=== PATIENT | female | born 1935 | race Caucasian/White ===

== ENCOUNTER 2017-07-01 21:40 | Inpatient (IN) | payer MEDICARE, MEDICAID ==
[~2017-07-01] VITALS: Ht 149.9 cm; Wt 71.2 kg
[2017-07-01 21:40] VITALS: BP 110/58
[2017-07-01] MEDS ORDERED: Albuterol ud Inhalation ONE (21:44)
[2017-07-01] MEDS ORDERED: Ipratropium 0.02% Inh Soln 2.5ml UD ONE (21:44)
[2017-07-01] MEDS ORDERED: Ipratropium 0.02% Inh Soln 2.5ml UD HHN ONE (21:45)
[2017-07-01] MEDS ORDERED: Solu-MEDROL 125mg Inj IVP ONE (21:45)
[2017-07-01] MEDS ORDERED: Albuterol ud Inhalation HHN ONE (21:45)
[2017-07-01 22:05] LABS: MEAN CORPUSCULAR HEMOGLOBIN 27.3 PG (27.0-31.0); MEAN CORPUSCULAR HGB CONC 28.8 G/DL (32.0-36.0); MEAN CORPUSCULAR VOLUME 95 FL (80-99); MEAN PLATELET VOLUME 13.4 FL (6.5-10.1); PLATELET COUNT 160 K/UL (150-450); RED BLOOD COUNT 5.43 M/UL (4.20-5.40); RED CELL DISTRIBUTION WIDTH 17.1 % (11.6-14.8); WHITE BLOOD COUNT 9.6 K/UL (4.8-10.8)
[2017-07-01 22:15] LABS: PROTHROMBIN TIME 10.5 SEC (9.30-11.50)
[2017-07-01 22:24] LABS: REFLEX LACTIC ACID YES OR NO YES
[2017-07-01] MEDS ORDERED: Cefepime HCl 1 GM in D5W 55 ML IVPB ONE (22:30)
[2017-07-01 22:31] LABS: ALANINE AMINOTRANSFERASE 46 U/L (12-78); ALBUMIN/GLOBULIN RATIO 0.6 (1.0-2.7); ANION GAP 17 (5-15); ASPARTATE AMINO TRANSFERASE 27 U/L (15-37); CALCIUM 10.5 MG/DL (8.5-10.1); CARBON DIOXIDE 25 MMOL/L (21-32); CHLORIDE 104 MMOL/L (98-107); CKMB 0.6 NG/ML (0.0-3.6); CREATININE 2.6 MG/DL (0.55-1.30); POTASSIUM 4.3 MMOL/L (3.5-5.1); SODIUM 146 MMOL/L (136-145); TOTAL PROTEIN 8.7 G/DL (6.4-8.2)
[2017-07-01] MEDS ORDERED: Cefepime 1gm vial ONE (22:33)
[2017-07-01 23:08] LABS: KETONES,URINE NEGATIVE (NEGATIVE); LEUKOCYTE ESTERASE ,URINE 2+ (NEGATIVE); NITRITE,URINE NEGATIVE (NEGATIVE); PH,URINE 6 (4.5-8.0); PROTEIN,URINE 2+ (NEGATIVE); UROBILINOGEN,URINE NORMAL MG/DL (0.0-1.0)
[2017-07-01 23:12] LABS: TOTAL CELLS COUNTED 100
[2017-07-01 23:13] LABS: BAND NEUTROPHILS % (MANUAL) 5 % (0-8); BASOPHILS % (MANUAL) 0 % (0-2); EOSINOPHILS % (MANUAL) 0 % (0-3); LYMPHOCYTES % (MANUAL) 12 % (20-45); NEUTROPHILS % (MANUAL) 80 % (45-75); PLATELET ESTIMATE ADEQUATE; PLATELET MORPHOLOGY NORMAL
[2017-07-01 23:14] LABS: ANISOCYTOSIS 1+
[2017-07-01 23:18] LABS: APPEARANCE,URINE CLOUDY
[2017-07-01 23:20] LABS: BACTERIA,URINE MANY /HPF; SQUAMOUS EPITHELIAL CELL,UR FEW /LPF (NONE/OCC); WBC,URINE 40-60 /HPF (0 - 2)
[2017-07-01 23:40] VITALS: BP 129/47
[2017-07-02] VITALS (7 sets, daily range): BP systolic 107–162; BP diastolic 43–89
[2017-07-02] MEDS ORDERED: MULTI-DELYN237 ML GT (00:12)
[2017-07-02] MEDS ORDERED: ALBUTEROL2.5 MG/3 M INH (00:12)
[2017-07-02] MEDS ORDERED: GERI-TUSSI100 MG/5 M GT (00:12)
[2017-07-02] MEDS ORDERED: ASPIRIN81 MG GT (00:12)
[2017-07-02] MEDS ORDERED: ATORVASTATIN CA20 MG GT (00:12)
[2017-07-02] MEDS ORDERED: PRO-STAT LIQUID30 ML GT (00:12)
[2017-07-02] MEDS ORDERED: GLUCERNA1500 ML GT (00:12)
[2017-07-02] MEDS ORDERED: LEVAQUIN250 M1 GT (00:12)
[2017-07-02] MEDS ORDERED: LEVOTHYROXINE75 MCG GT (00:12)
[2017-07-02] MEDS ORDERED: COLACE100 MG GT (00:12)
[2017-07-02] MEDS ORDERED: FLORANEX TABLE1 EAC1 GT (00:12)
[2017-07-02] MEDS ORDERED: MOM30 ML GT (00:12)
[2017-07-02] MEDS ORDERED: TYLENOL325 MG GT (00:12)
[2017-07-02] MEDS ORDERED: CRANBERRY450 M4 GT (00:12)
--- NOTE | 2017-07-02 00:14 | Emergency Room Report ---
History of Present Illness General Chief Complaint: Dyspnea/Respdistress Source: Family Member, Medical Record, EMS Present Illness HPI Is an 81-year-old female with multiple medical problem. She is in a intermediate and is a DO NOT RESUSCITATE. Patient presents with altered mental status and respiratory distress. She was recently treated with antibiotics for pneumonia the chest x-ray. Symptom progressing it worse today. EMS was called. Per EMS he was hypoxic and wheezing. They gave her a breathing treatment and brought her here. History is limited in this patient because of her condition. Allergies: Coded Allergies: IODINE (Verified Allergy, Unknown, 07/01/17) PENICILLINS (Verified Allergy, Unknown, 07/01/17) Patient History Past Medical History: see triage record, old chart reviewed Past Surgical History: other Pertinent Family History: none Social History: Denies: smoking Now: No Immunizations: other Reviewed Nursing Documentation: PMH: Agreed, PSxH: Agreed Nursing Documentation-PMH Past Medical History: No History, Except For Hx COPD: Yes History Of Psychiatric Problem: Yes Hx Cerebrovascular Accident: Yes - Hemiplagia Review of Systems Constitutional: Reports: weakness Eye: Denies: eye pain, blurred vision ENT: Denies: ear pain, nose congestion, throat swelling Respiratory: Reports: shortness of breath, Denies: cough Cardiovascular: Denies: chest pain, palpitations Gastrointestinal: Denies: abdominal pain, diarrhea, nausea, vomiting Musculoskeletal: Denies: back pain, joint pain Skin: Denies: rash Neurological: Denies: headache, numbness Endocrine: Denies: increased thirst, increased urine Hematologic/Lymphatic: Denies: easy bruising All Other Systems: negative except mentioned in HPI Physical Exam Vital Signs Date Time Temp Pulse Resp B/P (MAP) Pulse Ox O2 Delivery O2 Flow Rate FiO2 07/01/17 21:34 103.3 153 34 110/58 99 Simple Mask 8.0 07/01/17 21:47 28 vitals with fever and tachycardia Sp02 EP Interpretation: reviewed, normal General Appearance: moderate distress, lethargic, obese, Chronically Ill Head: normocephalic, atraumatic Eyes: bilateral eye PERRL, bilateral eye EOMI ENT: hearing grossly normal, normal pharynx Neck: full range of motion, supple, no meningismus Respiratory: chest non-tender, respiratory distress, decreased breath sounds, rhonchi, wheezing Cardiovascular #1: regular rate, rhythm, no murmur, tachycardia Gastrointestinal: normal bowel sounds, non tender, no mass, no organomegaly, no bruit, non-distended Musculoskeletal: back normal, normal range of motion Neurologic: grossly normal Skin: warm/dry Procedures Critical Care Time Critical Care Time Critical care is mandated in this patient who presented with severe sepsis from pneumonia and UTI. Patient require my urgent intervention to attenuate the risks of metabolic collapse which may lead to cardiovascular collapse and . Critical care time is 35 minutes excluding any reportable procedure. Critical care time included evaluation, multiple reevaluation, looking at old charts, interpreting laboratory and diagnostic data, discussing case with patient and family and consultants, and charting. Medical Decision Making Diagnostic Impression: Primary Impression: Sepsis Qualified Codes: A41.9 - Sepsis, unspecified organism Additional Impressions: Pneumonia Qualified Codes: J18.9 - Pneumonia, unspecified organism UTI (urinary tract infection) Qualified Codes: N30.00 - Acute cystitis without hematuria Respiratory distress ARF (acute renal failure) Qualified Codes: N17.9 - Acute kidney failure, unspecified Proteinuria Qualified Codes: R80.9 - Proteinuria, unspecified ER Course Presents with rest or distress and has severe sepsis with pneumonia and UTI. Wide spectrum antibiotics initiated. Patient received fluid. Lactic acid improved. I discussed case with Dr. Roberts who will admit. Also discussed case with her daughter Lalitha at [phone]. She is POA. Laboratory Tests Test 07/01/17 21:40 07/01/17 22:05 07/01/17 23:25 White Blood Count 9.6 K/UL (4.8-10.8) Red Blood Count 5.43 M/UL (4.20-5.40) H Hemoglobin 14.9 G/DL (12.0-16.0) Hematocrit 16.0 % (37.0-47.0) L Mean Corpuscular Volume 95 FL (80-99) Mean Corpuscular Hemoglobin 27.3 PG (27.0-31.0) Mean Corpuscular Hemoglobin Concent 28.8 G/DL (32.0-36.0) L Red Cell Distribution Width 17.1 % (11.6-14.8) H Platelet Count 160 K/UL (150-450) Mean Platelet Volume 13.4 FL (6.5-10.1) H Neutrophils (%) (Auto) % (45.0-75.0) Lymphocytes (%) (Auto) % (20.0-45.0) Monocytes (%) (Auto) % (1.0-10.0) Eosinophils (%) (Auto) % (0.0-3.0) Basophils (%) (Auto) % (0.0-2.0) Differential Total Cells Counted 100 Neutrophils % (Manual) 80 % (45-75) H Lymphocytes % (Manual) 12 % (20-45) L Monocytes % (Manual) 3 % (1-10) Eosinophils % (Manual) 0 % (0-3) Basophils % (Manual) 0 % (0-2) Band Neutrophils 5 % (0-8) Platelet Estimate Adequate Platelet Morphology Normal Anisocytosis 1+ Prothrombin Time 10.5 SEC (9.30-11.50) Prothromb Time International Ratio 1.0 (0.9-1.1) Activated Partial Thromboplast Time 26 SEC (23-33) Sodium Level 146 MMOL/L (136-145) H Potassium Level 4.3 MMOL/L (3.5-5.1) Chloride Level 104 MMOL/L (98-107) Carbon Dioxide Level 25 MMOL/L (21-32) Anion Gap 17 (5-15) H Blood Urea Nitrogen 64 mg/dL (7-18) H Creatinine 2.6 MG/DL (0.55-1.30) H Estimat Glomerular Filtration Rate mL/min (>60) Glucose Level 163 MG/DL (74-106) H Lactic Acid Level 7.00 mmol/L (0.66-2.22) H Pending Calcium Level 10.5 MG/DL (8.5-10.1) H Total Bilirubin 0.7 MG/DL (0.2-1.0) Aspartate Amino Transf (AST/SGOT) 27 U/L (15-37) Alanine Aminotransferase (ALT/SGPT) 46 U/L (12-78) Alkaline Phosphatase 102 U/L (46-116) Total Creatine Kinase 47 U/L (26-308) Creatine Kinase MB 0.6 NG/ML (0.0-3.6) Creatine Kinase MB Relative Index 1.2 Troponin I 0.021 ng/mL (0.000-0.056) Pro-B-Type Natriuretic Peptide 2418 (0-125) H Total Protein 8.7 G/DL (6.4-8.2) H Albumin 3.3 G/DL (3.4-5.0) L Globulin 5.4 g/dL Albumin/Globulin Ratio 0.6 (1.0-2.7) L Urine Color Pale yellow Urine Appearance Cloudy Urine pH 6 (4.5-8.0) Urine Specific [place] 1.020 (1.005-1.035) Urine Protein 2+ (NEGATIVE) H Urine Glucose (UA) Negative (NEGATIVE) Urine Ketones Negative (NEGATIVE) Urine Occult Blood 4+ (NEGATIVE) H Urine Nitrite Negative (NEGATIVE) Urine Bilirubin Negative (NEGATIVE) Urine Urobilinogen Normal MG/DL (0.0-1.0) Urine Leukocyte Esterase 2+ (NEGATIVE) H Urine RBC 5-10 /HPF (0 - 2) H Urine WBC 40-60 /HPF (0 - 2) H Urine Squamous Epithelial Cells Few /LPF (NONE/OCC) Urine Bacteria Many /HPF (NONE) H Lab Results Impression labs with elevated lactic acid EKG Diagnostic Results Rate: tachycardiac Rhythm: NSR ST Segments: other - Nonspecific ST changes Rhythm Strip Diag. Results Rhythm Strip Time: 00:12 EP Interpretation: yes Rate: 110 Rhythm: NSR, no PVC's, no ectopy Chest X-Ray Diagnostic Results Chest X-Ray Diagnostic Results : Chest X-Ray Ordered: Yes # of Views/Limited/Complete: 1 View Indication: Shortness of Breath EP Interpretation: Yes Interpretation: no effusion, no pneumothorax, other - Diffuse interstitial markings Impression: Other - b/l interstitial infiltrates. Electronically Signed by: Electronically signed by Arnoldo Fernando MD Last Vital Signs Date Time Temp Pulse Resp B/P (MAP) Pulse Ox O2 Delivery O2 Flow Rate FiO2 07/01/17 23:40 101.1 87 28 129/47 94 Nasal Cannula 3.0 07/01/17 21:48 28 Status: improved Disposition: ADMITTED INPATIENT Condition: Serious Referrals: JANELLE ROBERTS (PCP) ARNOLDO FERNANDO M.D. Jul 02, 2017 00:14
[2017-07-02] MEDS ORDERED: Acetaminophen 650mg/20.3ml GT PRN (03:30)
[2017-07-02] MEDS ORDERED: Milk of Magnesia 30ml Ud GT PRN (03:30)
[2017-07-02] MEDS ORDERED: guaiFENesin 100mg/5ml Liq ud GT PRN (03:30)
[2017-07-02] MEDS ORDERED: Vancomycin 1gm/D5W 275ml IVPB ONE ×2 (04:00)
[2017-07-02] MEDS ORDERED: Vancomycin 1gm inj IVPB ONE (04:14)
[2017-07-02] MEDS ORDERED: Albuterol/Ipratropium 3ml neb HHN SCH (07:00)
[2017-07-02] MEDS ORDERED: Levalbuterol Inh UD 1.25mg/0.5ml HHN ONE (08:30)
[2017-07-02] MEDS ORDERED: Cefepime HCl 1 GM in D5W 55 ML IVPB SCH (09:00)
[2017-07-02] MEDS: Econazole 1% Cream 15gm TOPIC SCH ×2 (09:00→17:44)
[2017-07-02] MEDS ORDERED: Multivitamins W/Minerals 15 ML UDC GT SCH ×2 (09:00)
[2017-07-02] MEDS: Aspirin Baby 81mg GT SCH (10:00)
[2017-07-02] MEDS: Docusate 100mg/10ml Liq GT SCH ×2 (10:00→17:44)
[2017-07-02] MEDS: Solu-MEDROL 40mg Inj IVP SCH ×2 (10:00→17:44)
[2017-07-02] MEDS: Multivitamin w/Minerals tab ORAL SCH (10:01)
[2017-07-02] MEDS: Heparin 5000 units/ml inj SUBQ SCH ×2 (10:02→20:00)
--- NOTE | 2017-07-02 10:21 | Diagnostic Imaging Report ---
Indication: SOB Technique: One view of the chest Comparison: none Findings: Lungs and pleural spaces are clear. The heart size is upper limits normal. Aorta is tortuous and calcified.. Impression: No acute process
[2017-07-02 11:04] LABS: ALANINE AMINOTRANSFERASE 31 U/L (12-78); ALBUMIN/GLOBULIN RATIO 0.5 (1.0-2.7); ANION GAP 11 (5-15); ASPARTATE AMINO TRANSFERASE 18 U/L (15-37); CALCIUM 8.9 MG/DL (8.5-10.1); CARBON DIOXIDE 24 MMOL/L (21-32); CHLORIDE 111 MMOL/L (98-107); CREATININE 2.3 MG/DL (0.55-1.30); POTASSIUM 4.1 MMOL/L (3.5-5.1); SODIUM 146 MMOL/L (136-145); TOTAL PROTEIN 6.6 G/DL (6.4-8.2)
[2017-07-02 12:06] LABS: MEAN CORPUSCULAR HGB CONC 31.9 G/DL (32.0-36.0); MEAN CORPUSCULAR VOLUME 91 FL (80-99); MEAN PLATELET VOLUME 14.9 FL (6.5-10.1); PLATELET COUNT 123 K/UL (150-450); RED BLOOD COUNT 4.06 M/UL (4.20-5.40); RED CELL DISTRIBUTION WIDTH 16.6 % (11.6-14.8)
[2017-07-02 12:11] LABS: WHITE BLOOD COUNT 22.3 K/UL (4.8-10.8)
[2017-07-02 12:15] LABS: REFLEX LACTIC ACID YES OR NO YES
[2017-07-02] MEDS: Levalbuterol Inh UD 1.25mg/0.5ml HHN SCH ×2 (12:43→19:00)
--- NOTE | 2017-07-02 13:48 | Wound Care Consultation ---
Wound Assessment Wound Assessment #1: Wound Number: 1 Wound Present on Admission: Yes New Wound: No Status Change of Wound: No Wound Location Body Site Modif: left, right Wound Location Body Site: breast fold Wound Type: rash - intertrigo Chucky Test: Does not Chucky Percent of Wound Kohler/Red: 100 Wound Drainage Amount: None Wound Drainage Odor: None/Absent Tissue Surrounding Wound: Erythemic Wound General Appearance: Reddened, Open to air Wound Assessment #2: Wound Number: 2 Wound Present on Admission: Yes New Wound: No Status Change of Wound: No Wound Location Body Site Modif: left Wound Location Body Site: axilla Wound Type: rash - intertrigo rash Chucky Test: Does not Chucky Percent of Wound Kohler/Red: 100 Wound Drainage Amount: None Wound Drainage Odor: None/Absent Tissue Surrounding Wound: Erythemic Wound General Appearance: Reddened Wound Assessment #3: Wound Number: 3 Wound Present on Admission: Yes New Wound: No Status Change of Wound: No Wound Location Body Site: perineal area - extending to inguinal area Wound Type: chemical burn - with erosion Chucky Test: Does not Chucky Wound Thickness: Partial Thickness Percent of Wound Kohler/Red: 100 Wound Drainage Amount: None Wound Drainage Odor: None/Absent Tissue Surrounding Wound: Erythemic Wound General Appearance: Reddened Wound Comment #1 Left and right Breast fold intertrigo rash. #2 Left axilla intertrigo rash. #3 perineal extending to inguinal area chemical burn with erosion. Recommendation. -Local wound care as ordered. -Keep clean and dry. -Provide gentle perineal care. -Turn and reposition. -Optimize nutrition. -Avoid shear and friction. -Apply low air loss SPR mattress for skin management and prevention. -Assess and notify MD for any changes of condition to skin noted. KAVITHA PALOMO Jul 02, 2017 13:48
[2017-07-02 13:57] LABS: BAND NEUTROPHILS % (MANUAL) 0 % (0-8); BASOPHILS % (MANUAL) 0 % (0-2); EOSINOPHILS % (MANUAL) 0 % (0-3); LYMPHOCYTES % (MANUAL) 4 % (20-45); NEUTROPHILS % (MANUAL) 93 % (45-75); PLATELET ESTIMATE DECREASED; PLATELET MORPHOLOGY NORMAL; TOTAL CELLS COUNTED 100
[2017-07-02] MEDS ORDERED: Tubing IV Secondary IV ONE (16:46)
[2017-07-02] MEDS ORDERED: D5W 275ml ONE (16:46)
--- NOTE | 2017-07-02 17:45 | History and Physical Report ---
DATE OF ADMISSION: 07/01/2017 CHIEF COMPLAINT: Sepsis, pneumonia, and shock. HISTORY OF PRESENT ILLNESS: The patient is an 81-year-old female, who was transferred from a [place] [facility] facility with complaints of shortness of breath. She was previously diagnosed with pneumonia several weeks ago. She responded to antibiotic therapy. On the day of transfer here, she was hypoxic and short of breath. She was transferred by paramedics. On evaluation in the emergency room, she was noted to be congested with wheezing. She had x-ray evidence of pneumonia. She also had evidence of urinary tract infection. She had elevated lactic acid level. The patient has been pancultured, has been started on broad-spectrum IV antibiotic therapy. She is now admitted for further evaluation and care. PAST MEDICAL HISTORY: Significant for history of stroke, bilateral [id number] amputations, history of hypertension, history of dysphagia, status post G-tube, and history of recurrent urinary tract infections. PAST SURGICAL HISTORY: As above. CURRENT MEDICATIONS: Reconciled and reviewed. ALLERGIES: Include penicillin, iodine, and chocolate. FAMILY HISTORY: Noncontributory. SOCIAL HISTORY: There is no known history of tobacco, ethanol, or drugs. REVIEW OF SYSTEMS: Unobtainable as the patient is confused. PHYSICAL EXAMINATION: VITAL SIGNS: Temperature 100.4, blood pressure 130/58, pulse of 116, and respirations 20. GENERAL: The patient is a well-developed female, in no apparent distress. She is awake and does follow simple commands. HEENT: Her pupils are equal, round, and reactive to light. Oropharynx clear. NECK: Supple. HEART: Regular rate and rhythm. LUNGS: Significant for bilateral rhonchi. ABDOMEN: Soft, nontender, nondistended. EXTREMITIES: Without clubbing, cyanosis, or edema. LABORATORY DATA: Sodium 146, potassium 4.3, BUN 64, and creatinine 2.6. Lactic acid level was 7. Natriuretic peptide level was 2400. Urine showed 40 to 60 WBCs. ASSESSMENT: This is a pleasant female, admitted with complaints of sepsis, pneumonia, lactic acidosis, urinary tract infection, acute renal failure, hypernatremic, dehydration, history of stroke, dysphagia, history of G-tube, history of bilateral [id number] amputations. PLAN: Aggressive fluid resuscitation, broad-spectrum IV antibiotic therapy, respiratory treatments. Continue G-tube feeds. ID, Pulmonary, and Cardiology consultations. Raimundo Clark M.D. DR: KINJAL JOB#: [id number] CC:
--- NOTE | 2017-07-02 18:00 | Consultation ---
DATE OF CONSULTATION: PULMONARY CONSULTATION CONSULTING PHYSICIAN: Clinton Combs M.D. REFERRING PHYSICIAN: Raimundo Clark M.D. REASON FOR CONSULTATION: Pneumonia. HISTORY: This is an 81-year-old female with multiple medical problems. The patient is a [place] [facility] patient. The patient with bilateral above-knee amputation. The patient presents with altered mental status, in respiratory distress. The patient with recent history of pneumonia, seen and evaluated in the emergency room, and was again noted to have pneumonia. The patient admitted. She has been confirmed as a Do Not Resuscitate. The patient is started on IV antibiotics and respiratory therapy, and I was asked to evaluate and recommend further. The patient is a fairly poor historian. Symptoms apparently have been progressive and worsening. The patient has been noted to be increasingly hypoxic and worsening bronchospasms. The patient was given breathing treatments and admitted to the [facility]. PAST MEDICAL HISTORY: Notable for the above. The patient with history of CVA with hemiplegia, bilateral above-knee amputation, COPD, history of psychiatric disorder, history of dementia, history of proteinuria, history of prior sepsis, history of prior respiratory failure, history of prior acute renal failure, and hypothyroidism. MEDICATIONS: Reviewed. ALLERGIES: Reviewed. SOCIAL HISTORY: The patient is a [place] [facility] patient. Apparently fairly bed-bound and debilitated. REVIEW OF SYSTEMS: Difficult to obtain. The patient is unable at this time. PHYSICAL EXAMINATION: GENERAL: A well-developed female, chronically ill. VITAL SIGNS: Blood pressure 125/43, respiratory rate 22, saturations 96% on 3 liters, heart rate 115, and T-max 100.4. HEENT: Negative. Extraocular movements are grossly intact. Pupils are sluggish, but reactive. Oropharynx with noted gag, moist mucous membranes. NECK: Supple and short. LUNGS: With scattered rhonchi and expiratory wheezes. CARDIAC: Normal S1, S2. Tachycardic without murmurs. Somewhat distant. ABDOMEN: Soft, obese, and nontender. EXTREMITIES: Bilateral above-knee amputations. NEUROLOGIC: Difficult to fully assess and nonverbal. At this time, the patient does have some focality. No clear facial droop. LABORATORY DATA: Reviewed. White count 9.6, hemoglobin is 14.9, and platelets are 160,000. Chemistries - sodium 146, BUN 64, creatinine 2.6, blood sugar is 163, calcium 10.5, albumin is 3.3, and INR is 1.0. Chest x-ray with noted infiltrates. IMPRESSION: 1. Pneumonia. 2. Respiratory insufficiency. 3. Shortness of breath. 4. Chronic obstructive pulmonary disease. 5. Sinus tachycardia. 6. Fever. 7. Possible sepsis. 8. Possible acute cystitis. 9. Acute on chronic renal failure likely. 10. Hyperglycemia, possible diabetes. 11. Hypothyroidism. RECOMMENDATION: Respiratory care. Monitor for change. IV Solu-Medrol for noted bronchospasm, respiratory therapy, and IV hydration with caution. Followup x-ray with imaging. Obtain swallow evaluation. DVT prophylaxis and stabilize. Discharge back to the senior care facility once improved. Clinton Combs M.D. DR: LINDA JOB#: [id number] CC:
[2017-07-02] MEDS: Lactobacillus-GG tablet GT SCH (21:05)
[2017-07-03] VITALS: BP 146/65
[2017-07-03] MEDS: Solu-MEDROL 40mg Inj IVP SCH ×3 (00:28→18:32)
[2017-07-03 04:00] VITALS: BP 139/77
[2017-07-03] MEDS: Levalbuterol Inh UD 1.25mg/0.5ml HHN SCH ×3 (07:25→19:20)
--- NOTE | 2017-07-03 07:49 | Pulmonology Progress Note ---
Assessment/Plan Assessment/Plan IMPRESSION: 1. Pneumonia. 2. Respiratory insufficiency. 3. Shortness of breath. 4. Chronic obstructive pulmonary disease. 5. Sinus tachycardia. 6. Fever. 7. Possible sepsis. 8. Possible acute cystitis. 9. Acute on chronic renal failure likely. 10. Hyperglycemia, possible diabetes. 11. Hypothyroidism. PLAN care noted duplex negative monitor labs monitor imaging antibiotics IV follow up cultures impression, plan, and exam edited and reviewed in detail care discussed with RN Subjective ROS Limited/Unobtainable: Yes Allergies: Coded Allergies: CHOCOLATE FLAVOR (Verified Allergy, Mild, 07/02/17) IODINE (Verified Allergy, Unknown, 07/01/17) PENICILLINS (Verified Allergy, Unknown, 07/01/17) Subjective some confusion on oxygen no distress Objective Last 24 Hour Vital Signs Date Time Temp Pulse Resp B/P (MAP) Pulse Ox O2 Delivery O2 Flow Rate FiO2 07/03/17 07:34 Nasal Cannula 2.0 28 07/03/17 07:31 123 22 99 Nasal Cannula 2.0 28 07/03/17 07:20 118 23 92 Room Air 21 07/03/17 07:18 92 Room Air 21 07/03/17 04:00 107 07/03/17 04:00 99.9 114 20 139/77 100 Nasal Cannula 3.0 32 07/03/17 01:30 Nasal Cannula 3.0 32 07/03/17 01:30 Nasal Cannula 3.0 32 07/03/17 00:00 108 07/03/17 00:00 99.1 116 20 146/65 100 Nasal Cannula 3.0 32 07/02/17 23:30 99.1 07/02/17 20:00 114 07/02/17 20:00 Nasal Cannula 3.0 32 07/02/17 20:00 Nasal Cannula 3.0 32 07/02/17 20:00 97.4 112 18 146/65 100 Nasal Cannula 3.0 28 07/02/17 19:30 92 Nasal Cannula 3.0 32 07/02/17 19:30 Nasal Cannula 3.0 32 07/02/17 16:00 97.4 125 17 118/89 100 Nasal Cannula 3.0 28 07/02/17 16:00 111 07/02/17 12:53 113 20 96 Nasal Cannula 3.0 32 07/02/17 12:43 110 22 95 Nasal Cannula 3.0 32 07/02/17 12:00 98.4 109 20 162/88 100 Nasal Cannula 3.0 28 07/02/17 12:00 110 07/02/17 08:00 120 07/02/17 08:00 97.7 119 20 107/63 93 Nasal Cannula 3.0 28 Objective GENERAL: A well-developed female, chronically ill. HEENT: Negative. Extraocular movements are grossly intact. Pupils are sluggish, but reactive. Oropharynx with noted gag, moist mucous membranes. NECK: Supple and short. LUNGS: With some rhonchi and expiratory wheezes. CARDIAC: Normal S1, S2. Tachycardic without murmurs. Somewhat distant. ABDOMEN: Soft, obese, and nontender. no HSM EXTREMITIES: Bilateral above-knee amputations. NEUROLOGIC: nonverbal. At this time, the patient does have some focality. No clear facial droop. Microbiology Date/Time Source Procedure Growth Status 07/01/17 21:40 Blood Blood Culture - Preliminary NO GROWTH AFTER 24 HOURS Resulted 07/01/17 21:25 Blood Blood Culture - Preliminary NO GROWTH AFTER 24 HOURS Resulted Laboratory Tests 07/02/17 10:15: Sodium Level 146H, Potassium Level 4.1, Chloride Level 111H, Carbon Dioxide Level 24, Anion Gap 11, Blood Urea Nitrogen 60H, Creatinine 2.3H, Estimat Glomerular Filtration Rate , Glucose Level 240H, Lactic Acid Level 3.30H, Calcium Level 8.9, Total Bilirubin 0.3, Aspartate Amino Transf (AST/SGOT) 18, Alanine Aminotransferase (ALT/SGPT) 31, Alkaline Phosphatase 70, Pro-B-Type Natriuretic Peptide 73925O, Total Protein 6.6, Albumin 2.3L, Globulin 4.3, Albumin/Globulin Ratio 0.5L 07/02/17 11:45: White Blood Count 22.3#*H, Red Blood Count 4.06L, Hemoglobin 11.7L, Hematocrit 36.8#L, Mean Corpuscular Volume 91, Mean Corpuscular Hemoglobin 29.0, Mean Corpuscular Hemoglobin Concent 31.9L, Red Cell Distribution Width 16.6H, Platelet Count 123L, Mean Platelet Volume 14.9H, Neutrophils (%) (Auto) , Lymphocytes (%) (Auto) , Monocytes (%) (Auto) , Eosinophils (%) (Auto) , Basophils (%) (Auto) , Differential Total Cells Counted 100, Neutrophils % ( Manual) 93H, Lymphocytes % (Manual) 4L, Monocytes % (Manual) 3, Eosinophils % ( Manual) 0, Basophils % (Manual) 0, Band Neutrophils 0, Platelet Estimate DecreasedL, Platelet Morphology Normal 07/03/17 01:00: Stool Occult Blood [Pending] 07/03/17 04:25: Random Vancomycin Level 10.7 Current Medications Medications (Trade) Dose Ordered Sig/Rick Route PRN Reason Start Time Stop Time Status Last Admin Dose Admin Acetaminophen (Tylenol) 650 mg EVERY 6 HOURS PRN GT Mild Pain/Temp > 100.5 07/02/17 03:30 08/01/17 03:29 07/02/17 23:00 Aspirin (ASA) 81 mg DAILY GT 07/02/17 09:00 08/01/17 08:59 07/02/17 10:00 Atorvastatin Calcium (Lipitor) 10 mg BEDTIME GT 07/02/17 21:00 08/01/17 20:59 07/02/17 20:00 Cefepime HCl 1 gm/ Dextrose 55 ml @ 110 mls/hr Q24H IVPB 07/03/17 09:00 07/09/17 08:59 Docusate Sodium (Colace) 100 mg TWICE A DAY GT 07/02/17 09:00 08/01/17 08:59 07/02/17 17:44 Econazole Nitrate (Spectazole) 1 applic BID TOPIC 07/02/17 09:00 08/01/17 08:59 07/02/17 17:44 Guaifenesin (Robitussin) 200 mg Q4H PRN GT For Cough 07/02/17 03:30 08/01/17 03:29 Heparin Sodium (Porcine) (Heparin 5000 units/ml) 5,000 units EVERY 12 HOURS SUBQ 07/02/17 09:00 08/01/17 08:59 07/02/17 10:02 Lactobacillus Acidophilus (Culturelle) 1 tab TWICE A DAY GT 07/02/17 21:00 08/01/17 20:59 07/02/17 21:05 Levalbuterol HCl (Xopenex) 1.25 mg TIDRT HHN 07/02/17 08:30 07/07/17 08:29 07/03/17 07:25 Levothyroxine Sodium (Synthroid) 75 mcg DAILY@0630 GT 07/02/17 06:30 08/01/17 06:29 07/03/17 06:06 Magnesium Hydroxide (Mom) 30 ml DAILYPRN PRN GT Constipation 07/02/17 03:30 08/01/17 03:29 Methylprednisolone Sodium Succinate (Solu-MEDROL) 40 mg Q8H IVP 07/02/17 09:00 08/01/17 08:59 07/03/17 00:28 Multivitamins Therapeutic (Therapeutic Multivitamin) 1 ea DAILY ORAL 07/02/17 10:00 08/01/17 09:59 07/02/17 10:01 Ondansetron HCl (Zofran) 4 mg Q4H PRN IVP Nausea & Vomiting 07/02/17 20:30 08/01/17 20:29 Sodium Chloride 1,000 ml @ 100 mls/hr Q10H IV 07/02/17 09:00 08/01/17 08:59 07/03/17 04:19 Vancomycin HCl (Vanco rx to dose) 1 ea DAILY PRN MISC Per rx protocol 07/02/17 03:45 08/01/17 03:44 Vancomycin/Sodium Chloride 250 ml @ 166.667 mls/hr ONCE ONCE IVPB 07/03/17 08:30 07/03/17 09:59 SELVIN SORIANO Jul 03, 2017 07:49
[2017-07-03 08:29] VITALS: BP 174/96
[2017-07-03] MEDS ORDERED: Vancomycin 750mg/NS 250ml IVPB ONE (08:30)
--- NOTE | 2017-07-03 08:46 | Consultation ---
DATE OF CONSULTATION: 07/01/2017 CARDIOLOGY CONSULTATION REQUESTING PHYSICIAN: Raimundo Clark M.D. REASON FOR CONSULTATION: Severe sepsis, lactic acidosis, and dehydration. HISTORY OF PRESENT ILLNESS: This is a debilitated 81-year-old female. She resides in a sn[facility] facility. She has been on antibiotics at the facility for healthcare-acquired pneumonia. She developed worsening lethargy, altered mentation, and respiratory distress prompting transfer to the hospital this evening. She was notably hypoxic and wheezing and febrile to 103.3. PAST MEDICAL HISTORY: Includes hypertension, bilateral AKA, cerebrovascular disease with cerebrovascular accident, COPD, hypertension, and arteriosclerotic cardiovascular disease. ALLERGIES: Include penicillin and iodine. MEDICATIONS: Prior to admission, reviewed and reconciled. FAMILY HISTORY: Noncontributory. REVIEW OF SYSTEMS: Cannot be reliably obtained from the patient. Pertinent data from prior records reviewed and outlined above. PHYSICAL EXAMINATION: GENERAL: Withdrawn and lethargic. VITAL SIGNS: Blood pressure 110/58, heart rate 153, respiratory rate 34, and temperature 103.3. HEENT: Dry mucous membranes. LUNGS: Coarse breath sounds with rhonchi. HEART: Regular rhythm. Rapid rate. Normal S1 and S2 with a fourth heart sound. ABDOMEN: Soft. No guarding or rebound. EXTREMITIES: With bilateral AKA stump. SKIN: Intact. LABORATORY AND DIAGNOSTIC DATA: White count 9.6 and hemoglobin 14.9. Lactic acid is 7. Sodium 146, potassium 4.3, bicarbonate 25, BUN 64, and creatinine 2.6. Troponin 0.021. Pro-natriuretic peptide 2400. Albumin 3.3. Chest x-ray with bilateral infiltrates. IMPRESSION: 1. Severe sepsis. 2. Acute myocardial ischemia. 3. Urinary tract infection. 4. Healthcare-acquired pneumonia. 5. Sinus tachycardia. 6. Hypernatremia. 7. Dehydration. 8. Hypovolemia. 9. Acute on chronic renal failure. 10. Acute on chronic diastolic congestive heart failure. 11. Mild protein-calorie malnutrition. 12. Lactic acidosis. PLAN: 1. [facility] level of care. 2. Broad-spectrum antibiotics following panculture. 3. Hypotonic IV fluid resuscitation. 4. Serial lactic acid levels. 5. DVT prophylaxis. 6. Antipyretics. 7. Nutritional support. 8. Conservative management with regard to cardiovascular parameters in this age group and clinical setting with poor performance status. Jl Szymanski M.D. DR: KRISHNA JOB#: [id number] CC: MALICK
[2017-07-03] MEDS: Heparin 5000 units/ml inj SUBQ SCH ×2 (09:00→21:43)
[2017-07-03] MEDS: Cefepime HCl 1 GM in D5W 55 ML IVPB SCH (09:00)
[2017-07-03] MEDS: Multivitamin w/Minerals tab ORAL SCH (09:28)
[2017-07-03] MEDS: Docusate 100mg/10ml Liq GT SCH ×2 (09:28→18:31)
[2017-07-03] MEDS: Aspirin Baby 81mg GT SCH (09:29)
[2017-07-03] MEDS: Lactobacillus-GG tablet GT SCH ×2 (09:29→18:32)
[2017-07-03] MEDS: Econazole 1% Cream 15gm TOPIC SCH ×2 (09:34→18:32)
--- NOTE | 2017-07-03 09:56 | General Progress Note ---
Assessment/Plan Status: stable Assessment/Plan wean steroids iv abx id eval pending follow up cultures gt feeds resp rx- on xopenex hydration d/w dtr x 5 mins Subjective ROS Limited/Unobtainable: No Constitutional: Reports: malaise, weakness HEENT: Reports: no symptoms Cardiovascular: Reports: no symptoms Respiratory: Reports: cough, shortness of breath Gastrointestinal/Abdominal: Reports: difficulty swallowing Genitourinary: Reports: no symptoms Neurologic/Psychiatric: Reports: pre-existing deficit Endocrine: Reports: no symptoms Hematologic/Lymphatic: Reports: anemia Allergies: Coded Allergies: CHOCOLATE FLAVOR (Verified Allergy, Mild, 07/02/17) IODINE (Verified Allergy, Unknown, 07/01/17) PENICILLINS (Verified Allergy, Unknown, 07/01/17) All Systems: reviewed and negative except above Objective Last 24 Hour Vital Signs Date Time Temp Pulse Resp B/P (MAP) Pulse Ox O2 Delivery O2 Flow Rate FiO2 07/03/17 08:29 98.1 122 20 174/96 96 Nasal Cannula 2.0 07/03/17 07:34 Nasal Cannula 2.0 28 07/03/17 07:31 123 22 99 Nasal Cannula 2.0 28 07/03/17 07:20 118 23 92 Room Air 21 07/03/17 07:18 92 Room Air 21 07/03/17 04:00 107 07/03/17 04:00 99.9 114 20 139/77 100 Nasal Cannula 3.0 32 07/03/17 01:30 Nasal Cannula 3.0 32 07/03/17 01:30 Nasal Cannula 3.0 32 07/03/17 00:00 108 07/03/17 00:00 99.1 116 20 146/65 100 Nasal Cannula 3.0 32 07/02/17 23:30 99.1 07/02/17 20:00 114 07/02/17 20:00 Nasal Cannula 3.0 32 07/02/17 20:00 Nasal Cannula 3.0 32 07/02/17 20:00 97.4 112 18 146/65 100 Nasal Cannula 3.0 28 07/02/17 19:30 92 Nasal Cannula 3.0 32 07/02/17 19:30 Nasal Cannula 3.0 32 07/02/17 16:00 97.4 125 17 118/89 100 Nasal Cannula 3.0 28 07/02/17 16:00 111 10/16/17 12:53 113 20 96 Nasal Cannula 3.0 32 07/02/17 12:43 110 22 95 Nasal Cannula 3.0 32 07/02/17 12:00 98.4 109 20 162/88 100 Nasal Cannula 3.0 28 07/02/17 12:00 110 Laboratory Tests 07/02/17 10:15: Sodium Level 146H, Potassium Level 4.1, Chloride Level 111H, Carbon Dioxide Level 24, Anion Gap 11, Blood Urea Nitrogen 60H, Creatinine 2.3H, Estimat Glomerular Filtration Rate , Glucose Level 240H, Lactic Acid Level 3.30H, Calcium Level 8.9, Total Bilirubin 0.3, Aspartate Amino Transf (AST/SGOT) 18, Alanine Aminotransferase (ALT/SGPT) 31, Alkaline Phosphatase 70, Pro-B-Type Natriuretic Peptide 83459L, Total Protein 6.6, Albumin 2.3L, Globulin 4.3, Albumin/Globulin Ratio 0.5L 07/02/17 11:45: White Blood Count 22.3#*H, Red Blood Count 4.06L, Hemoglobin 11.7L, Hematocrit 36.8#L, Mean Corpuscular Volume 91, Mean Corpuscular Hemoglobin 29.0, Mean Corpuscular Hemoglobin Concent 31.9L, Red Cell Distribution Width 16.6H, Platelet Count 123L, Mean Platelet Volume 14.9H, Neutrophils (%) (Auto) , Lymphocytes (%) (Auto) , Monocytes (%) (Auto) , Eosinophils (%) (Auto) , Basophils (%) (Auto) , Differential Total Cells Counted 100, Neutrophils % ( Manual) 93H, Lymphocytes % (Manual) 4L, Monocytes % (Manual) 3, Eosinophils % ( Manual) 0, Basophils % (Manual) 0, Band Neutrophils 0, Platelet Estimate DecreasedL, Platelet Morphology Normal 07/03/17 01:00: Stool Occult Blood [Pending] 07/03/17 04:25: Random Vancomycin Level 10.7 Height (Feet): 4 Height (Inches): 11.00 Weight (Pounds): 157 General Appearance: WD/WN, alert Neck: supple Cardiovascular: normal rate Respiratory/Chest: lungs clear, normal breath sounds, no respiratory distress Abdomen: normal bowel sounds, non tender, soft, no organomegaly Edema: no edema noted Arm (L), no edema noted Arm (R), no edema noted Leg (L), no edema noted Leg (R), no edema noted Pedal (L), no edema noted Pedal (R), no edema noted Generalized JANELLE ROBERTS Jul 03, 2017 09:56
[2017-07-03 10:00] LABS: MEAN CORPUSCULAR HGB CONC 31.9 G/DL (32.0-36.0); MEAN CORPUSCULAR VOLUME 91 FL (80-99); MEAN PLATELET VOLUME 12.9 FL (6.5-10.1); PLATELET COUNT 130 K/UL (150-450); RED BLOOD COUNT 3.94 M/UL (4.20-5.40); RED CELL DISTRIBUTION WIDTH 16.5 % (11.6-14.8)
[2017-07-03 10:03] LABS: WHITE BLOOD COUNT 22.3 K/UL (4.8-10.8)
[2017-07-03 10:25] LABS: ALANINE AMINOTRANSFERASE 33 U/L (12-78); ALBUMIN/GLOBULIN RATIO 0.6 (1.0-2.7); ANION GAP 13 mmol/L (5-15); ASPARTATE AMINO TRANSFERASE 28 U/L (15-37); CALCIUM 8.7 MG/DL (8.5-10.1); CARBON DIOXIDE 22 MMOL/L (21-32); CHLORIDE 109 MMOL/L (98-107); CREATININE 1.9 MG/DL (0.55-1.30); POTASSIUM 3.9 MMOL/L (3.5-5.1); SODIUM 143 MMOL/L (136-145); TOTAL PROTEIN 5.9 G/DL (6.4-8.2)
[2017-07-03 11:25] LABS: BAND NEUTROPHILS % (MANUAL) 5 % (0-8); BASOPHILS % (MANUAL) 0 % (0-2); EOSINOPHILS % (MANUAL) 0 % (0-3); LYMPHOCYTES % (MANUAL) 6 % (20-45); NEUTROPHILS % (MANUAL) 86 % (45-75); PLATELET ESTIMATE DECREASED; PLATELET MORPHOLOGY NORMAL; TOTAL CELLS COUNTED 100
[2017-07-03 11:26] LABS: ANISOCYTOSIS 1+
[2017-07-03 11:44] VITALS: BP 141/70
--- NOTE | 2017-07-03 13:13 | Diagnostic Imaging Report ---
Indication: Dyspnea Comparison: 1517 A single view chest radiograph was obtained. Findings: No definite infiltrate or pulmonary vascular congestion identified. Mild right basal atelectasis demonstrated. The heart is enlarged. The aorta is mildly enlarged consistent with atherosclerotic vascular disease. The bones are osteopenic. Impression: No acute disease
[2017-07-03] MEDS ORDERED: 1/2 NS 1000ml IV ONE (14:26)
[2017-07-03] MEDS ORDERED: Tubing IV Secondary IV ONE (14:26)
[2017-07-03 15:30] VITALS: BP 126/67
--- NOTE | 2017-07-03 16:45 | Progress Note ---
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 Sinus rhythm with arrhythmia noted. The patient remains congested. Hypoxia has improved. She is less short of breath. She remains on broad-spectrum antibiotics and hypotonic IV fluids. OBJECTIVE: VITAL SIGNS: Blood pressure 118/89, pulse 125, respiratory rate 17, afebrile, and T-max is 100.4. HEENT: Temporal wasting. Dry mucous membranes. LUNGS: With coarse rhonchi. HEART: Regular rhythm. Rapid rate. Normal S1 and S2 with a 4th heart sound. ABDOMEN: Soft and nontender. EXTREMITIES: With bilateral AKA stump. LABORATORY DATA: White count 22 and hemoglobin 11. BUN 60, creatinine 2.3, sodium 146, potassium 4.1, and chloride 111. Lactic acid now down to 3.3 from a peak of 7. Pro-natriuretic peptide is over 10,000. Albumin 2.3. IMPRESSION: 1. Critical condition, guarded prognosis. 2. Severe sepsis. 3. Lactic acidosis. 4. Acute on chronic diastolic congestive heart failure. 5. Acute on chronic renal failure. 6. Hyperchloremia. 7. Hypernatremia. 8. Hypovolemia. 9. Dehydration. 10. Healthcare-acquired pneumonia. 11. Urinary tract infection. 12. Severe leukocytosis. 13. History of bilateral amputations of the lower extremities. 14. Arteriosclerotic cardiovascular disease. PLAN: 1. Respiratory hygiene. 2. Broad-spectrum antibiotics. 3. Hypotonic IV fluids. 4. Cardiac monitoring. 5. DVT prophylaxis. 6. Stress ulcer prophylaxis. 7. Repeat lactic acid levels. 8. We will follow. Jl Szymanski M.D. DR: KRISHNA JOB#: [id number] CC:
--- NOTE | 2017-07-03 17:00 | Consultation ---
DATE OF CONSULTATION: 07/03/2017 INFECTIOUS DISEASES CONSULTATION REFERRING PHYSICIAN: Raimundo Clark M.D. REASON FOR CONSULTATION: Urinary tract infection. HISTORY OF PRESENTING ILLNESS: This is an 81-year-old lady with history of hypertension, CVA, bilateral [id number] amputation, who came in from a [place] [facility] facility with worsening of altered mental status, lethargicness and respiratory distress as well as fevers. She was being treated for pneumonia and an Infectious Diseases consultation has been obtained for urinary tract infection and pneumonia. PAST MEDICAL HISTORY: 1. History of hypertension. 2. CVA. 3. COPD. 4. Hypertension. 5. Atherosclerotic cardiovascular disease. 6. Status post bilateral AKA. 7. Status post G-tube placement. MEDICATIONS: As an inpatient, she is on cefepime, Lipitor, Lactobacillus, Zofran, multivitamin, aspirin, docusate, subcutaneous heparin, fluconazole, Solu-Medrol, Xopenex, Synthroid, IV vancomycin, Tylenol, guaifenesin, and milk of magnesia. ALLERGIES: 1. Penicillin. 2. Iodine. 3. Chocolate flavor. SOCIAL HISTORY: Unknown. FAMILY HISTORY: Unknown. REVIEW OF SYSTEMS: Unable to obtain currently. PHYSICAL EXAMINATION: VITAL SIGNS: Temperature of 98.1 degrees, T-max of 99.9 degrees, pulse of 122, respiratory rate of 20, blood pressure 174/96, and O2 saturation of 96%. HEENT: Pupils equally reactive to light and accommodation. Mouth appears clean without thrush. NECK: Supple. No adenopathy. No JVD. CARDIOVASCULAR: Regular rate and rhythm. No murmurs. LUNGS: Clear to auscultation bilaterally. No crackles. No wheezes. ABDOMEN: Soft and nontender. No organomegaly. G-tube site appears clean. EXTREMITIES: No cyanosis, no clubbing, and no edema. Bilateral stumps are clean. LABORATORY AND DIAGNOSTIC DATA: White count of 22.3, hemoglobin 11.4, hematocrit 35.9, MCV 91, and platelet count of 130. Sodium 143, potassium 3.9, chloride 109, bicarbonate 22, BUN 57, creatinine 1.9 and glucose 164. Calcium 8.7. Total bilirubin 0.4. AST 28, ALT 33, and alkaline phosphatase 71. Total protein 5.9. Albumin 2.3. UA is showing 40 to 60 white cells, leukocyte esterase 2+, and nitrite negative. Urine culture is growing gram-negative rods. On 07/01/2017, blood cultures are negative. Chest x-ray is showing no acute process. ASSESSMENT: 1. This is an 81-year-old lady with history of cerebrovascular accident, hypertension, and bilateral above-knee amputation who comes in and is found to have a gram-negative urinary tract infection. 2. Renal failure is improving. 3. Hypertension. PLAN: 1. Continue cefepime. 2. Discontinue vancomycin. 3. We will follow up cultures and adjust antibiotics accordingly. I would like to thank, Dr. Clark, for this consultation. Laurent Hunt M.D. DR: RUFINO JOB#: [id number] CC: Raimundo Clark M.D.
[2017-07-03 20:29] VITALS: BP 143/72
[2017-07-04 00:23] VITALS: BP 148/78
--- NOTE | 2017-07-04 01:00 | Progress Note ---
DATE: 07/03/2017 CARDIOLOGY PROGRESS NOTE SUBJECTIVE: The patient is tolerating feedings by G-tube. She is less congested. She continues to have IV fluids. Monitor continues to renal sinus tachycardia. OBJECTIVE: VITAL SIGNS: Blood pressure is labile with ranging from 118/89 to 174/96, heart rate 107 to 123, respiratory 20 to 23 and the patient's temperature max is 99.1 degrees. LUNGS: Coarse breath sounds. Scattered rhonchi. HEART: Regular rhythm. Rapid rate. Normal S1 and S2. ABDOMEN: Soft. No guarding or rebound. EXTREMITIES: With bilateral AKA stumps. LABORATORY AND DIAGNOSTIC DATA: White count 22.3 and hemoglobin 11.4. Potassium 3.9, BUN 57, and creatinine 1.9. Albumin 2.3. Hemoccult blood is negative. Urine culture is positive for gram-negative bacillus. Nasal swab was positive for methicillin resistant Staphylococcus aureus. Chest x-ray today revealed no acute process. IMPRESSION: 1. Sepsis due to gram-negative urinary tract infection. 2. Hypovolemia and dehydration. 3. Acute renal failure secondary to above. 4. Labile hypertension. 5. Bilateral above-knee amputations. 6. Cerebrovascular disease with dementia. 7. Dysphagia with gastrostomy tube. 8. Sinus tachycardia secondary to acute infection and hypovolemia. 9. 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 10. Acute respiratory insufficiency. 11. Severe protein-calorie malnutrition. PLAN: 1. Antibiotics per Infectious Diseases showroom sales consultant. Hydration with IV fluids. 2. Nutritional support by feeding tube. 3. Respiratory hygiene. 4. DVT prophylaxis. 5. Skin care. Jl Szymanski M.D. DR: HAYDEN JOB#: [id number] CC:
[2017-07-04] MEDS: Solu-MEDROL 40mg Inj IVP SCH ×3 (01:21→20:48)
[2017-07-04 04:00] VITALS: BP 150/82
[2017-07-04] MEDS: Levalbuterol Inh UD 1.25mg/0.5ml HHN SCH ×3 (07:30→20:19)
--- NOTE | 2017-07-04 08:00 | General Progress Note ---
Assessment/Plan Problem List: (1) Respiratory distress ICD Codes: R06.00 - Dyspnea, unspecified SNOMED: 101196877 (2) Proteinuria ICD Codes: R80.9 - Proteinuria, unspecified SNOMED: 78185613 Qualifiers: Qualified Codes: R80.9 - Proteinuria, unspecified (3) Sepsis ICD Codes: A41.9 - Sepsis, unspecified organism SNOMED: 75087782 Qualifiers: Qualified Codes: A41.9 - Sepsis, unspecified organism (4) UTI (urinary tract infection) ICD Codes: N39.0 - Urinary tract infection, site not specified SNOMED: 83635143 Qualifiers: Qualified Codes: N30.00 - Acute cystitis without hematuria (5) ARF (acute renal failure) ICD Codes: N17.9 - Acute kidney failure, unspecified SNOMED: 06659483 Qualifiers: Qualified Codes: N17.9 - Acute kidney failure, unspecified (6) Pneumonia ICD Codes: J18.9 - Pneumonia, unspecified organism SNOMED: 331602601 Qualifiers: Qualified Codes: J18.9 - Pneumonia, unspecified organism Status: stable, progressing Assessment/Plan wean steroids iv abx per id id eval appreciated follow up cultures gt feeds resp rx- on xopenex hydration- consider dc ivf if renal fxn better- labs still pending d/w dtr x 5 mins Subjective ROS Limited/Unobtainable: No Constitutional: Reports: malaise, weakness HEENT: Reports: no symptoms Cardiovascular: Reports: chest pain Respiratory: Reports: cough, shortness of breath, wheezing Gastrointestinal/Abdominal: Reports: difficulty swallowing Genitourinary: Reports: no symptoms Neurologic/Psychiatric: Reports: pre-existing deficit Endocrine: Reports: no symptoms Hematologic/Lymphatic: Reports: no symptoms Allergies: Coded Allergies: CHOCOLATE FLAVOR (Verified Allergy, Mild, 07/02/17) IODINE (Verified Allergy, Unknown, 07/01/17) PENICILLINS (Verified Allergy, Unknown, 07/01/17) All Systems: reviewed and negative except above Subjective no events. better. less congested. no fever or chills. tolerating feeds. Objective Last 24 Hour Vital Signs Date Time Temp Pulse Resp B/P (MAP) Pulse Ox O2 Delivery O2 Flow Rate FiO2 07/04/17 04:00 97.8 101 21 150/82 94 Nasal Cannula 2.0 07/04/17 04:00 82 07/04/17 00:23 97.9 105 18 148/78 95 Nasal Cannula 2.0 07/04/17 00:00 89 07/03/17 20:29 97.9 100 19 143/72 95 Nasal Cannula 2.0 07/03/17 20:00 106 07/03/17 19:30 107 20 98 Nasal Cannula 2.0 28 07/03/17 19:21 95 Nasal Cannula 2.0 28 07/03/17 19:21 105 18 95 Nasal Cannula 2.0 28 07/03/17 19:21 Nasal Cannula 2.0 28 07/03/17 16:00 88 07/03/17 15:30 97.9 96 20 126/67 99 Nasal Cannula 2.0 07/03/17 13:38 101 20 99 Nasal Cannula 2.0 28 07/03/17 13:29 95 20 98 Nasal Cannula 2.0 28 07/03/17 12:00 101 07/03/17 11:44 98.1 99 20 141/70 95 Nasal Cannula 2.0 07/03/17 08:29 98.1 122 20 174/96 96 Nasal Cannula 2.0 07/03/17 08:00 124 Height (Feet): 4 Height (Inches): 11.00 Weight (Pounds): 157 Objective General Appearance: WD/WN, alert Neck: supple Cardiovascular: normal rate Respiratory/Chest: lungs clear, normal breath sounds, no respiratory distress Abdomen: normal bowel sounds, non tender, soft, no organomegaly Edema: no edema noted Arm (L), no edema noted Arm (R), no edema noted Leg (L), no edema noted Leg (R), no edema noted Pedal (L), no edema noted Pedal (R), no edema noted Generalized JANELLE ORBERTS Jul 04, 2017 08:00
[2017-07-04 08:13] VITALS: BP 146/78
[2017-07-04] MEDS: Multivitamin w/Minerals tab ORAL SCH (08:54)
[2017-07-04] MEDS: Lactobacillus-GG tablet GT SCH ×2 (08:55→18:15)
[2017-07-04] MEDS: Cefepime HCl 1 GM in D5W 55 ML IVPB SCH (08:55)
[2017-07-04] MEDS: Aspirin Baby 81mg GT SCH (08:55)
[2017-07-04] MEDS: Docusate 100mg/10ml Liq GT SCH ×2 (08:55→18:15)
[2017-07-04] MEDS: Heparin 5000 units/ml inj SUBQ SCH ×2 (08:58→20:50)
[2017-07-04] MEDS: Econazole 1% Cream 15gm TOPIC SCH ×2 (08:59→18:16)
--- NOTE | 2017-07-04 11:41 | Infectious Diseases Prog Note ---
Assessment/Plan Assessment/Plan antibiotics : vancomycin iv, cefepime A 1. e.coli UTI 2. gram negative sepsis 3. leucocytosis 4. renal failure improving 5. HTN 6. 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 d/c vancomycin iv, cefepime 2. start meropenem 3. will follow up cultures Subjective ROS Limited/Unobtainable: Yes Allergies: Coded Allergies: CHOCOLATE FLAVOR (Verified Allergy, Mild, 07/02/17) IODINE (Verified Allergy, Unknown, 07/01/17) PENICILLINS (Verified Allergy, Unknown, 07/01/17) Objective Vital Signs Last 24 Hour Vital Signs Date Time Temp Pulse Resp B/P (MAP) Pulse Ox O2 Delivery O2 Flow Rate FiO2 07/04/17 08:13 97.7 97 20 146/78 96 Nasal Cannula 2.0 07/04/17 04:00 97.8 101 21 150/82 94 Nasal Cannula 2.0 07/04/17 04:00 82 07/04/17 00:23 97.9 105 18 148/78 95 Nasal Cannula 2.0 07/04/17 00:00 89 07/03/17 20:29 97.9 100 19 143/72 95 Nasal Cannula 2.0 07/03/17 20:00 106 07/03/17 19:30 107 20 98 Nasal Cannula 2.0 28 07/03/17 19:21 95 Nasal Cannula 2.0 28 07/03/17 19:21 105 18 95 Nasal Cannula 2.0 28 07/03/17 19:21 Nasal Cannula 2.0 28 07/03/17 16:00 88 07/03/17 15:30 97.9 96 20 126/67 99 Nasal Cannula 2.0 07/03/17 13:38 101 20 99 Nasal Cannula 2.0 28 07/03/17 13:29 95 20 98 Nasal Cannula 2.0 28 07/03/17 12:00 101 07/03/17 11:44 98.1 99 20 141/70 95 Nasal Cannula 2.0 Height (Feet): 4 Height (Inches): 11.00 Weight (Pounds): 157 Respiratory/Chest: lungs clear Cardiovascular: normal rate, regular rhythm, no gallop/murmur Abdomen: soft, non tender, other - GT Extremities: other - stumps clean Microbiology Date/Time Source Procedure Growth Status 07/01/17 21:40 Blood Blood Culture - Preliminary Gram Negative Bacillus 1 Resulted 07/01/17 21:25 Blood Blood Culture - Preliminary Gram Negative Bacillus 1 Resulted 07/03/17 01:00 Nasal Nares Left MRSA Culture - Final Staphylococcus Aureus - Mrsa Complete 07/01/17 22:05 Nasal Nares MRSA Culture - Final Staphylococcus Aureus - Mrsa Complete 07/01/17 22:05 Urine,Clean Catch Urine Culture - Final Escherichia Coli - Esbl Complete 07/01/17 22:05 Rectum VRE Culture - Final Enterococcus Faecalis - Vre Complete Current Medications Medications (Trade) Dose Ordered Sig/Rick Route PRN Reason Start Time Stop Time Status Last Admin Dose Admin Acetaminophen (Tylenol) 650 mg EVERY 6 HOURS PRN GT Mild Pain/Temp > 100.5 07/02/17 03:30 08/01/17 03:29 07/02/17 23:00 Aspirin (ASA) 81 mg DAILY GT 07/02/17 09:00 08/01/17 08:59 07/04/17 08:55 Atorvastatin Calcium (Lipitor) 10 mg BEDTIME GT 07/02/17 21:00 08/01/17 20:59 07/03/17 21:36 Cefepime HCl 1 gm/ Dextrose 55 ml @ 110 mls/hr Q24H IVPB 07/03/17 09:00 07/09/17 08:59 07/04/17 08:55 Docusate Sodium (Colace) 100 mg TWICE A DAY GT 07/02/17 09:00 08/01/17 08:59 07/04/17 08:55 Econazole Nitrate (Spectazole) 1 applic BID TOPIC 07/02/17 09:00 08/01/17 08:59 07/04/17 08:59 Guaifenesin (Robitussin) 200 mg Q4H PRN GT For Cough 07/02/17 03:30 08/01/17 03:29 Heparin Sodium (Porcine) (Heparin 5000 units/ml) 5,000 units EVERY 12 HOURS SUBQ 07/02/17 09:00 08/01/17 08:59 07/04/17 08:58 Lactobacillus Acidophilus (Culturelle) 1 tab TWICE A DAY GT 07/02/17 21:00 08/01/17 20:59 07/04/17 08:55 Levalbuterol HCl (Xopenex) 1.25 mg TIDRT HHN 07/02/17 08:30 07/07/17 08:29 07/04/17 07:30 Levothyroxine Sodium (Synthroid) 75 mcg DAILY@0630 GT 07/02/17 06:30 08/01/17 06:29 07/04/17 06:08 Magnesium Hydroxide (Mom) 30 ml DAILYPRN PRN GT Constipation 07/02/17 03:30 08/01/17 03:29 Methylprednisolone Sodium Succinate (Solu-MEDROL) 40 mg Q12HR IVP 07/04/17 09:00 08/01/17 08:59 07/04/17 08:57 Multivitamins Therapeutic (Therapeutic Multivitamin) 1 ea DAILY ORAL 07/02/17 10:00 08/01/17 09:59 07/04/17 08:54 Ondansetron HCl (Zofran) 4 mg Q4H PRN IVP Nausea & Vomiting 07/02/17 20:30 08/01/17 20:29 07/03/17 21:46 Sodium Chloride 1,000 ml @ 75 mls/hr [id number] IV 07/03/17 10:01 08/02/17 10:00 07/04/17 06:08 Vancomycin HCl (Vanco rx to dose) 1 ea DAILY PRN MISC Per rx protocol 07/02/17 03:45 08/01/17 03:44 TIP JENSEN Jul 04, 2017 11:41
[2017-07-04 12:01] VITALS: BP 144/68
--- NOTE | 2017-07-04 13:54 | Pulmonology Progress Note ---
Assessment/Plan Assessment/Plan IMPRESSION: 1. Pneumonia. 2. Respiratory insufficiency. 3. Shortness of breath. 4. Chronic obstructive pulmonary disease. 5. Sinus tachycardia. 6. Fever. 7. Possible sepsis. 8. Possible acute cystitis. 9. Acute on chronic renal failure likely. 10. Hyperglycemia, possible diabetes. 11. Hypothyroidism. PLAN care noted duplex negative monitor labs monitor imaging antibiotics IV per ID chest Xray negative; reviewed follow up cultures impression, plan, and exam edited and reviewed in detail care discussed with RN Subjective Allergies: Coded Allergies: CHOCOLATE FLAVOR (Verified Allergy, Mild, 07/02/17) IODINE (Verified Allergy, Unknown, 07/01/17) PENICILLINS (Verified Allergy, Unknown, 07/01/17) Subjective some confusion on oxygen no distress no congestion Objective Last 24 Hour Vital Signs Date Time Temp Pulse Resp B/P (MAP) Pulse Ox O2 Delivery O2 Flow Rate FiO2 07/04/17 12:01 97.7 84 20 144/68 96 Nasal Cannula 2.0 07/04/17 08:13 97.7 97 20 146/78 96 Nasal Cannula 2.0 07/04/17 04:00 97.8 101 21 150/82 94 Nasal Cannula 2.0 07/04/17 04:00 82 07/04/17 00:23 97.9 105 18 148/78 95 Nasal Cannula 2.0 07/04/17 00:00 89 07/03/17 20:29 97.9 100 19 143/72 95 Nasal Cannula 2.0 07/03/17 20:00 106 07/03/17 19:30 107 20 98 Nasal Cannula 2.0 28 07/03/17 19:21 95 Nasal Cannula 2.0 28 07/03/17 19:21 105 18 95 Nasal Cannula 2.0 28 07/03/17 19:21 Nasal Cannula 2.0 28 07/03/17 16:00 88 07/03/17 15:30 97.9 96 20 126/67 99 Nasal Cannula 2.0 Objective GENERAL: A well-developed female, chronically ill. HEENT: Negative. Extraocular movements are grossly intact. Pupils are sluggish, but reactive. Oropharynx with noted gag, moist mucous membranes. NECK: Supple and short. LUNGS: no rhonchi or expiratory wheezes. CARDIAC: Normal S1, S2. RRR without murmurs. Somewhat distant. ABDOMEN: Soft, obese, and nontender. no HSM EXTREMITIES: Bilateral above-knee amputations. NEUROLOGIC: nonverbal. At this time, the patient does have some focality. No clear facial droop. Microbiology Date/Time Source Procedure Growth Status 07/01/17 21:40 Blood Blood Culture - Preliminary Gram Negative Bacillus 1 Resulted 07/01/17 21:25 Blood Blood Culture - Preliminary Gram Negative Bacillus 1 Resulted 07/03/17 01:00 Nasal Nares Left MRSA Culture - Final Staphylococcus Aureus - Mrsa Complete 07/01/17 22:05 Nasal Nares MRSA Culture - Final Staphylococcus Aureus - Mrsa Complete 07/01/17 22:05 Urine,Clean Catch Urine Culture - Final Escherichia Coli - Esbl Complete 07/01/17 22:05 Rectum VRE Culture - Final Enterococcus Faecalis - Vre Complete Current Medications Medications (Trade) Dose Ordered Sig/Rick Route PRN Reason Start Time Stop Time Status Last Admin Dose Admin Acetaminophen (Tylenol) 650 mg EVERY 6 HOURS PRN GT Mild Pain/Temp > 100.5 07/02/17 03:30 08/01/17 03:29 07/02/17 23:00 Aspirin (ASA) 81 mg DAILY GT 07/02/17 09:00 08/01/17 08:59 07/04/17 08:55 Atorvastatin Calcium (Lipitor) 10 mg BEDTIME GT 07/02/17 21:00 08/01/17 20:59 07/03/17 21:36 Docusate Sodium (Colace) 100 mg TWICE A DAY GT 07/02/17 09:00 08/01/17 08:59 07/04/17 08:55 Econazole Nitrate (Spectazole) 1 applic BID TOPIC 07/02/17 09:00 08/01/17 08:59 07/04/17 08:59 Guaifenesin (Robitussin) 200 mg Q4H PRN GT For Cough 07/02/17 03:30 08/01/17 03:29 Heparin Sodium (Porcine) (Heparin 5000 units/ml) 5,000 units EVERY 12 HOURS SUBQ 07/02/17 09:00 08/01/17 08:59 07/04/17 08:58 Lactobacillus Acidophilus (Culturelle) 1 tab TWICE A DAY GT 07/02/17 21:00 08/01/17 20:59 07/04/17 08:55 Levalbuterol HCl (Xopenex) 1.25 mg TIDRT HHN 07/02/17 08:30 07/07/17 08:29 07/04/17 07:30 Levothyroxine Sodium (Synthroid) 75 mcg DAILY@0630 GT 07/02/17 06:30 08/01/17 06:29 07/04/17 06:08 Magnesium Hydroxide (Mom) 30 ml DAILYPRN PRN GT Constipation 07/02/17 03:30 08/01/17 03:29 Meropenem 500 mg/ Sodium Chloride 55 ml @ 110 mls/hr EVERY 12 HOURS IVPB 07/04/17 13:00 07/09/17 12:59 Methylprednisolone Sodium Succinate (Solu-MEDROL) 40 mg Q12HR IVP 07/04/17 09:00 08/01/17 08:59 07/04/17 08:57 Multivitamins Therapeutic (Therapeutic Multivitamin) 1 ea DAILY ORAL 07/02/17 10:00 08/01/17 09:59 07/04/17 08:54 Ondansetron HCl (Zofran) 4 mg Q4H PRN IVP Nausea & Vomiting 07/02/17 20:30 08/01/17 20:29 07/03/17 21:46 Sodium Chloride 1,000 ml @ 75 mls/hr [id number] IV 07/03/17 10:01 08/02/17 10:00 07/04/17 06:08 SELVIN SORIANO Jul 04, 2017 13:54
[2017-07-04] MEDS: Meropenem 500 MG in NS 55 ML IVPB SCH ×2 (14:38→20:48)
[2017-07-04 16:01] VITALS: BP 148/78
[2017-07-04 20:00] VITALS: BP 160/70
--- NOTE | 2017-07-04 23:33 | Diagnostic Imaging Report ---
APPROVED REPORT CPT Code: 34888 Present Symptoms Comments: R/O DVT BILATERAL: Imaging reveals a patent deep venous system bilaterally. There is no evidence of thrombus within the common femoral, and mid superficial femoral segments. The greater saphenous veins are also within normal limits. Doppler indicates normal spontaneous flow within these segments. Note: Amputation: immediately below mid thigh, bilaterally.
[2017-07-05] VITALS (7 sets, daily range): BP systolic 147–168; BP diastolic 68–99
[2017-07-05] MEDS: Levalbuterol Inh UD 1.25mg/0.5ml HHN SCH ×3 (07:02→19:33)
[2017-07-05 08:12] LABS: MEAN CORPUSCULAR HEMOGLOBIN 29.2 PG (27.0-31.0); MEAN CORPUSCULAR HGB CONC 32.5 G/DL (32.0-36.0); MEAN CORPUSCULAR VOLUME 90 FL (80-99); MEAN PLATELET VOLUME 12.1 FL (6.5-10.1); PLATELET COUNT 119 K/UL (150-450); RED BLOOD COUNT 4.25 M/UL (4.20-5.40); RED CELL DISTRIBUTION WIDTH 16.1 % (11.6-14.8); WHITE BLOOD COUNT 11.3 K/UL (4.8-10.8)
--- NOTE | 2017-07-05 08:58 | Pulmonology Progress Note ---
Assessment/Plan Assessment/Plan IMPRESSION: 1. Pneumonia. 2. Respiratory insufficiency. 3. Shortness of breath. 4. Chronic obstructive pulmonary disease. 5. Sinus tachycardia. 6. Fever. 7. Possible sepsis. 8. Possible acute cystitis. 9. Acute on chronic renal failure likely. 10. Hyperglycemia, possible diabetes. 11. Hypothyroidism. PLAN care noted duplex negative monitor labs monitor imaging antibiotics IV per ID chest Xray negative; reviewed follow up cultures aspiration precautions impression, plan, and exam edited and reviewed in detail care discussed with RN Subjective Allergies: Coded Allergies: CHOCOLATE FLAVOR (Verified Allergy, Mild, 07/02/17) IODINE (Verified Allergy, Unknown, 07/01/17) PENICILLINS (Verified Allergy, Unknown, 07/01/17) Subjective some confusion on oxygen no distress no congestion Objective Last 24 Hour Vital Signs Date Time Temp Pulse Resp B/P (MAP) Pulse Ox O2 Delivery O2 Flow Rate FiO2 07/05/17 08:17 97.8 88 20 160/96 94 Nasal Cannula 2.0 07/05/17 07:09 88 20 96 Nasal Cannula 2.0 28 07/05/17 07:05 94 Nasal Cannula 2.0 28 07/05/17 07:05 Nasal Cannula 2.0 28 07/05/17 07:02 86 20 94 Nasal Cannula 2.0 07/05/17 04:14 97.2 97 20 163/68 95 Nasal Cannula 2.0 07/05/17 04:00 87 07/05/17 00:35 97.5 103 20 155/81 94 Nasal Cannula 2.0 07/04/17 20:28 92 20 98 Nasal Cannula 2.0 28 07/04/17 20:19 93 Nasal Cannula 2.0 28 07/04/17 20:19 Nasal Cannula 2.0 28 07/04/17 20:19 94 20 93 Nasal Cannula 2.0 07/04/17 20:00 97.9 90 20 160/70 95 Room Air 07/04/17 20:00 90 07/04/17 16:01 97.7 93 20 148/78 96 Nasal Cannula 2.0 07/04/17 16:00 93 07/04/17 13:09 Nasal Cannula 2.0 07/04/17 13:09 Nasal Cannula 2.0 07/04/17 12:01 97.7 84 20 144/68 96 Nasal Cannula 2.0 07/04/17 12:00 91 Objective GENERAL: A well-developed female, chronically ill. HEENT: Negative. Extraocular movements are grossly intact. Pupils are sluggish, but reactive. Oropharynx with noted gag, moist mucous membranes. NECK: Supple and short. LUNGS: no rhonchi or expiratory wheezes. CARDIAC: Normal S1, S2. RRR without murmurs. Somewhat distant. ABDOMEN: Soft, obese, and nontender. no HSM EXTREMITIES: Bilateral above-knee amputations. NEUROLOGIC: nonverbal. At this time, the patient does have some focality. No clear facial droop. Microbiology Date/Time Source Procedure Growth Status 07/03/17 01:00 Nasal Nares Left MRSA Culture - Final Staphylococcus Aureus - Mrsa Complete Laboratory Tests 07/05/17 06:45: White Blood Count 11.3H, Red Blood Count 4.25, Hemoglobin 12.4, Hematocrit 38.2 , Mean Corpuscular Volume 90, Mean Corpuscular Hemoglobin 29.2, Mean Corpuscular Hemoglobin Concent 32.5, Red Cell Distribution Width 16.1H, Platelet Count 119L, Mean Platelet Volume 12.1H, Neutrophils (%) (Auto) , Lymphocytes (%) (Auto) , Monocytes (%) (Auto) , Eosinophils (%) (Auto) , Basophils (%) (Auto) , Neutrophils % (Manual) [Pending], Lymphocytes % (Manual) [Pending], Platelet Estimate [Pending], Platelet Morphology [Pending], Sodium Level [Pending], Potassium Level [Pending], Chloride Level [Pending], Carbon Dioxide Level [Pending], Blood Urea Nitrogen [Pending], Creatinine [Pending], Estimat Glomerular Filtration Rate [Pending], Glucose Level [Pending], Calcium Level [Pending], Total Bilirubin [Pending], Aspartate Amino Transf (AST/SGOT) [ Pending], Alanine Aminotransferase (ALT/SGPT) [Pending], Alkaline Phosphatase [ Pending], Total Protein [Pending], Albumin [Pending], Globulin [Pending] Current Medications Medications (Trade) Dose Ordered Sig/Rick Route PRN Reason Start Time Stop Time Status Last Admin Dose Admin Acetaminophen (Tylenol) 650 mg EVERY 6 HOURS PRN GT Mild Pain/Temp > 100.5 07/02/17 03:30 08/01/17 03:29 07/02/17 23:00 Aspirin (ASA) 81 mg DAILY GT 07/02/17 09:00 08/01/17 08:59 07/04/17 08:55 Atorvastatin Calcium (Lipitor) 10 mg BEDTIME GT 07/02/17 21:00 08/01/17 20:59 07/04/17 20:48 Docusate Sodium (Colace) 100 mg TWICE A DAY GT 07/02/17 09:00 08/01/17 08:59 07/04/17 18:15 Econazole Nitrate (Spectazole) 1 applic BID TOPIC 07/02/17 09:00 08/01/17 08:59 07/04/17 18:16 Guaifenesin (Robitussin) 200 mg Q4H PRN GT For Cough 07/02/17 03:30 08/01/17 03:29 Heparin Sodium (Porcine) (Heparin 5000 units/ml) 5,000 units EVERY 12 HOURS SUBQ 07/02/17 09:00 08/01/17 08:59 07/04/17 20:50 Lactobacillus Acidophilus (Culturelle) 1 tab TWICE A DAY GT 07/02/17 21:00 08/01/17 20:59 07/04/17 18:15 Levalbuterol HCl (Xopenex) 1.25 mg TIDRT HHN 07/02/17 08:30 07/07/17 08:29 07/05/17 07:02 Levothyroxine Sodium (Synthroid) 75 mcg DAILY@0630 GT 07/02/17 06:30 08/01/17 06:29 07/05/17 06:03 Magnesium Hydroxide (Mom) 30 ml DAILYPRN PRN GT Constipation 07/02/17 03:30 08/01/17 03:29 Meropenem 500 mg/ Sodium Chloride 55 ml @ 110 mls/hr EVERY 12 HOURS IVPB 07/04/17 13:00 07/09/17 12:59 07/04/17 20:48 Methylprednisolone Sodium Succinate (Solu-MEDROL) 40 mg Q12HR IVP 07/04/17 09:00 08/01/17 08:59 07/04/17 20:48 Multivitamins Therapeutic (Therapeutic Multivitamin) 1 ea DAILY ORAL 07/02/17 10:00 08/01/17 09:59 07/04/17 08:54 Ondansetron HCl (Zofran) 4 mg Q4H PRN IVP Nausea & Vomiting 07/02/17 20:30 08/01/17 20:29 07/03/17 21:46 Sodium Chloride 1,000 ml @ 75 mls/hr [id number] IV 07/03/17 10:01 08/02/17 10:00 07/04/17 20:51 SELVIN SORIANO Jul 05, 2017 08:58
[2017-07-05 09:20] LABS: ALANINE AMINOTRANSFERASE 49 U/L (12-78); ALBUMIN/GLOBULIN RATIO 0.6 (1.0-2.7); ANION GAP 12 mmol/L (5-15); ASPARTATE AMINO TRANSFERASE 24 U/L (15-37); CALCIUM 8.9 MG/DL (8.5-10.1); CARBON DIOXIDE 23 MMOL/L (21-32); CHLORIDE 107 MMOL/L (98-107); CREATININE 1.5 MG/DL (0.55-1.30); POTASSIUM 4.3 MMOL/L (3.5-5.1); SODIUM 142 MMOL/L (136-145); TOTAL PROTEIN 6.5 G/DL (6.4-8.2)
--- NOTE | 2017-07-05 09:34 | Infectious Diseases Prog Note ---
Assessment/Plan Assessment/Plan A; 1. E.coli UTI 2. E. coli sepsis 3. leucocytosis 4. Acute renal failure improving 5. 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 renal ultrasound 2. Continue meropenem Subjective ROS Limited/Unobtainable: No Respiratory: Reports: no symptoms Cardiovascular: Reports: no symptoms Gastrointestinal/Abdominal: Reports: no symptoms Genitourinary: Reports: no symptoms Allergies: Coded Allergies: CHOCOLATE FLAVOR (Verified Allergy, Mild, 07/02/17) IODINE (Verified Allergy, Unknown, 07/01/17) PENICILLINS (Verified Allergy, Unknown, 07/01/17) Objective Vital Signs Last 24 Hour Vital Signs Date Time Temp Pulse Resp B/P (MAP) Pulse Ox O2 Delivery O2 Flow Rate FiO2 07/05/17 08:17 97.8 88 20 160/96 94 Nasal Cannula 2.0 07/05/17 07:09 88 20 96 Nasal Cannula 2.0 28 07/05/17 07:05 94 Nasal Cannula 2.0 28 07/05/17 07:05 Nasal Cannula 2.0 28 07/05/17 07:02 86 20 94 Nasal Cannula 2.0 07/05/17 04:14 97.2 97 20 163/68 95 Nasal Cannula 2.0 07/05/17 04:00 87 07/05/17 00:35 97.5 103 20 155/81 94 Nasal Cannula 2.0 07/04/17 20:28 92 20 98 Nasal Cannula 2.0 28 07/04/17 20:19 93 Nasal Cannula 2.0 28 07/04/17 20:19 Nasal Cannula 2.0 28 07/04/17 20:19 94 20 93 Nasal Cannula 2.0 07/04/17 20:00 97.9 90 20 160/70 95 Room Air 07/04/17 20:00 90 07/04/17 16:01 97.7 93 20 148/78 96 Nasal Cannula 2.0 07/04/17 16:00 93 07/04/17 13:09 Nasal Cannula 2.0 07/04/17 13:09 Nasal Cannula 2.0 07/04/17 12:01 97.7 84 20 144/68 96 Nasal Cannula 2.0 07/04/17 12:00 91 Height (Feet): 4 Height (Inches): 11.00 Weight (Pounds): 157 General Appearance: no acute distress HEENT: mucous membranes moist Respiratory/Chest: lungs clear, other - O2 by cannula Cardiovascular: normal rate Abdomen: soft, non tender, other - GT feeding Extremities: other - bilateral AKA Microbiology Date/Time Source Procedure Growth Status 07/03/17 01:00 Nasal Nares Left MRSA Culture - Final Staphylococcus Aureus - Mrsa Complete Laboratory Tests Test 07/05/17 06:45 White Blood Count 11.3 K/UL (4.8-10.8) H Red Blood Count 4.25 M/UL (4.20-5.40) Hemoglobin 12.4 G/DL (12.0-16.0) Hematocrit 38.2 % (37.0-47.0) Mean Corpuscular Volume 90 FL (80-99) Mean Corpuscular Hemoglobin 29.2 PG (27.0-31.0) Mean Corpuscular Hemoglobin Concent 32.5 G/DL (32.0-36.0) Red Cell Distribution Width 16.1 % (11.6-14.8) H Platelet Count 119 K/UL (150-450) L Mean Platelet Volume 12.1 FL (6.5-10.1) H Neutrophils (%) (Auto) % (45.0-75.0) Lymphocytes (%) (Auto) % (20.0-45.0) Monocytes (%) (Auto) % (1.0-10.0) Eosinophils (%) (Auto) % (0.0-3.0) Basophils (%) (Auto) % (0.0-2.0) Neutrophils % (Manual) Pending Lymphocytes % (Manual) Pending Platelet Estimate Pending Platelet Morphology Pending Sodium Level 142 MMOL/L (136-145) Potassium Level 4.3 MMOL/L (3.5-5.1) Chloride Level 107 MMOL/L (98-107) Carbon Dioxide Level 23 MMOL/L (21-32) Anion Gap 12 mmol/L (5-15) Blood Urea Nitrogen 54 mg/dL (7-18) H Creatinine 1.5 MG/DL (0.55-1.30) H Estimat Glomerular Filtration Rate mL/min (>60) Glucose Level 158 MG/DL (74-106) H Calcium Level 8.9 MG/DL (8.5-10.1) Total Bilirubin 0.5 MG/DL (0.2-1.0) Aspartate Amino Transf (AST/SGOT) 24 U/L (15-37) Alanine Aminotransferase (ALT/SGPT) 49 U/L (12-78) Alkaline Phosphatase 67 U/L (46-116) Total Protein 6.5 G/DL (6.4-8.2) Albumin 2.4 G/DL (3.4-5.0) L Globulin 4.1 g/dL Albumin/Globulin Ratio 0.6 (1.0-2.7) L Current Medications Medications (Trade) Dose Ordered Sig/Rick Route PRN Reason Start Time Stop Time Status Last Admin Dose Admin Acetaminophen (Tylenol) 650 mg EVERY 6 HOURS PRN GT Mild Pain/Temp > 100.5 07/02/17 03:30 08/01/17 03:29 07/02/17 23:00 Aspirin (ASA) 81 mg DAILY GT 07/02/17 09:00 08/01/17 08:59 07/04/17 08:55 Atorvastatin Calcium (Lipitor) 10 mg BEDTIME GT 07/02/17 21:00 08/01/17 20:59 07/04/17 20:48 Docusate Sodium (Colace) 100 mg TWICE A DAY GT 07/02/17 09:00 08/01/17 08:59 07/04/17 18:15 Econazole Nitrate (Spectazole) 1 applic BID TOPIC 07/02/17 09:00 08/01/17 08:59 07/04/17 18:16 Guaifenesin (Robitussin) 200 mg Q4H PRN GT For Cough 07/02/17 03:30 08/01/17 03:29 Heparin Sodium (Porcine) (Heparin 5000 units/ml) 5,000 units EVERY 12 HOURS SUBQ 07/02/17 09:00 08/01/17 08:59 07/04/17 20:50 Lactobacillus Acidophilus (Culturelle) 1 tab TWICE A DAY GT 07/02/17 21:00 08/01/17 20:59 07/04/17 18:15 Levalbuterol HCl (Xopenex) 1.25 mg TIDRT HHN 07/02/17 08:30 07/07/17 08:29 07/05/17 07:02 Levothyroxine Sodium (Synthroid) 75 mcg DAILY@0630 GT 07/02/17 06:30 08/01/17 06:29 07/05/17 06:03 Magnesium Hydroxide (Mom) 30 ml DAILYPRN PRN GT Constipation 07/02/17 03:30 08/01/17 03:29 Meropenem 500 mg/ Sodium Chloride 55 ml @ 110 mls/hr EVERY 12 HOURS IVPB 07/04/17 13:00 07/09/17 12:59 07/04/17 20:48 Methylprednisolone Sodium Succinate (Solu-MEDROL) 40 mg Q12HR IVP 07/04/17 09:00 08/01/17 08:59 07/04/17 20:48 Multivitamins Therapeutic (Therapeutic Multivitamin) 1 ea DAILY ORAL 07/02/17 10:00 08/01/17 09:59 07/04/17 08:54 Ondansetron HCl (Zofran) 4 mg Q4H PRN IVP Nausea & Vomiting 07/02/17 20:30 08/01/17 20:29 07/03/17 21:46 Sodium Chloride 1,000 ml @ 75 mls/hr [id number] IV 07/03/17 10:01 08/02/17 10:00 07/04/17 20:51 JUN MICHELE Jul 05, 2017 09:34
[2017-07-05 10:06] LABS: ANISOCYTOSIS 1+; BAND NEUTROPHILS % (MANUAL) 0 % (0-8); BASOPHILS % (MANUAL) 0 % (0-2); EOSINOPHILS % (MANUAL) 0 % (0-3); LYMPHOCYTES % (MANUAL) 12 % (20-45); NEUTROPHILS % (MANUAL) 83 % (45-75); PLATELET ESTIMATE DECREASED; PLATELET MORPHOLOGY NORMAL; TOTAL CELLS COUNTED 100
[2017-07-05] MEDS: Aspirin Baby 81mg GT SCH (10:10)
[2017-07-05] MEDS: Lactobacillus-GG tablet GT SCH ×2 (10:10→17:20)
[2017-07-05] MEDS: Solu-MEDROL 40mg Inj IVP SCH ×2 (10:10→20:49)
[2017-07-05] MEDS: Docusate 100mg/10ml Liq GT SCH ×2 (10:10→17:19)
[2017-07-05] MEDS: Multivitamin w/Minerals tab ORAL SCH (10:10)
[2017-07-05] MEDS: Meropenem 500 MG in NS 55 ML IVPB SCH ×2 (10:11→20:50)
[2017-07-05] MEDS: Heparin 5000 units/ml inj SUBQ SCH ×2 (10:11→20:51)
[2017-07-05] MEDS: Econazole 1% Cream 15gm TOPIC SCH ×2 (10:12→17:20)
--- NOTE | 2017-07-05 13:16 | Progress Note ---
DATE: 07/04/2017 CARDIOLOGY PROGRESS NOTE SUBJECTIVE: The patient remains on respiratory treatments, IV fluids, and steroids, which are being weaned. Her congestion has decreased. OBJECTIVE: VITAL SIGNS: Afebrile, blood pressure 150/82, pulse 82 to 101, and respiratory rate 21. Monitor sinus and sinus tachycardia. LUNGS: Coarse breath sounds. Few rhonchi. No wheezing. HEART: Regular rhythm and rate. Normal S1 and S2 with a fourth heart sound. ABDOMEN: Soft. EXTREMITIES: With bilateral AKA stumps. LABORATORY AND DIAGNOSTIC DATA: Chest x-ray yesterday revealed no acute process. Cultures are noted. IMPRESSION: 1. Extended-spectrum beta-lactamases urinary tract infection with sepsis. 2. Methicillin resistant Staphylococcus aureus. 3. Sputum colonization vancomycin resistant enterococcus. 4. Gastrointestinal colonization. 5. Bilateral above knee amputation. 6. Hypertensive heart disease. 7. Severe sepsis. 8. Hypovolemia and dehydration, improved. 9. Acute renal failure, resolving. 10. Labile blood pressure, stabilizing. PLAN: 1. Adjust IV fluids. 2. Continue antibiotics. 3. DVT prophylaxis. 4. Respiratory hygiene. 5. Taper off steroids. 6. Discharge planning to follow. Jl Szymanski M.D. DR: KRISHNA JOB#: [id number] CC:
--- NOTE | 2017-07-05 14:17 | Diagnostic Imaging Report ---
Indication:Elevated Bun and Creatinine. Technique: Grayscale and duplex Doppler imaging of the kidneys performed. Comparison: None Findings: The kidneys are atrophic with loss of cortex and cortical detail. The cortex may be echogenic but is difficult to tell. There is no obvious hydronephrosis. The urinary bladder is somewhat of a distended. IVC is unremarkable in appearance. Suggestion of small right renal cysts. The right kidney is between 9 and 10 CM. Left kidney between 8 and 9 CM in length. There is a Calcification present within the left kidney possibly nonobstructive stone. Impression: Medical renal disease with moderate cortical atrophy. Possible nonobstructive stone in the left kidney. Distended urinary bladder. Suggest Moser catheter placement.
[2017-07-05] MEDS ORDERED: 1/2 NS 1000ml IV ONE (16:29)
[2017-07-05] MEDS ORDERED: Tubing IV Secondary IV ONE (16:29)
[2017-07-05] MEDS ORDERED: Pneumococcal Vaccine 25mcg/0.5ml IM ONE (21:00)
[2017-07-05] MEDS ORDERED: Flu Vaccine Quadrivalent 0.5ml IM ONE (21:00)
--- NOTE | 2017-07-05 21:49 | General Progress Note ---
Assessment/Plan Problem List: (1) Respiratory distress ICD Codes: R06.00 - Dyspnea, unspecified SNOMED: 007737297 (2) Proteinuria ICD Codes: R80.9 - Proteinuria, unspecified SNOMED: 50556413 Qualifiers: Qualified Codes: R80.9 - Proteinuria, unspecified (3) Sepsis ICD Codes: A41.9 - Sepsis, unspecified organism SNOMED: 90227936 Qualifiers: Qualified Codes: A41.9 - Sepsis, unspecified organism (4) UTI (urinary tract infection) ICD Codes: N39.0 - Urinary tract infection, site not specified SNOMED: 98132453 Qualifiers: Qualified Codes: N30.00 - Acute cystitis without hematuria (5) ARF (acute renal failure) ICD Codes: N17.9 - Acute kidney failure, unspecified SNOMED: 74256388 Qualifiers: Qualified Codes: N17.9 - Acute kidney failure, unspecified (6) Pneumonia ICD Codes: J18.9 - Pneumonia, unspecified organism SNOMED: 626529022 Qualifiers: Qualified Codes: J18.9 - Pneumonia, unspecified organism Status: stable Assessment/Plan wean steroids iv abx per id follow up cultures gt feeds resp rx- on xopenex cont ivf probably dc tomorrow if labs ok Subjective ROS Limited/Unobtainable: No Constitutional: Reports: malaise, weakness HEENT: Reports: no symptoms Cardiovascular: Reports: no symptoms Respiratory: Reports: cough Gastrointestinal/Abdominal: Reports: difficulty swallowing Genitourinary: Reports: no symptoms Neurologic/Psychiatric: Reports: pre-existing deficit Endocrine: Reports: no symptoms Hematologic/Lymphatic: Reports: anemia Allergies: Coded Allergies: CHOCOLATE FLAVOR (Verified Allergy, Mild, 07/02/17) IODINE (Verified Allergy, Unknown, 07/01/17) PENICILLINS (Verified Allergy, Unknown, 07/01/17) All Systems: reviewed and negative except above Subjective no events. better. less congested. no fever or chills. tolerating feeds. labs improving. Objective Last 24 Hour Vital Signs Date Time Temp Pulse Resp B/P (MAP) Pulse Ox O2 Delivery O2 Flow Rate FiO2 07/05/17 19:45 75 18 97 Nasal Cannula 2.0 28 07/05/17 19:38 Nasal Cannula 3.0 32 07/05/17 19:38 74 20 96 Nasal Cannula 3.0 32 07/05/17 19:37 96 Nasal Cannula 3.0 32 07/05/17 17:20 165/97 07/05/17 16:30 165/97 07/05/17 16:02 99.9 96 20 168/99 92 Nasal Cannula 3.0 07/05/17 15:28 91 07/05/17 13:02 Nasal Cannula 2.0 07/05/17 13:02 Nasal Cannula 2.0 07/05/17 11:46 88 07/05/17 11:24 97.9 89 20 164/90 94 Nasal Cannula 2.0 07/05/17 08:22 91 07/05/17 08:17 97.8 88 20 160/96 94 Nasal Cannula 2.0 07/05/17 07:09 88 20 96 Nasal Cannula 2.0 28 07/05/17 07:05 94 Nasal Cannula 2.0 28 07/05/17 07:05 Nasal Cannula 2.0 28 07/05/17 07:02 86 20 94 Nasal Cannula 2.0 07/05/17 04:14 97.2 97 20 163/68 95 Nasal Cannula 2.0 07/05/17 04:00 87 07/05/17 00:35 97.5 103 20 155/81 94 Nasal Cannula 2.0 Intake and Output 07/05/17 07/06/17 19:00 07:00 Intake Total 955 ml Output Total 1200 ml Balance 955 ml -1200 ml IV Total 955 ml Output Urine Total 1200 ml # Voids 4 1 # Bowel Movements 1 Laboratory Tests 07/05/17 06:45: White Blood Count 11.3H, Red Blood Count 4.25, Hemoglobin 12.4, Hematocrit 38.2 , Mean Corpuscular Volume 90, Mean Corpuscular Hemoglobin 29.2, Mean Corpuscular Hemoglobin Concent 32.5, Red Cell Distribution Width 16.1H, Platelet Count 119L, Mean Platelet Volume 12.1H, Neutrophils (%) (Auto) , Lymphocytes (%) (Auto) , Monocytes (%) (Auto) , Eosinophils (%) (Auto) , Basophils (%) (Auto) , Differential Total Cells Counted 100, Neutrophils % ( Manual) 83H, Lymphocytes % (Manual) 12L, Monocytes % (Manual) 5, Eosinophils % ( Manual) 0, Basophils % (Manual) 0, Band Neutrophils 0, Platelet Estimate DecreasedL, Platelet Morphology Normal, Anisocytosis 1+, Sodium Level 142, Potassium Level 4.3, Chloride Level 107, Carbon Dioxide Level 23, Anion Gap 12, Blood Urea Nitrogen 54H, Creatinine 1.5H, Estimat Glomerular Filtration Rate , Glucose Level 158H, Calcium Level 8.9, Total Bilirubin 0.5, Aspartate Amino Transf (AST/SGOT) 24, Alanine Aminotransferase (ALT/SGPT) 49, Alkaline Phosphatase 67, Total Protein 6.5, Albumin 2.4L, Globulin 4.1, Albumin/Globulin Ratio 0.6L Height (Feet): 4 Height (Inches): 11.00 Weight (Pounds): 157 Objective General Appearance: WD/WN, alert Neck: supple Cardiovascular: normal rate Respiratory/Chest: lungs clear, normal breath sounds, no respiratory distress Abdomen: normal bowel sounds, non tender, soft, no organomegaly Edema: no edema noted Arm (L), no edema noted Arm (R), no edema noted Leg (L), no edema noted Leg (R), no edema noted Pedal (L), no edema noted Pedal (R), no edema noted Generalized JANELLE ROBERTS Jul 05, 2017 21:49
[2017-07-06] VITALS (7 sets, daily range): BP systolic 138–165; BP diastolic 68–92
--- NOTE | 2017-07-06 01:02 | Progress Note ---
DATE: 07/05/2017 CARDIOLOGY PROGRESS NOTE SUBJECTIVE: The patient is less congested and has less shortness of breath. Monitor reveals sinus rhythm. OBJECTIVE: VITAL SIGNS: Blood pressure 164/90 to 165/97, heart rate 74 to 96, respiratory rate 20, and temperature max 99.9. LUNGS: Coarse breath sounds. Few rhonchi. HEART: Regular rhythm and rate. Normal S1, S2 with a fourth heart sound. ABDOMEN: Soft and nontender. EXTREMITIES: Bilateral AKA stumps. LABORATORY AND DIAGNOSTIC DATA: White count down to 11.3, hemoglobin 12.4. Sodium 142, potassium 4.3, BUN 54, creatinine 1.5. Albumin 2.4. IMPRESSION: 1. Urinary tract infection. 2. Recovered lactic acidosis. 3. Resolving sepsis with shock. 4. Severe protein-calorie malnutrition. 5. Acute on chronic diastolic congestive heart failure. 6. Hypertensive heart disease with increasing blood pressure trend. PLAN: 1. Decrease steroids. 2. Advance antihypertensives. 3. Discontinue IV fluids. 4. Discharge planning. Jl Szymanski M.D. DR: Carlos JOB#: [id number] CC:
[2017-07-06] MEDS: Levalbuterol Inh UD 1.25mg/0.5ml HHN SCH ×3 (07:24→19:00)
--- NOTE | 2017-07-06 08:08 | Pulmonology Progress Note ---
Assessment/Plan Assessment/Plan IMPRESSION: 1. Pneumonia. 2. Respiratory insufficiency. 3. Shortness of breath. 4. Chronic obstructive pulmonary disease. 5. Sinus tachycardia. 6. Fever. 7. Possible sepsis. 8. Possible acute cystitis. 9. Acute on chronic renal failure likely. 10. Hyperglycemia, possible diabetes. 11. Hypothyroidism. PLAN care noted duplex negative monitor labs for change monitor imaging antibiotics IV per ID chest Xray negative; reviewed follow up cultures for change aspiration precautions dc planning impression, plan, and exam edited and reviewed in detail care discussed with RN Subjective Allergies: Coded Allergies: CHOCOLATE FLAVOR (Verified Allergy, Mild, 07/02/17) IODINE (Verified Allergy, Unknown, 07/01/17) PENICILLINS (Verified Allergy, Unknown, 07/01/17) Subjective some confusion on oxygen no distress no congestion Objective Last 24 Hour Vital Signs Date Time Temp Pulse Resp B/P (MAP) Pulse Ox O2 Delivery O2 Flow Rate FiO2 07/06/17 07:41 80 20 97 Nasal Cannula 3.0 32 07/06/17 07:27 Nasal Cannula 3.0 32 07/06/17 07:26 98 Nasal Cannula 3.0 32 07/06/17 07:24 79 18 98 Nasal Cannula 3.0 32 07/06/17 04:26 97.0 73 20 160/90 96 Nasal Cannula 2.0 07/06/17 04:00 72 07/06/17 00:30 97.0 76 20 165/91 94 Nasal Cannula 2.0 07/06/17 00:00 61 07/05/17 20:00 77 07/05/17 20:00 98.0 77 20 147/71 94 Nasal Cannula 2.0 07/05/17 19:45 75 18 97 Nasal Cannula 2.0 28 07/05/17 19:38 Nasal Cannula 3.0 32 07/05/17 19:38 74 20 96 Nasal Cannula 3.0 32 07/05/17 19:37 96 Nasal Cannula 3.0 32 07/05/17 17:20 165/97 07/05/17 16:30 165/97 07/05/17 16:02 99.9 96 20 168/99 92 Nasal Cannula 3.0 07/05/17 15:28 91 07/05/17 13:02 Nasal Cannula 2.0 07/05/17 13:02 Nasal Cannula 2.0 07/05/17 11:46 88 10/19/17 11:24 97.9 89 20 164/90 94 Nasal Cannula 2.0 07/05/17 08:22 91 07/05/17 08:17 97.8 88 20 160/96 94 Nasal Cannula 2.0 Objective GENERAL: A well-developed female, chronically ill. HEENT: Negative. Extraocular movements are grossly intact. Pupils are sluggish, but reactive. Oropharynx with noted gag, moist mucous membranes. NECK: Supple and short. LUNGS: no rhonchi or expiratory wheezes. CARDIAC: Normal S1, S2. RRR without murmurs. Somewhat distant. ABDOMEN: Soft, obese, and nontender. no HSM EXTREMITIES: Bilateral above-knee amputations. NEUROLOGIC: nonverbal. At this time, the patient does have some focality. No clear facial droop. Laboratory Tests 07/06/17 06:14: Sodium Level [Pending], Potassium Level [Pending], Chloride Level [Pending], Carbon Dioxide Level [Pending], Blood Urea Nitrogen [Pending], Creatinine [ Pending], Estimat Glomerular Filtration Rate [Pending], Glucose Level [Pending] , Calcium Level [Pending], Total Bilirubin [Pending], Aspartate Amino Transf ( AST/SGOT) [Pending], Alanine Aminotransferase (ALT/SGPT) [Pending], Alkaline Phosphatase [Pending], Total Protein [Pending], Albumin [Pending], Globulin [ Pending] Current Medications Medications (Trade) Dose Ordered Sig/Rick Route PRN Reason Start Time Stop Time Status Last Admin Dose Admin Acetaminophen (Tylenol) 650 mg EVERY 6 HOURS PRN GT Mild Pain/Temp > 100.5 07/02/17 03:30 08/01/17 03:29 07/02/17 23:00 Amlodipine Besylate (Norvasc) 5 mg DAILY GT 07/06/17 09:00 08/05/17 08:59 Aspirin (ASA) 81 mg DAILY GT 07/02/17 09:00 08/01/17 08:59 07/05/17 10:10 Atorvastatin Calcium (Lipitor) 10 mg BEDTIME GT 07/02/17 21:00 08/01/17 20:59 07/05/17 20:37 Clonidine HCl (Catapres) 0.1 mg Q4H PRN ORAL For High Blood Pressure 07/05/17 16:45 08/04/17 16:44 07/05/17 17:20 Docusate Sodium (Colace) 100 mg TWICE A DAY GT 07/02/17 09:00 08/01/17 08:59 07/05/17 17:19 Econazole Nitrate (Spectazole) 1 applic BID TOPIC 07/02/17 09:00 08/01/17 08:59 07/05/17 17:20 Guaifenesin (Robitussin) 200 mg Q4H PRN GT For Cough 07/02/17 03:30 08/01/17 03:29 Heparin Sodium (Porcine) (Heparin 5000 units/ml) 5,000 units EVERY 12 HOURS SUBQ 07/02/17 09:00 08/01/17 08:59 07/04/17 20:50 Lactobacillus Acidophilus (Culturelle) 1 tab TWICE A DAY GT 07/02/17 21:00 08/01/17 20:59 07/05/17 17:20 Levalbuterol HCl (Xopenex) 1.25 mg TIDRT HHN 07/02/17 08:30 07/07/17 08:29 07/06/17 07:24 Levothyroxine Sodium (Synthroid) 75 mcg DAILY@0630 GT 07/02/17 06:30 08/01/17 06:29 07/06/17 05:12 Magnesium Hydroxide (Mom) 30 ml DAILYPRN PRN GT Constipation 07/02/17 03:30 08/01/17 03:29 Meropenem 500 mg/ Sodium Chloride 55 ml @ 110 mls/hr EVERY 12 HOURS IVPB 07/04/17 13:00 07/09/17 12:59 07/05/17 20:50 Methylprednisolone Sodium Succinate (Solu-MEDROL) 40 mg DAILY IVP 07/06/17 09:00 08/01/17 08:59 Multivitamins Therapeutic (Therapeutic Multivitamin) 1 ea DAILY ORAL 07/02/17 10:00 08/01/17 09:59 07/05/17 10:10 Ondansetron HCl (Zofran) 4 mg Q4H PRN IVP Nausea & Vomiting 07/02/17 20:30 08/01/17 20:29 07/03/17 21:46 SELVIN SORIANO Jul 06, 2017 08:08
[2017-07-06 08:19] LABS: ALANINE AMINOTRANSFERASE 42 U/L (12-78); ALBUMIN/GLOBULIN RATIO 0.6 (1.0-2.7); ANION GAP 9 mmol/L (5-15); ASPARTATE AMINO TRANSFERASE 20 U/L (15-37); CALCIUM 8.7 MG/DL (8.5-10.1); CARBON DIOXIDE 26 MMOL/L (21-32); CHLORIDE 105 MMOL/L (98-107); CREATININE 1.3 MG/DL (0.55-1.30); POTASSIUM 4.2 MMOL/L (3.5-5.1); SODIUM 140 MMOL/L (136-145); TOTAL PROTEIN 5.9 G/DL (6.4-8.2)
[2017-07-06] MEDS: Heparin 5000 units/ml inj SUBQ SCH ×2 (09:00→19:56)
[2017-07-06] MEDS: Meropenem 500 MG in NS 55 ML IVPB SCH ×2 (09:00→19:54)
[2017-07-06] MEDS ORDERED: NORVASC5 MG GT (09:45)
[2017-07-06] MEDS ORDERED: MEROPENEM500 MG IVPB (09:45)
[2017-07-06] MEDS ORDERED: XOPENEX0.5 MG HHN (09:45)
[2017-07-06] MEDS: Aspirin Baby 81mg GT SCH (10:13)
[2017-07-06] MEDS: Docusate 100mg/10ml Liq GT SCH ×2 (10:13→18:41)
[2017-07-06] MEDS: Lactobacillus-GG tablet GT SCH ×2 (10:13→18:41)
[2017-07-06] MEDS: Multivitamin w/Minerals tab ORAL SCH (10:13)
[2017-07-06] MEDS: Solu-MEDROL 40mg Inj IVP SCH (10:14)
[2017-07-06] MEDS: Econazole 1% Cream 15gm TOPIC SCH ×2 (10:28→18:43)
--- NOTE | 2017-07-06 11:37 | Infectious Diseases Prog Note ---
Assessment/Plan Assessment/Plan antibiotics : meropenem A 1. e.coli UTI 2. e.coli sepsis secondary to UTI 3. leucocytosis resolved 4. renal failure improving 5. HTN 6. 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 continue meropenem 7 more days 2. will follow up cultures Subjective ROS Limited/Unobtainable: Yes Allergies: Coded Allergies: CHOCOLATE FLAVOR (Verified Allergy, Mild, 07/02/17) IODINE (Verified Allergy, Unknown, 07/01/17) PENICILLINS (Verified Allergy, Unknown, 07/01/17) Objective Vital Signs Last 24 Hour Vital Signs Date Time Temp Pulse Resp B/P (MAP) Pulse Ox O2 Delivery O2 Flow Rate FiO2 07/06/17 10:13 90 164/92 07/06/17 08:45 97.5 90 20 164/92 98 Nasal Cannula 2.0 07/06/17 08:00 97.5 90 20 164/92 98 Nasal Cannula 2.0 07/06/17 07:41 80 20 97 Nasal Cannula 3.0 32 07/06/17 07:27 Nasal Cannula 3.0 32 07/06/17 07:26 98 Nasal Cannula 3.0 32 07/06/17 07:24 79 18 98 Nasal Cannula 3.0 32 07/06/17 04:26 97.0 73 20 160/90 96 Nasal Cannula 2.0 07/06/17 04:00 72 07/06/17 00:30 97.0 76 20 165/91 94 Nasal Cannula 2.0 07/06/17 00:00 61 07/05/17 20:00 77 07/05/17 20:00 98.0 77 20 147/71 94 Nasal Cannula 2.0 07/05/17 19:45 75 18 97 Nasal Cannula 2.0 28 07/05/17 19:38 Nasal Cannula 3.0 32 07/05/17 19:38 74 20 96 Nasal Cannula 3.0 32 07/05/17 19:37 96 Nasal Cannula 3.0 32 07/05/17 17:20 165/97 07/05/17 16:30 165/97 07/05/17 16:02 99.9 96 20 168/99 92 Nasal Cannula 3.0 07/05/17 15:28 91 07/05/17 13:02 Nasal Cannula 2.0 07/05/17 13:02 Nasal Cannula 2.0 07/05/17 11:46 88 Height (Feet): 4 Height (Inches): 11.00 Weight (Pounds): 157 Respiratory/Chest: lungs clear Cardiovascular: normal rate, regular rhythm, no gallop/murmur Abdomen: soft, non tender, other - GT Extremities: no edema, other - stumps clean Laboratory Tests Test 07/06/17 06:14 Sodium Level 140 MMOL/L (136-145) Potassium Level 4.2 MMOL/L (3.5-5.1) Chloride Level 105 MMOL/L (98-107) Carbon Dioxide Level 26 MMOL/L (21-32) Anion Gap 9 mmol/L (5-15) Blood Urea Nitrogen 46 mg/dL (7-18) H Creatinine 1.3 MG/DL (0.55-1.30) Estimat Glomerular Filtration Rate mL/min (>60) Glucose Level 165 MG/DL (74-106) H Calcium Level 8.7 MG/DL (8.5-10.1) Total Bilirubin 0.6 MG/DL (0.2-1.0) Aspartate Amino Transf (AST/SGOT) 20 U/L (15-37) Alanine Aminotransferase (ALT/SGPT) 42 U/L (12-78) Alkaline Phosphatase 59 U/L (46-116) Total Protein 5.9 G/DL (6.4-8.2) L Albumin 2.2 G/DL (3.4-5.0) L Globulin 3.7 g/dL Albumin/Globulin Ratio 0.6 (1.0-2.7) TIP NGUYỄN Jul 06, 2017 11:37
--- NOTE | 2017-07-06 19:55 | General Progress Note ---
Assessment/Plan Problem List: (1) Respiratory distress ICD Codes: R06.00 - Dyspnea, unspecified SNOMED: 951148686 (2) Proteinuria ICD Codes: R80.9 - Proteinuria, unspecified SNOMED: 02014616 Qualifiers: Qualified Codes: R80.9 - Proteinuria, unspecified (3) Sepsis ICD Codes: A41.9 - Sepsis, unspecified organism SNOMED: 52587160 Qualifiers: Qualified Codes: A41.9 - Sepsis, unspecified organism (4) UTI (urinary tract infection) ICD Codes: N39.0 - Urinary tract infection, site not specified SNOMED: 51254688 Qualifiers: Qualified Codes: N30.00 - Acute cystitis without hematuria (5) ARF (acute renal failure) ICD Codes: N17.9 - Acute kidney failure, unspecified SNOMED: 09915632 Qualifiers: Qualified Codes: N17.9 - Acute kidney failure, unspecified (6) Pneumonia ICD Codes: J18.9 - Pneumonia, unspecified organism SNOMED: 885492939 Qualifiers: Qualified Codes: J18.9 - Pneumonia, unspecified organism Assessment/Plan wean steroids iv abx per id- 7 mroe days follow up cultures gt feeds resp rx- on xopenex cont ivf probably dc tomorrow if labs ok Subjective ROS Limited/Unobtainable: Yes Constitutional: Reports: malaise, weakness HEENT: Reports: no symptoms Cardiovascular: Reports: no symptoms Respiratory: Reports: cough Gastrointestinal/Abdominal: Reports: difficulty swallowing Genitourinary: Reports: no symptoms Neurologic/Psychiatric: Reports: pre-existing deficit Endocrine: Reports: no symptoms Hematologic/Lymphatic: Reports: anemia Allergies: Coded Allergies: CHOCOLATE FLAVOR (Verified Allergy, Mild, 07/02/17) IODINE (Verified Allergy, Unknown, 07/01/17) PENICILLINS (Verified Allergy, Unknown, 07/01/17) All Systems: reviewed and negative except above Subjective no events. better. less congested. no fever or chills. tolerating feeds. labs improving. ID noted. 7 more days iv abx. Objective Last 24 Hour Vital Signs Date Time Temp Pulse Resp B/P (MAP) Pulse Ox O2 Delivery O2 Flow Rate FiO2 07/06/17 16:00 91 07/06/17 15:56 97.7 95 20 138/68 96 Nasal Cannula 3.0 07/06/17 13:44 87 20 98 Nasal Cannula 3.0 32 07/06/17 13:35 84 18 94 Nasal Cannula 3.0 07/06/17 12:07 97.7 88 20 145/69 97 Nasal Cannula 3.0 07/06/17 12:00 85 07/06/17 10:13 90 164/92 07/06/17 08:45 97.5 90 20 164/92 98 Nasal Cannula 2.0 07/06/17 08:00 87 07/06/17 08:00 97.5 90 20 164/92 98 Nasal Cannula 2.0 07/06/17 07:41 80 20 97 Nasal Cannula 3.0 32 07/06/17 07:27 Nasal Cannula 3.0 32 07/06/17 07:26 98 Nasal Cannula 3.0 32 07/06/17 07:24 79 18 98 Nasal Cannula 3.0 32 07/06/17 04:26 97.0 73 20 160/90 96 Nasal Cannula 2.0 07/06/17 04:00 72 07/06/17 00:30 97.0 76 20 165/91 94 Nasal Cannula 2.0 07/06/17 00:00 61 07/05/17 20:00 77 07/05/17 20:00 98.0 77 20 147/71 94 Nasal Cannula 2.0 Intake and Output 07/06/17 07/07/17 19:00 07:00 Intake Total 660 ml Output Total 450 ml 210 ml Balance -450 ml 450 ml Tube Feeding 660 ml Output Urine Total 450 ml 210 ml Laboratory Tests 07/06/17 06:14: Sodium Level 140, Potassium Level 4.2, Chloride Level 105, Carbon Dioxide Level 26, Anion Gap 9, Blood Urea Nitrogen 46H, Creatinine 1.3, Estimat Glomerular Filtration Rate , Glucose Level 165H, Calcium Level 8.7, Total Bilirubin 0.6, Aspartate Amino Transf (AST/SGOT) 20, Alanine Aminotransferase (ALT/SGPT) 42, Alkaline Phosphatase 59, Total Protein 5.9L, Albumin 2.2L, Globulin 3.7, Albumin /Globulin Ratio 0.6L Height (Feet): 4 Height (Inches): 11.00 Weight (Pounds): 157 Objective General Appearance: WD/WN, alert Neck: supple Cardiovascular: normal rate Respiratory/Chest: lungs clear, normal breath sounds, no respiratory distress Abdomen: normal bowel sounds, non tender, soft, no organomegaly Edema: no edema noted Arm (L), no edema noted Arm (R), no edema noted Leg (L), no edema noted Leg (R), no edema noted Pedal (L), no edema noted Pedal (R), no edema noted Generalized JANELLE ROBERTS Jul 06, 2017 19:55
[2017-07-06] MEDS ORDERED: NS Irrig 1000ml ONE (21:37)
[2017-07-07] VITALS: BP 132/74
--- NOTE | 2017-07-07 03:30 | Progress Note ---
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 She is on weaning doses of steroids. She is tolerating G-tube feedings. She requires respiratory hygiene. OBJECTIVE: VITAL SIGNS: Blood pressure 146/91, pulse 86, respirations 20, and afebrile. NECK: Supple. LUNGS: With few rhonchi. CARDIAC: Regular rhythm and rate. Normal S1 and S2 with a fourth heart sound. ABDOMEN: Soft with G-tube. EXTREMITIES: With bilateral AKAs. LABORATORY DATA: Labs notable for potassium 4.2, BUN 46, and creatinine 1.3. Albumin 2.2. IMPRESSION: 1. Escherichia coli urinary tract infection. 2. Severe sepsis, recovered. 3. Acute on chronic renal failure, resolving. 4. Severe protein-calorie malnutrition. 5. Hypertensive heart disease with improving blood pressure control. 6. Bilateral below knee amputation. 7. Type 2 diabetes mellitus. PLAN: 1. Antimicrobials. 2. Steroid taper and bronchodilators. 3. Respiratory hygiene. 4. DVT prophylaxis. 5. Up titration of antihypertensives. 6. Repeat chest radiograph. 7. Trend natriuretic peptide assay. Jl Szymanski M.D. DR: KRISHNA JOB#: [id number] CC:
[2017-07-07 04:00] VITALS: BP 149/77
[2017-07-07] MEDS: Levalbuterol Inh UD 1.25mg/0.5ml HHN SCH (07:27)
[2017-07-07 08:00] VITALS: BP 155/67
[2017-07-07 08:20] VITALS: BP 149/77
[2017-07-07] MEDS: Docusate 100mg/10ml Liq GT SCH (08:20)
[2017-07-07] MEDS: Solu-MEDROL 40mg Inj IVP SCH (08:20)
[2017-07-07] MEDS: Aspirin Baby 81mg GT SCH (08:20)
[2017-07-07] MEDS: Multivitamin w/Minerals tab ORAL SCH (08:20)
[2017-07-07] MEDS: Meropenem 500 MG in NS 55 ML IVPB SCH (08:24)
[2017-07-07] MEDS: Econazole 1% Cream 15gm TOPIC SCH (08:32)
[2017-07-07] MEDS: Lactobacillus-GG tablet GT SCH (08:32)
--- NOTE | 2017-07-07 08:43 | Pulmonology Progress Note ---
Assessment/Plan Assessment/Plan IMPRESSION: 1. Pneumonia. 2. Respiratory insufficiency. 3. Shortness of breath. 4. Chronic obstructive pulmonary disease. 5. Sinus tachycardia. 6. Fever. 7. Possible sepsis. 8. Possible acute cystitis. 9. Acute on chronic renal failure likely. 10. Hyperglycemia, possible diabetes. 11. Hypothyroidism. PLAN care noted monitor labs for change monitor imaging chest Xray negative; reviewed follow up cultures for change aspiration precautions dc planning per primary care team impression, plan, and exam edited and reviewed in detail care discussed with RN Subjective Allergies: Coded Allergies: CHOCOLATE FLAVOR (Verified Allergy, Mild, 07/02/17) IODINE (Verified Allergy, Unknown, 07/01/17) PENICILLINS (Verified Allergy, Unknown, 07/01/17) Subjective weak on oxygen no distress no congestion Objective Last 24 Hour Vital Signs Date Time Temp Pulse Resp B/P (MAP) Pulse Ox O2 Delivery O2 Flow Rate FiO2 07/07/17 08:20 69 149/77 07/07/17 07:36 69 18 98 Nasal Cannula 3.0 32 07/07/17 07:27 32 07/07/17 07:27 72 16 96 Nasal Cannula 3.0 32 07/07/17 07:27 96 Nasal Cannula 3.0 32 07/07/17 07:27 72 16 Nasal Cannula 3.0 32 07/07/17 07:27 Nasal Cannula 3.0 32 07/07/17 04:00 97.2 72 20 149/77 97 Nasal Cannula 3.0 32 07/07/17 04:00 78 07/07/17 00:06 80 07/07/17 00:00 97.2 91 20 132/74 97 Nasal Cannula 3.0 32 07/06/17 20:00 97.3 86 20 146/91 96 Nasal Cannula 3.0 32 07/06/17 20:00 84 07/06/17 19:35 65 18 98 Nasal Cannula 3.0 32 07/06/17 19:35 Nasal Cannula 3.0 32 07/06/17 19:35 97 Nasal Cannula 3.0 32 07/06/17 19:25 67 18 96 Nasal Cannula 3.0 07/06/17 16:00 91 07/06/17 15:56 97.7 95 20 138/68 96 Nasal Cannula 3.0 07/06/17 13:44 87 20 98 Nasal Cannula 3.0 32 07/06/17 13:35 84 18 94 Nasal Cannula 3.0 07/06/17 12:07 97.7 88 20 145/69 97 Nasal Cannula 3.0 07/06/17 12:00 85 07/06/17 10:13 90 164/92 07/06/17 08:45 97.5 90 20 164/92 98 Nasal Cannula 2.0 Objective GENERAL: A well-developed female, chronically ill. HEENT: Negative. Extraocular movements are grossly intact. Pupils are sluggish, but reactive. Oropharynx with noted gag, moist mucous membranes. NECK: Supple and short. LUNGS: no rhonchi or expiratory wheezes. CARDIAC: Normal S1, S2. RRR without murmurs. Somewhat distant. ABDOMEN: Soft, obese, and nontender. no HSM EXTREMITIES: Bilateral above-knee amputations. NEUROLOGIC: nonverbal. At this time, the patient does have some focality. No clear facial droop. Current Medications Medications (Trade) Dose Ordered Sig/Rick Route PRN Reason Start Time Stop Time Status Last Admin Dose Admin Acetaminophen (Tylenol) 650 mg EVERY 6 HOURS PRN GT Mild Pain/Temp > 100.5 07/02/17 03:30 08/01/17 03:29 07/02/17 23:00 Amlodipine Besylate (Norvasc) 5 mg DAILY GT 07/06/17 09:00 08/05/17 08:59 07/07/17 08:20 Aspirin (ASA) 81 mg DAILY GT 07/02/17 09:00 08/01/17 08:59 07/07/17 08:20 Atorvastatin Calcium (Lipitor) 10 mg BEDTIME GT 07/02/17 21:00 08/01/17 20:59 07/06/17 19:55 Clonidine HCl (Catapres) 0.1 mg Q4H PRN ORAL For High Blood Pressure 07/05/17 16:45 08/04/17 16:44 07/05/17 17:20 Docusate Sodium (Colace) 100 mg TWICE A DAY GT 07/02/17 09:00 08/01/17 08:59 07/07/17 08:20 Econazole Nitrate (Spectazole) 1 applic BID TOPIC 07/02/17 09:00 08/01/17 08:59 07/07/17 08:32 Guaifenesin (Robitussin) 200 mg Q4H PRN GT For Cough 07/02/17 03:30 08/01/17 03:29 Heparin Sodium (Porcine) (Heparin 5000 units/ml) 5,000 units EVERY 12 HOURS SUBQ 07/02/17 09:00 08/01/17 08:59 07/04/17 20:50 Lactobacillus Acidophilus (Culturelle) 1 tab TWICE A DAY GT 07/02/17 21:00 08/01/17 20:59 07/07/17 08:32 Levothyroxine Sodium (Synthroid) 75 mcg DAILY@0630 GT 07/02/17 06:30 08/01/17 06:29 07/07/17 05:51 Magnesium Hydroxide (Mom) 30 ml DAILYPRN PRN GT Constipation 07/02/17 03:30 08/01/17 03:29 Meropenem 500 mg/ Sodium Chloride 55 ml @ 110 mls/hr EVERY 12 HOURS IVPB 07/04/17 13:00 07/09/17 12:59 07/07/17 08:24 Methylprednisolone Sodium Succinate (Solu-MEDROL) 40 mg DAILY IVP 07/06/17 09:00 08/01/17 08:59 07/07/17 08:20 Multivitamins Therapeutic (Therapeutic Multivitamin) 1 ea DAILY ORAL 07/02/17 10:00 08/01/17 09:59 07/07/17 08:20 Ondansetron HCl (Zofran) 4 mg Q4H PRN IVP Nausea & Vomiting 07/02/17 20:30 08/01/17 20:29 07/03/17 21:46 SELVIN SORIANO Jul 07, 2017 08:43
[2017-07-07] MEDS: Heparin 5000 units/ml inj SUBQ SCH (09:00)
[2017-07-07 09:45] LABS: BASOPHILS % (AUTO) 0.9 % (0.0-2.0); LYMPHOCYTES % (AUTO) 13.9 % (20.0-45.0); MEAN CORPUSCULAR HEMOGLOBIN 27.9 PG (27.0-31.0); MEAN CORPUSCULAR HGB CONC 31.3 G/DL (32.0-36.0); MEAN CORPUSCULAR VOLUME 89 FL (80-99); MEAN PLATELET VOLUME 11.2 FL (6.5-10.1); MONOCYTES % (AUTO) 3.9 % (1.0-10.0); NEUTROPHILS % (AUTO) 79.2 % (45.0-75.0); PLATELET COUNT 104 K/UL (150-450); RED BLOOD COUNT 4.54 M/UL (4.20-5.40); RED CELL DISTRIBUTION WIDTH 15.9 % (11.6-14.8); WHITE BLOOD COUNT 12.1 K/UL (4.8-10.8)
[2017-07-07 10:45] LABS: ALANINE AMINOTRANSFERASE 58 U/L (12-78); ALBUMIN/GLOBULIN RATIO 0.6 (1.0-2.7); ANION GAP 11 mmol/L (5-15); ASPARTATE AMINO TRANSFERASE 48 U/L (15-37); CALCIUM 8.7 MG/DL (8.5-10.1); CARBON DIOXIDE 24 MMOL/L (21-32); CHLORIDE 106 MMOL/L (98-107); CREATININE 1.3 MG/DL (0.55-1.30); POTASSIUM 4.4 MMOL/L (3.5-5.1); SODIUM 141 MMOL/L (136-145); TOTAL PROTEIN 5.6 G/DL (6.4-8.2)
--- NOTE | 2017-07-07 11:24 | Infectious Diseases Prog Note ---
Assessment/Plan Assessment/Plan antibiotics : meropenem A 1. e.coli UTI 2. e.coli sepsis secondary to UTI 3. leucocytosis resolved 4. renal failure improving 5. HTN 6. 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 continue meropenem 6 more days 2. will follow up cultures Subjective ROS Limited/Unobtainable: Yes Allergies: Coded Allergies: CHOCOLATE FLAVOR (Verified Allergy, Mild, 07/02/17) IODINE (Verified Allergy, Unknown, 07/01/17) PENICILLINS (Verified Allergy, Unknown, 07/01/17) Objective Vital Signs Last 24 Hour Vital Signs Date Time Temp Pulse Resp B/P (MAP) Pulse Ox O2 Delivery O2 Flow Rate FiO2 07/07/17 08:20 69 149/77 07/07/17 08:00 97.1 76 18 155/67 99 Nasal Cannula 2.0 07/07/17 07:36 69 18 98 Nasal Cannula 3.0 32 07/07/17 07:27 32 07/07/17 07:27 72 16 96 Nasal Cannula 3.0 32 07/07/17 07:27 96 Nasal Cannula 3.0 32 07/07/17 07:27 72 16 Nasal Cannula 3.0 32 07/07/17 07:27 Nasal Cannula 3.0 32 07/07/17 04:00 97.2 72 20 149/77 97 Nasal Cannula 3.0 32 07/07/17 04:00 78 07/07/17 00:06 80 07/07/17 00:00 97.2 91 20 132/74 97 Nasal Cannula 3.0 32 07/06/17 20:00 97.3 86 20 146/91 96 Nasal Cannula 3.0 32 07/06/17 20:00 84 07/06/17 19:35 65 18 98 Nasal Cannula 3.0 32 07/06/17 19:35 Nasal Cannula 3.0 32 07/06/17 19:35 97 Nasal Cannula 3.0 32 07/06/17 19:25 67 18 96 Nasal Cannula 3.0 07/06/17 16:00 91 07/06/17 15:56 97.7 95 20 138/68 96 Nasal Cannula 3.0 07/06/17 13:44 87 20 98 Nasal Cannula 3.0 32 07/06/17 13:35 84 18 94 Nasal Cannula 3.0 07/06/17 12:07 97.7 88 20 145/69 97 Nasal Cannula 3.0 07/06/17 12:00 85 Height (Feet): 4 Height (Inches): 11.00 Weight (Pounds): 157 Respiratory/Chest: lungs clear Cardiovascular: normal rate, regular rhythm, no gallop/murmur Abdomen: soft, non tender, other - GT Extremities: no edema, other - stumps clean Laboratory Tests Test 07/07/17 08:30 White Blood Count 12.1 K/UL (4.8-10.8) H Red Blood Count 4.54 M/UL (4.20-5.40) Hemoglobin 12.6 G/DL (12.0-16.0) Hematocrit 40.4 % (37.0-47.0) Mean Corpuscular Volume 89 FL (80-99) Mean Corpuscular Hemoglobin 27.9 PG (27.0-31.0) Mean Corpuscular Hemoglobin Concent 31.3 G/DL (32.0-36.0) L Red Cell Distribution Width 15.9 % (11.6-14.8) H Platelet Count 104 K/UL (150-450) L Mean Platelet Volume 11.2 FL (6.5-10.1) H Neutrophils (%) (Auto) 79.2 % (45.0-75.0) H Lymphocytes (%) (Auto) 13.9 % (20.0-45.0) L Monocytes (%) (Auto) 3.9 % (1.0-10.0) Eosinophils (%) (Auto) 2.0 % (0.0-3.0) Basophils (%) (Auto) 0.9 % (0.0-2.0) Sodium Level 141 MMOL/L (136-145) Potassium Level 4.4 MMOL/L (3.5-5.1) Chloride Level 106 MMOL/L (98-107) Carbon Dioxide Level 24 MMOL/L (21-32) Anion Gap 11 mmol/L (5-15) Blood Urea Nitrogen 44 mg/dL (7-18) H Creatinine 1.3 MG/DL (0.55-1.30) Estimat Glomerular Filtration Rate mL/min (>60) Glucose Level 99 MG/DL (74-106) Calcium Level 8.7 MG/DL (8.5-10.1) Magnesium Level 2.0 MG/DL (1.8-2.4) Total Bilirubin 0.3 MG/DL (0.2-1.0) Aspartate Amino Transf (AST/SGOT) 48 U/L (15-37) H Alanine Aminotransferase (ALT/SGPT) 58 U/L (12-78) Alkaline Phosphatase 62 U/L (46-116) Pro-B-Type Natriuretic Peptide 2958 pg/mL (0-125) H Total Protein 5.6 G/DL (6.4-8.2) L Albumin 2.0 G/DL (3.4-5.0) L Globulin 3.6 g/dL Albumin/Globulin Ratio 0.6 (1.0-2.7) L TIP JENSEN Jul 07, 2017 11:24
[2017-07-07] MEDS ORDERED: NS Irrig 1000ml ONE (11:59)
[2017-07-07] MEDS ORDERED: NS 275ml ONE (11:59)
--- NOTE | 2017-07-07 20:00 | Discharge Summary ---
DATE OF ADMISSION: 07/01/2017 DATE OF DISCHARGE: 07/07/2017 ADMISSION DIAGNOSES: 1. Sepsis. 2. Acute renal failure. 3. Toxic metabolic encephalopathy. 4. Respiratory failure. 5. Chronic obstructive pulmonary disease exacerbation. 6. History of stroke. 7. History of paraplegia. 8. History of bilateral below-knee amputation. DISCHARGE DIAGNOSES: 1. Sepsis. 2. Acute renal failure. 3. Toxic metabolic encephalopathy. 4. Respiratory failure. 5. Chronic obstructive pulmonary disease exacerbation. 6. History of stroke. 7. History of paraplegia. 8. History of bilateral below-knee amputation. HOSPITAL COURSE: The patient is a pleasant female, who was transferred with complaints of tachycardia, shortness of breath, and altered mentation. She was diagnosed with COPD exacerbation, sepsis, urinary tract infection, acute renal failure, and toxic metabolic encephalopathy. She was hydrated aggressively. She received intravenous steroids and broad-spectrum antibiotics. She received respiratory treatments. She was hydrated. Her acute renal failure improved. Her encephalopathy also improved with treatment of her infection. On discharge, she was doing well. The patient was discharged on a steroid taper as well as additional IV antibiotics for six more days. DISCHARGE MEDICATIONS: Please see discharge medication list for discharge medications. DIET: Received tube feedings. ACTIVITY: Ad-raji. Raimundo Clark M.D. DR: DASH JOB#: [id number] CC:
--- NOTE | 2017-07-09 05:00 | Progress Note ---
DATE: 07/07/2017 CARDIOLOGY PROGRESS NOTE SUBJECTIVE: The patient has no congestion. No shortness of breath. Vitals are stable. She is afebrile. Diet is tolerated. OBJECTIVE: VITAL SIGNS: Blood pressure 149/77, pulse 72, respirations 20, and afebrile. Oxygen saturation on 3 liters 96%. NECK: Supple. LUNGS: With few rhonchi. CARDIAC: Regular rhythm and rate. Normal S1 and S2. ABDOMEN: Soft. EXTREMITIES: Bilateral AKAs. IMPRESSION: 1. Severe sepsis, resolved. 2. Escherichia coli urinary tract infection, improved. 3. Acute on chronic renal failure, resolved. 4. Severe protein-calorie malnutrition. 5. Hypertensive heart disease with controlled blood pressure. 6. Bilateral below knee amputations. 7. Natriuretic peptide assay has improved. PLAN: 1. Plan of care in place. 2. [facility]. 3. Cardiovascular regimen reviewed. Jl Szymanski M.D. DR: KRISHNA JOB#: [id number] CC:
--- NOTE | 2017-07-10 08:22 | Cardiology Report ---
APPROVED REPORT EKG Measurement Heart [id number] Sinus tachycardia Nonspecific ST and T wave abnormality Abnormal ECG
== END 2017-07-07 12:00 | DRG 871 ==
LOC: EDBD 21:40 → EMR 23:29 → 2W 23:34 → EDBEDREQ 07-02 00:35 → 2E 07-03 05:29
DX: A41.51 Sepsis due to Escherichia coli [E. coli] (principal); J18.9 Pneumonia, unspecified organism; E43 Unspecified severe protein-calorie malnutrition; N17.9 Acute kidney failure, unspecified; I50.33 Acute on chronic diastolic (congestive) heart failure; G92 Toxic encephalopathy; E87.0 Hyperosmolality and hypernatremia; R13.10 Dysphagia, unspecified; E87.8 Other disorders of electrolyte and fluid balance, not elsewhere classified; I11.0 Hypertensive heart disease with heart failure; G82.20 Paraplegia, unspecified; J44.1 Chronic obstructive pulmonary disease with (acute) exacerbation; N39.0 Urinary tract infection, site not specified; I69.359 Hemiplegia and hemiparesis following cerebral infarction affecting unspecified side; Z43.1 Encounter for attention to gastrostomy; R65.20 Severe sepsis without septic shock; Z66 Do not resuscitate; Z88.0 Allergy status to penicillin; Z88.8 Allergy status to other drugs, medicaments and biological substances; I12.9 Hypertensive chronic kidney disease with stage 1 through stage 4 chronic kidney disease, or unspecified chronic kidney disease; N18.9 Chronic kidney disease, unspecified; R73.9 Hyperglycemia, unspecified; E03.9 Hypothyroidism, unspecified; E86.1 Hypovolemia; E86.0 Dehydration; I25.10 Atherosclerotic heart disease of native coronary artery without angina pectoris; B96.89 Other specified bacterial agents as the cause of diseases classified elsewhere; Z22.322 Carrier or suspected carrier of Methicillin resistant Staphylococcus aureus; B96.20 Unspecified Escherichia coli [E. coli] as the cause of diseases classified elsewhere; Z16.12 Extended spectrum beta lactamase (ESBL) resistance; Z22.1 Carrier of other intestinal infectious diseases; Z16.22 Resistance to vancomycin related antibiotics; Z89.512 Acquired absence of left leg below knee; Z89.511 Acquired absence of right leg below knee; Z23 Encounter for immunization
CPT/HCPCS: 36415; 71010; 76775; 80053; 80202; 81003; 82270; 82550; 82553; 83605; 83735; 83880; 84484; 85007; 85025; 85610; 85730; 87040; 87081; 87086; 87181; 90630; 90732; 93005; 93970; 94640; 94664; 94760; J2405; J7620

== ENCOUNTER 2018-11-27 13:22 | Inpatient (IN) | payer MEDICARE, MEDICAID ==
[~2018-11-27] VITALS: Ht 83.8 cm; Wt 76.7 kg
[~2018-11-27 13:22] MED LIST: ALBUTEROL2.5 MG/3 M INH; ASPIRIN81 MG GT; ATORVASTATIN CA20 MG GT; COLACE100 MG GT; CRANBERRY450 M4 GT; FLORANEX TABLE1 EAC1 GT; GERI-TUSSI100 MG/5 M GT; GLUCERNA1500 ML GT; LEVAQUIN250 M1 GT; LEVOTHYROXINE75 MCG GT; MEROPENEM500 MG IVPB; MOM30 ML GT; MULTI-DELYN237 ML GT; NORVASC5 MG GT; PRO-STAT LIQUID30 ML GT; TYLENOL325 MG GT; XOPENEX0.5 MG HHN
[2018-11-27 13:30] VITALS: BP 108/37
[2018-11-27] MEDS ORDERED: FISH OIL CAP1000 MG GT (13:33)
[2018-11-27] MEDS ORDERED: ACIDOPHILUS-PE1 EAC3 GT (13:33)
[2018-11-27] MEDS ORDERED: ALLOPURINOL100 M1 GT (13:33)
[2018-11-27] MEDS ORDERED: CEFEPIME-D1 GM/50 ML IVP (13:33)
[2018-11-27] MEDS ORDERED: COLACE100 MG GT (13:33)
[2018-11-27] MEDS ORDERED: CRANBERRY450 M4 GT (13:33)
[2018-11-27] MEDS ORDERED: ATORVASTATIN CA10 MG GT (13:33)
[2018-11-27] MEDS ORDERED: NEPHROVITE1 TAB GT (13:33)
--- NOTE | 2018-11-27 13:52 | Emergency Room Report ---
History of Present Illness General Chief Complaint: Dyspnea/Respdistress Source: Medical Record, EMS, PMD Present Illness HPI Patient presents from nursing facility with respiratory distress Low oxygenation Patient herself is nonverbal The patient's primary physician is also present in the ER reports that she is usually more interactive And does appear altered from her usual Patient herself is nonverbal and this does limit the history of present illness There was no reports of vomiting or diarrhea unknown regarding fever Allergies: Coded Allergies: SHELLFISH DERIVED (Unverified Allergy, Severe, ANAPHYLAXIS, 11/27/18) CHOCOLATE FLAVOR (Verified Allergy, Mild, 07/02/17) IODINE (Verified Allergy, Unknown, 07/01/17) PENICILLINS (Verified Allergy, Unknown, 07/01/17) Uncoded Allergies: CHOCOLATE (Allergy, Unknown, 11/27/18) Patient History Limited by: medical condition Past Medical History: see triage record Pertinent Family History: unable to obtain Reviewed Nursing Documentation: PMH: Agreed; PSxH: Agreed Nursing Documentation-PMH Past Medical History: No History, Except For Hx Cardiac Problems: No - ENCEPHALOPAHTY, SEPSIS Hx Asthma: No - PNA, ASPIRATION; Hx COPD: Yes Hx Cancer: No Hx Gastrointestinal Problems: Yes - G-TUBE SITE CELLULITIS, Hx Dialysis: No - UTI Hx Cerebrovascular Accident: Yes - Hemiplagia Review of Systems All Other Systems: limited - Other than the ones mentioned in the history of present illness all others are reviewed however they do stay limited due to the patient's mental status Physical Exam Vital Signs Date Time Temp Pulse Resp B/P (MAP) Pulse Ox O2 Delivery O2 Flow Rate FiO2 11/27/18 13:14 98.2 118 16 116/69 95 Non-Rebreather Sp02 EP Interpretation: reviewed, normal General Appearance: moderate distress - Tachypneic, short of breath Head: normocephalic, atraumatic Eyes: bilateral eye PERRL ENT: no angioedema, dry mucus membranes Neck: supple Respiratory: crackles - Bilaterally, appears somewhat tachypneic, no obvious retractions Cardiovascular #1: regular rate, rhythm Gastrointestinal: non tender, soft Musculoskeletal: other - Bilateral below-knee amputations, patient feel somewhat edematous throughout Neurologic: responsive - to some physical stimuli otherwise nonverbal Skin: no rash Lymphatic: no adenopathy Medical Decision Making Diagnostic Impression: Primary Impression: Dyspnea Additional Impressions: UTI (urinary tract infection) Sepsis ER Course Patient is a fairly complex patient with multiple differential to consideration including but not limited to cardiac cardiopulmonary and vascular emergencies Other pathology such as infectious intracranial neurological differentials are entertained Patient's white blood cell count is elevated urine sample shows positive nitrites and leukocytes Patient shows allergy to penicillin therefore clindamycin is initiated with further IV hydration Patient is a DO NOT INTUBATE, DO NOT RESUSCITATE and falls outside of the sepsis protocol A follow-up increased fluids would be detrimental, nevertheless appropriate hydration is made Patient admitted for further inpatient care , Labs Test 11/27/18 13:45 11/27/18 14:25 White Blood Count 18.6 K/UL (4.8-10.8) Red Blood Count 4.81 M/UL (4.20-5.40) Hemoglobin 13.5 G/DL (12.0-16.0) Hematocrit 45.4 % (37.0-47.0) Mean Corpuscular Volume 94 FL (80-99) Mean Corpuscular Hemoglobin 28.0 PG (27.0-31.0) Mean Corpuscular Hemoglobin Concent 29.7 G/DL (32.0-36.0) Red Cell Distribution Width 18.3 % (11.6-14.8) Platelet Count 135 K/UL (150-450) Mean Platelet Volume 14.2 FL (6.5-10.1) Neutrophils (%) (Auto) % (45.0-75.0) Lymphocytes (%) (Auto) % (20.0-45.0) Monocytes (%) (Auto) % (1.0-10.0) Eosinophils (%) (Auto) % (0.0-3.0) Basophils (%) (Auto) % (0.0-2.0) Differential Total Cells Counted 100 Neutrophils % (Manual) 80 % (45-75) Lymphocytes % (Manual) 6 % (20-45) Monocytes % (Manual) 4 % (1-10) Eosinophils % (Manual) 1 % (0-3) Basophils % (Manual) 0 % (0-2) Band Neutrophils 9 % (0-8) Platelet Estimate Decreased Platelet Morphology Giant Platelets Occasional Anisocytosis 1+ Urine Color Pale yellow Urine Appearance Clear Urine pH 5 (4.5-8.0) Urine Specific [place] 1.010 (1.005-1.035) Urine Protein 3+ (NEGATIVE) Urine Glucose (UA) Negative (NEGATIVE) Urine Ketones Negative (NEGATIVE) Urine Blood 2+ (NEGATIVE) Urine Nitrite Positive (NEGATIVE) Urine Bilirubin Negative (NEGATIVE) Urine Urobilinogen Normal MG/DL (0.0-1.0) Urine Leukocyte Esterase 3+ (NEGATIVE) Urine RBC 2-4 /HPF (0 - 2) Urine WBC 20-30 /HPF (0 - 2) Urine Squamous Epithelial Cells Few /LPF (NONE/OCC) Urine Bacteria Moderate /HPF (NONE) Sodium Level 159 MMOL/L (136-145) Potassium Level 4.8 MMOL/L (3.5-5.1) Chloride Level 119 MMOL/L (98-107) Carbon Dioxide Level 30 MMOL/L (21-32) Anion Gap 10 mmol/L (5-15) Blood Urea Nitrogen 108 mg/dL (7-18) Creatinine 2.9 MG/DL (0.55-1.30) Estimat Glomerular Filtration Rate mL/min (>60) Glucose Level 212 MG/DL (74-106) Calcium Level 9.2 MG/DL (8.5-10.1) Troponin I 0.068 ng/mL (0.000-0.056) Arterial Blood pH 7.389 (7.350-7.450) Arterial Blood Partial Pressure CO2 49.5 mmHg (35.0-45.0) Arterial Blood Partial Pressure O2 78.4 mmHg (75.0-100.0) Arterial Blood HCO3 29.2 mmol/L (22.0-26.0) Arterial Blood Oxygen Saturation 94.9 % (95-100) Arterial Blood Base Excess 3.4 (-2-2) Lakhwinder Test Positive EKG Diagnostic Results Rate: tachycardiac Rhythm: other ST Segments: no acute changes Rhythm Strip Diag. Results EP Interpretation: yes Rate: 90 Rhythm: NSR, no PVC's, no ectopy Chest X-Ray Diagnostic Results Chest X-Ray Diagnostic Results : Chest X-Ray Ordered: Yes # of Views/Limited/Complete: 1 View Indication: Chest Pain EP Interpretation: Yes Interpretation: no consolidation, no pneumothorax, other - Bilateral atelectasis Impression: Other - Bilateral atelectasis Electronically Signed by: Terrell Bear, CT/MRI/US Diagnostic Results CT/MRI/US Diagnostic Results : Impression CT head: refer to report for full specifics no obvious acute disease Last Vital Signs Date Time Temp Pulse Resp B/P (MAP) Pulse Ox O2 Delivery O2 Flow Rate FiO2 11/27/18 13:14 98.2 118 16 116/69 95 Non-Rebreather Status: improved Disposition: ADMITTED INPATIENT Condition: Serious Terrell Bear DO Nov 27, 2018 13:52
[2018-11-27 14:18] LABS: APPEARANCE,URINE CLEAR; BILIRUBIN, URINE NEGATIVE (NEGATIVE); COLOR,URINE PALE YELLOW; GLUCOSE, URINE (UA) NEGATIVE (NEGATIVE); KETONES,URINE NEGATIVE (NEGATIVE); LEUKOCYTE ESTERASE ,URINE 3+ (NEGATIVE); NITRITE,URINE POSITIVE (NEGATIVE); PH,URINE 5 (4.5-8.0); PROTEIN,URINE 3+ (NEGATIVE); UROBILINOGEN,URINE NORMAL MG/DL (0.0-1.0)
[2018-11-27 14:19] LABS: HEMATOCRIT 45.4 % (37.0-47.0); HEMOGLOBIN 13.5 G/DL (12.0-16.0); MEAN CORPUSCULAR VOLUME 94 FL (80-99); PLATELET COUNT 135 K/UL (150-450); RED BLOOD COUNT 4.81 M/UL (4.20-5.40); RED CELL DISTRIBUTION WIDTH 18.3 % (11.6-14.8); WHITE BLOOD COUNT 18.6 K/UL (4.8-10.8)
[2018-11-27 14:34] LABS: ANION GAP 10 mmol/L (5-15); BLOOD UREA NITROGEN 108 mg/dL (7-18); CALCIUM 9.2 MG/DL (8.5-10.1); CARBON DIOXIDE 30 MMOL/L (21-32); CHLORIDE 119 MMOL/L (98-107); CREATININE 2.9 MG/DL (0.55-1.30); POTASSIUM 4.8 MMOL/L (3.5-5.1); SODIUM 159 MMOL/L (136-145)
[2018-11-27] MEDS ORDERED: Clindamycin 600mg 50 ML IVPB ONE (14:45)
[2018-11-27 14:49] LABS: ALANINE AMINOTRANSFERASE 30 U/L (12-78); ALBUMIN 2.7 G/DL (3.4-5.0); ALBUMIN/GLOBULIN RATIO 0.6 (1.0-2.7); ALKALINE PHOSPHATASE 77 U/L (46-116); ASPARTATE AMINO TRANSFERASE 21 U/L (15-37); BILIRUBIN,TOTAL 0.5 MG/DL (0.2-1.0); CKMB 0.6 NG/ML (0.0-3.6); CREATINE KINASE 198 U/L (26-308)
[2018-11-27 16:18] VITALS: BP 109/44
[2018-11-27 16:45] VITALS: BP 102/51
[2018-11-27] MEDS ORDERED: guaiFENesin 100mg/5ml Liq ud GT PRN (18:15)
[2018-11-27 20:00] VITALS: BP 116/50
[2018-11-27] MEDS ORDERED: Vancomycin 1gm/D5W 275ml IVPB ONE ×2 (20:00)
[2018-11-27] MEDS: Albuterol/Ipratropium 3ml neb HHN SCH ×2 (20:13→23:00)
[2018-11-27] MEDS ORDERED: Cefepime HCl 1 GM in D5W 55 ML IVPB SCH (21:00)
[2018-11-27] MEDS ORDERED: Cefepime 1gm/D5W 55ml IVPB ONE ×2 (21:00)
[2018-11-28] VITALS: BP 135/77
[2018-11-28] MEDS: Acetaminophen 650mg/20.3ml GT PRN (00:16)
[2018-11-28] MEDS: Albuterol/Ipratropium 3ml neb HHN SCH ×6 (03:26→23:12)
[2018-11-28 04:00] VITALS: BP 114/50
[2018-11-28 06:38] LABS: HEMATOCRIT 39.7 % (37.0-47.0); HEMOGLOBIN 11.9 G/DL (12.0-16.0); MEAN CORPUSCULAR VOLUME 95 FL (80-99); PLATELET COUNT 98 K/UL (150-450); RED CELL DISTRIBUTION WIDTH 18.7 % (11.6-14.8); WHITE BLOOD COUNT 11.5 K/UL (4.8-10.8)
[2018-11-28 07:12] LABS: ALANINE AMINOTRANSFERASE 25 U/L (12-78); ALBUMIN 2.3 G/DL (3.4-5.0); ALBUMIN/GLOBULIN RATIO 0.5 (1.0-2.7); ALKALINE PHOSPHATASE 69 U/L (46-116); ANION GAP 10 mmol/L (5-15); ASPARTATE AMINO TRANSFERASE 22 U/L (15-37); BILIRUBIN,TOTAL 0.5 MG/DL (0.2-1.0); BLOOD UREA NITROGEN 99 mg/dL (7-18); CALCIUM 8.5 MG/DL (8.5-10.1); CARBON DIOXIDE 28 MMOL/L (21-32); CHLORIDE 119 MMOL/L (98-107); CREATININE 2.7 MG/DL (0.55-1.30); POTASSIUM 4.5 MMOL/L (3.5-5.1); SODIUM 157 MMOL/L (136-145)
[2018-11-28 08:00] VITALS: BP 116/47
--- NOTE | 2018-11-28 08:11 | General Progress Note ---
Assessment/Plan Problem List: (1) Dyspnea ICD Codes: R06.00 - Dyspnea, unspecified SNOMED: 496403828 (2) Respiratory distress ICD Codes: R06.03 - Acute respiratory distress SNOMED: 399205634 (3) Dyspnea ICD Codes: R06.00 - Dyspnea, unspecified SNOMED: 205550034 (4) Sepsis ICD Codes: A41.9 - Sepsis, unspecified organism SNOMED: 14955776 (5) UTI (urinary tract infection) ICD Codes: N39.0 - Urinary tract infection, site not specified SNOMED: 65350771 Status: stable, not improved Assessment/Plan resp rx o2 iv abx check abg hypotonic fluids guarded dnr reaffirmed with family Subjective ROS Limited/Unobtainable: Yes Constitutional: Reports: malaise, weakness HEENT: Reports: no symptoms Cardiovascular: Reports: no symptoms Respiratory: Reports: cough, shortness of breath Gastrointestinal/Abdominal: Reports: difficulty swallowing Genitourinary: Reports: no symptoms Neurologic/Psychiatric: Reports: pre-existing deficit Endocrine: Reports: no symptoms Hematologic/Lymphatic: Reports: no symptoms Allergies: Coded Allergies: SHELLFISH DERIVED (Unverified Allergy, Severe, ANAPHYLAXIS, 11/27/18) CHOCOLATE FLAVOR (Verified Allergy, Mild, 07/02/17) IODINE (Verified Allergy, Unknown, 07/01/17) PENICILLINS (Verified Allergy, Unknown, 07/01/17) Uncoded Allergies: CHOCOLATE (Allergy, Unknown, 11/27/18) All Systems: reviewed and negative except above Subjective remains sob on high flow o2 via venti mask. lethargic Objective Last 24 Hour Vital Signs Date Time Temp Pulse Resp B/P (MAP) Pulse Ox O2 Delivery O2 Flow Rate FiO2 11/28/18 08:00 98.6 107 26 116/47 (70) 97 11/28/18 07:55 106 20 99 Venturi Mask 10.0 45 11/28/18 07:45 90 18 97 Venturi Mask 10.0 45 11/28/18 07:44 Venturi Mask 10.0 45 11/28/18 07:44 98 Venturi Mask 10.0 45 11/28/18 04:00 98.8 112 20 114/50 (71) 95 11/28/18 04:00 109 11/28/18 03:24 112 20 95 Venturi Mask 10.0 45 11/28/18 03:21 107 18 92 Venturi Mask 8.0 40 11/28/18 00:46 101.4 11/28/18 00:00 102.5 124 24 135/77 (96) 97 11/28/18 00:00 122 11/27/18 23:49 130 Nasal Cannula 3.0 32 11/27/18 23:48 126 Nasal Cannula 3.0 32 11/27/18 21:00 Nasal Cannula 2.0 11/27/18 20:21 Nasal Cannula 2.0 28 11/27/18 20:20 96 Nasal Cannula 2.0 28 11/27/18 20:19 112 18 Nasal Cannula 2.0 28 11/27/18 20:00 109 11/27/18 20:00 101.5 112 24 116/50 (72) 97 11/27/18 20:00 116 18 98 Nasal Cannula 2.0 28 11/27/18 19:50 112 18 96 Nasal Cannula 2.0 28 11/27/18 17:29 Non-Rebreather 10.0 11/27/18 16:45 101.2 105 20 102/51 (68) 100 11/27/18 16:38 98.6 101 24 109/44 100 Non-Rebreather 15.0 93 11/27/18 16:18 98.9 102 25 109/44 100 Non-Rebreather 15.0 11/27/18 13:30 100.7 112 20 108/37 93 Non-Rebreather 15.0 11/27/18 13:30 112 19 Non-Rebreather 15.0 93 11/27/18 13:14 98.2 118 16 116/69 95 Non-Rebreather Intake and Output 11/27/18 11/28/18 19:00 07:00 Output Total 200 ml Balance -200 ml Output Urine Total 200 ml Laboratory Tests 11/27/18 13:45: White Blood Count 18.6H, Red Blood Count 4.81, Hemoglobin 13.5, Hematocrit 45.4 , Mean Corpuscular Volume 94, Mean Corpuscular Hemoglobin 28.0, Mean Corpuscular Hemoglobin Concent 29.7L, Red Cell Distribution Width 18.3H, Platelet Count 135L, Mean Platelet Volume 14.2H, Neutrophils (%) (Auto) , Lymphocytes (%) (Auto) , Monocytes (%) (Auto) , Eosinophils (%) (Auto) , Basophils (%) (Auto) , Differential Total Cells Counted 100, Neutrophils % ( Manual) 80H, Lymphocytes % (Manual) 6L, Monocytes % (Manual) 4, Eosinophils % ( Manual) 1, Basophils % (Manual) 0, Band Neutrophils 9H, Platelet Estimate DecreasedL, Platelet Morphology , Giant Platelets Occasional, Anisocytosis 1+, Urine Color Pale yellow, Urine Appearance Clear, Urine pH 5, Urine Specific [place] 1.010, Urine Protein 3+H, Urine Glucose (UA) Negative, Urine Ketones Negative, Urine Blood 2+H, Urine Nitrite PositiveH, Urine Bilirubin Negative, Urine Urobilinogen Normal, Urine Leukocyte Esterase 3+H, Urine RBC 2-4H, Urine WBC 20-30H, Urine Squamous Epithelial Cells Few, Urine Bacteria ModerateH, Sodium Level 159H, Potassium Level 4.8, Chloride Level 119H, Carbon Dioxide Level 30, Anion Gap 10, Blood Urea Nitrogen 108H, Creatinine 2.9H, Estimat Glomerular Filtration Rate , Glucose Level 212H, Lactic Acid Level 2.50H, Calcium Level 9.2, Total Bilirubin 0.5, Aspartate Amino Transf (AST/SGOT) 21, Alanine Aminotransferase (ALT/SGPT) 30, Alkaline Phosphatase 77, Total Creatine Kinase 198, Creatine Kinase MB 0.6, Creatine Kinase MB Relative Index 0.3, Troponin I 0.068H, Pro-B-Type Natriuretic Peptide 1834H, Total Protein 7.6, Albumin 2.7L, Globulin 4.9, Albumin/Globulin Ratio 0.6L, Lipase 596H 11/27/18 14:25: Arterial Blood pH 7.389, Arterial Blood Partial Pressure CO2 49.5H, Arterial Blood Partial Pressure O2 78.4, Arterial Blood HCO3 29.2H, Arterial Blood Oxygen Saturation 94.9L, Arterial Blood Base Excess 3.4H, Lakhwinder Test Positive 11/27/18 15:05: Lactic Acid Level 2.20 11/28/18 05:35: White Blood Count 11.5H, Red Blood Count 4.20, Hemoglobin 11.9L, Hematocrit 39.7 , Mean Corpuscular Volume 95, Mean Corpuscular Hemoglobin 28.4, Mean Corpuscular Hemoglobin Concent 30.1L, Red Cell Distribution Width 18.7H, Platelet Count 98L, Mean Platelet Volume 13.4H, Neutrophils (%) (Auto) , Lymphocytes (%) (Auto) , Monocytes (%) (Auto) , Eosinophils (%) (Auto) , Basophils (%) (Auto) , Neutrophils % (Manual) [Pending], Lymphocytes % (Manual) [Pending], Platelet Estimate [Pending], Platelet Morphology [Pending], Sodium Level 157H, Potassium Level 4.5, Chloride Level 119H, Carbon Dioxide Level 28, Anion Gap 10, Blood Urea Nitrogen 99H, Creatinine 2.7H, Estimat Glomerular Filtration Rate , Glucose Level 164H, Calcium Level 8.5, Total Bilirubin 0.5, Aspartate Amino Transf (AST/SGOT) 22, Alanine Aminotransferase (ALT/SGPT) 25, Alkaline Phosphatase 69, Total Protein 6.8, Albumin 2.3L, Globulin 4.5, Albumin/ Globulin Ratio 0.5L Height (Feet): 2 Height (Inches): 9.00 Weight (Pounds): 152 General Appearance: WD/WN, lethargic, confused Neck: supple Cardiovascular: normal rate Respiratory/Chest: crackles/rales, rhonchi - bilaterally Abdomen: normal bowel sounds, non tender, soft, no organomegaly Neurologic: disoriented, aphasia Raimundo Clark MD Nov 28, 2018 08:10
[2018-11-28] MEDS: Docusate 100mg/10ml Liq GT SCH ×2 (08:43→17:24)
[2018-11-28] MEDS: Aspirin Baby 81mg GT SCH (08:44)
[2018-11-28] MEDS: Allopurinol 100mg Tab GT SCH (08:44)
--- NOTE | 2018-11-28 09:32 | Diagnostic Imaging Report ---
Indications: Altered mental status Technique: Spiral acquisitions obtained through the brain. Angled axial and coronal 5 x 5 mm slices were reconstructed. Total dose length product 1467.25 mGycm. CTDI vol(s) 70.38 mGy. Dose reduction achieved using automated exposure control Comparison: None. Findings: Large area of encephalomalacia is seen involving the posterior right frontal lobe, anterior right parietal lobe, and to a slight extent the temporal operculum. There is resultant ex vacuo dilatation of the body and temporal horn of the right lateral ventricle. Old lacunar infarcts are seen in the left basal ganglia. There is generalized age-related enlargement of the ventricles and extra-axial CSF spaces. No acute intracranial hemorrhage nor edema, mass effect, nor midline shift. The calvarium is intact. There is left maxillary and bilateral sphenoid sinus mucosal disease. The mastoids are clear. 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
--- NOTE | 2018-11-28 09:32 | Diagnostic Imaging Report ---
Indication: Shortness of breath Technique: One view of the chest Comparison: none Findings: There are atelectatic changes at both lung bases, left greater than right. The lungs and pleural spaces are otherwise clear. The heart size is normal. There is tortuous calcified and ectatic Impression: Bilateral basilar atelectasis
--- NOTE | 2018-11-28 13:13 | History and Physical Report ---
DATE OF ADMISSION: 11/27/2018 CHIEF COMPLAINT: Sepsis, respiratory failure, pneumonia, UTI. HISTORY OF PRESENT ILLNESS: The patient is an unfortunate elderly female. She has history of stroke, bilateral qtgtg-zdz-lccy amputations, dysphagia, status post G-tube, hypertension. She has history of chronic kidney disease with recurrent urinary tract infections. [facility] with complaints of altered mental status. On evaluation in the emergency room, the patient was noted to be congested and short of breath. She had a CAT scan of the head that showed no acute stroke or bleed. Her x-ray performed was clear. She was hypernatremic with an elevated BUN and creatinine. The patient has been pancultured and then started on broad-spectrum IV antibiotics. She is now admitted for further evaluation and care. The patient is unable to provide any history as she is mostly aphasic on physical exam. PAST MEDICAL HISTORY: As above. PAST SURGICAL HISTORY: As above. CURRENT MEDICATIONS: Reconciled and reviewed. ALLERGIES: Include penicillin, iodine, shellfish, and chocolate. FAMILY HISTORY: Noncontributory. SOCIAL HISTORY: Negative for tobacco, ethanol, or drugs. REVIEW OF SYSTEMS: From the patient, unobtainable. PHYSICAL EXAMINATION: VITAL SIGNS: Temperature was 101.2, pulse 105, respirations 20, blood pressure 105/51. GENERAL: The patient is a well-developed female in no apparent distress. She is congested. HEART: Regular rate and rhythm. LUNGS: Significant for bilateral rhonchi. ABDOMEN: Soft, nontender, nondistended. G-tube site was clean. EXTREMITIES: Significant bilateral yedii-nnh-rdhr amputations. LABORATORY DATA: White count 19,000, hemoglobin 13, platelets 135,000. Sodium 159, potassium 4.8, chloride 119, bicarbonate 30, BUN 108, creatinine was 2.9. ASSESSMENT: This is an unfortunate elderly female with: 1. Sepsis. 2. Respiratory failure. 3. Possible pneumonia. 4. UTI. 5. Acute on chronic renal failure. 6. Azotemia. 7. History of stroke. 8. History of bilateral ietjh-zna-lmds amputations. PLAN: Supplemental oxygen, respiratory treatments, and suction as needed. Broad-spectrum IV antibiotic therapy. Follow up cultures. Monitor blood gases. Continue supplemental oxygen. The patient may require BiPAP. Hold feedings. IV hydration with hypotonic fluids. Monitor laboratories. The patient's status was discussed with her daughter. Her code status is Do Not Resuscitate. This was reaffirmed with family members. The patient's status is currently guarded. Raimundo Clark M.D. DR: Lauren JOB#: [id number] CC:
--- NOTE | 2018-11-28 13:14 | Consultation ---
DATE OF CONSULTATION: 11/27/2018 CARDIOLOGY CONSULTATION CONSULTING PHYSICIAN: Jl Szymanski M.D. REASON FOR CONSULTATION: Lactic acidosis, dehydration, and elevated troponin level. HISTORY OF PRESENT ILLNESS: This 83-year-old female residing at a [facility] facility was noted to have acute respiratory distress and hypoxia, prompting transfer to the emergency room for evaluation. She was noted to be altered in mentation by family members. She has not had any nausea, vomiting, diarrhea, or abdominal pain. Never has she been swollen or complaining of chest pain. She has had a slight cough. No obvious sputum production per records. PAST MEDICAL HISTORY: Includes cerebrovascular disease, dementia, dysphagia with history of aspiration, COPD, G-tube, and hemiplegia on the left. Peripheral artery disease with prior lower extremity amputation. ALLERGIES: Includes shellfish, iodine, penicillin, and chocolate. FAMILY HISTORY: Noncontributory. SOCIAL HISTORY: Not obtainable. REVIEW OF SYSTEMS: A 10-point review of systems performed with family members data and all pertinent positives as outlined above. PHYSICAL EXAMINATION: VITAL SIGNS: Blood pressure 116/69, pulse 118, respirations 16, afebrile on a non-rebreather mask. LUNGS: Positive accessory muscle use. Coarse rhonchi. Scattered wheezing. HEART: Regular rhythm. Rapid rate. Normal S1, S2 with a fourth heart sound. ABDOMEN: Soft and nontender. EXTREMITIES: Bilateral BKA stumps without edema. LABORATORY AND DIAGNOSTIC DATA: Troponin 0.068. Sodium 159, potassium 4.8, bicarb 30, chloride 119, BUN 108, creatinine 2.9. ABG 7.39, 49, and 78. Chest x-ray with atelectasis. EKG with sinus rhythm and no acute ST-T wave changes. CAT scan of the brain, no acute process. Urinalysis with 20 to 30 white cells. White count 18.6 and hemoglobin 13.5. IMPRESSION: 1. Toxic and metabolic encephalopathies. 2. Sepsis. 3. Lactic acidosis. 4. Acute myocardial ischemia and possible non-ST elevation infarction. 5. Acute on chronic diastolic congestive heart failure. 6. Bilateral amputee due to peripheral artery disease. 7. Acute respiratory insufficiency, probable aspiration and healthcare-acquired pneumonia. PLAN: 1. Panculture. 2. Respiratory hygiene. 3. Taper off BiPAP. 4. Bronchodilators. 5. Antimicrobials. 6. DVT and stress ulcer prophylaxis. 7. Serial lactic acid levels. 8. Cautious hydration. 9. Serial troponin levels. 10. Antiplatelet therapy. Jl Szymanski M.D. DR: JENI JOB#: [id number] CC:
--- NOTE | 2018-11-28 16:30 | Consultation ---
DATE OF CONSULTATION: 11/28/2018 INFECTIOUS DISEASES CONSULTATION CONSULTING PHYSICIAN: Laurent Hunt M.D. REFERRING PHYSICIAN: Raimundo Clark M.D. REASON FOR CONSULTATION: Pneumonia. HISTORY OF PRESENTING ILLNESS: This is an 83-year-old lady with history of COPD, pneumonia, encephalopathy, G-tube placement, hemiplegia who comes in because she had altered mental status. She also had respiratory distress with low oxygenation. She was found to have pneumonia and an Infectious Diseases consultation has been obtained for antibiotics. PAST MEDICAL HISTORY: 1. History of encephalopathy. 2. History of aspiration pneumonia. 3. COPD. 4. Status post G-tube placement. 5. History of hemiplegia. SOCIAL HISTORY: Unknown. FAMILY HISTORY: Unknown. REVIEW OF SYSTEMS: Unable to obtain currently. MEDICATIONS: As an inpatient, the patient is on cefepime, allopurinol, amlodipine, aspirin, docusate, levothyroxine, atorvastatin, albuterol ipratropium, Tylenol, guaifenesin, IV vancomycin. ALLERGIES: 1. Chocolate. 2. Penicillin. 3. Iodine. 4. Shellfish. PHYSICAL EXAMINATION: VITAL SIGNS: Temperature of 98.6, T-max of 102.5, pulse of 107, respiratory rate 26, blood pressure 116/47, O2 saturation of 97%. HEENT: Pupils equally reactive to light and accommodation. Mouth appears clean without thrush. NECK: Supple. No adenopathy. No JVD. CARDIOVASCULAR: Regular rate and rhythm. No murmurs. LUNGS: Wheezing noted bilaterally. ABDOMEN: Soft and nontender. No organomegaly. G-tube site appears clean. EXTREMITIES: Stumps are clean. LABORATORY AND DIAGNOSTIC DATA: White count of 18 yesterday and white count of 11.5 today, hemoglobin 11.9, hematocrit 39.7, MCV 95, platelet count of 98, neutrophils of 77%. Sodium 157, potassium 4.5, chloride 119, bicarb 28, BUN 99, creatinine 2.7, glucose 164, calcium 8.5. AST 22, ALT 25, alkaline phosphatase 69. Total protein 6.8 and albumin 2.3. UA showing 20 to 30 white cells. Urine culture showing gram-negative rods more than 100,000 colonies. Nasal swab was negative for influenza A and B. Chest x-ray is showing bibasilar atelectasis. CT head showing negative for bleed or mass effect, large old right middle cerebral artery infarct, chronic age-related changes noted, sinus disease noted. ASSESSMENT: This is an 83-year-old lady with history of COPD, hemiplegia, aspiration pneumonia, encephalopathy who comes in and is found to have. 1. Gram-negative urinary tract infection. 2. Renal failure is improving. 3. Leukocytosis is improving. PLAN: 1. Continue cefepime. 2. Discontinue IV vancomycin. 3. We will follow up cultures and adjust antibiotics accordingly. I would like to thank, Dr. Clark, for this consultation. Laurent Hunt M.D. DR: Minh JOB#: [id number] CC: Raimundo Clark M.D.
[2018-11-28 16:42] LABS: ANION GAP 9 mmol/L (5-15); BLOOD UREA NITROGEN 95 mg/dL (7-18); CALCIUM 8.8 MG/DL (8.5-10.1); CARBON DIOXIDE 27 MMOL/L (21-32); CHLORIDE 119 MMOL/L (98-107); CREATININE 2.6 MG/DL (0.55-1.30); POTASSIUM 4.5 MMOL/L (3.5-5.1); SODIUM 155 MMOL/L (136-145)
[2018-11-28 20:00] VITALS: BP 112/48
[2018-11-28] MEDS: Cefepime HCl 0.5 GM in D5W 55 ML IVPB SCH (20:42)
[2018-11-29] VITALS: BP 117/53
[2018-11-29] MEDS: Acetaminophen 650mg/20.3ml GT PRN (01:56)
[2018-11-29] MEDS: Albuterol/Ipratropium 3ml neb HHN SCH ×5 (03:00→23:57)
--- NOTE | 2018-11-29 03:00 | Progress Note ---
DATE: 11/28/2018 CARDIOLOGY PROGRESS NOTE SUBJECTIVE: The patient has congestion. She remains on antibiotics. She is on Venturi mask, alternating with cannula. OBJECTIVE: VITAL SIGNS: Blood pressure 112/48, pulse 104, respirations 21, temperature 100.3. LUNGS: Coarse breath sounds. Scattered rhonchi. HEART: Regular rhythm and rate. Normal S1, S2. ABDOMEN: Soft. NT/ND +Gtube. EXTR: Bilateral AKA's LABORATORY DATA: White count 11.5, hemoglobin 11.9. ABG, pH 7.43, pCO2 41, pO2 74. Sodium 155, potassium 4.5, bicarbonate 27, BUN 95, creatinine 2.6. IMPRESSION: 1. Pneumonia. 2. Sepsis. 3. Acute on chronic renal failure. 4. Severe dehydration. 5. Hyperchloremia, hypernatremia. 6. Severe protein-calorie malnutrition. 7. Bilateral amputee. 8. Toxic and metabolic encephalopathy. 9. Resolving lactic acidosis. 10. Acute myocardial ischemia and possible non-ST elevation infarction. PLAN: 1. Antimicrobials. 2. Respiratory hygiene. 3. Hypotonic IV fluid hydration. 4. Monitor chemistry panel. 5. Repeat troponin level. 6. Bronchodilators. 7. Respiratory hygiene. 8. Anti-platelet therapy. 9. Titrate antihypertensives. 10. Cautious addition of beta-stacey. Jl Szymanski M.D. DR: GABBY JOB#: [id number] CC: MALICK
[2018-11-29 04:00] VITALS: BP 112/54
[2018-11-29 07:32] VITALS: BP_SYST 125; BP_SYST 97; BP_DIAS 47; BP_DIAS 60
[2018-11-29 08:13] LABS: ALANINE AMINOTRANSFERASE 23 U/L (12-78); ALBUMIN/GLOBULIN RATIO 0.5 (1.0-2.7); ALKALINE PHOSPHATASE 79 U/L (46-116); ANION GAP 8 mmol/L (5-15); ASPARTATE AMINO TRANSFERASE 25 U/L (15-37); BILIRUBIN,TOTAL 0.5 MG/DL (0.2-1.0); BLOOD UREA NITROGEN 86 mg/dL (7-18); CALCIUM 8.3 MG/DL (8.5-10.1); CARBON DIOXIDE 28 MMOL/L (21-32); CHLORIDE 113 MMOL/L (98-107); CREATININE 2.6 MG/DL (0.55-1.30); POTASSIUM 3.7 MMOL/L (3.5-5.1); SODIUM 149 MMOL/L (136-145)
[2018-11-29] MEDS: Docusate 100mg/10ml Liq GT SCH ×2 (08:18→17:10)
[2018-11-29] MEDS: Allopurinol 100mg Tab GT SCH (08:18)
[2018-11-29] MEDS: Metoprolol 25mg tab ORAL SCH ×2 (08:19→22:02)
[2018-11-29] MEDS: Aspirin Baby 81mg GT SCH (08:19)
--- NOTE | 2018-11-29 09:03 | General Progress Note ---
Assessment/Plan Problem List: (1) Dyspnea ICD Codes: R06.00 - Dyspnea, unspecified SNOMED: 234603668 (2) Respiratory distress ICD Codes: R06.03 - Acute respiratory distress SNOMED: 569646815 (3) Dyspnea ICD Codes: R06.00 - Dyspnea, unspecified SNOMED: 075979570 (4) Sepsis ICD Codes: A41.9 - Sepsis, unspecified organism SNOMED: 61563538 (5) UTI (urinary tract infection) ICD Codes: N39.0 - Urinary tract infection, site not specified SNOMED: 76120261 Status: stable, not improved Assessment/Plan resp rx o2 iv abx check abg hypotonic fluids guarded family changed code status to intubation ok. no chest compressions or cardioversion Subjective ROS Limited/Unobtainable: Yes Constitutional: Reports: malaise, weakness HEENT: Reports: no symptoms Cardiovascular: Reports: no symptoms Respiratory: Reports: shortness of breath, sputum, wheezing Gastrointestinal/Abdominal: Reports: difficulty swallowing Genitourinary: Reports: no symptoms Neurologic/Psychiatric: Reports: pre-existing deficit Endocrine: Reports: no symptoms Hematologic/Lymphatic: Reports: anemia Allergies: Coded Allergies: SHELLFISH DERIVED (Unverified Allergy, Severe, ANAPHYLAXIS, 11/27/18) CHOCOLATE FLAVOR (Verified Allergy, Mild, 07/02/17) IODINE (Verified Allergy, Unknown, 07/01/17) PENICILLINS (Verified Allergy, Unknown, 07/01/17) Uncoded Allergies: CHOCOLATE (Allergy, Unknown, 11/27/18) All Systems: reviewed and negative except above Subjective remains sob on high flow o2 via venti mask. was previously on nasal cannula. Na trending down. lethargic Objective Last 24 Hour Vital Signs Date Time Temp Pulse Resp B/P (MAP) Pulse Ox O2 Delivery O2 Flow Rate FiO2 11/29/18 08:43 90 20 99 Venturi Mask 14.0 55 11/29/18 08:33 85 20 99 Venturi Mask 14.0 55 11/29/18 08:31 Venturi Mask 14.0 55 11/29/18 08:31 99 Venturi Mask 14.0 55 11/29/18 08:19 82 125/60 11/29/18 07:38 Nasal Cannula 2.0 11/29/18 07:32 97.9 82 24 125/60 (81) 97 3/15/19 04:00 88 11/29/18 04:00 97.9 88 24 112/54 (73) 97 11/29/18 04:00 Venturi Mask 14.0 55 11/29/18 04:00 Venturi Mask 14.0 55 11/29/18 02:26 100.5 11/29/18 00:00 108 11/29/18 00:00 101.2 105 24 117/53 (74) 95 11/28/18 23:13 107 20 99 Venturi Mask 14.0 55 11/28/18 23:00 102 20 95 Venturi Mask 14.0 55 11/28/18 21:00 Nasal Cannula 2.0 11/28/18 20:00 106 11/28/18 20:00 100.3 104 21 112/48 (69) 97 11/28/18 19:23 95 Venturi Mask 14.0 55 11/28/18 19:23 Venturi Mask 14.0 55 11/28/18 19:22 108 20 97 Venturi Mask 14.0 55 11/28/18 19:10 104 20 95 Venturi Mask 14.0 55 11/28/18 16:13 105 20 97 Venturi Mask 14.0 55 11/28/18 16:03 97 18 97 Venturi Mask 14.0 55 11/28/18 15:10 106 11/28/18 11:47 103 20 97 Venturi Mask 14.0 55 11/28/18 11:37 102 18 96 Venturi Mask 14.0 55 11/28/18 11:29 103 Intake and Output 11/28/18 11/29/18 19:00 07:00 Intake Total 875 ml 150 ml Output Total 600 ml Balance 875 ml -450 ml Intake Free Water 150 ml IV Total 875 ml Output Urine Total 600 ml Laboratory Tests 11/28/18 15:55: Sodium Level 155H, Potassium Level 4.5, Chloride Level 119H, Carbon Dioxide Level 27, Anion Gap 9, Blood Urea Nitrogen 95H, Creatinine 2.6H, Estimat Glomerular Filtration Rate , Glucose Level 115H, Calcium Level 8.8 11/29/18 07:02: Sodium Level 149H, Potassium Level 3.7, Chloride Level 113H, Carbon Dioxide Level 28, Anion Gap 8, Blood Urea Nitrogen 86H, Creatinine 2.6H, Estimat Glomerular Filtration Rate , Glucose Level 144H, Calcium Level 8.3L, Total Bilirubin 0.5, Aspartate Amino Transf (AST/SGOT) 25, Alanine Aminotransferase ( ALT/SGPT) 23, Alkaline Phosphatase 79, Troponin I 0.073H, Total Protein 6.3L, Albumin 2.0L, Globulin 4.3, Albumin/Globulin Ratio 0.5L Height (Feet): 2 Height (Inches): 9.00 Weight (Pounds): 152 General Appearance: WD/WN, alert Neck: supple Cardiovascular: normal rate, regular rhythm Respiratory/Chest: rhonchi - bilaterally Abdomen: normal bowel sounds, non tender, soft, no organomegaly Edema: no edema noted Arm (L), no edema noted Arm (R), no edema noted Leg (L), no edema noted Leg (R), no edema noted Pedal (L), no edema noted Pedal (R), no edema noted Generalized Neurologic: disoriented, unresponsive, aphasia Raimundo Clark MD Nov 29, 2018 09:03
--- NOTE | 2018-11-29 10:11 | Infectious Diseases Prog Note ---
Assessment/Plan Assessment/Plan antibiotics : cefepime A 1. providencia UTI 2. ? pneumonia 3. leucocytosis improving 4. COPD 5. renal failure improving P 1. continue cefepime 2. will follow up cultures Subjective ROS Limited/Unobtainable: Yes Allergies: Coded Allergies: SHELLFISH DERIVED (Unverified Allergy, Severe, ANAPHYLAXIS, 11/27/18) CHOCOLATE FLAVOR (Verified Allergy, Mild, 07/02/17) IODINE (Verified Allergy, Unknown, 07/01/17) PENICILLINS (Verified Allergy, Unknown, 07/01/17) Uncoded Allergies: CHOCOLATE (Allergy, Unknown, 11/27/18) Objective Vital Signs Last 24 Hour Vital Signs Date Time Temp Pulse Resp B/P (MAP) Pulse Ox O2 Delivery O2 Flow Rate FiO2 11/29/18 08:43 90 20 99 Venturi Mask 14.0 55 11/29/18 08:33 85 20 99 Venturi Mask 14.0 55 11/29/18 08:31 Venturi Mask 14.0 55 11/29/18 08:31 99 Venturi Mask 14.0 55 11/29/18 08:19 82 125/60 11/29/18 07:38 Nasal Cannula 2.0 11/29/18 07:37 80 11/29/18 07:32 97.9 82 24 125/60 (81) 97 11/29/18 04:00 88 11/29/18 04:00 97.9 88 24 112/54 (73) 97 11/29/18 04:00 Venturi Mask 14.0 55 11/29/18 04:00 Venturi Mask 14.0 55 11/29/18 02:26 100.5 11/29/18 00:00 108 11/29/18 00:00 101.2 105 24 117/53 (74) 95 11/28/18 23:13 107 20 99 Venturi Mask 14.0 55 11/28/18 23:00 102 20 95 Venturi Mask 14.0 55 11/28/18 21:00 Nasal Cannula 2.0 11/28/18 20:00 106 11/28/18 20:00 100.3 104 21 112/48 (69) 97 11/28/18 19:23 95 Venturi Mask 14.0 55 11/28/18 19:23 Venturi Mask 14.0 55 11/28/18 19:22 108 20 97 Venturi Mask 14.0 55 11/28/18 19:10 104 20 95 Venturi Mask 14.0 55 11/28/18 16:13 105 20 97 Venturi Mask 14.0 55 11/28/18 16:03 97 18 97 Venturi Mask 14.0 55 11/28/18 15:10 106 11/28/18 11:47 103 20 97 Venturi Mask 14.0 55 11/28/18 11:37 102 18 96 Venturi Mask 14.0 55 11/28/18 11:29 103 Height (Feet): 2 Height (Inches): 9.00 Weight (Pounds): 152 Respiratory/Chest: rhonchi - bilaterally Cardiovascular: normal rate, regular rhythm, no gallop/murmur Abdomen: soft, non tender, other - GT Extremities: other - stumps clean Microbiology Date/Time Source Procedure Growth Status 11/27/18 13:51 Blood Blood Culture - Preliminary NO GROWTH AFTER 24 HOURS Resulted 11/27/18 13:45 Blood Blood Culture - Preliminary NO GROWTH AFTER 24 HOURS Resulted 11/27/18 17:00 Nasal Nares MRSA Culture - Final Staphylococcus Aureus - Mrsa Complete 11/27/18 13:45 Nasal Nares Influenza Types A,B Antigen (ANI) - Final Complete 11/27/18 13:45 Urine,Clean Catch Urine Culture - Final Providencia Stuartii Complete 11/27/18 17:00 Rectum VRE Culture - Final Enterococcus Faecalis - Vre Resulted 11/27/18 17:00 Rectum Pending Resulted Laboratory Tests Test 11/28/18 15:55 11/29/18 07:02 Sodium Level 155 MMOL/L (136-145) H 149 MMOL/L (136-145) H Potassium Level 4.5 MMOL/L (3.5-5.1) 3.7 MMOL/L (3.5-5.1) Chloride Level 119 MMOL/L (98-107) H 113 MMOL/L (98-107) H Carbon Dioxide Level 27 MMOL/L (21-32) 28 MMOL/L (21-32) Anion Gap 9 mmol/L (5-15) 8 mmol/L (5-15) Blood Urea Nitrogen 95 mg/dL (7-18) H 86 mg/dL (7-18) H Creatinine 2.6 MG/DL (0.55-1.30) H 2.6 MG/DL (0.55-1.30) H Estimat Glomerular Filtration Rate mL/min (>60) mL/min (>60) Glucose Level 115 MG/DL (74-106) H 144 MG/DL (74-106) H Calcium Level 8.8 MG/DL (8.5-10.1) 8.3 MG/DL (8.5-10.1) L Total Bilirubin 0.5 MG/DL (0.2-1.0) Aspartate Amino Transf (AST/SGOT) 25 U/L (15-37) Alanine Aminotransferase (ALT/SGPT) 23 U/L (12-78) Alkaline Phosphatase 79 U/L (46-116) Troponin I 0.073 ng/mL (0.000-0.056) Total Protein 6.3 G/DL (6.4-8.2) L Albumin 2.0 G/DL (3.4-5.0) L Globulin 4.3 g/dL Albumin/Globulin Ratio 0.5 (1.0-2.7) L Current Medications Medications (Trade) Dose Ordered Sig/Rick Route PRN Reason Start Time Stop Time Status Last Admin Dose Admin Acetaminophen (Tylenol) 650 mg Q4H PRN GT For Pain 11/27/18 18:15 12/27/18 18:14 11/29/18 01:56 Albuterol/ Ipratropium (Albuterol/ Ipratropium) 3 ml Q4HRT HHN 11/27/18 19:00 12/02/18 18:59 11/28/18 23:12 Allopurinol (Zyloprim) 200 mg DAILY GT 11/28/18 09:00 12/28/18 08:59 11/29/18 08:18 Aspirin (ASA) 81 mg DAILY GT 11/28/18 09:00 12/28/18 08:59 11/29/18 08:19 Atorvastatin Calcium (Lipitor) 10 mg BEDTIME GT 11/27/18 21:00 12/27/18 20:59 11/28/18 20:42 Cefepime HCl 0.5 gm/Dextrose 55 ml @ 110 mls/hr Q24H IVPB 11/28/18 21:00 12/05/18 20:59 11/28/18 20:42 Dextrose 1,000 ml @ 125 mls/hr Q8H IV 11/28/18 08:30 12/28/18 08:29 11/29/18 02:03 Docusate Sodium (Colace) 100 mg TWICE A DAY GT 11/28/18 09:00 12/28/18 08:59 11/29/18 08:18 Guaifenesin (Robitussin) 200 mg Q6H PRN GT For Cough 11/27/18 18:15 12/27/18 18:14 Levothyroxine Sodium (Synthroid) 75 mcg DAILY GT 11/28/18 09:00 12/28/18 08:59 11/29/18 08:19 Metoprolol Tartrate (Lopressor) 25 mg Q12HR ORAL 11/29/18 09:00 12/29/18 08:59 11/29/18 08:19 Laurent Hunt MD Nov 29, 2018 10:11
--- NOTE | 2018-11-29 10:58 | Consultation ---
History of Present Illness General Date patient seen: Nov 29, 2018 Chief Complaint: Dyspnea/Respdistress Present Illness HPI This is a 83-year-old female with multiple medical comorbidities who has a history of stroke bilateral AKA that is a shelter resident who is care dependent presented to the [facility] for evaluation of dyspnea and respiratory distress. Upon admission patient was noted to have multiple wounds including dermatitis associated wounds and buttock and sacral wounds. Wounds fairly extensive and requiring care and management. Surgery called to evaluate and assist with care. Patient seen, patient examined, chart reviewed. Upon admission patient identified to be afebrile hemodynamically stable with leukocytosis. Allergies: Coded Allergies: SHELLFISH DERIVED (Unverified Allergy, Severe, ANAPHYLAXIS, 11/27/18) CHOCOLATE FLAVOR (Verified Allergy, Mild, 07/02/17) IODINE (Verified Allergy, Unknown, 07/01/17) PENICILLINS (Verified Allergy, Unknown, 07/01/17) Uncoded Allergies: CHOCOLATE (Allergy, Unknown, 11/27/18) Medication History Scheduled Acidophilus/Bulgaricus (Floranex Tablet), 1 EACH GT TWICE A DAY, (Reported) Allopurinol* (Allopurinol*), 200 MG GT DAILY, (Reported) Amino Acids/Protein Hydrolys (Pro-Stat Liquid), 30 ML GT DAILY, (Reported) Amlodipine Besylate (Norvasc), 5 MG GT DAILY Aspirin* (Aspirin*), 81 MG GT DAILY, (Reported) Atorvastatin Calcium* (Atorvastatin Calcium*), 10 MG GT BEDTIME, (Reported) Atorvastatin Calcium* (Lipitor*), 10 MG GT BEDTIME, (Reported) Cefepime Hcl/D5w (Cefepime-Dextrose 1 Gm/50 Ml), 1,000 MG IVP Q24H, (Reported) Cranberry Fruit Concentrate (Cranberry), 450 MG GT DAILY, (Reported) Cranberry Fruit Concentrate (Cranberry), 450 MG GT DAILY, (Reported) Docusate Sodium* (Colace*), 100 MG GT TWICE A DAY, (Reported) Docusate Sodium* (Colace*), 100 MG GT TWICE A DAY, (Reported) Fish Oil (Fish Oil 1,000 mg Capsule), 1,200 MG GT BID, (Reported) Lactobacillus Acidophilus/Pect (Acidophilus-Pectin Capsule), 1 EACH GT BID, ( Reported) Levalbuterol HCl (Xopenex Concentrate), 1.25 MG HHN TIDRT Levothyroxine Sodium* (Levothyroxine Sodium*), 75 MCG GT DAILY, (Reported) Meropenem (Meropenem), 500 MG IVPB Q12H Multivitamin Liquid* (Multi-Delyn*), 5 ML GT DAILY, (Reported) Vitamin B Cmplx/Vit C/Folic AC (Nephro-Radha Tablet), 1 TAB GT DAILY, (Reported) Scheduled PRN Acetaminophen (Tylenol), 650 MG GT Q4HR PRN for For Pain, (Reported) Albuterol Sulfate* (Albuterol Sulfate Hhn*), 3 ML INH Q6H PRN for Shortness of Breath, (Reported) Guaifenesin (Subha-Tussin), 200 MG GT EVERY 6 HOURS PRN for For Cough, (Reported) Magnesium Hydroxide (Milk of Magnesia), 30 ML GT DAILY PRN for Constipation, ( Reported) Miscellaneous Medications Nut.tx.gluc.intoler,Lac-Fr,Soy (Glucerna 1.2 Ean), 1,500 ML GT, (Reported) Patient History Limited by: medical condition History Provided By: Medical Record, PMD Healthcare decision maker Irma Acosta Resuscitation status Do Not Resuscitate Advanced Directive on File Past Medical/Surgical History Past Medical/Surgical History: (1) Dyspnea (2) Respiratory distress (3) Sepsis (4) UTI (urinary tract infection) (5) Dyspnea Review of Systems ROS Narrative Cannot obtain given medical condition Physical Exam General Appearance: no apparent distress Lines, tubes and drains: peripheral HEENT: mucous membranes moist Neck: normal inspection Respiratory/Chest: no accessory muscle use, decreased breath sounds Cardiovascular/Chest: normal rate Abdomen: soft, no organomegaly, no mass, feeding tube Extremities: other Skin Exam: rash Last 24 Hour Vital Signs Date Time Temp Pulse Resp B/P (MAP) Pulse Ox O2 Delivery O2 Flow Rate FiO2 11/29/18 08:43 90 20 99 Venturi Mask 14.0 55 11/29/18 08:33 85 20 99 Venturi Mask 14.0 55 11/29/18 08:31 Venturi Mask 14.0 55 11/29/18 08:31 99 Venturi Mask 14.0 55 11/29/18 08:19 82 125/60 11/29/18 07:38 Nasal Cannula 2.0 11/29/18 07:37 80 11/29/18 07:32 97.9 82 24 125/60 (81) 97 11/29/18 04:00 88 11/29/18 04:00 97.9 88 24 112/54 (73) 97 11/29/18 04:00 Venturi Mask 14.0 55 11/29/18 04:00 Venturi Mask 14.0 55 11/29/18 02:26 100.5 11/29/18 00:00 108 11/29/18 00:00 101.2 105 24 117/53 (74) 95 11/28/18 23:13 107 20 99 Venturi Mask 14.0 55 11/28/18 23:00 102 20 95 Venturi Mask 14.0 55 11/28/18 21:00 Nasal Cannula 2.0 11/28/18 20:00 106 11/28/18 20:00 100.3 104 21 112/48 (69) 97 11/28/18 19:23 95 Venturi Mask 14.0 55 11/28/18 19:23 Venturi Mask 14.0 55 11/28/18 19:22 108 20 97 Venturi Mask 14.0 55 11/28/18 19:10 104 20 95 Venturi Mask 14.0 55 11/28/18 16:13 105 20 97 Venturi Mask 14.0 55 11/28/18 16:03 97 18 97 Venturi Mask 14.0 55 11/28/18 15:10 106 11/28/18 11:47 103 20 97 Venturi Mask 14.0 55 11/28/18 11:37 102 18 96 Venturi Mask 14.0 55 11/28/18 11:29 103 Intake and Output 11/28/18 11/29/18 19:00 07:00 Intake Total 875 ml 150 ml Output Total 600 ml Balance 875 ml -450 ml Intake Free Water 150 ml IV Total 875 ml Output Urine Total 600 ml Laboratory Tests Test 11/28/18 15:55 11/29/18 07:02 11/29/18 08:59 Sodium Level 155 MMOL/L (136-145) H 149 MMOL/L (136-145) H Potassium Level 4.5 MMOL/L (3.5-5.1) 3.7 MMOL/L (3.5-5.1) Chloride Level 119 MMOL/L (98-107) H 113 MMOL/L (98-107) H Carbon Dioxide Level 27 MMOL/L (21-32) 28 MMOL/L (21-32) Anion Gap 9 mmol/L (5-15) 8 mmol/L (5-15) Blood Urea Nitrogen 95 mg/dL (7-18) H 86 mg/dL (7-18) H Creatinine 2.6 MG/DL (0.55-1.30) H 2.6 MG/DL (0.55-1.30) H Estimat Glomerular Filtration Rate mL/min (>60) mL/min (>60) Glucose Level 115 MG/DL (74-106) H 144 MG/DL (74-106) H Calcium Level 8.8 MG/DL (8.5-10.1) 8.3 MG/DL (8.5-10.1) L Total Bilirubin 0.5 MG/DL (0.2-1.0) Aspartate Amino Transf (AST/SGOT) 25 U/L (15-37) Alanine Aminotransferase (ALT/SGPT) 23 U/L (12-78) Alkaline Phosphatase 79 U/L (46-116) Troponin I 0.073 ng/mL (0.000-0.056) Total Protein 6.3 G/DL (6.4-8.2) L Albumin 2.0 G/DL (3.4-5.0) L Globulin 4.3 g/dL Albumin/Globulin Ratio 0.5 (1.0-2.7) L Arterial Blood pH 7.420 (7.350-7.450) Arterial Blood Partial Pressure CO2 35.8 mmHg (35.0-45.0) Arterial Blood Partial Pressure O2 77.9 mmHg (75.0-100.0) Arterial Blood HCO3 22.9 mmol/L (22.0-26.0) Arterial Blood Oxygen Saturation 95.5 % (95-100) Arterial Blood Base Excess -1.1 (-2-2) Lakhwinder Test Positive Height (Feet): 2 Height (Inches): 9.00 Weight (Pounds): 152 Medications Current Medications Medications (Trade) Dose Ordered Sig/Rick Route PRN Reason Start Time Stop Time Status Last Admin Dose Admin Acetaminophen (Tylenol) 650 mg Q4H PRN GT For Pain 11/27/18 18:15 12/27/18 18:14 11/29/18 01:56 Albuterol/ Ipratropium (Albuterol/ Ipratropium) 3 ml Q4HRT HHN 11/27/18 19:00 12/02/18 18:59 11/28/18 23:12 Allopurinol (Zyloprim) 200 mg DAILY GT 11/28/18 09:00 12/28/18 08:59 11/29/18 08:18 Aspirin (ASA) 81 mg DAILY GT 11/28/18 09:00 12/28/18 08:59 11/29/18 08:19 Atorvastatin Calcium (Lipitor) 10 mg BEDTIME GT 11/27/18 21:00 12/27/18 20:59 11/28/18 20:42 Cefepime HCl 0.5 gm/Dextrose 55 ml @ 110 mls/hr Q24H IVPB 11/28/18 21:00 12/05/18 20:59 11/28/18 20:42 Dextrose 1,000 ml @ 125 mls/hr Q8H IV 11/28/18 08:30 12/28/18 08:29 11/29/18 02:03 Docusate Sodium (Colace) 100 mg TWICE A DAY GT 11/28/18 09:00 12/28/18 08:59 11/29/18 08:18 Guaifenesin (Robitussin) 200 mg Q6H PRN GT For Cough 11/27/18 18:15 12/27/18 18:14 Levothyroxine Sodium (Synthroid) 75 mcg DAILY GT 11/28/18 09:00 12/28/18 08:59 11/29/18 08:19 Metoprolol Tartrate (Lopressor) 25 mg Q12HR ORAL 11/29/18 09:00 12/29/18 08:59 11/29/18 08:19 Assessment/Plan Problem List: (1) Incontinence associated dermatitis Assessment & Plan: Pt presented on admission with fungal Moisture associated skin dermatitis affecting bilateral breast folds, bilateral Axilla,abdominal folds, mons pubis ,bilateral groin lower back, buttocks and medial/posterior aspects of both upper thighs. Gross erythema with denuded skin and with Scattered satellite lesions noted to buttocks and both posterior thighs. Scattered partial thickness pressure injuries noted to R and L gluteal clefts and sacrum, Full thickness stage 3 pressure injury noted to L ischial region. Upon assessment base of wound is maroon, 20% Biofilm noted with purple borders that are indurated. Wound measures (L)8.9cm x (W)7.5cm. Recommendations: Cleanse L ischial wound with saline.Apply Therahoney. Cover with Optifoam drsg Daily and prn. Apply Antifungal cream to to both breasts,Axillae, Abdominal folds,bilat groin and suprapubis areas Twice Daily. Apply Triad Paste to buttocks and posterior thighs with each perineal care. Please place abd pads or Sanitary Pads between thigh to prevent pressure injury from F/C. Cleanse the skin of buttock, anus, back, perineum with soap and water to lift stool and urine from the skin. Clean the skin routinely and at the time of soiling. Use warm (not hot) water, and avoid excess force and friction to avoid further skin damage. APM/ARACELI Mattress. Reposition at least [id number] or as tolerated. ICD Codes: L30.8 - Other specified dermatitis; R32 - Unspecified urinary incontinence SNOMED: 338240154 (2) Fungal dermatitis ICD Codes: B36.9 - Superficial mycosis, unspecified SNOMED: 40131847 (3) Sepsis Assessment & Plan: Leukocytosis trending down on IV abx wounds without abscess no acute surgical intervention necessary at this time needs good wound care as above ICD Codes: A41.9 - Sepsis, unspecified organism SNOMED: 20345943 Isaiah Parisi Nov 29, 2018 10:58
[2018-11-29 12:00] VITALS: BP 106/53
--- NOTE | 2018-11-29 15:27 | Diagnostic Imaging Report ---
Indication: Cough, shortness of breath Technique: One view of the chest Comparison: 11/27/2018 Findings: Paranasal essentially exposed. Interim development of patchy infiltrate at the right lung base. There is equivocally increased interstitial prominence, although this is probably an artifact of under exposure. Atelectatic changes are seen at both lung bases. The heart size is normal Impression: Developing patchy infiltrate at the right lung base, possibly pneumonia Equivocal increased interstitial prominence, probably just an artifact of under exposure although mild interstitial edema also possible
[2018-11-29 16:00] VITALS: BP 116/53
[2018-11-29 20:00] VITALS: BP 120/51
[2018-11-29] MEDS: Cefepime HCl 0.5 GM in D5W 55 ML IVPB SCH (22:15)
[2018-11-30] VITALS: BP 111/52
--- NOTE | 2018-11-30 00:15 | Progress Note ---
DATE: 11/29/2018 CARDIOLOGY PROGRESS NOTE SUBJECTIVE: The patient is increasingly short of breath on high flow oxygen, Ventimask. She is withdrawn and lethargic. OBJECTIVE: VITAL SIGNS: Blood pressure 125/60, pulse 82, respirations 24, and T-max 101.2. LUNGS: Coarse breath sounds. Scattered rhonchi. HEART: Regular rhythm and rate. Normal S1, S2. ABDOMEN: Soft. EXTREMITIES: No edema. LABORATORY AND DIAGNOSTIC DATA: Troponin 0.073. BUN 86, creatinine 2.6. Sodium 149, potassium 3.7, chloride 113. ABG, 7.42, 36, and 78. Chest x-ray today was notable for increase in interstitial prominence, patchy infiltrate right base, and mild interstitial edema. IMPRESSIONS: 1. Aspiration pneumonia. 2. Acute on chronic diastolic congestive heart failure. 3. Dehydration. 4. Hypernatremia. 5. Cerebrovascular disease with dementia. 6. Metabolic and toxic encephalopathies. 7. Sepsis. 8. Acute on chronic renal failure. 9. Severe protein-calorie malnutrition. 10. Resolved lactic acidosis. 11. Acute myocardial ischemia, recovering. 12. Bilateral amputee. PLAN: 1. Hypotonic IV fluid. 2. Adjust rate. 3. Antimicrobials. 4. Respiratory hygiene. 5. Aspiration precautions. 6. Continue anti-platelet and anti-lipid drugs as well as beta-blockade. Jl Szymanski M.D. DR: LUAN JOB#: [id number] CC:
[2018-11-30] MEDS: Acetaminophen 650mg/20.3ml GT PRN ×2 (00:43→22:23)
[2018-11-30] MEDS: Albuterol/Ipratropium 3ml neb HHN SCH ×6 (03:31→23:34)
[2018-11-30 04:00] VITALS: BP 101/41
[2018-11-30 07:24] LABS: HEMATOCRIT 32.7 % (37.0-47.0); HEMOGLOBIN 10.1 G/DL (12.0-16.0); MEAN CORPUSCULAR VOLUME 91 FL (80-99); PLATELET COUNT 100 K/UL (150-450); RED BLOOD COUNT 3.61 M/UL (4.20-5.40); RED CELL DISTRIBUTION WIDTH 18.3 % (11.6-14.8); WHITE BLOOD COUNT 12.5 K/UL (4.8-10.8)
[2018-11-30 07:36] LABS: ALANINE AMINOTRANSFERASE 24 U/L (12-78); ALBUMIN/GLOBULIN RATIO 0.4 (1.0-2.7); ALKALINE PHOSPHATASE 102 U/L (46-116); ANION GAP 11 mmol/L (5-15); ASPARTATE AMINO TRANSFERASE 31 U/L (15-37); BILIRUBIN,TOTAL 0.6 MG/DL (0.2-1.0); BLOOD UREA NITROGEN 67 mg/dL (7-18); CALCIUM 8.4 MG/DL (8.5-10.1); CARBON DIOXIDE 23 MMOL/L (21-32); CHLORIDE 104 MMOL/L (98-107); CREATININE 2.3 MG/DL (0.55-1.30); POTASSIUM 3.5 MMOL/L (3.5-5.1); SODIUM 138 MMOL/L (136-145)
[2018-11-30 08:00] VITALS: BP 103/45
[2018-11-30] MEDS: Docusate 100mg/10ml Liq GT SCH ×2 (09:34→17:19)
[2018-11-30] MEDS: Allopurinol 100mg Tab GT SCH (09:34)
[2018-11-30] MEDS: Aspirin Baby 81mg GT SCH (09:34)
--- NOTE | 2018-11-30 10:20 | Infectious Diseases Prog Note ---
Assessment/Plan Assessment/Plan antibiotics : cefepime A 1. providencia UTI 2. ? pneumonia 3. leucocytosis 4. COPD 5. renal failure improving 6. fever P 1. d/c cefepime 2. start zosyn 3. sputum cultures 4. will follow up cultures Subjective ROS Limited/Unobtainable: Yes Allergies: Coded Allergies: SHELLFISH DERIVED (Unverified Allergy, Severe, ANAPHYLAXIS, 11/27/18) CHOCOLATE FLAVOR (Verified Allergy, Mild, 07/02/17) IODINE (Verified Allergy, Unknown, 07/01/17) PENICILLINS (Verified Allergy, Unknown, 07/01/17) Uncoded Allergies: CHOCOLATE (Allergy, Unknown, 11/27/18) Objective Vital Signs Last 24 Hour Vital Signs Date Time Temp Pulse Resp B/P (MAP) Pulse Ox O2 Delivery O2 Flow Rate FiO2 11/30/18 08:00 98.8 88 24 103/45 (64) 95 11/30/18 07:36 88 20 99 Venturi Mask 14.0 55 11/30/18 07:26 96 Venturi Mask 14.0 55 11/30/18 07:26 Venturi Mask 14.0 55 11/30/18 07:24 83 22 96 Venturi Mask 14.0 55 11/30/18 04:00 74 11/30/18 04:00 99.0 90 20 101/41 (61) 95 11/30/18 03:31 92 20 95 Venturi Mask 14.0 55 11/30/18 01:13 98.9 11/30/18 00:11 93 20 99 Venturi Mask 14.0 55 11/30/18 00:00 102.4 85 22 111/52 (71) 94 11/30/18 00:00 85 11/29/18 23:57 89 20 96 Venturi Mask 14.0 55 11/29/18 22:02 94 120/81 11/29/18 21:00 Nasal Cannula 2.0 11/29/18 20:58 96 20 98 Venturi Mask 14.0 55 11/29/18 20:45 95 Venturi Mask 14.0 55 11/29/18 20:45 87 20 95 Venturi Mask 14.0 55 11/29/18 20:45 Venturi Mask 14.0 55 11/29/18 20:00 100.9 85 21 120/51 (74) 98 3/15/19 20:00 85 11/29/18 16:15 84 11/29/18 16:00 99.0 88 24 116/53 (74) 97 11/29/18 15:10 Venturi Mask 55 11/29/18 15:10 Venturi Mask 55 11/29/18 12:00 99.0 82 24 106/53 (70) 97 11/29/18 11:44 82 11/29/18 11:36 95 20 99 Venturi Mask 14.0 55 11/29/18 11:26 90 20 99 Venturi Mask 14.0 55 Height (Feet): 2 Height (Inches): 9.00 Weight (Pounds): 152 Respiratory/Chest: rhonchi - bilaterally Cardiovascular: normal rate, regular rhythm, no gallop/murmur Abdomen: soft, non tender, other - GT Extremities: other - stumps clean Microbiology Date/Time Source Procedure Growth Status 11/27/18 13:51 Blood Blood Culture - Preliminary NO GROWTH AFTER 48 HOURS Resulted 11/27/18 13:45 Blood Blood Culture - Preliminary NO GROWTH AFTER 48 HOURS Resulted 11/27/18 17:00 Nasal Nares MRSA Culture - Final Staphylococcus Aureus - Mrsa Complete 11/27/18 13:45 Nasal Nares Influenza Types A,B Antigen (ANI) - Final Complete 11/27/18 13:45 Urine,Clean Catch Urine Culture - Final Providencia Stuartii Complete 11/27/18 17:00 Rectum VRE Culture - Final Enterococcus Faecalis - Vre Complete 11/27/18 17:00 Rectum - Final NO CARBAPENEM-RESISTANT ENTEROBACTERI... Complete Laboratory Tests Test 11/30/18 06:20 White Blood Count 12.5 K/UL (4.8-10.8) H Red Blood Count 3.61 M/UL (4.20-5.40) L Hemoglobin 10.1 G/DL (12.0-16.0) L Hematocrit 32.7 % (37.0-47.0) L Mean Corpuscular Volume 91 FL (80-99) Mean Corpuscular Hemoglobin 28.0 PG (27.0-31.0) Mean Corpuscular Hemoglobin Concent 30.9 G/DL (32.0-36.0) L Red Cell Distribution Width 18.3 % (11.6-14.8) H Platelet Count 100 K/UL (150-450) L Mean Platelet Volume 14.9 FL (6.5-10.1) H Neutrophils (%) (Auto) % (45.0-75.0) Lymphocytes (%) (Auto) % (20.0-45.0) Monocytes (%) (Auto) % (1.0-10.0) Eosinophils (%) (Auto) % (0.0-3.0) Basophils (%) (Auto) % (0.0-2.0) Differential Total Cells Counted 100 Neutrophils % (Manual) 85 % (45-75) H Lymphocytes % (Manual) 10 % (20-45) L Monocytes % (Manual) 4 % (1-10) Eosinophils % (Manual) 1 % (0-3) Basophils % (Manual) 0 % (0-2) Band Neutrophils 0 % (0-8) Platelet Estimate Decreased L Platelet Morphology Normal Hypochromasia 1+ Anisocytosis 2+ Sodium Level 138 MMOL/L (136-145) # Potassium Level 3.5 MMOL/L (3.5-5.1) Chloride Level 104 MMOL/L (98-107) Carbon Dioxide Level 23 MMOL/L (21-32) Anion Gap 11 mmol/L (5-15) Blood Urea Nitrogen 67 mg/dL (7-18) H Creatinine 2.3 MG/DL (0.55-1.30) H Estimat Glomerular Filtration Rate mL/min (>60) Glucose Level 138 MG/DL (74-106) H Calcium Level 8.4 MG/DL (8.5-10.1) L Total Bilirubin 0.6 MG/DL (0.2-1.0) Aspartate Amino Transf (AST/SGOT) 31 U/L (15-37) Alanine Aminotransferase (ALT/SGPT) 24 U/L (12-78) Alkaline Phosphatase 102 U/L (46-116) Total Protein 6.7 G/DL (6.4-8.2) Albumin 2.0 G/DL (3.4-5.0) L Globulin 4.7 g/dL Albumin/Globulin Ratio 0.4 (1.0-2.7) L Current Medications Medications (Trade) Dose Ordered Sig/Rick Route PRN Reason Start Time Stop Time Status Last Admin Dose Admin Acetaminophen (Tylenol) 650 mg Q4H PRN GT For Pain 11/27/18 18:15 12/27/18 18:14 11/30/18 00:43 Albuterol/ Ipratropium (Albuterol/ Ipratropium) 3 ml Q4HRT HHN 11/27/18 19:00 12/02/18 18:59 11/30/18 07:24 Allopurinol (Zyloprim) 200 mg DAILY GT 11/28/18 09:00 12/28/18 08:59 11/30/18 09:34 Aspirin (ASA) 81 mg DAILY GT 11/28/18 09:00 12/28/18 08:59 11/30/18 09:34 Atorvastatin Calcium (Lipitor) 10 mg BEDTIME GT 11/27/18 21:00 12/27/18 20:59 11/29/18 22:02 Cefepime HCl 0.5 gm/Dextrose 55 ml @ 110 mls/hr Q24H IVPB 11/28/18 21:00 12/05/18 20:59 11/29/18 22:15 Dextrose 1,000 ml @ 125 mls/hr Q8H IV 11/28/18 08:30 12/28/18 08:29 11/30/18 09:34 Docusate Sodium (Colace) 100 mg TWICE A DAY GT 11/28/18 09:00 12/28/18 08:59 11/30/18 09:34 Guaifenesin (Robitussin) 200 mg Q6H PRN GT For Cough 11/27/18 18:15 12/27/18 18:14 Levothyroxine Sodium (Synthroid) 75 mcg DAILY GT 11/28/18 09:00 12/28/18 08:59 11/30/18 09:34 Metoprolol Tartrate (Lopressor) 25 mg Q12HR GT 11/30/18 21:00 12/29/18 08:59 Laurent Hunt MD Nov 30, 2018 10:20
--- NOTE | 2018-11-30 11:11 | General Progress Note ---
Assessment/Plan Problem List: (1) Dyspnea ICD Codes: R06.00 - Dyspnea, unspecified SNOMED: 485764970 (2) Respiratory distress ICD Codes: R06.03 - Acute respiratory distress SNOMED: 367181635 (3) Dyspnea ICD Codes: R06.00 - Dyspnea, unspecified SNOMED: 031535378 (4) Sepsis ICD Codes: A41.9 - Sepsis, unspecified organism SNOMED: 80379001 (5) UTI (urinary tract infection) ICD Codes: N39.0 - Urinary tract infection, site not specified SNOMED: 94119139 Status: stable, progressing Assessment/Plan resp rx o2 iv abx check abg hypotonic fluids guarded family changed code status to intubation ok. no chest compressions or cardioversion Subjective ROS Limited/Unobtainable: No Constitutional: Reports: malaise, weakness HEENT: Reports: no symptoms Cardiovascular: Reports: no symptoms Respiratory: Reports: shortness of breath, sputum Gastrointestinal/Abdominal: Reports: no symptoms Genitourinary: Reports: no symptoms Neurologic/Psychiatric: Reports: pre-existing deficit Endocrine: Reports: no symptoms Hematologic/Lymphatic: Reports: anemia Allergies: Coded Allergies: SHELLFISH DERIVED (Unverified Allergy, Severe, ANAPHYLAXIS, 11/27/18) CHOCOLATE FLAVOR (Verified Allergy, Mild, 07/02/17) IODINE (Verified Allergy, Unknown, 07/01/17) PENICILLINS (Verified Allergy, Unknown, 07/01/17) Uncoded Allergies: CHOCOLATE (Allergy, Unknown, 11/27/18) All Systems: reviewed and negative except above Subjective remains sob on high flow o2 via venti mask. was previously on nasal cannula. Na trending down. lethargic still congested and sob Objective Last 24 Hour Vital Signs Date Time Temp Pulse Resp B/P (MAP) Pulse Ox O2 Delivery O2 Flow Rate FiO2 11/30/18 10:51 85 20 98 Venturi Mask 14.0 55 11/30/18 10:41 86 20 96 Venturi Mask 14.0 55 11/30/18 09:00 Nasal Cannula 2.0 11/30/18 08:00 98.8 88 24 103/45 (64) 95 11/30/18 08:00 86 11/30/18 07:36 88 20 99 Venturi Mask 14.0 55 11/30/18 07:26 96 Venturi Mask 14.0 55 11/30/18 07:26 Venturi Mask 14.0 55 11/30/18 07:24 83 22 96 Venturi Mask 14.0 55 11/30/18 04:00 74 11/30/18 04:00 99.0 90 20 101/41 (61) 95 11/30/18 03:31 92 20 95 Venturi Mask 14.0 55 11/30/18 01:13 98.9 11/30/18 00:11 93 20 99 Venturi Mask 14.0 55 11/30/18 00:00 102.4 85 22 111/52 (71) 94 11/30/18 00:00 85 11/29/18 23:57 89 20 96 Venturi Mask 14.0 55 11/29/18 22:02 94 120/81 11/29/18 21:00 Nasal Cannula 2.0 11/29/18 20:58 96 20 98 Venturi Mask 14.0 55 11/29/18 20:45 95 Venturi Mask 14.0 55 11/29/18 20:45 87 20 95 Venturi Mask 14.0 55 11/29/18 20:45 Venturi Mask 14.0 55 11/29/18 20:00 100.9 85 21 120/51 (74) 98 11/29/18 20:00 85 11/29/18 16:15 84 11/29/18 16:00 99.0 88 24 116/53 (74) 97 11/29/18 15:10 Venturi Mask 55 11/29/18 15:10 Venturi Mask 55 11/29/18 12:00 99.0 82 24 106/53 (70) 97 11/29/18 11:44 82 11/29/18 11:36 95 20 99 Venturi Mask 14.0 55 11/29/18 11:26 90 20 99 Venturi Mask 14.0 55 Intake and Output 11/29/18 11/30/18 19:00 07:00 Output Total 400 ml 1000 ml Balance -400 ml -1000 ml Output Urine Total 400 ml 1000 ml Laboratory Tests 11/30/18 06:20: White Blood Count 12.5H, Red Blood Count 3.61L, Hemoglobin 10.1L, Hematocrit 32.7L, Mean Corpuscular Volume 91, Mean Corpuscular Hemoglobin 28.0, Mean Corpuscular Hemoglobin Concent 30.9L, Red Cell Distribution Width 18.3H, Platelet Count 100L, Mean Platelet Volume 14.9H, Neutrophils (%) (Auto) , Lymphocytes (%) (Auto) , Monocytes (%) (Auto) , Eosinophils (%) (Auto) , Basophils (%) (Auto) , Differential Total Cells Counted 100, Neutrophils % ( Manual) 85H, Lymphocytes % (Manual) 10L, Monocytes % (Manual) 4, Eosinophils % ( Manual) 1, Basophils % (Manual) 0, Band Neutrophils 0, Platelet Estimate DecreasedL, Platelet Morphology Normal, Hypochromasia 1+, Anisocytosis 2+, Sodium Level 138#, Potassium Level 3.5, Chloride Level 104, Carbon Dioxide Level 23, Anion Gap 11, Blood Urea Nitrogen 67H, Creatinine 2.3H, Estimat Glomerular Filtration Rate , Glucose Level 138H, Calcium Level 8.4L, Total Bilirubin 0.6, Aspartate Amino Transf (AST/SGOT) 31, Alanine Aminotransferase ( ALT/SGPT) 24, Alkaline Phosphatase 102, Total Protein 6.7, Albumin 2.0L, Globulin 4.7, Albumin/Globulin Ratio 0.4L Height (Feet): 2 Height (Inches): 9.00 Weight (Pounds): 152 General Appearance: WD/WN, alert Neck: supple Respiratory/Chest: lungs clear, normal breath sounds, crackles/rales, rhonchi - bilaterally Abdomen: normal bowel sounds, non tender, soft, no organomegaly Edema: no edema noted Arm (L), no edema noted Arm (R), no edema noted Leg (L), no edema noted Leg (R), no edema noted Pedal (L), no edema noted Pedal (R), no edema noted Generalized Neurologic: machine setter II-XII grossly normal, alert, oriented x 3 Raimundo Clark MD Nov 30, 2018 11:11
--- NOTE | 2018-11-30 11:28 | Surgery Progress Note ---
Surgery Progress Note Subjective Additional Comments no acute events. stable. comfortable. no n/v/f/c. labs okay. wounds stable. Objective Last 24 Hour Vital Signs Date Time Temp Pulse Resp B/P (MAP) Pulse Ox O2 Delivery O2 Flow Rate FiO2 11/30/18 10:51 85 20 98 Venturi Mask 14.0 55 11/30/18 10:41 86 20 96 Venturi Mask 14.0 55 11/30/18 09:00 Nasal Cannula 2.0 11/30/18 08:00 98.8 88 24 103/45 (64) 95 11/30/18 08:00 86 11/30/18 07:36 88 20 99 Venturi Mask 14.0 55 11/30/18 07:26 96 Venturi Mask 14.0 55 11/30/18 07:26 Venturi Mask 14.0 55 11/30/18 07:24 83 22 96 Venturi Mask 14.0 55 11/30/18 04:00 74 11/30/18 04:00 99.0 90 20 101/41 (61) 95 11/30/18 03:31 92 20 95 Venturi Mask 14.0 55 11/30/18 01:13 98.9 11/30/18 00:11 93 20 99 Venturi Mask 14.0 55 11/30/18 00:00 102.4 85 22 111/52 (71) 94 11/30/18 00:00 85 11/29/18 23:57 89 20 96 Venturi Mask 14.0 55 11/29/18 22:02 94 120/81 11/29/18 21:00 Nasal Cannula 2.0 11/29/18 20:58 96 20 98 Venturi Mask 14.0 55 11/29/18 20:45 95 Venturi Mask 14.0 55 11/29/18 20:45 87 20 95 Venturi Mask 14.0 55 11/29/18 20:45 Venturi Mask 14.0 55 11/29/18 20:00 100.9 85 21 120/51 (74) 98 11/29/18 20:00 85 11/29/18 16:15 84 11/29/18 16:00 99.0 88 24 116/53 (74) 97 11/29/18 15:10 Venturi Mask 55 11/29/18 15:10 Venturi Mask 55 11/29/18 12:00 99.0 82 24 106/53 (70) 97 11/29/18 11:44 82 11/29/18 11:36 95 20 99 Venturi Mask 14.0 55 I&O Intake and Output 11/29/18 11/30/18 19:00 07:00 Output Total 400 ml 1000 ml Balance -400 ml -1000 ml Output Urine Total 400 ml 1000 ml Dressing: dry Wound: other Drains: other Cardiovascular: RSR Respiratory: clear Abdomen: soft, non-tender, present bowel sounds, non-distended Extremities: no cyanosis, other Laboratory Tests Test 11/30/18 06:20 White Blood Count 12.5 K/UL (4.8-10.8) H Red Blood Count 3.61 M/UL (4.20-5.40) L Hemoglobin 10.1 G/DL (12.0-16.0) L Hematocrit 32.7 % (37.0-47.0) L Mean Corpuscular Volume 91 FL (80-99) Mean Corpuscular Hemoglobin 28.0 PG (27.0-31.0) Mean Corpuscular Hemoglobin Concent 30.9 G/DL (32.0-36.0) L Red Cell Distribution Width 18.3 % (11.6-14.8) H Platelet Count 100 K/UL (150-450) L Mean Platelet Volume 14.9 FL (6.5-10.1) H Neutrophils (%) (Auto) % (45.0-75.0) Lymphocytes (%) (Auto) % (20.0-45.0) Monocytes (%) (Auto) % (1.0-10.0) Eosinophils (%) (Auto) % (0.0-3.0) Basophils (%) (Auto) % (0.0-2.0) Differential Total Cells Counted 100 Neutrophils % (Manual) 85 % (45-75) H Lymphocytes % (Manual) 10 % (20-45) L Monocytes % (Manual) 4 % (1-10) Eosinophils % (Manual) 1 % (0-3) Basophils % (Manual) 0 % (0-2) Band Neutrophils 0 % (0-8) Platelet Estimate Decreased L Platelet Morphology Normal Hypochromasia 1+ Anisocytosis 2+ Sodium Level 138 MMOL/L (136-145) # Potassium Level 3.5 MMOL/L (3.5-5.1) Chloride Level 104 MMOL/L (98-107) Carbon Dioxide Level 23 MMOL/L (21-32) Anion Gap 11 mmol/L (5-15) Blood Urea Nitrogen 67 mg/dL (7-18) H Creatinine 2.3 MG/DL (0.55-1.30) H Estimat Glomerular Filtration Rate mL/min (>60) Glucose Level 138 MG/DL (74-106) H Calcium Level 8.4 MG/DL (8.5-10.1) L Total Bilirubin 0.6 MG/DL (0.2-1.0) Aspartate Amino Transf (AST/SGOT) 31 U/L (15-37) Alanine Aminotransferase (ALT/SGPT) 24 U/L (12-78) Alkaline Phosphatase 102 U/L (46-116) Total Protein 6.7 G/DL (6.4-8.2) Albumin 2.0 G/DL (3.4-5.0) L Globulin 4.7 g/dL Albumin/Globulin Ratio 0.4 (1.0-2.7) L Assessment Additional Comments DAILY ESTIMATED NEEDS: Needs based on DM, bed bound, TF [employer], Sepsis 67kg 20-25 kcals/kg 8002-8063 total kcals 1-2 g protein/kg 67-134 g total protein 25-30 mL/kg 2741-9111 total fluid mLs NUTRITION DIAGNOSIS: Swallowing difficulty R/T dysphagia as evidenced by pt is Gtube dependent. Altered nutrition related lab values R/T DM as evidenced by elev BG ([phone]) CURRENT TF:NPO ENTERAL NUTRITION RECOMMENDATIONS: Glucerna 1.2 @ 60ml x22 hrs to provide 1320ml, 1584kcal, 79g prot, 1082ml free water - As medically appropriate, initiate TF of GLucerna 1.2 @ 30ml/hr x 6 hrs - Advance 10ml q 4-6 hrs as tolerated to goal rate. - Flush per MD/ HOB over 30 degrees ADDITIONAL RECOMMENDATIONS: 1) Calibrated bed scale for accurate CBW 2) Lytes daily with TF, replete as needed 3) ESTER BID to maintain skin integrity Plan Problems: (1) Incontinence associated dermatitis Assessment & Plan: Pt presented on admission with fungal Moisture associated skin dermatitis affecting bilateral breast folds, bilateral Axilla,abdominal folds, mons pubis ,bilateral groin lower back, buttocks and medial/posterior aspects of both upper thighs. Gross erythema with denuded skin and with Scattered satellite lesions noted to buttocks and both posterior thighs. Scattered partial thickness pressure injuries noted to R and L gluteal clefts and sacrum, Full thickness stage 3 pressure injury noted to L ischial region. Upon assessment base of wound is maroon, 20% Biofilm noted with purple borders that are indurated. Wound measures (L)8.9cm x (W)7.5cm. Recommendations: Cleanse L ischial wound with saline.Apply Therahoney. Cover with Optifoam drsg Daily and prn. Apply Antifungal cream to to both breasts,Axillae, Abdominal folds,bilat groin and suprapubis areas Twice Daily. Apply Triad Paste to buttocks and posterior thighs with each perineal care. Please place abd pads or Sanitary Pads between thigh to prevent pressure injury from F/C. Cleanse the skin of buttock, anus, back, perineum with soap and water to lift stool and urine from the skin. Clean the skin routinely and at the time of soiling. Use warm (not hot) water, and avoid excess force and friction to avoid further skin damage. APM/ARACELI Mattress. Reposition at least V8trchs or as tolerated. (2) Fungal dermatitis (3) Sepsis Assessment & Plan: Leukocytosis trending down on IV abx wounds without abscess no acute surgical intervention necessary at this time needs good wound care as above Isaiah Parisi Nov 30, 2018 11:28
[2018-11-30 12:00] VITALS: BP 109/48
[2018-11-30] MEDS: Meropenem 1 GM in NS 55 ML IVPB SCH ×2 (13:05→22:31)
[2018-11-30 16:00] VITALS: BP 108/46
[2018-11-30 20:00] VITALS: BP 114/48
[2018-11-30] MEDS: Metoprolol 25mg tab GT SCH (22:22)
[2018-12-01] VITALS: BP 94/45
[2018-12-01] MEDS: Albuterol/Ipratropium 3ml neb HHN SCH ×6 (03:30→22:53)
--- NOTE | 2018-12-01 03:45 | Progress Note ---
DATE: 11/30/2018 SUBJECTIVE: The patient remains short of breath. She is on a high-flow Ventimask. Her laboratory studies are improving. She remains withdrawn and lethargic. She still has congestion along with her shortness of breath. She is requiring respiratory treatment. PHYSICAL EXAMINATION: VITALS SIGNS: Blood pressure 103/45, heart rate 88, respiratory rate 24, afebrile, and oxygen saturation 96% on Venturi mask. LUNGS: Coarse breath sounds. Scattered rhonchi. HEART: Regular rhythm and rate. Normal S1, S2. ABDOMEN: Soft. EXTREMITIES: Bilateral amputee. LABORATORY DATA: Urine culture is positive for Providencia. White count 12.5, hemoglobin 10. Potassium 3.5, BUN 67, creatinine 2.3. Troponin 0.073 yesterday. Albumin 2. ABG, 7.40, 32, and 82. IMPRESSION: 1. Dehydration, hypernatremia, and acute renal failure, improved. 2. Metabolic and toxic encephalopathy, improved. 3. Sepsis due to pneumonia with improving respiratory parameters. 4. Acute myocardial ischemia. 5. Severe protein-calorie malnutrition. 6. Bilateral amputee. 7. VRE colonized gastrointestinal tract, MRSA colonized respiratory tract. PLAN: 1. Respiratory hygiene. 2. Antimicrobials. 3. Continue hypotonic IV fluids. 4. Adjust rate. 5. Skin care. Jl Szymanski M.D. DR: NAMITA JOB#: [id number] CC:
[2018-12-01 04:00] VITALS: BP 110/68
[2018-12-01 06:39] LABS: HEMATOCRIT 32.9 % (37.0-47.0); HEMOGLOBIN 10.3 G/DL (12.0-16.0); MEAN CORPUSCULAR VOLUME 90 FL (80-99); PLATELET COUNT 114 K/UL (150-450); RED BLOOD COUNT 3.67 M/UL (4.20-5.40); RED CELL DISTRIBUTION WIDTH 17.7 % (11.6-14.8); WHITE BLOOD COUNT 12.2 K/UL (4.8-10.8)
[2018-12-01 07:26] LABS: ALANINE AMINOTRANSFERASE 23 U/L (12-78); ALBUMIN 1.9 G/DL (3.4-5.0); ALBUMIN/GLOBULIN RATIO 0.4 (1.0-2.7); ALKALINE PHOSPHATASE 111 U/L (46-116); ANION GAP 13 mmol/L (5-15); ASPARTATE AMINO TRANSFERASE 31 U/L (15-37); BILIRUBIN,TOTAL 0.6 MG/DL (0.2-1.0); BLOOD UREA NITROGEN 57 mg/dL (7-18); CALCIUM 8.9 MG/DL (8.5-10.1); CARBON DIOXIDE 22 MMOL/L (21-32); CHLORIDE 105 MMOL/L (98-107); CREATININE 2.2 MG/DL (0.55-1.30); POTASSIUM 3.7 MMOL/L (3.5-5.1); SODIUM 140 MMOL/L (136-145)
[2018-12-01 08:00] VITALS: BP 112/51
[2018-12-01] MEDS: Meropenem 1 GM in NS 55 ML IVPB SCH ×2 (08:10→21:21)
[2018-12-01] MEDS: Acetaminophen 650mg/20.3ml GT PRN ×2 (08:10→21:31)
[2018-12-01] MEDS: Aspirin Baby 81mg GT SCH (08:11)
[2018-12-01] MEDS: Allopurinol 100mg Tab GT SCH (08:11)
[2018-12-01] MEDS: Metoprolol 25mg tab GT SCH ×2 (08:11→21:21)
[2018-12-01] MEDS: Docusate 100mg/10ml Liq GT SCH ×2 (08:11→17:30)
--- NOTE | 2018-12-01 11:12 | General Progress Note ---
Assessment/Plan Problem List: (1) Dyspnea ICD Codes: R06.00 - Dyspnea, unspecified SNOMED: 925565579 (2) Respiratory distress ICD Codes: R06.03 - Acute respiratory distress SNOMED: 791653397 (3) Dyspnea ICD Codes: R06.00 - Dyspnea, unspecified SNOMED: 799324318 (4) Sepsis ICD Codes: A41.9 - Sepsis, unspecified organism SNOMED: 49572840 (5) UTI (urinary tract infection) ICD Codes: N39.0 - Urinary tract infection, site not specified SNOMED: 13622580 Assessment/Plan resp rx o2 iv abx check abg hypotonic fluids guarded gt feeds monitor cxr intubation ok. no chest compression or cardioversion Subjective ROS Limited/Unobtainable: Yes Constitutional: Reports: malaise, weakness HEENT: Reports: no symptoms Cardiovascular: Reports: no symptoms Respiratory: Reports: shortness of breath Gastrointestinal/Abdominal: Reports: no symptoms Genitourinary: Reports: no symptoms Neurologic/Psychiatric: Reports: pre-existing deficit Endocrine: Reports: no symptoms Hematologic/Lymphatic: Reports: no symptoms Allergies: Coded Allergies: SHELLFISH DERIVED (Unverified Allergy, Severe, ANAPHYLAXIS, 11/27/18) CHOCOLATE FLAVOR (Verified Allergy, Mild, 07/02/17) IODINE (Verified Allergy, Unknown, 07/01/17) PENICILLINS (Verified Allergy, Unknown, 07/01/17) Uncoded Allergies: CHOCOLATE (Allergy, Unknown, 11/27/18) All Systems: reviewed and negative except above Subjective no change. seem more alert. on venti mask. on gt feeds. cxr now with right sided infiltrate Objective Last 24 Hour Vital Signs Date Time Temp Pulse Resp B/P (MAP) Pulse Ox O2 Delivery O2 Flow Rate FiO2 12/01/18 08:40 99.7 12/01/18 08:11 105 112/51 12/01/18 08:00 101.6 105 24 112/51 (71) 97 12/01/18 08:00 105 12/01/18 07:58 104 22 96 Venturi Mask 14.0 55 12/01/18 07:46 Venturi Mask 14.0 55 12/01/18 07:46 96 Venturi Mask 14.0 55 12/01/18 07:46 103 22 96 Venturi Mask 14.0 55 12/01/18 04:00 93 12/01/18 04:00 98.9 93 22 110/68 (82) 95 12/01/18 03:40 93 20 97 Venturi Mask 14.0 55 12/01/18 03:30 90 20 96 Venturi Mask 14.0 55 12/01/18 00:00 87 12/01/18 00:00 99.5 91 20 94/45 (61) 96 11/30/18 23:49 92 22 95 Venturi Mask 14.0 55 11/30/18 23:34 90 20 94 Venturi Mask 14.0 55 11/30/18 22:22 92 114/48 11/30/18 21:00 Venturi Mask 14.0 11/30/18 20:30 92 20 99 Venturi Mask 14.0 55 11/30/18 20:19 96 Venturi Mask 14.0 55 11/30/18 20:19 89 20 96 Venturi Mask 14.0 55 11/30/18 20:19 Venturi Mask 14.0 55 11/30/18 20:00 90 11/30/18 20:00 100.0 91 24 114/48 (70) 96 11/30/18 16:00 99.3 100 24 108/46 (66) 98 11/30/18 16:00 88 11/30/18 15:24 87 20 98 Venturi Mask 14.0 55 11/30/18 15:15 92 20 95 Venturi Mask 14.0 55 11/30/18 12:00 88 11/30/18 12:00 99.0 91 24 109/48 (68) 98 Intake and Output 11/30/18 12/01/18 19:00 07:00 Intake Total 115 ml 240 ml Output Total 800 ml 700 ml Balance -685 ml -460 ml Intake Free Water 100 ml 200 ml Tube Feeding 15 ml 40 ml Output Urine Total 800 ml 700 ml Laboratory Tests 12/01/18 05:48: White Blood Count 12.2H, Red Blood Count 3.67L, Hemoglobin 10.3L, Hematocrit 32.9L, Mean Corpuscular Volume 90, Mean Corpuscular Hemoglobin 28.0, Mean Corpuscular Hemoglobin Concent 31.2L, Red Cell Distribution Width 17.7H, Platelet Count 114L, Mean Platelet Volume 13.3H, Neutrophils (%) (Auto) , Lymphocytes (%) (Auto) , Monocytes (%) (Auto) , Eosinophils (%) (Auto) , Basophils (%) (Auto) , Differential Total Cells Counted 100, Neutrophils % ( Manual) 87H, Lymphocytes % (Manual) 3L, Monocytes % (Manual) 5, Eosinophils % ( Manual) 5H, Basophils % (Manual) 0, Band Neutrophils 0, Platelet Estimate DecreasedL, Platelet Morphology Normal, Hypochromasia 1+, Anisocytosis 1+, Sodium Level 140, Potassium Level 3.7, Chloride Level 105, Carbon Dioxide Level 22, Anion Gap 13, Blood Urea Nitrogen 57H, Creatinine 2.2H, Estimat Glomerular Filtration Rate , Glucose Level 93, Calcium Level 8.9, Magnesium Level 2.2, Total Bilirubin 0.6, Aspartate Amino Transf (AST/SGOT) 31, Alanine Aminotransferase (ALT/SGPT) 23, Alkaline Phosphatase 111, Pro-B-Type Natriuretic Peptide 4413H, Total Protein 6.7, Albumin 1.9L, Globulin 4.8, Albumin/Globulin Ratio 0.4L Height (Feet): 2 Height (Inches): 9.00 Weight (Pounds): 152 General Appearance: WD/WN, alert, confused Neck: supple Cardiovascular: regular rhythm Respiratory/Chest: crackles/rales, rhonchi - bilaterally Abdomen: normal bowel sounds, non tender, soft, no organomegaly Edema: no edema noted Arm (L), no edema noted Arm (R), no edema noted Leg (L), no edema noted Leg (R), no edema noted Pedal (L), no edema noted Pedal (R), no edema noted Generalized Neurologic: alert, responsive Raimundo Clark MD Dec 01, 2018 11:12
--- NOTE | 2018-12-01 11:43 | Infectious Diseases Prog Note ---
Assessment/Plan Assessment/Plan A 1. Providencia UTI 2. pneumonia 3. Bacteremia 4. COPD 5. renal failure improving 6. 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 Continue Meropenem 2. start IV Vancomycin 3. will follow up cultures Subjective ROS Limited/Unobtainable: Yes Constitutional: Reports: fever, other - Rhsj=053.6 Allergies: Coded Allergies: SHELLFISH DERIVED (Unverified Allergy, Severe, ANAPHYLAXIS, 11/27/18) CHOCOLATE FLAVOR (Verified Allergy, Mild, 07/02/17) IODINE (Verified Allergy, Unknown, 07/01/17) PENICILLINS (Verified Allergy, Unknown, 07/01/17) Uncoded Allergies: CHOCOLATE (Allergy, Unknown, 11/27/18) Objective Vital Signs Last 24 Hour Vital Signs Date Time Temp Pulse Resp B/P (MAP) Pulse Ox O2 Delivery O2 Flow Rate FiO2 12/01/18 11:20 90 24 96 Venturi Mask 14.0 55 12/01/18 11:10 89 24 95 Venturi Mask 14.0 55 12/01/18 09:00 Venturi Mask 14.0 12/01/18 08:40 99.7 12/01/18 08:11 105 112/51 12/01/18 08:00 101.6 105 24 112/51 (71) 97 12/01/18 08:00 105 12/01/18 07:58 104 22 96 Venturi Mask 14.0 55 12/01/18 07:46 Venturi Mask 14.0 55 12/01/18 07:46 96 Venturi Mask 14.0 55 12/01/18 07:46 103 22 96 Venturi Mask 14.0 55 12/01/18 04:00 93 12/01/18 04:00 98.9 93 22 110/68 (82) 95 12/01/18 03:40 93 20 97 Venturi Mask 14.0 55 12/01/18 03:30 90 20 96 Venturi Mask 14.0 55 12/01/18 00:00 87 12/01/18 00:00 99.5 91 20 94/45 (61) 96 11/30/18 23:49 92 22 95 Venturi Mask 14.0 55 11/30/18 23:34 90 20 94 Venturi Mask 14.0 55 11/30/18 22:22 92 114/48 3/16/19 21:00 Venturi Mask 14.0 11/30/18 20:30 92 20 99 Venturi Mask 14.0 55 11/30/18 20:19 96 Venturi Mask 14.0 55 11/30/18 20:19 89 20 96 Venturi Mask 14.0 55 11/30/18 20:19 Venturi Mask 14.0 55 11/30/18 20:00 90 11/30/18 20:00 100.0 91 24 114/48 (70) 96 11/30/18 16:00 99.3 100 24 108/46 (66) 98 11/30/18 16:00 88 11/30/18 15:24 87 20 98 Venturi Mask 14.0 55 11/30/18 15:15 92 20 95 Venturi Mask 14.0 55 11/30/18 12:00 88 11/30/18 12:00 99.0 91 24 109/48 (68) 98 Height (Feet): 2 Height (Inches): 9.00 Weight (Pounds): 152 HEENT: other - dry mouth Respiratory/Chest: lungs clear, other - oxygen by mask Cardiovascular: normal rate Abdomen: soft, non tender, other - GT feeding Extremities: other - bilateral AKA Skin: ulcers, other - sacral Neurologic/Psychiatric: aphasia Laboratory Tests Test 12/01/18 05:48 White Blood Count 12.2 K/UL (4.8-10.8) H Red Blood Count 3.67 M/UL (4.20-5.40) L Hemoglobin 10.3 G/DL (12.0-16.0) L Hematocrit 32.9 % (37.0-47.0) L Mean Corpuscular Volume 90 FL (80-99) Mean Corpuscular Hemoglobin 28.0 PG (27.0-31.0) Mean Corpuscular Hemoglobin Concent 31.2 G/DL (32.0-36.0) L Red Cell Distribution Width 17.7 % (11.6-14.8) H Platelet Count 114 K/UL (150-450) L Mean Platelet Volume 13.3 FL (6.5-10.1) H Neutrophils (%) (Auto) % (45.0-75.0) Lymphocytes (%) (Auto) % (20.0-45.0) Monocytes (%) (Auto) % (1.0-10.0) Eosinophils (%) (Auto) % (0.0-3.0) Basophils (%) (Auto) % (0.0-2.0) Differential Total Cells Counted 100 Neutrophils % (Manual) 87 % (45-75) H Lymphocytes % (Manual) 3 % (20-45) L Monocytes % (Manual) 5 % (1-10) Eosinophils % (Manual) 5 % (0-3) H Basophils % (Manual) 0 % (0-2) Band Neutrophils 0 % (0-8) Platelet Estimate Decreased L Platelet Morphology Normal Hypochromasia 1+ Anisocytosis 1+ Sodium Level 140 MMOL/L (136-145) Potassium Level 3.7 MMOL/L (3.5-5.1) Chloride Level 105 MMOL/L (98-107) Carbon Dioxide Level 22 MMOL/L (21-32) Anion Gap 13 mmol/L (5-15) Blood Urea Nitrogen 57 mg/dL (7-18) H Creatinine 2.2 MG/DL (0.55-1.30) H Estimat Glomerular Filtration Rate mL/min (>60) Glucose Level 93 MG/DL (74-106) Calcium Level 8.9 MG/DL (8.5-10.1) Magnesium Level 2.2 MG/DL (1.8-2.4) Total Bilirubin 0.6 MG/DL (0.2-1.0) Aspartate Amino Transf (AST/SGOT) 31 U/L (15-37) Alanine Aminotransferase (ALT/SGPT) 23 U/L (12-78) Alkaline Phosphatase 111 U/L (46-116) Pro-B-Type Natriuretic Peptide 4413 pg/mL (0-125) H Total Protein 6.7 G/DL (6.4-8.2) Albumin 1.9 G/DL (3.4-5.0) L Globulin 4.8 g/dL Albumin/Globulin Ratio 0.4 (1.0-2.7) L Current Medications Medications (Trade) Dose Ordered Sig/Rick Route PRN Reason Start Time Stop Time Status Last Admin Dose Admin Acetaminophen (Tylenol) 650 mg Q4H PRN GT For Pain 11/27/18 18:15 12/27/18 18:14 12/01/18 08:10 Albuterol/ Ipratropium (Albuterol/ Ipratropium) 3 ml Q4HRT HHN 11/27/18 19:00 12/02/18 18:59 12/01/18 11:10 Allopurinol (Zyloprim) 200 mg DAILY GT 11/28/18 09:00 12/28/18 08:59 12/01/18 08:11 Aspirin (ASA) 81 mg DAILY GT 11/28/18 09:00 12/28/18 08:59 12/01/18 08:11 Atorvastatin Calcium (Lipitor) 10 mg BEDTIME GT 11/27/18 21:00 12/27/18 20:59 11/30/18 22:22 Docusate Sodium (Colace) 100 mg TWICE A DAY GT 11/28/18 09:00 12/28/18 08:59 12/01/18 08:11 Guaifenesin (Robitussin) 200 mg Q6H PRN GT For Cough 11/27/18 18:15 12/27/18 18:14 Levothyroxine Sodium (Synthroid) 75 mcg DAILY GT 11/28/18 09:00 12/28/18 08:59 12/01/18 08:11 Meropenem 1 gm/ Sodium Chloride 55 ml @ 110 mls/hr Q12HR IVPB 11/30/18 12:00 12/05/18 11:59 12/01/18 08:10 Metoprolol Tartrate (Lopressor) 25 mg Q12HR GT 11/30/18 21:00 12/29/18 08:59 12/01/18 08:11 Sodium Chloride 1,000 ml @ 50 mls/hr Q20H IV 12/01/18 00:00 12/31/18 00:00 12/01/18 01:12 Emanuel Smith MD Dec 01, 2018 11:43
[2018-12-01 12:00] VITALS: BP 92/56
[2018-12-01] MEDS ORDERED: Vancomycin 1gm in D5W 275ml IVPB SCH (13:00)
[2018-12-01 16:00] VITALS: BP 106/46
[2018-12-01] MEDS ORDERED: 1/2 NS 1000ml IV ONE (19:29)
[2018-12-01 20:00] VITALS: BP 120/77
--- NOTE | 2018-12-01 23:45 | Progress Note ---
CARDIOLOGY PROGRESS NOTE DATE: 12/01/2018 SUBJECTIVE: The patient remains alert on a Ventimask tolerating feedings with congestion and with episodes of shortness of breath. She continues to have fevers up 101.6. OBJECTIVE: VITAL SIGNS: Blood pressure 112/51, heart rate 105, and respiratory rate 24. Saturating 97% on a Venturi mask. LUNGS: Bilateral breath sounds, rhonchi and rales. HEART: Regular rhythm. Rapid rate. Normal S1, S2 with a fourth heart sound. ABDOMEN: Soft. EXTREMITIES: Trace dependent edema. Bilateral amputee. DIAGNOSTIC DATA: Chest x-ray reveals right-sided infiltrate. White count is 12, hemoglobin 10.3. Potassium 3.7, BUN 57, and creatinine 2.2. Pro-natriuretic peptide is 4400. Albumin 1.9. IMPRESSION: 1. Aspiration pneumonia. 2. Sepsis. 3. Dehydration and hyponatremia, improving. 4. Acute myocardial ischemia, resolving. 5. Acute on chronic diastolic congestive heart failure, persisting. 6. Severe protein-calorie malnutrition. 7. Anemia. 8. Bilateral amputee. PLAN: 1. Advanced directives noted. 2. Antimicrobials per ID. 3. Bronchodilators and respiratory hygiene. 4. DVT and stress ulcer prophylaxes. 5. Hypotonic intravenous fluids to maintain stable metabolic parameters and adjust accordingly. 6. Nutritional support as tolerated. 7. No additional antihypertensive therapy at this time, as the patient remains hemodynamically tenuous due to active infection. Jl Szymanski M.D. DR: ASAEL JOB#: [id number] CC:
[2018-12-02] VITALS: BP 120/77
[2018-12-02] MEDS ORDERED: Acetaminophen 650mg/20.3ml GT PRN (01:00)
[2018-12-02] MEDS ORDERED: Albuterol/Ipratropium 3ml neb HHN PRN (01:00)
[2018-12-02] MEDS: Albuterol/Ipratropium 3ml neb HHN SCH ×4 (02:54→15:33)
[2018-12-02 04:00] VITALS: BP 101/46
[2018-12-02] MEDS ORDERED: Ibuprofen Susp 100mg/5ml GT ONE (06:15)
[2018-12-02 07:43] LABS: HEMATOCRIT 30.3 % (37.0-47.0); HEMOGLOBIN 9.6 G/DL (12.0-16.0); MEAN CORPUSCULAR VOLUME 90 FL (80-99); PLATELET COUNT 147 K/UL (150-450); RED BLOOD COUNT 3.36 M/UL (4.20-5.40); RED CELL DISTRIBUTION WIDTH 18.4 % (11.6-14.8); WHITE BLOOD COUNT 13.8 K/UL (4.8-10.8)
[2018-12-02 07:56] LABS: ALANINE AMINOTRANSFERASE 23 U/L (12-78); ALBUMIN 1.7 G/DL (3.4-5.0); ALBUMIN/GLOBULIN RATIO 0.4 (1.0-2.7); ALKALINE PHOSPHATASE 100 U/L (46-116); ANION GAP 16 mmol/L (5-15); ASPARTATE AMINO TRANSFERASE 23 U/L (15-37); BILIRUBIN,TOTAL 0.5 MG/DL (0.2-1.0); BLOOD UREA NITROGEN 54 mg/dL (7-18); CALCIUM 8.9 MG/DL (8.5-10.1); CARBON DIOXIDE 21 MMOL/L (21-32); CHLORIDE 109 MMOL/L (98-107); CREATININE 2.3 MG/DL (0.55-1.30); POTASSIUM 3.4 MMOL/L (3.5-5.1); SODIUM 146 MMOL/L (136-145)
[2018-12-02 08:00] VITALS: BP 108/45
--- NOTE | 2018-12-02 08:19 | General Progress Note ---
Assessment/Plan Problem List: (1) Dyspnea ICD Codes: R06.00 - Dyspnea, unspecified SNOMED: 217697403 (2) Respiratory distress ICD Codes: R06.03 - Acute respiratory distress SNOMED: 687346744 (3) Dyspnea ICD Codes: R06.00 - Dyspnea, unspecified SNOMED: 504625826 (4) Sepsis ICD Codes: A41.9 - Sepsis, unspecified organism SNOMED: 60553939 (5) UTI (urinary tract infection) ICD Codes: N39.0 - Urinary tract infection, site not specified SNOMED: 61526922 Status: stable, not improved Assessment/Plan resp rx o2- wean as able iv abx check abg ivf guarded gt feeds monitor cxr intubation ok. no chest compression or cardioversion d.jhoan thomas- dtr. remains tenuous. Subjective ROS Limited/Unobtainable: No Constitutional: Reports: malaise, weakness HEENT: Reports: no symptoms Cardiovascular: Reports: no symptoms Respiratory: Reports: cough, shortness of breath Gastrointestinal/Abdominal: Reports: no symptoms Genitourinary: Reports: no symptoms Neurologic/Psychiatric: Reports: pre-existing deficit Endocrine: Reports: no symptoms Hematologic/Lymphatic: Reports: no symptoms Allergies: Coded Allergies: SHELLFISH DERIVED (Unverified Allergy, Severe, ANAPHYLAXIS, 11/27/18) CHOCOLATE FLAVOR (Verified Allergy, Mild, 07/02/17) IODINE (Verified Allergy, Unknown, 07/01/17) PENICILLINS (Verified Allergy, Unknown, 07/01/17) Uncoded Allergies: CHOCOLATE (Allergy, Unknown, 11/27/18) All Systems: reviewed and negative except above Subjective no change. seem more alert. on venti mask. on gt feeds. wbc slightly higher. cxr pending for today Objective Last 24 Hour Vital Signs Date Time Temp Pulse Resp B/P (MAP) Pulse Ox O2 Delivery O2 Flow Rate FiO2 12/02/18 06:55 90 20 100 Venturi Mask 14.0 55 12/02/18 06:45 Venturi Mask 14.0 55 12/02/18 06:45 89 20 99 Venturi Mask 14.0 55 12/02/18 06:45 99 Venturi Mask 14.0 55 12/02/18 04:00 100.2 87 18 101/46 (64) 97 12/02/18 04:00 89 12/02/18 03:05 87 22 98 Venturi Mask 14.0 55 12/02/18 02:54 87 22 97 Venturi Mask 14.0 55 12/02/18 02:26 99.9 12/02/18 02:00 99.9 12/02/18 00:45 101.5 12/02/18 00:00 103 12/02/18 00:00 98.4 104 25 120/77 (91) 94 12/01/18 23:02 103 22 98 Venturi Mask 14.0 55 12/01/18 22:52 102 22 96 Venturi Mask 14.0 55 12/01/18 21:21 112 120/77 12/01/18 21:00 Venturi Mask 14.0 12/01/18 20:00 100.8 112 22 120/77 (91) 98 12/01/18 20:00 115 12/01/18 19:23 90 22 97 Venturi Mask 14.0 55 12/01/18 19:13 96 Venturi Mask 14.0 55 12/01/18 19:13 Venturi Mask 14.0 55 12/01/18 19:13 89 22 96 Venturi Mask 14.0 55 12/01/18 16:00 98.6 104 24 106/46 (66) 98 12/01/18 15:26 102 24 97 Venturi Mask 14.0 55 12/01/18 15:16 92 23 97 Venturi Mask 14.0 55 12/01/18 12:00 98.4 94 24 92/56 (68) 96 12/01/18 12:00 93 12/01/18 11:20 90 24 96 Venturi Mask 14.0 55 12/01/18 11:10 89 24 95 Venturi Mask 14.0 55 12/01/18 09:00 Venturi Mask 14.0 12/01/18 08:40 99.7 Intake and Output 12/01/18 12/02/18 19:00 07:00 Output Total 300 ml 700 ml Balance -300 ml -700 ml Output Urine Total 300 ml 700 ml Laboratory Tests 12/02/18 06:25: White Blood Count 13.8H, Red Blood Count 3.36L, Hemoglobin 9.6L, Hematocrit 30.3L, Mean Corpuscular Volume 90, Mean Corpuscular Hemoglobin 28.5, Mean Corpuscular Hemoglobin Concent 31.7L, Red Cell Distribution Width 18.4H, Platelet Count 147L, Mean Platelet Volume 13.4H, Neutrophils (%) (Auto) , Lymphocytes (%) (Auto) , Monocytes (%) (Auto) , Eosinophils (%) (Auto) , Basophils (%) (Auto) , Neutrophils % (Manual) [Pending], Lymphocytes % (Manual) [Pending], Platelet Estimate [Pending], Platelet Morphology [Pending], Sodium Level 146H, Potassium Level 3.4L, Chloride Level 109H, Carbon Dioxide Level 21, Anion Gap 16H, Blood Urea Nitrogen 54H, Creatinine 2.3H, Estimat Glomerular Filtration Rate , Glucose Level 98, Calcium Level 8.9, Total Bilirubin 0.5, Aspartate Amino Transf (AST/SGOT) 23, Alanine Aminotransferase (ALT/SGPT) 23, Alkaline Phosphatase 100, Pro-B-Type Natriuretic Peptide 4740H, Total Protein 6.1L, Albumin 1.7L, Globulin 4.4, Albumin/Globulin Ratio 0.4L Height (Feet): 2 Height (Inches): 9.00 Weight (Pounds): 152 Objective General Appearance: WD/WN, alert, confused Neck: supple Cardiovascular: regular rhythm Respiratory/Chest: crackles/rales, rhonchi - bilaterally Abdomen: normal bowel sounds, non tender, soft, no organomegaly Edema: no edema noted Arm (L), no edema noted Arm (R), no edema noted Leg (L), no edema noted Leg (R), no edema noted Pedal (L), no edema noted Pedal (R), no edema noted Generalized Neurologic: alert, responsive Raimundo Clark MD Dec 02, 2018 08:19
[2018-12-02] MEDS: Metoprolol 25mg tab GT SCH ×2 (09:00→21:09)
[2018-12-02] MEDS: Meropenem 1 GM in NS 55 ML IVPB SCH ×2 (09:45→21:09)
[2018-12-02] MEDS: Docusate 100mg/10ml Liq GT SCH ×2 (09:45→17:31)
[2018-12-02] MEDS: Aspirin Baby 81mg GT SCH (09:46)
[2018-12-02] MEDS: Allopurinol 100mg Tab GT SCH (09:46)
--- NOTE | 2018-12-02 11:47 | Diagnostic Imaging Report ---
Indication: Cough Technique: One view of the chest Comparison: 11/29/2018 Findings: There is increased opacity in the right middle lower lung, likely reflecting combination of increased pleural fluid and parenchymal consolidation. Generalized interstitial prominence is again noted, may be slightly increased. The heart size is normal. Impression: Increased renal right mid and lower lung opacity, likely combination of increased pleural fluid and parenchymal consolidation Equivocally slightly increased interstitial prominence, likely reflecting combination of chronic interstitial opacities and interstitial edema
[2018-12-02 12:00] VITALS: BP 86/32
--- NOTE | 2018-12-02 14:55 | Infectious Diseases Prog Note ---
Assessment/Plan Assessment/Plan A 1. Providencia UTI 2. pneumonia, pleural effusion 3. Positive blood culture likely contamination 4. COPD 5. renal failure improving 6. 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 Continue Meropenem & IV Vancomycin 2. will follow up cultures Subjective ROS Limited/Unobtainable: Yes Constitutional: Reports: fever, other - decreasing Allergies: Coded Allergies: SHELLFISH DERIVED (Unverified Allergy, Severe, ANAPHYLAXIS, 11/27/18) CHOCOLATE FLAVOR (Verified Allergy, Mild, 07/02/17) IODINE (Verified Allergy, Unknown, 07/01/17) PENICILLINS (Verified Allergy, Unknown, 07/01/17) Uncoded Allergies: CHOCOLATE (Allergy, Unknown, 11/27/18) Objective Vital Signs Last 24 Hour Vital Signs Date Time Temp Pulse Resp B/P (MAP) Pulse Ox O2 Delivery O2 Flow Rate FiO2 12/02/18 12:00 98.2 91 26 86/32 (50) 99 12/02/18 12:00 91 12/02/18 10:20 89 18 100 Venturi Mask 14.0 55 12/02/18 10:08 86 22 96 Venturi Mask 14.0 55 12/02/18 09:00 Venturi Mask 14.0 12/02/18 09:00 89 93/41 12/02/18 08:00 97.9 90 24 108/45 (66) 99 12/02/18 08:00 87 12/02/18 06:55 90 20 100 Venturi Mask 14.0 55 12/02/18 06:45 Venturi Mask 14.0 55 12/02/18 06:45 89 20 99 Venturi Mask 14.0 55 12/02/18 06:45 99 Venturi Mask 14.0 55 12/02/18 04:00 100.2 87 18 101/46 (64) 97 12/02/18 04:00 89 12/02/18 03:05 87 22 98 Venturi Mask 14.0 55 12/02/18 02:54 87 22 97 Venturi Mask 14.0 55 12/02/18 02:26 99.9 12/02/18 02:00 99.9 12/02/18 00:45 101.5 12/02/18 00:00 103 12/02/18 00:00 98.4 104 25 120/77 (91) 94 12/01/18 23:02 103 22 98 Venturi Mask 14.0 55 12/01/18 22:52 102 22 96 Venturi Mask 14.0 55 12/01/18 21:21 112 120/77 12/01/18 21:00 Venturi Mask 14.0 12/01/18 20:00 100.8 112 22 120/77 (91) 98 12/01/18 20:00 115 12/01/18 19:23 90 22 97 Venturi Mask 14.0 55 12/01/18 19:13 96 Venturi Mask 14.0 55 12/01/18 19:13 Venturi Mask 14.0 55 12/01/18 19:13 89 22 96 Venturi Mask 14.0 55 12/01/18 16:00 98.6 104 24 106/46 (66) 98 12/01/18 15:26 102 24 97 Venturi Mask 14.0 55 12/01/18 15:16 92 23 97 Venturi Mask 14.0 55 Height (Feet): 2 Height (Inches): 9.00 Weight (Pounds): 152 HEENT: mucous membranes moist Respiratory/Chest: other - few rhonchi, oxygen by mask Cardiovascular: normal rate Abdomen: soft, non tender, other - GT feeding Extremities: other - Bilateral AKA Neurologic/Psychiatric: other - Opens eyes Laboratory Tests Test 12/02/18 06:25 12/02/18 09:25 White Blood Count 13.8 K/UL (4.8-10.8) H Red Blood Count 3.36 M/UL (4.20-5.40) L Hemoglobin 9.6 G/DL (12.0-16.0) L Hematocrit 30.3 % (37.0-47.0) L Mean Corpuscular Volume 90 FL (80-99) Mean Corpuscular Hemoglobin 28.5 PG (27.0-31.0) Mean Corpuscular Hemoglobin Concent 31.7 G/DL (32.0-36.0) L Red Cell Distribution Width 18.4 % (11.6-14.8) H Platelet Count 147 K/UL (150-450) L Mean Platelet Volume 13.4 FL (6.5-10.1) H Neutrophils (%) (Auto) % (45.0-75.0) Lymphocytes (%) (Auto) % (20.0-45.0) Monocytes (%) (Auto) % (1.0-10.0) Eosinophils (%) (Auto) % (0.0-3.0) Basophils (%) (Auto) % (0.0-2.0) Differential Total Cells Counted 100 Neutrophils % (Manual) 82 % (45-75) H Lymphocytes % (Manual) 8 % (20-45) L Monocytes % (Manual) 3 % (1-10) Eosinophils % (Manual) 6 % (0-3) H Basophils % (Manual) 0 % (0-2) Band Neutrophils 1 % (0-8) Platelet Estimate Adequate Platelet Morphology Normal Anisocytosis 1+ Sodium Level 146 MMOL/L (136-145) H Potassium Level 3.4 MMOL/L (3.5-5.1) L Chloride Level 109 MMOL/L (98-107) H Carbon Dioxide Level 21 MMOL/L (21-32) Anion Gap 16 mmol/L (5-15) H Blood Urea Nitrogen 54 mg/dL (7-18) H Creatinine 2.3 MG/DL (0.55-1.30) H Estimat Glomerular Filtration Rate mL/min (>60) Glucose Level 98 MG/DL (74-106) Calcium Level 8.9 MG/DL (8.5-10.1) Total Bilirubin 0.5 MG/DL (0.2-1.0) Aspartate Amino Transf (AST/SGOT) 23 U/L (15-37) Alanine Aminotransferase (ALT/SGPT) 23 U/L (12-78) Alkaline Phosphatase 100 U/L (46-116) Pro-B-Type Natriuretic Peptide 4740 pg/mL (0-125) H Total Protein 6.1 G/DL (6.4-8.2) L Albumin 1.7 G/DL (3.4-5.0) L Globulin 4.4 g/dL Albumin/Globulin Ratio 0.4 (1.0-2.7) L Arterial Blood pH 7.327 (7.350-7.450) Arterial Blood Partial Pressure CO2 41.6 mmHg (35.0-45.0) Arterial Blood Partial Pressure O2 97.8 mmHg (75.0-100.0) Arterial Blood HCO3 21.3 mmol/L (22.0-26.0) L Arterial Blood Oxygen Saturation 96.2 % (95-100) Arterial Blood Base Excess -4.4 (-2-2) L Lakhwinder Test Positive Current Medications Medications (Trade) Dose Ordered Sig/Rick Route PRN Reason Start Time Stop Time Status Last Admin Dose Admin Acetaminophen (Tylenol) 650 mg Q4H PRN GT For Pain 12/02/18 01:00 01/01/19 00:59 12/02/18 01:56 Albuterol/ Ipratropium (Albuterol/ Ipratropium) 3 ml Q2H PRN HHN Shortness of Breath 12/02/18 01:00 12/07/18 00:59 Albuterol/ Ipratropium (Albuterol/ Ipratropium) 3 ml Q4HRT HHN 11/27/18 19:00 12/02/18 18:59 12/02/18 10:08 Allopurinol (Zyloprim) 200 mg DAILY GT 11/28/18 09:00 12/28/18 08:59 12/02/18 09:46 Aspirin (ASA) 81 mg DAILY GT 11/28/18 09:00 12/28/18 08:59 12/02/18 09:46 Atorvastatin Calcium (Lipitor) 10 mg BEDTIME GT 11/27/18 21:00 12/27/18 20:59 12/01/18 21:21 Docusate Sodium (Colace) 100 mg TWICE A DAY GT 11/28/18 09:00 12/28/18 08:59 12/02/18 09:45 Guaifenesin (Robitussin) 200 mg Q6H PRN GT For Cough 11/27/18 18:15 12/27/18 18:14 Levothyroxine Sodium (Synthroid) 75 mcg DAILY GT 11/28/18 09:00 12/28/18 08:59 12/02/18 09:46 Meropenem 1 gm/ Sodium Chloride 55 ml @ 110 mls/hr Q12HR IVPB 11/30/18 12:00 12/05/18 11:59 12/02/18 09:45 Metoprolol Tartrate (Lopressor) 25 mg Q12HR GT 11/30/18 21:00 12/29/18 08:59 12/01/18 21:21 Sodium Chloride 1,000 ml @ 50 mls/hr Q20H IV 12/01/18 00:00 12/31/18 00:00 12/01/18 21:20 Vancomycin HCl (Vanco rx to dose) 1 ea DAILY PRN MISC Per rx protocol 12/01/18 11:30 12/31/18 11:29 Emanuel Smith MD Dec 02, 2018 14:55
[2018-12-02 16:00] VITALS: BP 86/42
[2018-12-02 20:00] VITALS: BP 114/48
[2018-12-03] VITALS: BP 113/48
[2018-12-03 04:00] VITALS: BP 112/43
[2018-12-03 08:00] VITALS: BP 137/50
[2018-12-03 08:09] LABS: BASOPHILS % (AUTO) 0.3 % (0.0-2.0); EOSINOPHILS % (AUTO) 7.9 % (0.0-3.0); HEMATOCRIT 29.2 % (37.0-47.0); HEMOGLOBIN 8.9 G/DL (12.0-16.0); LYMPHOCYTES % (AUTO) 6.9 % (20.0-45.0); MEAN CORPUSCULAR VOLUME 91 FL (80-99); MONOCYTES % (AUTO) 4.3 % (1.0-10.0); NEUTROPHILS % (AUTO) 80.6 % (45.0-75.0); PLATELET COUNT 126 K/UL (150-450); RED BLOOD COUNT 3.22 M/UL (4.20-5.40); RED CELL DISTRIBUTION WIDTH 18.1 % (11.6-14.8); WHITE BLOOD COUNT 11.3 K/UL (4.8-10.8)
[2018-12-03 08:24] LABS: ALANINE AMINOTRANSFERASE 20 U/L (12-78); ALBUMIN 1.5 G/DL (3.4-5.0); ALBUMIN/GLOBULIN RATIO 0.4 (1.0-2.7); ALKALINE PHOSPHATASE 98 U/L (46-116); ANION GAP 11 mmol/L (5-15); ASPARTATE AMINO TRANSFERASE 22 U/L (15-37); BILIRUBIN,TOTAL 0.4 MG/DL (0.2-1.0); BLOOD UREA NITROGEN 48 mg/dL (7-18); CALCIUM 8.8 MG/DL (8.5-10.1); CARBON DIOXIDE 24 MMOL/L (21-32); CHLORIDE 111 MMOL/L (98-107); POTASSIUM 3.8 MMOL/L (3.5-5.1); SODIUM 146 MMOL/L (136-145)
[2018-12-03] MEDS: Docusate 100mg/10ml Liq GT SCH ×2 (08:31→17:06)
[2018-12-03] MEDS: Aspirin Baby 81mg GT SCH (08:33)
[2018-12-03] MEDS: Metoprolol 25mg tab GT SCH ×2 (08:33→20:48)
[2018-12-03] MEDS: Allopurinol 100mg Tab GT SCH (08:33)
[2018-12-03] MEDS: Meropenem 1 GM in NS 55 ML IVPB SCH ×2 (08:34→20:53)
--- NOTE | 2018-12-03 09:23 | General Progress Note ---
Assessment/Plan Problem List: (1) Dyspnea ICD Codes: R06.00 - Dyspnea, unspecified SNOMED: 910906945 (2) Respiratory distress ICD Codes: R06.03 - Acute respiratory distress SNOMED: 778007272 (3) Dyspnea ICD Codes: R06.00 - Dyspnea, unspecified SNOMED: 948381406 (4) Sepsis ICD Codes: A41.9 - Sepsis, unspecified organism SNOMED: 84982170 (5) UTI (urinary tract infection) ICD Codes: N39.0 - Urinary tract infection, site not specified SNOMED: 01470283 Status: stable, progressing Assessment/Plan resp rx o2- wean as able iv abx check abg ivf guarded gt feeds monitor cxr pulm eval ?tap effusion intubation ok. no chest compression or cardioversion d.jhoan thomas- dtr. remains tenuous. Subjective ROS Limited/Unobtainable: No Constitutional: Reports: malaise, weakness HEENT: Reports: no symptoms Cardiovascular: Reports: no symptoms Respiratory: Reports: cough, SOB with excertion Gastrointestinal/Abdominal: Reports: difficulty swallowing Genitourinary: Reports: no symptoms Neurologic/Psychiatric: Reports: pre-existing deficit Endocrine: Reports: no symptoms Hematologic/Lymphatic: Reports: no symptoms Allergies: Coded Allergies: SHELLFISH DERIVED (Unverified Allergy, Severe, ANAPHYLAXIS, 11/27/18) CHOCOLATE FLAVOR (Verified Allergy, Mild, 07/02/17) IODINE (Verified Allergy, Unknown, 07/01/17) PENICILLINS (Verified Allergy, Unknown, 07/01/17) Uncoded Allergies: CHOCOLATE (Allergy, Unknown, 11/27/18) All Systems: reviewed and negative except above Subjective no change. seem more alert. on venti mask. on gt feeds. wbc slightly higher. cxr results noted. Objective Last 24 Hour Vital Signs Date Time Temp Pulse Resp B/P (MAP) Pulse Ox O2 Delivery O2 Flow Rate FiO2 12/03/18 09:00 Venturi Mask 14.0 12/03/18 08:33 95 137/50 12/03/18 08:00 96 12/03/18 08:00 98.6 102 18 137/50 (79) 98 12/03/18 07:04 98 Venturi Mask 12.0 50 12/03/18 07:04 Venturi Mask 12.0 50 12/03/18 04:00 98 12/03/18 04:00 99.3 101 20 112/43 (66) 95 12/03/18 00:00 98.0 97 20 113/48 (69) 96 12/02/18 21:09 104 114/48 12/02/18 21:00 Venturi Mask 14.0 12/02/18 20:18 99 20 Venturi Mask 12.0 50 12/02/18 20:06 97 Venturi Mask 12.0 50 12/02/18 20:06 Venturi Mask 12.0 50 12/02/18 20:00 98.4 104 24 114/48 (70) 99 12/02/18 20:00 96 12/02/18 16:00 98.7 91 24 86/42 (57) 98 12/02/18 16:00 93 12/02/18 15:46 93 20 97 Venturi Mask 14.0 55 12/02/18 15:33 92 20 98 Venturi Mask 14.0 55 12/02/18 12:00 98.2 91 26 86/32 (50) 99 12/02/18 12:00 91 12/02/18 10:20 89 18 100 Venturi Mask 14.0 55 12/02/18 10:08 86 22 96 Venturi Mask 14.0 55 Intake and Output 12/02/18 12/03/18 18:59 06:59 Intake Total 390 ml Output Total 250 ml Balance -250 ml 390 ml Intake Free Water 300 ml Tube Feeding 90 ml Output Urine Total 250 ml Laboratory Tests 12/02/18 09:25: Arterial Blood pH 7.327L, Arterial Blood Partial Pressure CO2 41.6, Arterial Blood Partial Pressure O2 97.8, Arterial Blood HCO3 21.3L, Arterial Blood Oxygen Saturation 96.2, Arterial Blood Base Excess -4.4L, Lakhwinder Test Positive 12/03/18 06:32: White Blood Count 11.3H, Red Blood Count 3.22L, Hemoglobin 8.9L, Hematocrit 29.2L, Mean Corpuscular Volume 91, Mean Corpuscular Hemoglobin 27.8, Mean Corpuscular Hemoglobin Concent 30.7L, Red Cell Distribution Width 18.1H, Platelet Count 126L, Mean Platelet Volume 12.5H, Neutrophils (%) (Auto) 80.6H, Lymphocytes (%) (Auto) 6.9L, Monocytes (%) (Auto) 4.3, Eosinophils (%) (Auto) 7.9H, Basophils (%) (Auto) 0.3, Sodium Level 146H, Potassium Level 3.8, Chloride Level 111H, Carbon Dioxide Level 24, Anion Gap 11, Blood Urea Nitrogen 48H, Creatinine 2.0H, Estimat Glomerular Filtration Rate , Glucose Level 91, Calcium Level 8.8, Total Bilirubin 0.4, Aspartate Amino Transf (AST/SGOT) 22, Alanine Aminotransferase (ALT/SGPT) 20, Alkaline Phosphatase 98, Total Protein 5.7L, Albumin 1.5L, Globulin 4.2, Albumin/Globulin Ratio 0.4L, Random Vancomycin Level 14.9 Height (Feet): 2 Height (Inches): 9.00 Weight (Pounds): 152 Objective General Appearance: WD/WN, alert, confused Neck: supple Cardiovascular: regular rhythm Respiratory/Chest: crackles/rales, rhonchi - bilaterally Abdomen: normal bowel sounds, non tender, soft, no organomegaly Edema: no edema noted Arm (L), no edema noted Arm (R), no edema noted Leg (L), no edema noted Leg (R), no edema noted Pedal (L), no edema noted Pedal (R), no edema noted Generalized Neurologic: alert, responsive Raimundo Clark MD Dec 03, 2018 09:23
--- NOTE | 2018-12-03 10:32 | Infectious Diseases Prog Note ---
Assessment/Plan Assessment/Plan antibiotics : vancomycin iv, meropenem A 1. providencia UTI 2. pneumonia 3. leucocytosis improving 4. COPD 5. renal failure improving 6. + blood cultures with staph haemolyticus likely contaminated P 1. continue iv vancomycin, meropenem 2. will follow up cultures Subjective ROS Limited/Unobtainable: Yes Allergies: Coded Allergies: SHELLFISH DERIVED (Unverified Allergy, Severe, ANAPHYLAXIS, 11/27/18) CHOCOLATE FLAVOR (Verified Allergy, Mild, 07/02/17) IODINE (Verified Allergy, Unknown, 07/01/17) PENICILLINS (Verified Allergy, Unknown, 07/01/17) Uncoded Allergies: CHOCOLATE (Allergy, Unknown, 11/27/18) Objective Vital Signs Last 24 Hour Vital Signs Date Time Temp Pulse Resp B/P (MAP) Pulse Ox O2 Delivery O2 Flow Rate FiO2 12/03/18 09:00 Venturi Mask 14.0 12/03/18 08:33 95 137/50 12/03/18 08:00 96 12/03/18 08:00 98.6 102 18 137/50 (79) 98 12/03/18 07:04 98 Venturi Mask 12.0 50 12/03/18 07:04 Venturi Mask 12.0 50 12/03/18 04:00 98 12/03/18 04:00 99.3 101 20 112/43 (66) 95 12/03/18 00:00 98.0 97 20 113/48 (69) 96 12/02/18 21:09 104 114/48 12/02/18 21:00 Venturi Mask 14.0 12/02/18 20:18 99 20 Venturi Mask 12.0 50 12/02/18 20:06 97 Venturi Mask 12.0 50 12/02/18 20:06 Venturi Mask 12.0 50 12/02/18 20:00 98.4 104 24 114/48 (70) 99 12/02/18 20:00 96 12/02/18 16:00 98.7 91 24 86/42 (57) 98 12/02/18 16:00 93 12/02/18 15:46 93 20 97 Venturi Mask 14.0 55 12/02/18 15:33 92 20 98 Venturi Mask 14.0 55 12/02/18 12:00 98.2 91 26 86/32 (50) 99 12/02/18 12:00 91 Height (Feet): 2 Height (Inches): 9.00 Weight (Pounds): 152 Respiratory/Chest: rhonchi - bilaterally Cardiovascular: normal rate, regular rhythm, no gallop/murmur Abdomen: soft, non tender, other - GT Extremities: other - stumps clean Laboratory Tests Test 12/03/18 06:32 White Blood Count 11.3 K/UL (4.8-10.8) H Red Blood Count 3.22 M/UL (4.20-5.40) L Hemoglobin 8.9 G/DL (12.0-16.0) L Hematocrit 29.2 % (37.0-47.0) L Mean Corpuscular Volume 91 FL (80-99) Mean Corpuscular Hemoglobin 27.8 PG (27.0-31.0) Mean Corpuscular Hemoglobin Concent 30.7 G/DL (32.0-36.0) L Red Cell Distribution Width 18.1 % (11.6-14.8) H Platelet Count 126 K/UL (150-450) L Mean Platelet Volume 12.5 FL (6.5-10.1) H Neutrophils (%) (Auto) 80.6 % (45.0-75.0) H Lymphocytes (%) (Auto) 6.9 % (20.0-45.0) L Monocytes (%) (Auto) 4.3 % (1.0-10.0) Eosinophils (%) (Auto) 7.9 % (0.0-3.0) H Basophils (%) (Auto) 0.3 % (0.0-2.0) Sodium Level 146 MMOL/L (136-145) H Potassium Level 3.8 MMOL/L (3.5-5.1) Chloride Level 111 MMOL/L (98-107) H Carbon Dioxide Level 24 MMOL/L (21-32) Anion Gap 11 mmol/L (5-15) Blood Urea Nitrogen 48 mg/dL (7-18) H Creatinine 2.0 MG/DL (0.55-1.30) H Estimat Glomerular Filtration Rate mL/min (>60) Glucose Level 91 MG/DL (74-106) Calcium Level 8.8 MG/DL (8.5-10.1) Total Bilirubin 0.4 MG/DL (0.2-1.0) Aspartate Amino Transf (AST/SGOT) 22 U/L (15-37) Alanine Aminotransferase (ALT/SGPT) 20 U/L (12-78) Alkaline Phosphatase 98 U/L (46-116) Total Protein 5.7 G/DL (6.4-8.2) L Albumin 1.5 G/DL (3.4-5.0) L Globulin 4.2 g/dL Albumin/Globulin Ratio 0.4 (1.0-2.7) L Random Vancomycin Level 14.9 ug/mL Current Medications Medications (Trade) Dose Ordered Sig/Rick Route PRN Reason Start Time Stop Time Status Last Admin Dose Admin Acetaminophen (Tylenol) 650 mg Q4H PRN GT For Pain 12/02/18 01:00 01/01/19 00:59 12/02/18 01:56 Albuterol/ Ipratropium (Albuterol/ Ipratropium) 3 ml Q2H PRN HHN Shortness of Breath 12/02/18 01:00 12/07/18 00:59 Allopurinol (Zyloprim) 200 mg DAILY GT 11/28/18 09:00 12/28/18 08:59 12/03/18 08:33 Aspirin (ASA) 81 mg DAILY GT 11/28/18 09:00 12/28/18 08:59 12/03/18 08:33 Atorvastatin Calcium (Lipitor) 10 mg BEDTIME GT 11/27/18 21:00 12/27/18 20:59 12/02/18 21:08 Docusate Sodium (Colace) 100 mg TWICE A DAY GT 11/28/18 09:00 12/28/18 08:59 12/03/18 08:31 Guaifenesin (Robitussin) 200 mg Q6H PRN GT For Cough 11/27/18 18:15 12/27/18 18:14 Levothyroxine Sodium (Synthroid) 75 mcg DAILY GT 11/28/18 09:00 12/28/18 08:59 12/03/18 08:33 Meropenem 1 gm/ Sodium Chloride 55 ml @ 110 mls/hr Q12HR IVPB 11/30/18 12:00 12/05/18 11:59 12/03/18 08:34 Metoprolol Tartrate (Lopressor) 25 mg Q12HR GT 11/30/18 21:00 12/29/18 08:59 12/03/18 08:33 Sodium Chloride 1,000 ml @ 50 mls/hr Q20H IV 12/01/18 00:00 12/31/18 00:00 12/02/18 16:09 Vancomycin HCl (Vanco rx to dose) 1 ea DAILY PRN MISC Per rx protocol 12/01/18 11:30 12/31/18 11:29 Vancomycin HCl 1 gm/Dextrose 275 ml @ 183.708 mls/hr Q48H IVPB 12/03/18 10:00 12/08/18 09:59 Laurent Hunt MD Dec 03, 2018 10:32
[2018-12-03] MEDS: Vancomycin 1gm/D5W 275ml IVPB SCH ×2 (10:35)
--- NOTE | 2018-12-03 11:47 | Surgery Progress Note ---
Surgery Progress Note Subjective Additional Comments leukocytosis improved. exam stable. comfortable. Objective Last 24 Hour Vital Signs Date Time Temp Pulse Resp B/P (MAP) Pulse Ox O2 Delivery O2 Flow Rate FiO2 12/03/18 09:00 Venturi Mask 14.0 12/03/18 08:33 95 137/50 12/03/18 08:00 96 12/03/18 08:00 98.6 102 18 137/50 (79) 98 12/03/18 07:04 98 Venturi Mask 12.0 50 12/03/18 07:04 Venturi Mask 12.0 50 12/03/18 04:00 98 12/03/18 04:00 99.3 101 20 112/43 (66) 95 12/03/18 00:00 98.0 97 20 113/48 (69) 96 12/02/18 21:09 104 114/48 12/02/18 21:00 Venturi Mask 14.0 12/02/18 20:18 99 20 Venturi Mask 12.0 50 12/02/18 20:06 97 Venturi Mask 12.0 50 12/02/18 20:06 Venturi Mask 12.0 50 12/02/18 20:00 98.4 104 24 114/48 (70) 99 12/02/18 20:00 96 12/02/18 16:00 98.7 91 24 86/42 (57) 98 12/02/18 16:00 93 12/02/18 15:46 93 20 97 Venturi Mask 14.0 55 12/02/18 15:33 92 20 98 Venturi Mask 14.0 55 12/02/18 12:00 98.2 91 26 86/32 (50) 99 12/02/18 12:00 91 I&O Intake and Output 12/02/18 12/03/18 19:00 07:00 Intake Total 390 ml Output Total 250 ml Balance -250 ml 390 ml Intake Free Water 300 ml Tube Feeding 90 ml Output Urine Total 250 ml Dressing: other Wound: other Drains: other Cardiovascular: RSR Respiratory: clear Abdomen: soft, present bowel sounds, other, non-distended Extremities: other Laboratory Tests Test 12/03/18 06:32 White Blood Count 11.3 K/UL (4.8-10.8) H Red Blood Count 3.22 M/UL (4.20-5.40) L Hemoglobin 8.9 G/DL (12.0-16.0) L Hematocrit 29.2 % (37.0-47.0) L Mean Corpuscular Volume 91 FL (80-99) Mean Corpuscular Hemoglobin 27.8 PG (27.0-31.0) Mean Corpuscular Hemoglobin Concent 30.7 G/DL (32.0-36.0) L Red Cell Distribution Width 18.1 % (11.6-14.8) H Platelet Count 126 K/UL (150-450) L Mean Platelet Volume 12.5 FL (6.5-10.1) H Neutrophils (%) (Auto) 80.6 % (45.0-75.0) H Lymphocytes (%) (Auto) 6.9 % (20.0-45.0) L Monocytes (%) (Auto) 4.3 % (1.0-10.0) Eosinophils (%) (Auto) 7.9 % (0.0-3.0) H Basophils (%) (Auto) 0.3 % (0.0-2.0) Sodium Level 146 MMOL/L (136-145) H Potassium Level 3.8 MMOL/L (3.5-5.1) Chloride Level 111 MMOL/L (98-107) H Carbon Dioxide Level 24 MMOL/L (21-32) Anion Gap 11 mmol/L (5-15) Blood Urea Nitrogen 48 mg/dL (7-18) H Creatinine 2.0 MG/DL (0.55-1.30) H Estimat Glomerular Filtration Rate mL/min (>60) Glucose Level 91 MG/DL (74-106) Calcium Level 8.8 MG/DL (8.5-10.1) Total Bilirubin 0.4 MG/DL (0.2-1.0) Aspartate Amino Transf (AST/SGOT) 22 U/L (15-37) Alanine Aminotransferase (ALT/SGPT) 20 U/L (12-78) Alkaline Phosphatase 98 U/L (46-116) Total Protein 5.7 G/DL (6.4-8.2) L Albumin 1.5 G/DL (3.4-5.0) L Globulin 4.2 g/dL Albumin/Globulin Ratio 0.4 (1.0-2.7) L Random Vancomycin Level 14.9 ug/mL Plan Problems: (1) Incontinence associated dermatitis Assessment & Plan: Pt presented on admission with fungal Moisture associated skin dermatitis affecting bilateral breast folds, bilateral Axilla,abdominal folds, mons pubis ,bilateral groin lower back, buttocks and medial/posterior aspects of both upper thighs. Gross erythema with denuded skin and with Scattered satellite lesions noted to buttocks and both posterior thighs. Scattered partial thickness pressure injuries noted to R and L gluteal clefts and sacrum, Full thickness stage 3 pressure injury noted to L ischial region. Upon assessment base of wound is maroon, 20% Biofilm noted with purple borders that are indurated. Wound measures (L)8.9cm x (W)7.5cm. Recommendations: Cleanse L ischial wound with saline.Apply Therahoney. Cover with Optifoam drsg Daily and prn. Apply Antifungal cream to to both breasts,Axillae, Abdominal folds,bilat groin and suprapubis areas Twice Daily. Apply Triad Paste to buttocks and posterior thighs with each perineal care. Please place abd pads or Sanitary Pads between thigh to prevent pressure injury from F/C. Cleanse the skin of buttock, anus, back, perineum with soap and water to lift stool and urine from the skin. Clean the skin routinely and at the time of soiling. Use warm (not hot) water, and avoid excess force and friction to avoid further skin damage. APM/ARACELI Mattress. Reposition at least [id number] or as tolerated. (2) Fungal dermatitis (3) Sepsis Assessment & Plan: Leukocytosis trending down on IV abx wounds without abscess no acute surgical intervention necessary at this time needs good wound care as above Isaiah Parisi Dec 03, 2018 11:47
[2018-12-03 12:00] VITALS: BP 124/51
[2018-12-03 16:00] VITALS: BP 118/56
--- NOTE | 2018-12-03 17:31 | Consultation ---
Consult Note Consult Note HISTORY OF PRESENT ILLNESS: 83 year old unfortunate elderly female. presented from a alf facility with complaints of altered mental status. On evaluation in the emergency room, the patient was noted to be congested and short of breath. Head CAT scan of the head that showed no acute stroke or bleed. Her x-ray performed was clear. Patient noted to have electrolyte imbalance. The patient is currently on broad-spectrum IV antibiotics. She is now admitted for further evaluation and care. The patient is unable to provide any history as she is mostly aphasic on physical exam. I was called to evaluate her overall care from a pulmonary standpoint PAST MEDICAL HISTORY: stroke, bilateral gaaxq-gej-fkrw amputations, dysphagia, status post G-tube, hypertension. She has history of chronic kidney disease PAST SURGICAL HISTORY: GT. CURRENT MEDICATIONS: Reconciled and reviewed. ALLERGIES: reviewed and reconciled FAMILY HISTORY: Noncontributory. SOCIAL HISTORY: Negative for tobacco, ethanol, or drugs. REVIEW OF SYSTEMS: unobtainable. PHYSICAL EXAMINATION: GENERAL: WDWN female with some congestion HEART: Regular rate and rhythm. without MRG LUNGS: Significant for bilateral rhonchi. moderate air entry ABDOMEN: Soft, nontender, nondistended. G-tube site was clean. no distention EXTREMITIES: Significant bilateral ljdgg-rui-aknb amputations. NEURO; nonverbal currently Labs Test 12/01/18 05:48 12/02/18 06:25 12/02/18 09:25 12/03/18 06:32 White Blood Count 12.2 K/UL (4.8-10.8) 13.8 K/UL (4.8-10.8) 11.3 K/UL (4.8-10.8) Red Blood Count 3.67 M/UL (4.20-5.40) 3.36 M/UL (4.20-5.40) 3.22 M/UL (4.20-5.40) Hemoglobin 10.3 G/DL (12.0-16.0) 9.6 G/DL (12.0-16.0) 8.9 G/DL (12.0-16.0) Hematocrit 32.9 % (37.0-47.0) 30.3 % (37.0-47.0) 29.2 % (37.0-47.0) Mean Corpuscular Volume 90 FL (80-99) 90 FL (80-99) 91 FL (80-99) Mean Corpuscular Hemoglobin 28.0 PG (27.0-31.0) 28.5 PG (27.0-31.0) 27.8 PG (27.0-31.0) Mean Corpuscular Hemoglobin Concent 31.2 G/DL (32.0-36.0) 31.7 G/DL (32.0-36.0) 30.7 G/DL (32.0-36.0) Red Cell Distribution Width 17.7 % (11.6-14.8) 18.4 % (11.6-14.8) 18.1 % (11.6-14.8) Platelet Count 114 K/UL (150-450) 147 K/UL (150-450) 126 K/UL (150-450) Mean Platelet Volume 13.3 FL (6.5-10.1) 13.4 FL (6.5-10.1) 12.5 FL (6.5-10.1) Neutrophils (%) (Auto) % (45.0-75.0) % (45.0-75.0) 80.6 % (45.0-75.0) Lymphocytes (%) (Auto) % (20.0-45.0) % (20.0-45.0) 6.9 % (20.0-45.0) Monocytes (%) (Auto) % (1.0-10.0) % (1.0-10.0) 4.3 % (1.0-10.0) Eosinophils (%) (Auto) % (0.0-3.0) % (0.0-3.0) 7.9 % (0.0-3.0) Basophils (%) (Auto) % (0.0-2.0) % (0.0-2.0) 0.3 % (0.0-2.0) Differential Total Cells Counted 100 100 Neutrophils % (Manual) 87 % (45-75) 82 % (45-75) Lymphocytes % (Manual) 3 % (20-45) 8 % (20-45) Monocytes % (Manual) 5 % (1-10) 3 % (1-10) Eosinophils % (Manual) 5 % (0-3) 6 % (0-3) Basophils % (Manual) 0 % (0-2) 0 % (0-2) Band Neutrophils 0 % (0-8) 1 % (0-8) Platelet Estimate Decreased Adequate Platelet Morphology Normal Normal Hypochromasia 1+ Anisocytosis 1+ 1+ Sodium Level 140 MMOL/L (136-145) 146 MMOL/L (136-145) 146 MMOL/L (136-145) Potassium Level 3.7 MMOL/L (3.5-5.1) 3.4 MMOL/L (3.5-5.1) 3.8 MMOL/L (3.5-5.1) Chloride Level 105 MMOL/L (98-107) 109 MMOL/L (98-107) 111 MMOL/L (98-107) Carbon Dioxide Level 22 MMOL/L (21-32) 21 MMOL/L (21-32) 24 MMOL/L (21-32) Anion Gap 13 mmol/L (5-15) 16 mmol/L (5-15) 11 mmol/L (5-15) Blood Urea Nitrogen 57 mg/dL (7-18) 54 mg/dL (7-18) 48 mg/dL (7-18) Creatinine 2.2 MG/DL (0.55-1.30) 2.3 MG/DL (0.55-1.30) 2.0 MG/DL (0.55-1.30) Estimat Glomerular Filtration Rate mL/min (>60) mL/min (>60) mL/min (>60) Glucose Level 93 MG/DL (74-106) 98 MG/DL (74-106) 91 MG/DL (74-106) Calcium Level 8.9 MG/DL (8.5-10.1) 8.9 MG/DL (8.5-10.1) 8.8 MG/DL (8.5-10.1) Magnesium Level 2.2 MG/DL (1.8-2.4) Total Bilirubin 0.6 MG/DL (0.2-1.0) 0.5 MG/DL (0.2-1.0) 0.4 MG/DL (0.2-1.0) Aspartate Amino Transf (AST/SGOT) 31 U/L (15-37) 23 U/L (15-37) 22 U/L (15-37) Alanine Aminotransferase (ALT/SGPT) 23 U/L (12-78) 23 U/L (12-78) 20 U/L (12-78) Alkaline Phosphatase 111 U/L (46-116) 100 U/L (46-116) 98 U/L (46-116) Pro-B-Type Natriuretic Peptide 4413 pg/mL (0-125) 4740 pg/mL (0-125) Total Protein 6.7 G/DL (6.4-8.2) 6.1 G/DL (6.4-8.2) 5.7 G/DL (6.4-8.2) Albumin 1.9 G/DL (3.4-5.0) 1.7 G/DL (3.4-5.0) 1.5 G/DL (3.4-5.0) Globulin 4.8 g/dL 4.4 g/dL 4.2 g/dL Albumin/Globulin Ratio 0.4 (1.0-2.7) 0.4 (1.0-2.7) 0.4 (1.0-2.7) Arterial Blood pH 7.327 (7.350-7.450) Arterial Blood Partial Pressure CO2 41.6 mmHg (35.0-45.0) Arterial Blood Partial Pressure O2 97.8 mmHg (75.0-100.0) Arterial Blood HCO3 21.3 mmol/L (22.0-26.0) Arterial Blood Oxygen Saturation 96.2 % (95-100) Arterial Blood Base Excess -4.4 (-2-2) Lakhwinder Test Positive Random Vancomycin Level 14.9 ug/mL ASSESSMENT: 1. Possible Sepsis. 2. Respiratory failure acute. 3. Possible pneumonia. 4. Chronic encephalopathy 5. Acute on chronic renal failure. 6. OSMANY 7. History of stroke. 8. History of bilateral qgbin-pey-buqq amputations. 9. Aspiration PLAN: care noted IV antibiotics respiratory care monitor for aspiration feeds elevate head supportive care suction monitor imaging oxygen therapy prognosis guarded impression, plan, and exam edited and reviewed in detail care discussed with Clinton Villareal MD Dec 03, 2018 17:31
[2018-12-03 20:00] VITALS: BP 134/58
[2018-12-04] VITALS (7 sets, daily range): BP systolic 112–127; BP diastolic 44–59
--- NOTE | 2018-12-04 08:16 | General Progress Note ---
Assessment/Plan Problem List: (1) Dyspnea ICD Codes: R06.00 - Dyspnea, unspecified SNOMED: 206260199 (2) Respiratory distress ICD Codes: R06.03 - Acute respiratory distress SNOMED: 017188343 (3) Dyspnea ICD Codes: R06.00 - Dyspnea, unspecified SNOMED: 818144071 (4) Sepsis ICD Codes: A41.9 - Sepsis, unspecified organism SNOMED: 05736337 (5) UTI (urinary tract infection) ICD Codes: N39.0 - Urinary tract infection, site not specified SNOMED: 37511197 Status: stable, progressing Assessment/Plan resp rx o2- wean as able iv abx check abg ivf guarded gt feeds monitor cxr ?tap effusion intubation ok. no chest compression or cardioversion d.jhoan thomas- dtr. remains tenuous. Subjective ROS Limited/Unobtainable: Yes Constitutional: Reports: malaise, weakness HEENT: Reports: no symptoms Cardiovascular: Reports: no symptoms Respiratory: Reports: cough, shortness of breath Gastrointestinal/Abdominal: Reports: difficulty swallowing Genitourinary: Reports: no symptoms Neurologic/Psychiatric: Reports: pre-existing deficit Endocrine: Reports: no symptoms Hematologic/Lymphatic: Reports: no symptoms Allergies: Coded Allergies: SHELLFISH DERIVED (Unverified Allergy, Severe, ANAPHYLAXIS, 11/27/18) CHOCOLATE FLAVOR (Verified Allergy, Mild, 07/02/17) IODINE (Verified Allergy, Unknown, 07/01/17) PENICILLINS (Verified Allergy, Unknown, 07/01/17) Uncoded Allergies: CHOCOLATE (Allergy, Unknown, 11/27/18) All Systems: reviewed and negative except above Subjective no change. seem more alert. on venti mask. on gt feeds. Appears more comfortable. Objective Last 24 Hour Vital Signs Date Time Temp Pulse Resp B/P (MAP) Pulse Ox O2 Delivery O2 Flow Rate FiO2 12/04/18 04:00 99.1 89 20 127/59 (81) 95 12/04/18 04:00 89 12/04/18 00:00 86 12/04/18 00:00 99.1 89 20 114/55 (74) 95 12/03/18 21:00 Venturi Mask 14.0 12/03/18 20:48 94 134/58 12/03/18 20:22 Venturi Mask 12.0 50 12/03/18 20:22 97 Venturi Mask 12.0 50 12/03/18 20:00 97.7 94 22 134/58 (83) 98 12/03/18 20:00 94 12/03/18 16:00 92 12/03/18 16:00 98.6 92 18 118/56 (76) 98 12/03/18 12:00 92 12/03/18 12:00 98.7 93 18 124/51 (75) 98 12/03/18 09:00 Venturi Mask 14.0 12/03/18 08:33 95 137/50 Intake and Output 12/03/18 12/04/18 19:00 07:00 Intake Total 130 ml 390 ml Output Total 250 ml 1100 ml Balance -120 ml -710 ml Intake Free Water 100 ml 300 ml Tube Feeding 30 ml 90 ml Output Urine Total 250 ml 1100 ml # Bowel Movements 1 2 Height (Feet): 2 Height (Inches): 9.00 Weight (Pounds): 165 Objective General Appearance: WD/WN, alert, confused Neck: supple Cardiovascular: regular rhythm Respiratory/Chest: crackles/rales, rhonchi - bilaterally Abdomen: normal bowel sounds, non tender, soft, no organomegaly Edema: no edema noted Arm (L), no edema noted Arm (R), no edema noted Leg (L), no edema noted Leg (R), no edema noted Pedal (L), no edema noted Pedal (R), no edema noted Generalized Neurologic: alert, responsive Raimundo Clark MD Dec 04, 2018 08:16
[2018-12-04 08:28] LABS: BASOPHILS % (AUTO) 0.3 % (0.0-2.0); EOSINOPHILS % (AUTO) 7.8 % (0.0-3.0); HEMATOCRIT 30.5 % (37.0-47.0); HEMOGLOBIN 9.3 G/DL (12.0-16.0); LYMPHOCYTES % (AUTO) 9.4 % (20.0-45.0); MEAN CORPUSCULAR VOLUME 92 FL (80-99); MONOCYTES % (AUTO) 3.3 % (1.0-10.0); NEUTROPHILS % (AUTO) 79.2 % (45.0-75.0); PLATELET COUNT 157 K/UL (150-450); RED CELL DISTRIBUTION WIDTH 17.1 % (11.6-14.8)
[2018-12-04 08:45] LABS: ALANINE AMINOTRANSFERASE 18 U/L (12-78); ALBUMIN 1.5 G/DL (3.4-5.0); ALBUMIN/GLOBULIN RATIO 0.3 (1.0-2.7); ALKALINE PHOSPHATASE 101 U/L (46-116); ANION GAP 11 mmol/L (5-15); ASPARTATE AMINO TRANSFERASE 24 U/L (15-37); BILIRUBIN,TOTAL 0.4 MG/DL (0.2-1.0); BLOOD UREA NITROGEN 47 mg/dL (7-18); CALCIUM 8.8 MG/DL (8.5-10.1); CARBON DIOXIDE 25 MMOL/L (21-32); CHLORIDE 109 MMOL/L (98-107); CREATININE 1.7 MG/DL (0.55-1.30); SODIUM 145 MMOL/L (136-145)
--- NOTE | 2018-12-04 09:16 | Diagnostic Imaging Report ---
Indication: Shortness of breath Technique: One view of the chest Comparison: 12/02/2017 Findings: Bilateral interstitial edema, right pleural effusion and possible parenchymal opacity persist, unchanged. The heart size is upper limits of normal. Impression: Unchanged, over 2 days, findings as above.
[2018-12-04] MEDS: Docusate 100mg/10ml Liq GT SCH ×2 (09:36→17:32)
[2018-12-04] MEDS: Metoprolol 25mg tab GT SCH ×2 (09:37→21:40)
[2018-12-04] MEDS: Aspirin Baby 81mg GT SCH (09:37)
[2018-12-04] MEDS: Allopurinol 100mg Tab GT SCH (09:37)
[2018-12-04] MEDS: Meropenem 1 GM in NS 55 ML IVPB SCH ×2 (09:42→21:39)
--- NOTE | 2018-12-04 10:35 | Infectious Diseases Prog Note ---
Assessment/Plan Assessment/Plan antibiotics : vancomycin iv, meropenem A 1. providencia UTI 2. pneumonia 3. leucocytosis improving 4. COPD 5. renal failure improving 6. + blood cultures with staph haemolyticus likely contaminated P 1. continue iv vancomycin, meropenem 2. will follow up cultures Subjective ROS Limited/Unobtainable: Yes Allergies: Coded Allergies: SHELLFISH DERIVED (Unverified Allergy, Severe, ANAPHYLAXIS, 11/27/18) CHOCOLATE FLAVOR (Verified Allergy, Mild, 07/02/17) IODINE (Verified Allergy, Unknown, 07/01/17) PENICILLINS (Verified Allergy, Unknown, 07/01/17) Uncoded Allergies: CHOCOLATE (Allergy, Unknown, 11/27/18) Objective Vital Signs Last 24 Hour Vital Signs Date Time Temp Pulse Resp B/P (MAP) Pulse Ox O2 Delivery O2 Flow Rate FiO2 12/04/18 09:37 89 122/50 12/04/18 09:00 Venturi Mask 14.0 12/04/18 08:00 97.7 89 25 122/50 (74) 97 12/04/18 07:52 89 12/04/18 04:00 99.1 89 20 127/59 (81) 95 12/04/18 04:00 89 12/04/18 00:00 86 12/04/18 00:00 99.1 89 20 114/55 (74) 95 12/03/18 21:00 Venturi Mask 14.0 12/03/18 20:48 94 134/58 12/03/18 20:22 Venturi Mask 12.0 50 12/03/18 20:22 97 Venturi Mask 12.0 50 12/03/18 20:00 97.7 94 22 134/58 (83) 98 12/03/18 20:00 94 12/03/18 16:00 92 12/03/18 16:00 98.6 92 18 118/56 (76) 98 12/03/18 12:00 92 12/03/18 12:00 98.7 93 18 124/51 (75) 98 Height (Feet): 2 Height (Inches): 9.00 Weight (Pounds): 165 Respiratory/Chest: rhonchi - bilaterally Cardiovascular: normal rate, regular rhythm, no gallop/murmur Abdomen: soft, non tender, other - GT Extremities: other - stumps clean bilaterally Laboratory Tests Test 12/04/18 07:55 12/04/18 08:30 White Blood Count 11.0 K/UL (4.8-10.8) H Red Blood Count 3.30 M/UL (4.20-5.40) L Hemoglobin 9.3 G/DL (12.0-16.0) L Hematocrit 30.5 % (37.0-47.0) L Mean Corpuscular Volume 92 FL (80-99) Mean Corpuscular Hemoglobin 28.1 PG (27.0-31.0) Mean Corpuscular Hemoglobin Concent 30.4 G/DL (32.0-36.0) L Red Cell Distribution Width 17.1 % (11.6-14.8) H Platelet Count 157 K/UL (150-450) Mean Platelet Volume 10.3 FL (6.5-10.1) H Neutrophils (%) (Auto) 79.2 % (45.0-75.0) H Lymphocytes (%) (Auto) 9.4 % (20.0-45.0) L Monocytes (%) (Auto) 3.3 % (1.0-10.0) Eosinophils (%) (Auto) 7.8 % (0.0-3.0) H Basophils (%) (Auto) 0.3 % (0.0-2.0) Sodium Level 145 MMOL/L (136-145) Potassium Level 4.0 MMOL/L (3.5-5.1) Chloride Level 109 MMOL/L (98-107) H Carbon Dioxide Level 25 MMOL/L (21-32) Anion Gap 11 mmol/L (5-15) Blood Urea Nitrogen 47 mg/dL (7-18) H Creatinine 1.7 MG/DL (0.55-1.30) H Estimat Glomerular Filtration Rate mL/min (>60) Glucose Level 108 MG/DL (74-106) H Calcium Level 8.8 MG/DL (8.5-10.1) Total Bilirubin 0.4 MG/DL (0.2-1.0) Aspartate Amino Transf (AST/SGOT) 24 U/L (15-37) Alanine Aminotransferase (ALT/SGPT) 18 U/L (12-78) Alkaline Phosphatase 101 U/L (46-116) Total Protein 5.8 G/DL (6.4-8.2) L Albumin 1.5 G/DL (3.4-5.0) L Globulin 4.3 g/dL Albumin/Globulin Ratio 0.3 (1.0-2.7) L Arterial Blood pH 7.417 (7.350-7.450) Arterial Blood Partial Pressure CO2 34.9 mmHg (35.0-45.0) L Arterial Blood Partial Pressure O2 90.8 mmHg (75.0-100.0) Arterial Blood HCO3 22.0 mmol/L (22.0-26.0) Arterial Blood Oxygen Saturation 96.4 % (95-100) Arterial Blood Base Excess -2.1 (-2-2) L Lakhwinder Test Positive Current Medications Medications (Trade) Dose Ordered Sig/Rick Route PRN Reason Start Time Stop Time Status Last Admin Dose Admin Acetaminophen (Tylenol) 650 mg Q4H PRN GT For Pain 12/02/18 01:00 01/01/19 00:59 12/02/18 01:56 Albuterol/ Ipratropium (Albuterol/ Ipratropium) 3 ml Q2H PRN HHN Shortness of Breath 12/02/18 01:00 12/07/18 00:59 Allopurinol (Zyloprim) 200 mg DAILY GT 11/28/18 09:00 12/28/18 08:59 12/04/18 09:37 Aspirin (ASA) 81 mg DAILY GT 11/28/18 09:00 12/28/18 08:59 12/04/18 09:37 Atorvastatin Calcium (Lipitor) 10 mg BEDTIME GT 11/27/18 21:00 12/27/18 20:59 12/03/18 20:51 Docusate Sodium (Colace) 100 mg TWICE A DAY GT 11/28/18 09:00 12/28/18 08:59 12/04/18 09:36 Guaifenesin (Robitussin) 200 mg Q6H PRN GT For Cough 11/27/18 18:15 12/27/18 18:14 Levothyroxine Sodium (Synthroid) 75 mcg DAILY GT 11/28/18 09:00 12/28/18 08:59 12/04/18 10:33 Meropenem 1 gm/ Sodium Chloride 55 ml @ 110 mls/hr Q12HR IVPB 12/03/18 21:00 12/08/18 20:59 12/04/18 09:42 Metoprolol Tartrate (Lopressor) 25 mg Q12HR GT 11/30/18 21:00 12/29/18 08:59 12/04/18 09:37 Sodium Chloride 1,000 ml @ 50 mls/hr Q20H IV 12/01/18 00:00 12/31/18 00:00 12/04/18 09:37 Vancomycin HCl (Vanco rx to dose) 1 ea DAILY PRN MISC Per rx protocol 12/01/18 11:30 12/31/18 11:29 Vancomycin HCl 1 gm/Dextrose 275 ml @ 183.708 mls/hr Q48H IVPB 12/03/18 10:00 12/08/18 09:59 12/03/18 10:35 Laurent Hunt MD Dec 04, 2018 10:35
--- NOTE | 2018-12-04 11:12 | Pulmonology Progress Note ---
Assessment/Plan Assessment/Plan Pulmonary Progress Note HISTORY OF PRESENT ILLNESS: Patient is a 83 year female from a [facility] with altered mental status.In ED the patient was noted to be congested and short of breath. Head CAT scan of the head that showed no acute stroke or bleed. The patient is currently on broad-spectrum IV antibiotics. She is now admitted for further evaluation and care. The patient is unable to provide any history as she is mostly aphasic on physical exam. PAST MEDICAL HISTORY: stroke, bilateral laxta-ggn-vcvv amputations, dysphagia, status post G-tube, hypertension. She has history of chronic kidney disease PAST SURGICAL HISTORY: GT. CURRENT MEDICATIONS: Reconciled and reviewed. ALLERGIES: reviewed and reconciled FAMILY HISTORY: Noncontributory. SOCIAL HISTORY: Negative for tobacco, ethanol, or drugs. REVIEW OF SYSTEMS: unobtainable. PHYSICAL EXAMINATION: VSS noted GENERAL: WDWN female with some congestion HEART: Regular rate and rhythm. without MRG LUNGS: Significant for bilateral rhonchi. moderate air entry ABDOMEN: Soft, nontender, nondistended. G-tube site was clean. no distention EXTREMITIES: Significant bilateral bosqu-ykd-cdyp amputations. NEURO; nonverbal currently Labs Test 12/01/18 05:48 12/02/18 06:25 12/02/18 09:25 12/03/18 06:32 White Blood Count 12.2 K/UL (4.8-10.8) 13.8 K/UL (4.8-10.8) 11.3 K/UL (4.8-10.8) Red Blood Count 3.67 M/UL (4.20-5.40) 3.36 M/UL (4.20-5.40) 3.22 M/UL (4.20-5.40) Hemoglobin 10.3 G/DL (12.0-16.0) 9.6 G/DL (12.0-16.0) 8.9 G/DL (12.0-16.0) Hematocrit 32.9 % (37.0-47.0) 30.3 % (37.0-47.0) 29.2 % (37.0-47.0) Mean Corpuscular Volume 90 FL (80-99) 90 FL (80-99) 91 FL (80-99) Mean Corpuscular Hemoglobin 28.0 PG (27.0-31.0) 28.5 PG (27.0-31.0) 27.8 PG (27.0-31.0) Mean Corpuscular Hemoglobin Concent 31.2 G/DL (32.0-36.0) 31.7 G/DL (32.0-36.0) 30.7 G/DL (32.0-36.0) Red Cell Distribution Width 17.7 % (11.6-14.8) 18.4 % (11.6-14.8) 18.1 % (11.6-14.8) Platelet Count 114 K/UL (150-450) 147 K/UL (150-450) 126 K/UL (150-450) Mean Platelet Volume 13.3 FL (6.5-10.1) 13.4 FL (6.5-10.1) 12.5 FL (6.5-10.1) Neutrophils (%) (Auto) % (45.0-75.0) % (45.0-75.0) 80.6 % (45.0-75.0) Lymphocytes (%) (Auto) % (20.0-45.0) % (20.0-45.0) 6.9 % (20.0-45.0) Monocytes (%) (Auto) % (1.0-10.0) % (1.0-10.0) 4.3 % (1.0-10.0) Eosinophils (%) (Auto) % (0.0-3.0) % (0.0-3.0) 7.9 % (0.0-3.0) Basophils (%) (Auto) % (0.0-2.0) % (0.0-2.0) 0.3 % (0.0-2.0) Differential Total Cells Counted 100 100 Neutrophils % (Manual) 87 % (45-75) 82 % (45-75) Lymphocytes % (Manual) 3 % (20-45) 8 % (20-45) Monocytes % (Manual) 5 % (1-10) 3 % (1-10) Eosinophils % (Manual) 5 % (0-3) 6 % (0-3) Basophils % (Manual) 0 % (0-2) 0 % (0-2) Band Neutrophils 0 % (0-8) 1 % (0-8) Platelet Estimate Decreased Adequate Platelet Morphology Normal Normal Hypochromasia 1+ Anisocytosis 1+ 1+ Sodium Level 140 MMOL/L (136-145) 146 MMOL/L (136-145) 146 MMOL/L (136-145) Potassium Level 3.7 MMOL/L (3.5-5.1) 3.4 MMOL/L (3.5-5.1) 3.8 MMOL/L (3.5-5.1) Chloride Level 105 MMOL/L (98-107) 109 MMOL/L (98-107) 111 MMOL/L (98-107) Carbon Dioxide Level 22 MMOL/L (21-32) 21 MMOL/L (21-32) 24 MMOL/L (21-32) Anion Gap 13 mmol/L (5-15) 16 mmol/L (5-15) 11 mmol/L (5-15) Blood Urea Nitrogen 57 mg/dL (7-18) 54 mg/dL (7-18) 48 mg/dL (7-18) Creatinine 2.2 MG/DL (0.55-1.30) 2.3 MG/DL (0.55-1.30) 2.0 MG/DL (0.55-1.30) Estimat Glomerular Filtration Rate mL/min (>60) mL/min (>60) mL/min (>60) Glucose Level 93 MG/DL (74-106) 98 MG/DL (74-106) 91 MG/DL (74-106) Calcium Level 8.9 MG/DL (8.5-10.1) 8.9 MG/DL (8.5-10.1) 8.8 MG/DL (8.5-10.1) Magnesium Level 2.2 MG/DL (1.8-2.4) Total Bilirubin 0.6 MG/DL (0.2-1.0) 0.5 MG/DL (0.2-1.0) 0.4 MG/DL (0.2-1.0) Aspartate Amino Transf (AST/SGOT) 31 U/L (15-37) 23 U/L (15-37) 22 U/L (15-37) Alanine Aminotransferase (ALT/SGPT) 23 U/L (12-78) 23 U/L (12-78) 20 U/L (12-78) Alkaline Phosphatase 111 U/L (46-116) 100 U/L (46-116) 98 U/L (46-116) Pro-B-Type Natriuretic Peptide 4413 pg/mL (0-125) 4740 pg/mL (0-125) Total Protein 6.7 G/DL (6.4-8.2) 6.1 G/DL (6.4-8.2) 5.7 G/DL (6.4-8.2) Albumin 1.9 G/DL (3.4-5.0) 1.7 G/DL (3.4-5.0) 1.5 G/DL (3.4-5.0) Globulin 4.8 g/dL 4.4 g/dL 4.2 g/dL Albumin/Globulin Ratio 0.4 (1.0-2.7) 0.4 (1.0-2.7) 0.4 (1.0-2.7) Arterial Blood pH 7.327 (7.350-7.450) Arterial Blood Partial Pressure CO2 41.6 mmHg (35.0-45.0) Arterial Blood Partial Pressure O2 97.8 mmHg (75.0-100.0) Arterial Blood HCO3 21.3 mmol/L (22.0-26.0) Arterial Blood Oxygen Saturation 96.2 % (95-100) Arterial Blood Base Excess -4.4 (-2-2) Lakhwinder Test Positive Random Vancomycin Level 14.9 ug/mL ASSESSMENT: 1. Possible Sepsis. 2. Respiratory failure acute. 3. Possible pneumonia. 4. Chronic encephalopathy 5. Acute on chronic renal failure. 6. OSMANY 7. History of stroke. 8. History of bilateral wbgmf-jjj-wipf amputations. 9. Aspiration PLAN: care noted IV antibiotics respiratory care monitor for aspiration feeds elevate head supportive care suction monitor imaging oxygen therapy prognosis guarded impression, plan, and exam edited and reviewed in detail care discussed with RN Subjective ROS Limited/Unobtainable: No Allergies: Coded Allergies: SHELLFISH DERIVED (Unverified Allergy, Severe, ANAPHYLAXIS, 11/27/18) CHOCOLATE FLAVOR (Verified Allergy, Mild, 07/02/17) IODINE (Verified Allergy, Unknown, 07/01/17) PENICILLINS (Verified Allergy, Unknown, 07/01/17) Uncoded Allergies: CHOCOLATE (Allergy, Unknown, 11/27/18) Objective Last 24 Hour Vital Signs Date Time Temp Pulse Resp B/P (MAP) Pulse Ox O2 Delivery O2 Flow Rate FiO2 12/04/18 09:37 89 122/50 12/04/18 09:00 Venturi Mask 14.0 12/04/18 08:00 97.7 89 25 122/50 (74) 97 12/04/18 07:52 89 12/04/18 04:00 99.1 89 20 127/59 (81) 95 12/04/18 04:00 89 12/04/18 00:00 86 12/04/18 00:00 99.1 89 20 114/55 (74) 95 12/03/18 21:00 Venturi Mask 14.0 12/03/18 20:48 94 134/58 12/03/18 20:22 Venturi Mask 12.0 50 12/03/18 20:22 97 Venturi Mask 12.0 50 12/03/18 20:00 97.7 94 22 134/58 (83) 98 12/03/18 20:00 94 12/03/18 16:00 92 12/03/18 16:00 98.6 92 18 118/56 (76) 98 12/03/18 12:00 92 12/03/18 12:00 98.7 93 18 124/51 (75) 98 Intake and Output 12/03/18 12/04/18 18:59 06:59 Intake Total 130 ml 390 ml Output Total 250 ml 1100 ml Balance -120 ml -710 ml Intake Free Water 100 ml 300 ml Tube Feeding 30 ml 90 ml Output Urine Total 250 ml 1100 ml # Bowel Movements 1 2 Laboratory Tests 12/04/18 07:55: White Blood Count 11.0H, Red Blood Count 3.30L, Hemoglobin 9.3L, Hematocrit 30.5L, Mean Corpuscular Volume 92, Mean Corpuscular Hemoglobin 28.1, Mean Corpuscular Hemoglobin Concent 30.4L, Red Cell Distribution Width 17.1H, Platelet Count 157, Mean Platelet Volume 10.3H, Neutrophils (%) (Auto) 79.2H, Lymphocytes (%) (Auto) 9.4L, Monocytes (%) (Auto) 3.3, Eosinophils (%) (Auto) 7.8H, Basophils (%) (Auto) 0.3, Sodium Level 145, Potassium Level 4.0, Chloride Level 109H, Carbon Dioxide Level 25, Anion Gap 11, Blood Urea Nitrogen 47H, Creatinine 1.7H, Estimat Glomerular Filtration Rate , Glucose Level 108H, Calcium Level 8.8, Total Bilirubin 0.4, Aspartate Amino Transf (AST/SGOT) 24, Alanine Aminotransferase (ALT/SGPT) 18, Alkaline Phosphatase 101, Total Protein 5.8L, Albumin 1.5L, Globulin 4.3, Albumin/Globulin Ratio 0.3L 12/04/18 08:30: Arterial Blood pH 7.417, Arterial Blood Partial Pressure CO2 34.9L, Arterial Blood Partial Pressure O2 90.8, Arterial Blood HCO3 22.0, Arterial Blood Oxygen Saturation 96.4, Arterial Blood Base Excess -2.1L, Lakhwinder Test Positive Current Medications Medications (Trade) Dose Ordered Sig/Rick Route PRN Reason Start Time Stop Time Status Last Admin Dose Admin Acetaminophen (Tylenol) 650 mg Q4H PRN GT For Pain 12/02/18 01:00 01/01/19 00:59 12/02/18 01:56 Albuterol/ Ipratropium (Albuterol/ Ipratropium) 3 ml Q2H PRN HHN Shortness of Breath 12/02/18 01:00 12/07/18 00:59 Allopurinol (Zyloprim) 200 mg DAILY GT 11/28/18 09:00 12/28/18 08:59 12/04/18 09:37 Aspirin (ASA) 81 mg DAILY GT 11/28/18 09:00 12/28/18 08:59 12/04/18 09:37 Atorvastatin Calcium (Lipitor) 10 mg BEDTIME GT 11/27/18 21:00 12/27/18 20:59 12/03/18 20:51 Docusate Sodium (Colace) 100 mg TWICE A DAY GT 11/28/18 09:00 12/28/18 08:59 12/04/18 09:36 Guaifenesin (Robitussin) 200 mg Q6H PRN GT For Cough 11/27/18 18:15 12/27/18 18:14 Levothyroxine Sodium (Synthroid) 75 mcg DAILY GT 11/28/18 09:00 12/28/18 08:59 12/04/18 10:33 Meropenem 1 gm/ Sodium Chloride 55 ml @ 110 mls/hr Q12HR IVPB 12/03/18 21:00 12/08/18 20:59 12/04/18 09:42 Metoprolol Tartrate (Lopressor) 25 mg Q12HR GT 11/30/18 21:00 12/29/18 08:59 12/04/18 09:37 Sodium Chloride 1,000 ml @ 50 mls/hr Q20H IV 12/01/18 00:00 12/31/18 00:00 12/04/18 09:37 Vancomycin HCl (Vanco rx to dose) 1 ea DAILY PRN MISC Per rx protocol 12/01/18 11:30 12/31/18 11:29 Vancomycin HCl 1 gm/Dextrose 275 ml @ 183.708 mls/hr Q48H IVPB 12/03/18 10:00 12/08/18 09:59 12/03/18 10:35 Jl Iqbal MD Dec 04, 2018 11:12
--- NOTE | 2018-12-04 13:53 | Surgery Progress Note ---
Surgery Progress Note Subjective Additional Comments O2 requirement. CXR noted. leukocytosis improving . labs improving. rash stable. Objective Last 24 Hour Vital Signs Date Time Temp Pulse Resp B/P (MAP) Pulse Ox O2 Delivery O2 Flow Rate FiO2 12/04/18 09:37 89 122/50 12/04/18 09:00 Venturi Mask 14.0 12/04/18 08:00 97.7 89 25 122/50 (74) 97 12/04/18 07:52 89 12/04/18 04:00 99.1 89 20 127/59 (81) 95 12/04/18 04:00 89 12/04/18 00:00 86 12/04/18 00:00 99.1 89 20 114/55 (74) 95 12/03/18 21:00 Venturi Mask 14.0 12/03/18 20:48 94 134/58 12/03/18 20:22 Venturi Mask 12.0 50 12/03/18 20:22 97 Venturi Mask 12.0 50 12/03/18 20:00 97.7 94 22 134/58 (83) 98 12/03/18 20:00 94 12/03/18 16:00 92 12/03/18 16:00 98.6 92 18 118/56 (76) 98 I&O Intake and Output 12/03/18 12/04/18 18:59 06:59 Intake Total 130 ml 390 ml Output Total 250 ml 1100 ml Balance -120 ml -710 ml Intake Free Water 100 ml 300 ml Tube Feeding 30 ml 90 ml Output Urine Total 250 ml 1100 ml # Bowel Movements 1 2 Dressing: other Wound: other Drains: other Cardiovascular: RSR Respiratory: clear Abdomen: soft, non-tender, non-distended Extremities: no cyanosis, other Laboratory Tests Test 12/04/18 07:55 12/04/18 08:30 White Blood Count 11.0 K/UL (4.8-10.8) H Red Blood Count 3.30 M/UL (4.20-5.40) L Hemoglobin 9.3 G/DL (12.0-16.0) L Hematocrit 30.5 % (37.0-47.0) L Mean Corpuscular Volume 92 FL (80-99) Mean Corpuscular Hemoglobin 28.1 PG (27.0-31.0) Mean Corpuscular Hemoglobin Concent 30.4 G/DL (32.0-36.0) L Red Cell Distribution Width 17.1 % (11.6-14.8) H Platelet Count 157 K/UL (150-450) Mean Platelet Volume 10.3 FL (6.5-10.1) H Neutrophils (%) (Auto) 79.2 % (45.0-75.0) H Lymphocytes (%) (Auto) 9.4 % (20.0-45.0) L Monocytes (%) (Auto) 3.3 % (1.0-10.0) Eosinophils (%) (Auto) 7.8 % (0.0-3.0) H Basophils (%) (Auto) 0.3 % (0.0-2.0) Sodium Level 145 MMOL/L (136-145) Potassium Level 4.0 MMOL/L (3.5-5.1) Chloride Level 109 MMOL/L (98-107) H Carbon Dioxide Level 25 MMOL/L (21-32) Anion Gap 11 mmol/L (5-15) Blood Urea Nitrogen 47 mg/dL (7-18) H Creatinine 1.7 MG/DL (0.55-1.30) H Estimat Glomerular Filtration Rate mL/min (>60) Glucose Level 108 MG/DL (74-106) H Calcium Level 8.8 MG/DL (8.5-10.1) Total Bilirubin 0.4 MG/DL (0.2-1.0) Aspartate Amino Transf (AST/SGOT) 24 U/L (15-37) Alanine Aminotransferase (ALT/SGPT) 18 U/L (12-78) Alkaline Phosphatase 101 U/L (46-116) Total Protein 5.8 G/DL (6.4-8.2) L Albumin 1.5 G/DL (3.4-5.0) L Globulin 4.3 g/dL Albumin/Globulin Ratio 0.3 (1.0-2.7) L Arterial Blood pH 7.417 (7.350-7.450) Arterial Blood Partial Pressure CO2 34.9 mmHg (35.0-45.0) L Arterial Blood Partial Pressure O2 90.8 mmHg (75.0-100.0) Arterial Blood HCO3 22.0 mmol/L (22.0-26.0) Arterial Blood Oxygen Saturation 96.4 % (95-100) Arterial Blood Base Excess -2.1 (-2-2) L Lakhwinder Test Positive Plan Problems: (1) Incontinence associated dermatitis Assessment & Plan: Pt presented on admission with fungal Moisture associated skin dermatitis affecting bilateral breast folds, bilateral Axilla,abdominal folds, mons pubis ,bilateral groin lower back, buttocks and medial/posterior aspects of both upper thighs. Gross erythema with denuded skin and with Scattered satellite lesions noted to buttocks and both posterior thighs. Scattered partial thickness pressure injuries noted to R and L gluteal clefts and sacrum, Full thickness stage 3 pressure injury noted to L ischial region. Upon assessment base of wound is maroon, 20% Biofilm noted with purple borders that are indurated. Wound measures (L)8.9cm x (W)7.5cm. Recommendations: Cleanse L ischial wound with saline.Apply Therahoney. Cover with Optifoam drsg Daily and prn. Apply Antifungal cream to to both breasts,Axillae, Abdominal folds,bilat groin and suprapubis areas Twice Daily. Apply Triad Paste to buttocks and posterior thighs with each perineal care. Please place abd pads or Sanitary Pads between thigh to prevent pressure injury from F/C. Cleanse the skin of buttock, anus, back, perineum with soap and water to lift stool and urine from the skin. Clean the skin routinely and at the time of soiling. Use warm (not hot) water, and avoid excess force and friction to avoid further skin damage. APM/ARACELI Mattress. Reposition at least [id number] or as tolerated. (2) Fungal dermatitis (3) Sepsis Assessment & Plan: Leukocytosis trending down on IV abx wounds without abscess no acute surgical intervention necessary at this time needs good wound care as above Isaiah Parisi Dec 04, 2018 13:53
[2018-12-05] VITALS: BP 126/53
[2018-12-05 04:00] VITALS: BP 109/47
--- NOTE | 2018-12-05 04:15 | Progress Note ---
DATE: 12/04/2018 CARDIOLOGY PROGRESS NOTE SUBJECTIVE: The patient remains tenuous. She continues to have episodes of respiratory distress. She is on a Venti mask. OBJECTIVE: VITAL SIGNS: Blood pressure 122/51, pulse 84, respirations 20, and temperature 99.3 max. LUNGS: Diminished breath sounds with rhonchi. CARDIAC: Regular rhythm and rate. Normal S1, S2. ABDOMEN: Soft. EXTREMITIES: Trace edema. LABORATORY DATA: Laboratories reviewed. IMPRESSION: 1. Respiratory failure. 2. Probable pneumonia. 3. Pleural effusions. 4. Acute on chronic diastolic congestive heart failure. 5. Bilateral AKAs. PLAN: 1. Additional diuresis. 2. Possible thoracentesis. 3. Respiratory hygiene. 4. Antimicrobials. 5. DVT and stress ulcer prophylaxes. Jl Szymanski M.D. DR: LUAN JOB#: [id number] CC:
[2018-12-05 06:53] LABS: ALANINE AMINOTRANSFERASE 18 U/L (12-78); ALBUMIN 1.6 G/DL (3.4-5.0); ALBUMIN/GLOBULIN RATIO 0.4 (1.0-2.7); ALKALINE PHOSPHATASE 105 U/L (46-116); ANION GAP 10 mmol/L (5-15); ASPARTATE AMINO TRANSFERASE 24 U/L (15-37); BILIRUBIN,TOTAL 0.4 MG/DL (0.2-1.0); BLOOD UREA NITROGEN 47 mg/dL (7-18); CALCIUM 9.3 MG/DL (8.5-10.1); CARBON DIOXIDE 27 MMOL/L (21-32); CHLORIDE 108 MMOL/L (98-107); CREATININE 1.6 MG/DL (0.55-1.30); SODIUM 145 MMOL/L (136-145)
--- NOTE | 2018-12-05 07:38 | General Progress Note ---
Assessment/Plan Problem List: (1) Dyspnea ICD Codes: R06.00 - Dyspnea, unspecified SNOMED: 986481783 (2) Respiratory distress ICD Codes: R06.03 - Acute respiratory distress SNOMED: 921508956 (3) Dyspnea ICD Codes: R06.00 - Dyspnea, unspecified SNOMED: 288000530 (4) Sepsis ICD Codes: A41.9 - Sepsis, unspecified organism SNOMED: 46844361 (5) UTI (urinary tract infection) ICD Codes: N39.0 - Urinary tract infection, site not specified SNOMED: 26653856 Status: stable, progressing Assessment/Plan resp rx o2- wean as able iv abxmonitor abg abg diuresis prn guarded gt feeds monitor cxr ?tap effusion intubation ok. no chest compression or cardioversion d.jhoan thomas- dtr. remains tenuous. Subjective ROS Limited/Unobtainable: Yes Constitutional: Reports: malaise, weakness HEENT: Reports: no symptoms Cardiovascular: Reports: no symptoms Respiratory: Reports: shortness of breath Gastrointestinal/Abdominal: Reports: difficulty swallowing Genitourinary: Reports: no symptoms Neurologic/Psychiatric: Reports: no symptoms Endocrine: Reports: no symptoms Hematologic/Lymphatic: Reports: no symptoms Allergies: Coded Allergies: SHELLFISH DERIVED (Unverified Allergy, Severe, ANAPHYLAXIS, 11/27/18) CHOCOLATE FLAVOR (Verified Allergy, Mild, 07/02/17) IODINE (Verified Allergy, Unknown, 07/01/17) PENICILLINS (Verified Allergy, Unknown, 07/01/17) Uncoded Allergies: CHOCOLATE (Allergy, Unknown, 11/27/18) All Systems: reviewed and negative except above Subjective no change. seem more alert. on venti mask. on gt feeds. Appears more comfortable. decreased o2 requirements. renal fxn improving Objective Last 24 Hour Vital Signs Date Time Temp Pulse Resp B/P (MAP) Pulse Ox O2 Delivery O2 Flow Rate FiO2 12/05/18 04:00 97.8 78 19 109/47 (67) 98 12/05/18 04:00 77 12/05/18 00:00 76 12/05/18 00:00 98.9 78 19 126/53 (77) 98 12/04/18 21:40 84 122/51 12/04/18 21:00 Venturi Mask 8.0 12/04/18 20:00 81 12/04/18 20:00 99.1 84 20 122/51 (74) 99 12/04/18 19:26 Venturi Mask 12.0 50 12/04/18 19:16 96 Venturi Mask 12.0 50 12/04/18 16:00 78 22 114/52 (72) 94 12/04/18 16:00 79 12/04/18 12:00 99.3 80 25 112/44 (66) 96 12/04/18 11:32 77 12/04/18 09:37 89 122/50 12/04/18 09:00 Venturi Mask 14.0 12/04/18 08:00 97.7 89 25 122/50 (74) 97 12/04/18 07:52 89 Intake and Output 12/04/18 12/05/18 19:00 07:00 Intake Total 440 ml 1248 ml Output Total 700 ml 1200 ml Balance -260 ml 48 ml Intake Free Water 60 ml 300 ml IV Total 50 ml 618 ml Tube Feeding 330 ml 330 ml Output Urine Total 700 ml 1200 ml # Bowel Movements 4 1 Laboratory Tests 12/04/18 07:55: White Blood Count 11.0H, Red Blood Count 3.30L, Hemoglobin 9.3L, Hematocrit 30.5L, Mean Corpuscular Volume 92, Mean Corpuscular Hemoglobin 28.1, Mean Corpuscular Hemoglobin Concent 30.4L, Red Cell Distribution Width 17.1H, Platelet Count 157, Mean Platelet Volume 10.3H, Neutrophils (%) (Auto) 79.2H, Lymphocytes (%) (Auto) 9.4L, Monocytes (%) (Auto) 3.3, Eosinophils (%) (Auto) 7.8H, Basophils (%) (Auto) 0.3, Sodium Level 145, Potassium Level 4.0, Chloride Level 109H, Carbon Dioxide Level 25, Anion Gap 11, Blood Urea Nitrogen 47H, Creatinine 1.7H, Estimat Glomerular Filtration Rate , Glucose Level 108H, Calcium Level 8.8, Total Bilirubin 0.4, Aspartate Amino Transf (AST/SGOT) 24, Alanine Aminotransferase (ALT/SGPT) 18, Alkaline Phosphatase 101, Total Protein 5.8L, Albumin 1.5L, Globulin 4.3, Albumin/Globulin Ratio 0.3L 12/04/18 08:30: Arterial Blood pH 7.417, Arterial Blood Partial Pressure CO2 34.9L, Arterial Blood Partial Pressure O2 90.8, Arterial Blood HCO3 22.0, Arterial Blood Oxygen Saturation 96.4, Arterial Blood Base Excess -2.1L, Lakhwinder Test Positive 12/05/18 05:35: White Blood Count [Pending], Red Blood Count [Pending], Hemoglobin [Pending], Hematocrit [Pending], Mean Corpuscular Volume [Pending], Mean Corpuscular Hemoglobin [Pending], Mean Corpuscular Hemoglobin Concent [Pending], Red Cell Distribution Width [Pending], Platelet Count [Pending], Mean Platelet Volume [ Pending], Neutrophils (%) (Auto) [Pending], Lymphocytes (%) (Auto) [Pending], Monocytes (%) (Auto) [Pending], Eosinophils (%) (Auto) [Pending], Basophils (%) (Auto) [Pending], Sodium Level 145, Potassium Level 4.0, Chloride Level 108H, Carbon Dioxide Level 27, Anion Gap 10, Blood Urea Nitrogen 47H, Creatinine 1.6H , Estimat Glomerular Filtration Rate , Glucose Level 111H, Calcium Level 9.3, Total Bilirubin 0.4, Aspartate Amino Transf (AST/SGOT) 24, Alanine Aminotransferase (ALT/SGPT) 18, Alkaline Phosphatase 105, Total Protein 6.0L, Albumin 1.6L, Globulin 4.4, Albumin/Globulin Ratio 0.4L Height (Feet): 2 Height (Inches): 9.00 Weight (Pounds): 160 Objective General Appearance: WD/WN, alert, confused Neck: supple Cardiovascular: regular rhythm Respiratory/Chest: crackles/rales, rhonchi - bilaterally Abdomen: normal bowel sounds, non tender, soft, no organomegaly Edema: no edema noted Arm (L), no edema noted Arm (R), no edema noted Leg (L), no edema noted Leg (R), no edema noted Pedal (L), no edema noted Pedal (R), no edema noted Generalized Neurologic: alert, responsive Raimundo Clark MD Dec 05, 2018 07:38
[2018-12-05 07:49] LABS: BASOPHILS % (AUTO) 0.5 % (0.0-2.0); EOSINOPHILS % (AUTO) 7.9 % (0.0-3.0); HEMATOCRIT 33.1 % (37.0-47.0); HEMOGLOBIN 9.9 G/DL (12.0-16.0); LYMPHOCYTES % (AUTO) 14.4 % (20.0-45.0); MEAN CORPUSCULAR VOLUME 91 FL (80-99); MONOCYTES % (AUTO) 4.2 % (1.0-10.0); PLATELET COUNT 167 K/UL (150-450); RED BLOOD COUNT 3.66 M/UL (4.20-5.40); RED CELL DISTRIBUTION WIDTH 17.5 % (11.6-14.8); WHITE BLOOD COUNT 8.7 K/UL (4.8-10.8)
[2018-12-05 08:00] VITALS: BP 124/52
--- NOTE | 2018-12-05 08:04 | Pulmonology Progress Note ---
Assessment/Plan Assessment/Plan ASSESSMENT: 1. Possible Sepsis. 2. Respiratory failure acute. 3. Possible pneumonia. 4. Chronic encephalopathy 5. Acute on chronic renal failure. 6. OSMANY 7. History of stroke. 8. History of bilateral ffyvv-psi-gyzn amputations. 9. Aspiration 10. elevated BNP PLAN: ? diuresis per cardiology care noted IV antibiotics respiratory care monitor for aspiration; suction as needed feeds elevate head supportive care as outlined monitor imaging for resolution oxygen therapy prognosis guarded impression, plan, and exam edited and reviewed in detail care discussed with RN Subjective ROS Limited/Unobtainable: Yes Allergies: Coded Allergies: SHELLFISH DERIVED (Unverified Allergy, Severe, ANAPHYLAXIS, 11/27/18) CHOCOLATE FLAVOR (Verified Allergy, Mild, 07/02/17) IODINE (Verified Allergy, Unknown, 07/01/17) PENICILLINS (Verified Allergy, Unknown, 07/01/17) Uncoded Allergies: CHOCOLATE (Allergy, Unknown, 11/27/18) Subjective events noted care reviewed Objective Last 24 Hour Vital Signs Date Time Temp Pulse Resp B/P (MAP) Pulse Ox O2 Delivery O2 Flow Rate FiO2 12/05/18 04:00 97.8 78 19 109/47 (67) 98 12/05/18 04:00 77 12/05/18 00:00 76 12/05/18 00:00 98.9 78 19 126/53 (77) 98 12/04/18 21:40 84 122/51 12/04/18 21:00 Venturi Mask 8.0 12/04/18 20:00 81 12/04/18 20:00 99.1 84 20 122/51 (74) 99 12/04/18 19:26 Venturi Mask 12.0 50 12/04/18 19:16 96 Venturi Mask 12.0 50 12/04/18 16:00 78 22 114/52 (72) 94 12/04/18 16:00 79 12/04/18 12:00 99.3 80 25 112/44 (66) 96 12/04/18 11:32 77 12/04/18 09:37 89 122/50 12/04/18 09:00 Venturi Mask 14.0 Intake and Output 12/04/18 12/05/18 19:00 07:00 Intake Total 440 ml 1248 ml Output Total 700 ml 1200 ml Balance -260 ml 48 ml Intake Free Water 60 ml 300 ml IV Total 50 ml 618 ml Tube Feeding 330 ml 330 ml Output Urine Total 700 ml 1200 ml # Bowel Movements 4 1 Objective WDWN NAD reduced breath sounds bilaterally with some rhonchi [id number] without MRG NABS nontender no HSM GT no CCE bilateral amputations reduced LOC Laboratory Tests 12/04/18 08:30: Arterial Blood pH 7.417, Arterial Blood Partial Pressure CO2 34.9L, Arterial Blood Partial Pressure O2 90.8, Arterial Blood HCO3 22.0, Arterial Blood Oxygen Saturation 96.4, Arterial Blood Base Excess -2.1L, Lakhwinder Test Positive 12/05/18 05:35: White Blood Count 8.7, Red Blood Count 3.66L, Hemoglobin 9.9L, Hematocrit 33.1L , Mean Corpuscular Volume 91, Mean Corpuscular Hemoglobin 27.1, Mean Corpuscular Hemoglobin Concent 29.9L, Red Cell Distribution Width 17.5H, Platelet Count 167, Mean Platelet Volume 9.1, Neutrophils (%) (Auto) 73.0, Lymphocytes (%) (Auto) 14.4L, Monocytes (%) (Auto) 4.2, Eosinophils (%) (Auto) 7.9H, Basophils (%) (Auto) 0.5, Sodium Level 145, Potassium Level 4.0, Chloride Level 108H, Carbon Dioxide Level 27, Anion Gap 10, Blood Urea Nitrogen 47H, Creatinine 1.6H, Estimat Glomerular Filtration Rate , Glucose Level 111H, Calcium Level 9.3, Total Bilirubin 0.4, Aspartate Amino Transf (AST/SGOT) 24, Alanine Aminotransferase (ALT/SGPT) 18, Alkaline Phosphatase 105, Total Protein 6.0L, Albumin 1.6L, Globulin 4.4, Albumin/Globulin Ratio 0.4L Current Medications Medications (Trade) Dose Ordered Sig/Rick Route PRN Reason Start Time Stop Time Status Last Admin Dose Admin Acetaminophen (Tylenol) 650 mg Q4H PRN GT For Pain 12/02/18 01:00 01/01/19 00:59 12/02/18 01:56 Albuterol/ Ipratropium (Albuterol/ Ipratropium) 3 ml Q2H PRN HHN Shortness of Breath 12/02/18 01:00 12/07/18 00:59 Allopurinol (Zyloprim) 200 mg DAILY GT 11/28/18 09:00 12/28/18 08:59 12/04/18 09:37 Aspirin (ASA) 81 mg DAILY GT 11/28/18 09:00 12/28/18 08:59 12/04/18 09:37 Atorvastatin Calcium (Lipitor) 10 mg BEDTIME GT 11/27/18 21:00 12/27/18 20:59 12/04/18 21:39 Docusate Sodium (Colace) 100 mg TWICE A DAY GT 11/28/18 09:00 12/28/18 08:59 12/04/18 09:36 Guaifenesin (Robitussin) 200 mg Q6H PRN GT For Cough 11/27/18 18:15 12/27/18 18:14 Levothyroxine Sodium (Synthroid) 75 mcg DAILY GT 11/28/18 09:00 12/28/18 08:59 12/04/18 10:33 Meropenem 1 gm/ Sodium Chloride 55 ml @ 110 mls/hr Q12HR IVPB 12/03/18 21:00 12/08/18 20:59 12/04/18 21:39 Metoprolol Tartrate (Lopressor) 25 mg Q12HR GT 11/30/18 21:00 12/29/18 08:59 12/04/18 21:40 Sodium Chloride 1,000 ml @ 50 mls/hr Q20H IV 12/01/18 00:00 12/31/18 00:00 12/05/18 05:16 Vancomycin HCl (Vanco rx to dose) 1 ea DAILY PRN MISC Per rx protocol 12/01/18 11:30 12/31/18 11:29 Vancomycin HCl 1 gm/Dextrose 275 ml @ 183.708 mls/hr Q48H IVPB 12/03/18 10:00 12/08/18 09:59 12/03/18 10:35 Clinton Combs MD Dec 05, 2018 08:04
[2018-12-05] MEDS: Allopurinol 100mg Tab GT SCH ×2 (09:00→09:43)
[2018-12-05] MEDS: Docusate 100mg/10ml Liq GT SCH ×3 (09:00→18:24)
[2018-12-05] MEDS: Metoprolol 25mg tab GT SCH ×3 (09:00→21:29)
[2018-12-05] MEDS: Aspirin Baby 81mg GT SCH ×2 (09:00→09:43)
[2018-12-05] MEDS: Meropenem 1 GM in NS 55 ML IVPB SCH ×2 (09:43→21:28)
[2018-12-05] MEDS: Vancomycin 1gm/D5W 275ml IVPB SCH ×2 (11:52)
[2018-12-05 12:00] VITALS: BP 112/43
--- NOTE | 2018-12-05 13:46 | Infectious Diseases Prog Note ---
Assessment/Plan Assessment/Plan A 1. Providencia UTI 2. pneumonia, pleural effusion 3. Positive blood culture likely contamination 4. COPD 5. renal failure improving 6. 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 Continue Meropenem & IV Vancomycin 2. will follow up cultures Subjective ROS Limited/Unobtainable: Yes Allergies: Coded Allergies: SHELLFISH DERIVED (Unverified Allergy, Severe, ANAPHYLAXIS, 11/27/18) CHOCOLATE FLAVOR (Verified Allergy, Mild, 07/02/17) IODINE (Verified Allergy, Unknown, 07/01/17) PENICILLINS (Verified Allergy, Unknown, 07/01/17) Uncoded Allergies: CHOCOLATE (Allergy, Unknown, 11/27/18) Objective Vital Signs Last 24 Hour Vital Signs Date Time Temp Pulse Resp B/P (MAP) Pulse Ox O2 Delivery O2 Flow Rate FiO2 12/05/18 12:00 97.5 82 112/43 (66) 96 12/05/18 10:22 95 12/05/18 09:00 86 124/52 12/05/18 08:10 Venturi Mask 8.0 12/05/18 08:00 97.5 86 24 124/52 (76) 93 12/05/18 07:29 83 12/05/18 04:00 97.8 78 19 109/47 (67) 98 12/05/18 04:00 77 12/05/18 00:00 76 12/05/18 00:00 98.9 78 19 126/53 (77) 98 12/04/18 21:40 84 122/51 12/04/18 21:00 Venturi Mask 8.0 12/04/18 20:00 81 12/04/18 20:00 99.1 84 20 122/51 (74) 99 12/04/18 19:26 Venturi Mask 12.0 50 12/04/18 19:16 96 Venturi Mask 12.0 50 12/04/18 16:00 78 22 114/52 (72) 94 12/04/18 16:00 79 Height (Feet): 2 Height (Inches): 9.00 Weight (Pounds): 160 General Appearance: no acute distress HEENT: mucous membranes moist Respiratory/Chest: lungs clear Cardiovascular: normal rate Abdomen: soft, non tender, other - GT feeding Extremities: no edema, other - bilateral AKA Neurologic/Psychiatric: aphasia, other - opens eyes Laboratory Tests Test 12/05/18 05:35 White Blood Count 8.7 K/UL (4.8-10.8) Red Blood Count 3.66 M/UL (4.20-5.40) L Hemoglobin 9.9 G/DL (12.0-16.0) L Hematocrit 33.1 % (37.0-47.0) L Mean Corpuscular Volume 91 FL (80-99) Mean Corpuscular Hemoglobin 27.1 PG (27.0-31.0) Mean Corpuscular Hemoglobin Concent 29.9 G/DL (32.0-36.0) L Red Cell Distribution Width 17.5 % (11.6-14.8) H Platelet Count 167 K/UL (150-450) Mean Platelet Volume 9.1 FL (6.5-10.1) Neutrophils (%) (Auto) 73.0 % (45.0-75.0) Lymphocytes (%) (Auto) 14.4 % (20.0-45.0) L Monocytes (%) (Auto) 4.2 % (1.0-10.0) Eosinophils (%) (Auto) 7.9 % (0.0-3.0) H Basophils (%) (Auto) 0.5 % (0.0-2.0) Sodium Level 145 MMOL/L (136-145) Potassium Level 4.0 MMOL/L (3.5-5.1) Chloride Level 108 MMOL/L (98-107) H Carbon Dioxide Level 27 MMOL/L (21-32) Anion Gap 10 mmol/L (5-15) Blood Urea Nitrogen 47 mg/dL (7-18) H Creatinine 1.6 MG/DL (0.55-1.30) H Estimat Glomerular Filtration Rate mL/min (>60) Glucose Level 111 MG/DL (74-106) H Calcium Level 9.3 MG/DL (8.5-10.1) Total Bilirubin 0.4 MG/DL (0.2-1.0) Aspartate Amino Transf (AST/SGOT) 24 U/L (15-37) Alanine Aminotransferase (ALT/SGPT) 18 U/L (12-78) Alkaline Phosphatase 105 U/L (46-116) Total Protein 6.0 G/DL (6.4-8.2) L Albumin 1.6 G/DL (3.4-5.0) L Globulin 4.4 g/dL Albumin/Globulin Ratio 0.4 (1.0-2.7) L Current Medications Medications (Trade) Dose Ordered Sig/Rick Route PRN Reason Start Time Stop Time Status Last Admin Dose Admin Acetaminophen (Tylenol) 650 mg Q4H PRN GT For Pain 12/02/18 01:00 01/01/19 00:59 12/02/18 01:56 Albuterol/ Ipratropium (Albuterol/ Ipratropium) 3 ml Q2H PRN HHN Shortness of Breath 12/02/18 01:00 12/07/18 00:59 Allopurinol (Zyloprim) 200 mg DAILY GT 11/28/18 09:00 12/28/18 08:59 12/04/18 09:37 Aspirin (ASA) 81 mg DAILY GT 11/28/18 09:00 12/28/18 08:59 12/04/18 09:37 Atorvastatin Calcium (Lipitor) 10 mg BEDTIME GT 11/27/18 21:00 12/27/18 20:59 12/04/18 21:39 Docusate Sodium (Colace) 100 mg TWICE A DAY GT 11/28/18 09:00 12/28/18 08:59 12/04/18 09:36 Guaifenesin (Robitussin) 200 mg Q6H PRN GT For Cough 11/27/18 18:15 12/27/18 18:14 Levothyroxine Sodium (Synthroid) 75 mcg DAILY GT 11/28/18 09:00 12/28/18 08:59 12/04/18 10:33 Meropenem 1 gm/ Sodium Chloride 55 ml @ 110 mls/hr Q12HR IVPB 12/03/18 21:00 12/08/18 20:59 12/05/18 09:43 Metoprolol Tartrate (Lopressor) 25 mg Q12HR GT 11/30/18 21:00 12/29/18 08:59 12/04/18 21:40 Sodium Chloride 1,000 ml @ 50 mls/hr Q20H IV 12/01/18 00:00 12/31/18 00:00 12/05/18 05:16 Vancomycin HCl (Vanco rx to dose) 1 ea DAILY PRN MISC Per rx protocol 12/01/18 11:30 12/31/18 11:29 Vancomycin HCl 1 gm/Dextrose 275 ml @ 183.708 mls/hr Q48H IVPB 12/03/18 10:00 12/08/18 09:59 12/05/18 11:52 Emanuel Smith MD Dec 05, 2018 13:46
--- NOTE | 2018-12-05 13:47 | Surgery Progress Note ---
Surgery Progress Note Subjective Additional Comments leukocytosis resolved. exam unchanged. comfortable. code status noted Objective Last 24 Hour Vital Signs Date Time Temp Pulse Resp B/P (MAP) Pulse Ox O2 Delivery O2 Flow Rate FiO2 12/05/18 12:00 97.5 82 112/43 (66) 96 12/05/18 10:22 95 12/05/18 09:00 86 124/52 12/05/18 08:10 Venturi Mask 8.0 12/05/18 08:00 97.5 86 24 124/52 (76) 93 12/05/18 07:29 83 12/05/18 04:00 97.8 78 19 109/47 (67) 98 12/05/18 04:00 77 12/05/18 00:00 76 12/05/18 00:00 98.9 78 19 126/53 (77) 98 12/04/18 21:40 84 122/51 12/04/18 21:00 Venturi Mask 8.0 12/04/18 20:00 81 12/04/18 20:00 99.1 84 20 122/51 (74) 99 12/04/18 19:26 Venturi Mask 12.0 50 12/04/18 19:16 96 Venturi Mask 12.0 50 12/04/18 16:00 78 22 114/52 (72) 94 12/04/18 16:00 79 I&O Intake and Output 12/04/18 12/05/18 18:59 06:59 Intake Total 360 ml 1278 ml Output Total 700 ml 1200 ml Balance -340 ml 78 ml Intake Free Water 60 ml 300 ml IV Total 618 ml Tube Feeding 300 ml 360 ml Output Urine Total 700 ml 1200 ml # Bowel Movements 4 1 Dressing: saturated Wound: clean Drains: other Cardiovascular: RSR Respiratory: clear, decreased breath sounds Abdomen: soft, present bowel sounds, non-distended Extremities: other Laboratory Tests Test 12/05/18 05:35 White Blood Count 8.7 K/UL (4.8-10.8) Red Blood Count 3.66 M/UL (4.20-5.40) L Hemoglobin 9.9 G/DL (12.0-16.0) L Hematocrit 33.1 % (37.0-47.0) L Mean Corpuscular Volume 91 FL (80-99) Mean Corpuscular Hemoglobin 27.1 PG (27.0-31.0) Mean Corpuscular Hemoglobin Concent 29.9 G/DL (32.0-36.0) L Red Cell Distribution Width 17.5 % (11.6-14.8) H Platelet Count 167 K/UL (150-450) Mean Platelet Volume 9.1 FL (6.5-10.1) Neutrophils (%) (Auto) 73.0 % (45.0-75.0) Lymphocytes (%) (Auto) 14.4 % (20.0-45.0) L Monocytes (%) (Auto) 4.2 % (1.0-10.0) Eosinophils (%) (Auto) 7.9 % (0.0-3.0) H Basophils (%) (Auto) 0.5 % (0.0-2.0) Sodium Level 145 MMOL/L (136-145) Potassium Level 4.0 MMOL/L (3.5-5.1) Chloride Level 108 MMOL/L (98-107) H Carbon Dioxide Level 27 MMOL/L (21-32) Anion Gap 10 mmol/L (5-15) Blood Urea Nitrogen 47 mg/dL (7-18) H Creatinine 1.6 MG/DL (0.55-1.30) H Estimat Glomerular Filtration Rate mL/min (>60) Glucose Level 111 MG/DL (74-106) H Calcium Level 9.3 MG/DL (8.5-10.1) Total Bilirubin 0.4 MG/DL (0.2-1.0) Aspartate Amino Transf (AST/SGOT) 24 U/L (15-37) Alanine Aminotransferase (ALT/SGPT) 18 U/L (12-78) Alkaline Phosphatase 105 U/L (46-116) Total Protein 6.0 G/DL (6.4-8.2) L Albumin 1.6 G/DL (3.4-5.0) L Globulin 4.4 g/dL Albumin/Globulin Ratio 0.4 (1.0-2.7) L Plan Problems: (1) Incontinence associated dermatitis Assessment & Plan: Pt presented on admission with fungal Moisture associated skin dermatitis affecting bilateral breast folds, bilateral Axilla,abdominal folds, mons pubis ,bilateral groin lower back, buttocks and medial/posterior aspects of both upper thighs. Gross erythema with denuded skin and with Scattered satellite lesions noted to buttocks and both posterior thighs. Scattered partial thickness pressure injuries noted to R and L gluteal clefts and sacrum, Full thickness stage 3 pressure injury noted to L ischial region. Upon assessment base of wound is maroon, 20% Biofilm noted with purple borders that are indurated. Wound measures (L)8.9cm x (W)7.5cm. Recommendations: Cleanse L ischial wound with saline.Apply Therahoney. Cover with Optifoam drsg Daily and prn. Apply Antifungal cream to to both breasts,Axillae, Abdominal folds,bilat groin and suprapubis areas Twice Daily. Apply Triad Paste to buttocks and posterior thighs with each perineal care. Please place abd pads or Sanitary Pads between thigh to prevent pressure injury from F/C. Cleanse the skin of buttock, anus, back, perineum with soap and water to lift stool and urine from the skin. Clean the skin routinely and at the time of soiling. Use warm (not hot) water, and avoid excess force and friction to avoid further skin damage. APM/ARACELI Mattress. Reposition at least [id number] or as tolerated. (2) Fungal dermatitis (3) Sepsis Assessment & Plan: Leukocytosis resolved on IV abx wounds without abscess no acute surgical intervention necessary at this time needs good wound care as above Isaiah Parisi Dec 05, 2018 13:47
[2018-12-05 16:00] VITALS: BP 109/46
[2018-12-05 20:00] VITALS: BP 114/46
--- NOTE | 2018-12-05 21:39 | General Progress Note ---
Assessment/Plan Assessment/Plan GI CONSULT GT replaced at bedside Will follow Thank you Liss Martines MD Subjective Allergies: Coded Allergies: SHELLFISH DERIVED (Unverified Allergy, Severe, ANAPHYLAXIS, 11/27/18) CHOCOLATE FLAVOR (Verified Allergy, Mild, 07/02/17) IODINE (Verified Allergy, Unknown, 07/01/17) PENICILLINS (Verified Allergy, Unknown, 07/01/17) Uncoded Allergies: CHOCOLATE (Allergy, Unknown, 11/27/18) Objective Last 24 Hour Vital Signs Date Time Temp Pulse Resp B/P (MAP) Pulse Ox O2 Delivery O2 Flow Rate FiO2 12/05/18 21:29 80 114/46 12/05/18 16:00 97 23 109/46 (67) 12/05/18 15:14 81 12/05/18 12:00 97.5 82 112/43 (66) 96 12/05/18 11:33 82 12/05/18 10:22 95 12/05/18 09:00 86 124/52 12/05/18 08:10 Venturi Mask 8.0 12/05/18 08:02 Nasal Cannula 3.0 12/05/18 08:01 94 Nasal Cannula 3.0 12/05/18 08:00 97.5 86 24 124/52 (76) 93 12/05/18 07:29 83 12/05/18 04:00 97.8 78 19 109/47 (67) 98 12/05/18 04:00 77 12/05/18 00:00 76 12/05/18 00:00 98.9 78 19 126/53 (77) 98 12/04/18 21:40 84 122/51 Intake and Output 12/04/18 12/05/18 19:00 07:00 Intake Total 440 ml 1248 ml Output Total 700 ml 1200 ml Balance -260 ml 48 ml Intake Free Water 60 ml 300 ml IV Total 50 ml 618 ml Tube Feeding 330 ml 330 ml Output Urine Total 700 ml 1200 ml # Bowel Movements 4 1 Laboratory Tests 12/05/18 05:35: White Blood Count 8.7, Red Blood Count 3.66L, Hemoglobin 9.9L, Hematocrit 33.1L , Mean Corpuscular Volume 91, Mean Corpuscular Hemoglobin 27.1, Mean Corpuscular Hemoglobin Concent 29.9L, Red Cell Distribution Width 17.5H, Platelet Count 167, Mean Platelet Volume 9.1, Neutrophils (%) (Auto) 73.0, Lymphocytes (%) (Auto) 14.4L, Monocytes (%) (Auto) 4.2, Eosinophils (%) (Auto) 7.9H, Basophils (%) (Auto) 0.5, Sodium Level 145, Potassium Level 4.0, Chloride Level 108H, Carbon Dioxide Level 27, Anion Gap 10, Blood Urea Nitrogen 47H, Creatinine 1.6H, Estimat Glomerular Filtration Rate , Glucose Level 111H, Calcium Level 9.3, Total Bilirubin 0.4, Aspartate Amino Transf (AST/SGOT) 24, Alanine Aminotransferase (ALT/SGPT) 18, Alkaline Phosphatase 105, Total Protein 6.0L, Albumin 1.6L, Globulin 4.4, Albumin/Globulin Ratio 0.4L Height (Feet): 2 Height (Inches): 9.00 Weight (Pounds): 160 Liss Martines MD Dec 05, 2018 21:39
[2018-12-06] VITALS: BP 121/48
[2018-12-06 04:00] VITALS: BP 121/54
[2018-12-06 08:00] VITALS: BP 109/50
--- NOTE | 2018-12-06 08:16 | General Progress Note ---
Assessment/Plan Problem List: (1) Dyspnea ICD Codes: R06.00 - Dyspnea, unspecified SNOMED: 875652899 (2) Respiratory distress ICD Codes: R06.03 - Acute respiratory distress SNOMED: 815511229 (3) Dyspnea ICD Codes: R06.00 - Dyspnea, unspecified SNOMED: 268032293 (4) Sepsis ICD Codes: A41.9 - Sepsis, unspecified organism SNOMED: 66074359 (5) UTI (urinary tract infection) ICD Codes: N39.0 - Urinary tract infection, site not specified SNOMED: 60757124 Status: stable, progressing Assessment/Plan resp rx o2- wean as able abx per id diuresis prn guarded gt feeds monitor cxr intubation ok. no chest compression or cardioversion d.w william- dtr. improving Subjective ROS Limited/Unobtainable: No Constitutional: Reports: malaise, weakness HEENT: Reports: no symptoms Cardiovascular: Reports: no symptoms Respiratory: Reports: cough, shortness of breath Gastrointestinal/Abdominal: Reports: difficulty swallowing Genitourinary: Reports: no symptoms Neurologic/Psychiatric: Reports: pre-existing deficit Endocrine: Reports: no symptoms Hematologic/Lymphatic: Reports: no symptoms Allergies: Coded Allergies: SHELLFISH DERIVED (Unverified Allergy, Severe, ANAPHYLAXIS, 11/27/18) CHOCOLATE FLAVOR (Verified Allergy, Mild, 07/02/17) IODINE (Verified Allergy, Unknown, 07/01/17) PENICILLINS (Verified Allergy, Unknown, 07/01/17) Uncoded Allergies: CHOCOLATE (Allergy, Unknown, 11/27/18) All Systems: reviewed and negative except above Subjective no change. seem more alert. on nasal cannula. Appears more comfortable. decreased o2 requirements. renal fxn improving. gt replaced by gi Objective Last 24 Hour Vital Signs Date Time Temp Pulse Resp B/P (MAP) Pulse Ox O2 Delivery O2 Flow Rate FiO2 12/06/18 04:00 75 12/06/18 04:00 97.6 77 19 121/54 (76) 98 12/06/18 00:00 98.1 74 19 121/48 (72) 98 12/06/18 00:00 72 12/05/18 21:29 80 114/46 12/05/18 21:00 Nasal Cannula 3.0 12/05/18 20:00 98.5 80 22 114/46 (68) 96 12/05/18 20:00 77 12/05/18 16:00 97 23 109/46 (67) 12/05/18 15:14 81 12/05/18 12:00 97.5 82 112/43 (66) 96 12/05/18 11:33 82 12/05/18 10:22 95 12/05/18 09:00 86 124/52 Intake and Output 12/05/18 12/06/18 19:00 07:00 Intake Total 820 ml 1277 ml Output Total 9600 ml Balance -8780 ml 1277 ml Intake Free Water 500 ml 300 ml IV Total 50 ml 617 ml Tube Feeding 270 ml 360 ml Output Urine Total 9600 ml # Bowel Movements 8 Height (Feet): 2 Height (Inches): 9.00 Weight (Pounds): 173 Objective General Appearance: WD/WN, alert, confused Neck: supple Cardiovascular: regular rhythm Respiratory/Chest: crackles/rales, rhonchi - bilaterally Abdomen: normal bowel sounds, non tender, soft, no organomegaly Edema: no edema noted Arm (L), no edema noted Arm (R), no edema noted Leg (L), no edema noted Leg (R), no edema noted Pedal (L), no edema noted Pedal (R), no edema noted Generalized Neurologic: alert, responsive Raimundo Clark MD Dec 06, 2018 08:16
[2018-12-06] MEDS: Meropenem 1 GM in NS 55 ML IVPB SCH (09:23)
[2018-12-06] MEDS: Aspirin Baby 81mg GT SCH (09:23)
[2018-12-06] MEDS: Docusate 100mg/10ml Liq GT SCH ×2 (09:24→17:03)
[2018-12-06] MEDS: Metoprolol 25mg tab GT SCH ×2 (09:24→21:47)
[2018-12-06] MEDS: Allopurinol 100mg Tab GT SCH (09:24)
--- NOTE | 2018-12-06 09:59 | Infectious Diseases Prog Note ---
Assessment/Plan Assessment/Plan antibiotics : vancomycin iv, meropenem A 1. providencia UTI s/p rx 2. pneumonia s/p rx 3. leucocytosis resolved 4. COPD 5. renal failure improving 6. + blood cultures with staph haemolyticus likely contaminated P 1. d/c iv vancomycin, meropenem 2. observe off antibiotics Subjective ROS Limited/Unobtainable: Yes Allergies: Coded Allergies: SHELLFISH DERIVED (Unverified Allergy, Severe, ANAPHYLAXIS, 11/27/18) CHOCOLATE FLAVOR (Verified Allergy, Mild, 07/02/17) IODINE (Verified Allergy, Unknown, 07/01/17) PENICILLINS (Verified Allergy, Unknown, 07/01/17) Uncoded Allergies: CHOCOLATE (Allergy, Unknown, 11/27/18) Objective Vital Signs Last 24 Hour Vital Signs Date Time Temp Pulse Resp B/P (MAP) Pulse Ox O2 Delivery O2 Flow Rate FiO2 12/06/18 09:24 72 109/50 12/06/18 08:35 72 19 Nasal Cannula 3.0 32 12/06/18 08:35 95 Nasal Cannula 3.0 32 12/06/18 08:35 Nasal Cannula 3.0 32 12/06/18 08:00 98.0 70 20 109/50 (69) 95 12/06/18 04:00 75 12/06/18 04:00 97.6 77 19 121/54 (76) 98 12/06/18 00:00 98.1 74 19 121/48 (72) 98 12/06/18 00:00 72 12/05/18 21:29 80 114/46 12/05/18 21:00 Nasal Cannula 3.0 12/05/18 20:00 98.5 80 22 114/46 (68) 96 12/05/18 20:00 77 12/05/18 16:00 97 23 109/46 (67) 12/05/18 15:14 81 12/05/18 12:00 97.5 82 112/43 (66) 96 12/05/18 11:33 82 12/05/18 10:22 95 Height (Feet): 2 Height (Inches): 9.00 Weight (Pounds): 173 Respiratory/Chest: lungs clear Cardiovascular: normal rate, regular rhythm, no gallop/murmur Abdomen: soft, non tender, other - GT Extremities: no edema - stumps clean Current Medications Medications (Trade) Dose Ordered Sig/Rick Route PRN Reason Start Time Stop Time Status Last Admin Dose Admin Acetaminophen (Tylenol) 650 mg Q4H PRN GT For Pain 12/02/18 01:00 01/01/19 00:59 12/02/18 01:56 Albuterol/ Ipratropium (Albuterol/ Ipratropium) 3 ml Q2H PRN HHN Shortness of Breath 12/02/18 01:00 12/07/18 00:59 Allopurinol (Zyloprim) 200 mg DAILY GT 11/28/18 09:00 12/28/18 08:59 12/06/18 09:24 Aspirin (ASA) 81 mg DAILY GT 11/28/18 09:00 12/28/18 08:59 12/06/18 09:23 Atorvastatin Calcium (Lipitor) 10 mg BEDTIME GT 11/27/18 21:00 12/27/18 20:59 12/05/18 21:28 Docusate Sodium (Colace) 100 mg TWICE A DAY GT 11/28/18 09:00 12/28/18 08:59 12/06/18 09:24 Guaifenesin (Robitussin) 200 mg Q6H PRN GT For Cough 11/27/18 18:15 12/27/18 18:14 Levothyroxine Sodium (Synthroid) 75 mcg DAILY GT 11/28/18 09:00 12/28/18 08:59 12/06/18 09:23 Meropenem 1 gm/ Sodium Chloride 55 ml @ 110 mls/hr Q12HR IVPB 12/03/18 21:00 12/08/18 20:59 12/06/18 09:23 Metoprolol Tartrate (Lopressor) 25 mg Q12HR GT 11/30/18 21:00 12/29/18 08:59 12/06/18 09:24 Sodium Chloride 1,000 ml @ 50 mls/hr Q20H IV 12/01/18 00:00 12/31/18 00:00 12/05/18 22:16 Vancomycin HCl (Vanco rx to dose) 1 ea DAILY PRN MISC Per rx protocol 12/01/18 11:30 12/31/18 11:29 Vancomycin HCl 1 gm/Dextrose 275 ml @ 183.708 mls/hr Q48H IVPB 12/03/18 10:00 12/08/18 09:59 12/05/18 11:52 Laurent Hunt MD Dec 06, 2018 09:59
--- NOTE | 2018-12-06 11:15 | Consultation ---
DATE OF CONSULTATION: 12/05/2018 NOTE: "POOR AUDIO QUALITY" GASTROENTEROLOGY CONSULTATION CONSULTING PHYSICIAN: Liss Martines M.D. CHIEF COMPLAINT: I was asked to see this patient for evaluation of gastrostomy tube and anemia. HISTORY OF PRESENT ILLNESS: The patient is an 83-year-old elderly woman from the halfway, brought in due to her altered mental status and congestion and shortness of breath. She has been seen by multiple consultants and laboratory data have shown multiple abnormalities. The patient herself is unable to provide any history and history is only available from the chart. 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 The gastrostomy tube was noted to be clogged and could not be used and therefore this consultation was generated. The patient also has anemia of unclear etiology, gastrointestinal workup available in the chart. PAST MEDICAL HISTORY: History of stroke, [id number] amputation, dysphagia, status post gastrostomy tube placement, hypertension, bedbound state, chronic kidney disease, and organic brain syndrome. FAMILY HISTORY: Unavailable. SOCIAL HISTORY: The patient has had no chart report of history of smoking or drinking. ALLERGIES: None and reviewed. REVIEW OF SYSTEMS: Otherwise negative. MEDICATIONS: See chart list for details. PHYSICAL EXAMINATION: GENERAL: Debilitated elderly woman, seen in her room. HEENT: Normocephalic and atraumatic. NECK: Supple. CHEST: Reveals coarse breath sounds. CARDIOVASCULAR: Revealed a regular rate. ABDOMEN: Soft. EXTREMITIES: Revealed the amputations. It is to be noted that the gastrostomy tube was removed at the bedside and replaced with a 20-[place] gastrostomy replacement catheter and position was verified by bedside technique. ASSESSMENT: This patient's gastrostomy tube was changed, and flushing instructions were reviewed by the nursing staff. She also has had severe anemia, which is most likely due to chronic disease and given her overall poor health. She is not a candidate to undergo any gastrointestinal workup given her age and her multiple medical problems and her overall poor prognosis. RECOMMENDATIONS: Per above discussion and per orders written in the chart. Thank you for asking me to participate in the care of this patient. Liss Martines M.D. DR: CHARLIE JOB#: [id number] CC: MALICK
[2018-12-06 12:00] VITALS: BP 124/48
--- NOTE | 2018-12-06 14:18 | Surgery Progress Note ---
Surgery Progress Note Subjective Additional Comments seen by GI for g tube malfunction. now okay. labs noted. exam stable. Objective Last 24 Hour Vital Signs Date Time Temp Pulse Resp B/P (MAP) Pulse Ox O2 Delivery O2 Flow Rate FiO2 12/06/18 12:00 98.1 71 22 124/48 (73) 93 12/06/18 09:24 72 109/50 12/06/18 09:00 Nasal Cannula 3.0 Nasal Cannula 3.0 12/06/18 08:35 72 19 Nasal Cannula 3.0 32 12/06/18 08:35 95 Nasal Cannula 3.0 32 12/06/18 08:35 Nasal Cannula 3.0 32 12/06/18 08:00 75 12/06/18 08:00 98.0 70 20 109/50 (69) 95 12/06/18 04:00 75 12/06/18 04:00 97.6 77 19 121/54 (76) 98 12/06/18 00:00 98.1 74 19 121/48 (72) 98 12/06/18 00:00 72 12/05/18 21:29 80 114/46 12/05/18 21:00 Nasal Cannula 3.0 12/05/18 20:00 98.5 80 22 114/46 (68) 96 12/05/18 20:00 77 12/05/18 16:00 97 23 109/46 (67) 12/05/18 15:14 81 I&O Intake and Output 12/05/18 12/06/18 19:00 07:00 Intake Total 820 ml 1277 ml Output Total 9600 ml Balance -8780 ml 1277 ml Intake Free Water 500 ml 300 ml IV Total 50 ml 617 ml Tube Feeding 270 ml 360 ml Output Urine Total 9600 ml # Bowel Movements 8 Dressing: other Wound: other Drains: other Cardiovascular: RSR Respiratory: clear Abdomen: soft, non-tender, present bowel sounds, non-distended Extremities: no cyanosis, other Plan Problems: (1) Incontinence associated dermatitis Assessment & Plan: Pt presented on admission with fungal Moisture associated skin dermatitis affecting bilateral breast folds, bilateral Axilla,abdominal folds, mons pubis ,bilateral groin lower back, buttocks and medial/posterior aspects of both upper thighs. Gross erythema with denuded skin and with Scattered satellite lesions noted to buttocks and both posterior thighs. Scattered partial thickness pressure injuries noted to R and L gluteal clefts and sacrum, Full thickness stage 3 pressure injury noted to L ischial region. Upon assessment base of wound is maroon, 20% Biofilm noted with purple borders that are indurated. Wound measures (L)8.9cm x (W)7.5cm. Recommendations: Cleanse L ischial wound with saline.Apply Therahoney. Cover with Optifoam drsg Daily and prn. Apply Antifungal cream to to both breasts,Axillae, Abdominal folds,bilat groin and suprapubis areas Twice Daily. Apply Triad Paste to buttocks and posterior thighs with each perineal care. Please place abd pads or Sanitary Pads between thigh to prevent pressure injury from F/C. Cleanse the skin of buttock, anus, back, perineum with soap and water to lift stool and urine from the skin. Clean the skin routinely and at the time of soiling. Use warm (not hot) water, and avoid excess force and friction to avoid further skin damage. APM/ARACELI Mattress. Reposition at least [id number] or as tolerated. (2) Fungal dermatitis (3) Sepsis Assessment & Plan: Leukocytosis resolved on IV abx wounds without abscess no acute surgical intervention necessary at this time needs good wound care as above Isaiah Parisi Dec 06, 2018 14:18
--- NOTE | 2018-12-06 14:52 | General Progress Note ---
Assessment/Plan Assessment/Plan Assessment - dysphagia - s/p GT change - OBS - Resp failure - s/p AKA - Anemia Recommendations - Continue TF - GT care - Elevate HOB - follow labs - check Iron panel Subjective Allergies: Coded Allergies: SHELLFISH DERIVED (Unverified Allergy, Severe, ANAPHYLAXIS, 11/27/18) CHOCOLATE FLAVOR (Verified Allergy, Mild, 07/02/17) IODINE (Verified Allergy, Unknown, 07/01/17) PENICILLINS (Verified Allergy, Unknown, 07/01/17) Uncoded Allergies: CHOCOLATE (Allergy, Unknown, 11/27/18) Subjective above noted tolerating TF Objective Last 24 Hour Vital Signs Date Time Temp Pulse Resp B/P (MAP) Pulse Ox O2 Delivery O2 Flow Rate FiO2 12/06/18 12:00 70 12/06/18 12:00 98.1 71 22 124/48 (73) 93 12/06/18 09:24 72 109/50 12/06/18 09:00 Nasal Cannula 3.0 Nasal Cannula 3.0 12/06/18 08:35 72 19 Nasal Cannula 3.0 32 12/06/18 08:35 95 Nasal Cannula 3.0 32 12/06/18 08:35 Nasal Cannula 3.0 32 12/06/18 08:00 75 12/06/18 08:00 98.0 70 20 109/50 (69) 95 12/06/18 04:00 75 12/06/18 04:00 97.6 77 19 121/54 (76) 98 12/06/18 00:00 98.1 74 19 121/48 (72) 98 12/06/18 00:00 72 12/05/18 21:29 80 114/46 12/05/18 21:00 Nasal Cannula 3.0 12/05/18 20:00 98.5 80 22 114/46 (68) 96 12/05/18 20:00 77 12/05/18 16:00 97 23 109/46 (67) 12/05/18 15:14 81 Intake and Output 12/05/18 12/06/18 18:59 06:59 Intake Total 790 ml 1277 ml Output Total 9600 ml Balance -8810 ml 1277 ml Intake Free Water 500 ml 300 ml IV Total 50 ml 617 ml Tube Feeding 240 ml 360 ml Output Urine Total 9600 ml # Bowel Movements 8 Height (Feet): 2 Height (Inches): 9.00 Weight (Pounds): 173 Objective Debilitated WW NCAT supple CTA RRR abd soft, (+) GT (+) AKA OBS, non communicative Liss Martines MD Dec 06, 2018 14:52
[2018-12-06 16:00] VITALS: BP 120/47
[2018-12-06 20:00] VITALS: BP 140/80
--- NOTE | 2018-12-06 21:33 | Pulmonology Progress Note ---
Assessment/Plan Assessment/Plan Pulmonary Progress Note HISTORY OF PRESENT ILLNESS: Patient is a 83 year female from a [facility] with altered mental status.In ED the patient was noted to be congested and short of breath. Head CAT scan of the head that showed no acute stroke or bleed. The patient is currently on broad-spectrum IV antibiotics. She is now admitted for further evaluation and care. The patient is unable to provide any history as she is mostly aphasic on physical exam. PAST MEDICAL HISTORY: stroke, bilateral txrlj-tqq-dslh amputations, dysphagia, status post G-tube, hypertension. She has history of chronic kidney disease PAST SURGICAL HISTORY: GT. CURRENT MEDICATIONS: Reconciled and reviewed. ALLERGIES: reviewed and reconciled FAMILY HISTORY: Noncontributory. SOCIAL HISTORY: Negative for tobacco, ethanol, or drugs. REVIEW OF SYSTEMS: unobtainable. PHYSICAL EXAMINATION: VSS noted GENERAL: WDWN female with some congestion HEART: Regular rate and rhythm. without MRG LUNGS: Significant for bilateral rhonchi. moderate air entry ABDOMEN: Soft, nontender, nondistended. G-tube site was clean. no distention EXTREMITIES: Significant bilateral uwjla-itw-vdvr amputations. NEURO; nonverbal currently Labs Test 12/01/18 05:48 12/02/18 06:25 12/02/18 09:25 12/03/18 06:32 White Blood Count 12.2 K/UL (4.8-10.8) 13.8 K/UL (4.8-10.8) 11.3 K/UL (4.8-10.8) Red Blood Count 3.67 M/UL (4.20-5.40) 3.36 M/UL (4.20-5.40) 3.22 M/UL (4.20-5.40) Hemoglobin 10.3 G/DL (12.0-16.0) 9.6 G/DL (12.0-16.0) 8.9 G/DL (12.0-16.0) Hematocrit 32.9 % (37.0-47.0) 30.3 % (37.0-47.0) 29.2 % (37.0-47.0) Mean Corpuscular Volume 90 FL (80-99) 90 FL (80-99) 91 FL (80-99) Mean Corpuscular Hemoglobin 28.0 PG (27.0-31.0) 28.5 PG (27.0-31.0) 27.8 PG (27.0-31.0) Mean Corpuscular Hemoglobin Concent 31.2 G/DL (32.0-36.0) 31.7 G/DL (32.0-36.0) 30.7 G/DL (32.0-36.0) Red Cell Distribution Width 17.7 % (11.6-14.8) 18.4 % (11.6-14.8) 18.1 % (11.6-14.8) Platelet Count 114 K/UL (150-450) 147 K/UL (150-450) 126 K/UL (150-450) Mean Platelet Volume 13.3 FL (6.5-10.1) 13.4 FL (6.5-10.1) 12.5 FL (6.5-10.1) Neutrophils (%) (Auto) % (45.0-75.0) % (45.0-75.0) 80.6 % (45.0-75.0) Lymphocytes (%) (Auto) % (20.0-45.0) % (20.0-45.0) 6.9 % (20.0-45.0) Monocytes (%) (Auto) % (1.0-10.0) % (1.0-10.0) 4.3 % (1.0-10.0) Eosinophils (%) (Auto) % (0.0-3.0) % (0.0-3.0) 7.9 % (0.0-3.0) Basophils (%) (Auto) % (0.0-2.0) % (0.0-2.0) 0.3 % (0.0-2.0) Differential Total Cells Counted 100 100 Neutrophils % (Manual) 87 % (45-75) 82 % (45-75) Lymphocytes % (Manual) 3 % (20-45) 8 % (20-45) Monocytes % (Manual) 5 % (1-10) 3 % (1-10) Eosinophils % (Manual) 5 % (0-3) 6 % (0-3) Basophils % (Manual) 0 % (0-2) 0 % (0-2) Band Neutrophils 0 % (0-8) 1 % (0-8) Platelet Estimate Decreased Adequate Platelet Morphology Normal Normal Hypochromasia 1+ Anisocytosis 1+ 1+ Sodium Level 140 MMOL/L (136-145) 146 MMOL/L (136-145) 146 MMOL/L (136-145) Potassium Level 3.7 MMOL/L (3.5-5.1) 3.4 MMOL/L (3.5-5.1) 3.8 MMOL/L (3.5-5.1) Chloride Level 105 MMOL/L (98-107) 109 MMOL/L (98-107) 111 MMOL/L (98-107) Carbon Dioxide Level 22 MMOL/L (21-32) 21 MMOL/L (21-32) 24 MMOL/L (21-32) Anion Gap 13 mmol/L (5-15) 16 mmol/L (5-15) 11 mmol/L (5-15) Blood Urea Nitrogen 57 mg/dL (7-18) 54 mg/dL (7-18) 48 mg/dL (7-18) Creatinine 2.2 MG/DL (0.55-1.30) 2.3 MG/DL (0.55-1.30) 2.0 MG/DL (0.55-1.30) Estimat Glomerular Filtration Rate mL/min (>60) mL/min (>60) mL/min (>60) Glucose Level 93 MG/DL (74-106) 98 MG/DL (74-106) 91 MG/DL (74-106) Calcium Level 8.9 MG/DL (8.5-10.1) 8.9 MG/DL (8.5-10.1) 8.8 MG/DL (8.5-10.1) Magnesium Level 2.2 MG/DL (1.8-2.4) Total Bilirubin 0.6 MG/DL (0.2-1.0) 0.5 MG/DL (0.2-1.0) 0.4 MG/DL (0.2-1.0) Aspartate Amino Transf (AST/SGOT) 31 U/L (15-37) 23 U/L (15-37) 22 U/L (15-37) Alanine Aminotransferase (ALT/SGPT) 23 U/L (12-78) 23 U/L (12-78) 20 U/L (12-78) Alkaline Phosphatase 111 U/L (46-116) 100 U/L (46-116) 98 U/L (46-116) Pro-B-Type Natriuretic Peptide 4413 pg/mL (0-125) 4740 pg/mL (0-125) Total Protein 6.7 G/DL (6.4-8.2) 6.1 G/DL (6.4-8.2) 5.7 G/DL (6.4-8.2) Albumin 1.9 G/DL (3.4-5.0) 1.7 G/DL (3.4-5.0) 1.5 G/DL (3.4-5.0) Globulin 4.8 g/dL 4.4 g/dL 4.2 g/dL Albumin/Globulin Ratio 0.4 (1.0-2.7) 0.4 (1.0-2.7) 0.4 (1.0-2.7) Arterial Blood pH 7.327 (7.350-7.450) Arterial Blood Partial Pressure CO2 41.6 mmHg (35.0-45.0) Arterial Blood Partial Pressure O2 97.8 mmHg (75.0-100.0) Arterial Blood HCO3 21.3 mmol/L (22.0-26.0) Arterial Blood Oxygen Saturation 96.2 % (95-100) Arterial Blood Base Excess -4.4 (-2-2) Lakhwinder Test Positive Random Vancomycin Level 14.9 ug/mL ASSESSMENT: 1. Possible Sepsis. 2. Respiratory failure acute. 3. Possible pneumonia. 4. Chronic encephalopathy 5. Acute on chronic renal failure. 6. OSMANY 7. History of stroke. 8. History of bilateral hqlxc-kco-dnci amputations. 9. Aspiration PLAN: care noted IV antibiotics respiratory care monitor for aspiration feeds elevate head supportive care suction monitor imaging oxygen therapy prognosis guarded impression, plan, and exam edited and reviewed in detail care discussed with RN Subjective ROS Limited/Unobtainable: No Allergies: Coded Allergies: SHELLFISH DERIVED (Unverified Allergy, Severe, ANAPHYLAXIS, 11/27/18) CHOCOLATE FLAVOR (Verified Allergy, Mild, 07/02/17) IODINE (Verified Allergy, Unknown, 07/01/17) PENICILLINS (Verified Allergy, Unknown, 07/01/17) Uncoded Allergies: CHOCOLATE (Allergy, Unknown, 11/27/18) Objective Last 24 Hour Vital Signs Date Time Temp Pulse Resp B/P (MAP) Pulse Ox O2 Delivery O2 Flow Rate FiO2 12/06/18 16:00 71 12/06/18 16:00 98.1 72 24 120/47 (71) 95 12/06/18 12:00 70 12/06/18 12:00 98.1 71 22 124/48 (73) 93 12/06/18 09:24 72 109/50 12/06/18 09:00 Nasal Cannula 3.0 Nasal Cannula 3.0 12/06/18 08:35 72 19 Nasal Cannula 3.0 32 12/06/18 08:35 95 Nasal Cannula 3.0 32 12/06/18 08:35 Nasal Cannula 3.0 32 12/06/18 08:00 75 12/06/18 08:00 98.0 70 20 109/50 (69) 95 12/06/18 04:00 75 12/06/18 04:00 97.6 77 19 121/54 (76) 98 12/06/18 00:00 98.1 74 19 121/48 (72) 98 12/06/18 00:00 72 Intake and Output 12/05/18 12/06/18 19:00 07:00 Intake Total 820 ml 1277 ml Output Total 9600 ml Balance -8780 ml 1277 ml Intake Free Water 500 ml 300 ml IV Total 50 ml 617 ml Tube Feeding 270 ml 360 ml Output Urine Total 9600 ml # Bowel Movements 8 Current Medications Medications (Trade) Dose Ordered Sig/Rick Route PRN Reason Start Time Stop Time Status Last Admin Dose Admin Acetaminophen (Tylenol) 650 mg Q4H PRN GT For Pain 12/02/18 01:00 01/01/19 00:59 12/02/18 01:56 Albuterol/ Ipratropium (Albuterol/ Ipratropium) 3 ml Q2H PRN HHN Shortness of Breath 12/02/18 01:00 12/07/18 00:59 Allopurinol (Zyloprim) 200 mg DAILY GT 11/28/18 09:00 12/28/18 08:59 12/06/18 09:24 Aspirin (ASA) 81 mg DAILY GT 11/28/18 09:00 12/28/18 08:59 12/06/18 09:23 Atorvastatin Calcium (Lipitor) 10 mg BEDTIME GT 11/27/18 21:00 12/27/18 20:59 12/05/18 21:28 Docusate Sodium (Colace) 100 mg TWICE A DAY GT 11/28/18 09:00 12/28/18 08:59 12/06/18 17:03 Guaifenesin (Robitussin) 200 mg Q6H PRN GT For Cough 11/27/18 18:15 12/27/18 18:14 Levothyroxine Sodium (Synthroid) 75 mcg DAILY GT 11/28/18 09:00 12/28/18 08:59 12/06/18 09:23 Metoprolol Tartrate (Lopressor) 25 mg Q12HR GT 11/30/18 21:00 12/29/18 08:59 12/06/18 09:24 Sodium Chloride 1,000 ml @ 50 mls/hr Q20H IV 12/01/18 00:00 12/31/18 00:00 12/05/18 22:16 Jl Iqbal MD Dec 06, 2018 21:33
[2018-12-07] VITALS: BP 122/57
--- NOTE | 2018-12-07 00:21 | Cardiology Report ---
APPROVED REPORT EKG Measurement Heart [id number] Sinus tachycardia Possible Lateral infarct, age undetermined Abnormal ECG
[2018-12-07 04:00] VITALS: BP 109/57
[2018-12-07 07:50] LABS: % IRON SATURATION 15 % (15-50); IRON 21 ug/dL (50-175); TOTAL IRON BINDING CAPACITY 140 ug/dL (250-450)
[2018-12-07 08:00] VITALS: BP 124/52
--- NOTE | 2018-12-07 08:14 | Pulmonology Progress Note ---
Assessment/Plan Assessment/Plan ASSESSMENT: 1. Possible Sepsis. 2. Respiratory failure acute. 3. Possible pneumonia. 4. Chronic encephalopathy 5. Acute on chronic renal failure. 6. OSMANY 7. History of stroke. 8. History of bilateral ykdei-akg-eocr amputations. 9. Aspiration 10. elevated BNP PLAN: monitor ins and out on iv hydration ?dc care noted IV antibiotics discontinued respiratory care monitor for aspiration; suction as needed feeds as tolerate elevate head supportive care as outlined monitor imaging for resolution oxygen therapy prognosis guarded impression, plan, and exam edited and reviewed in detail care discussed with RN Subjective ROS Limited/Unobtainable: Yes Allergies: Coded Allergies: SHELLFISH DERIVED (Unverified Allergy, Severe, ANAPHYLAXIS, 11/27/18) CHOCOLATE FLAVOR (Verified Allergy, Mild, 07/02/17) IODINE (Verified Allergy, Unknown, 07/01/17) PENICILLINS (Verified Allergy, Unknown, 07/01/17) Uncoded Allergies: CHOCOLATE (Allergy, Unknown, 11/27/18) Subjective events noted care reviewed on iv hydration cxr with increasing edema Objective Last 24 Hour Vital Signs Date Time Temp Pulse Resp B/P (MAP) Pulse Ox O2 Delivery O2 Flow Rate FiO2 12/07/18 04:00 99.7 83 17 109/57 (74) 95 12/07/18 04:00 83 12/07/18 00:00 76 12/07/18 00:00 99.6 85 16 122/57 (78) 95 12/06/18 21:47 79 140/80 12/06/18 21:00 Nasal Cannula 3.0 12/06/18 20:23 Nasal Cannula 3.0 32 12/06/18 20:23 94 Nasal Cannula 3.0 32 12/06/18 20:00 74 12/06/18 20:00 97.2 79 17 140/80 (100) 94 12/06/18 16:00 71 12/06/18 16:00 98.1 72 24 120/47 (71) 95 12/06/18 12:00 70 12/06/18 12:00 98.1 71 22 124/48 (73) 93 12/06/18 09:24 72 109/50 12/06/18 09:00 Nasal Cannula 3.0 Nasal Cannula 3.0 12/06/18 08:35 72 19 Nasal Cannula 3.0 32 12/06/18 08:35 95 Nasal Cannula 3.0 32 12/06/18 08:35 Nasal Cannula 3.0 32 Intake and Output 12/06/18 12/07/18 19:00 07:00 Intake Total 80 ml 751 ml Output Total 1100 ml 900 ml Balance -1020 ml -149 ml Intake Free Water 60 ml IV Total 50 ml 561 ml Tube Feeding 30 ml 130 ml Output Urine Total 1100 ml 900 ml # Bowel Movements 1 Objective WDWN NAD reduced breath sounds bilaterally with scattered rhonchi [id number] without MRG NABS nontender no HSM GT no CCE bilateral amputations reduced LOC Laboratory Tests 12/07/18 06:12: Iron Level 21L, Total Iron Binding Capacity 140L, Percent Iron Saturation 15, Unsaturated Iron Binding 119 Current Medications Medications (Trade) Dose Ordered Sig/Rick Route PRN Reason Start Time Stop Time Status Last Admin Dose Admin Acetaminophen (Tylenol) 650 mg Q4H PRN GT For Pain 12/02/18 01:00 01/01/19 00:59 12/02/18 01:56 Allopurinol (Zyloprim) 200 mg DAILY GT 11/28/18 09:00 12/28/18 08:59 12/06/18 09:24 Aspirin (ASA) 81 mg DAILY GT 11/28/18 09:00 12/28/18 08:59 12/06/18 09:23 Atorvastatin Calcium (Lipitor) 10 mg BEDTIME GT 11/27/18 21:00 12/27/18 20:59 12/06/18 21:47 Docusate Sodium (Colace) 100 mg TWICE A DAY GT 11/28/18 09:00 12/28/18 08:59 12/06/18 17:03 Guaifenesin (Robitussin) 200 mg Q6H PRN GT For Cough 11/27/18 18:15 12/27/18 18:14 Levothyroxine Sodium (Synthroid) 75 mcg DAILY GT 11/28/18 09:00 12/28/18 08:59 12/06/18 09:23 Metoprolol Tartrate (Lopressor) 25 mg Q12HR GT 11/30/18 21:00 12/29/18 08:59 12/06/18 21:47 Sodium Chloride 1,000 ml @ 50 mls/hr Q20H IV 12/01/18 00:00 4/16/19 00:00 12/06/18 21:47 Clinton Combs MD Dec 07, 2018 08:14
[2018-12-07] MEDS: Allopurinol 100mg Tab GT SCH (10:46)
[2018-12-07] MEDS: Docusate 100mg/10ml Liq GT SCH ×2 (10:46→17:43)
[2018-12-07] MEDS: Aspirin Baby 81mg GT SCH (10:46)
[2018-12-07] MEDS: Metoprolol 25mg tab GT SCH ×2 (10:46→22:14)
[2018-12-07 12:00] VITALS: BP 127/53
--- NOTE | 2018-12-07 12:59 | General Progress Note ---
Assessment/Plan Problem List: (1) Dyspnea ICD Codes: R06.00 - Dyspnea, unspecified SNOMED: 528753254 (2) Respiratory distress ICD Codes: R06.03 - Acute respiratory distress SNOMED: 185457864 (3) Dyspnea ICD Codes: R06.00 - Dyspnea, unspecified SNOMED: 247666397 (4) Sepsis ICD Codes: A41.9 - Sepsis, unspecified organism SNOMED: 32915980 (5) UTI (urinary tract infection) ICD Codes: N39.0 - Urinary tract infection, site not specified SNOMED: 56945341 Status: stable, progressing Assessment/Plan resp rx o2- wean as able abx per id dc ivf guarded gt feeds intubation ok. no chest compression or cardioversion d.w william- dtr. improving Subjective ROS Limited/Unobtainable: Yes Constitutional: Reports: malaise, weakness HEENT: Reports: no symptoms Cardiovascular: Reports: no symptoms Respiratory: Reports: shortness of breath Gastrointestinal/Abdominal: Reports: difficulty swallowing Genitourinary: Reports: no symptoms Neurologic/Psychiatric: Reports: pre-existing deficit Endocrine: Reports: no symptoms Hematologic/Lymphatic: Reports: no symptoms Allergies: Coded Allergies: SHELLFISH DERIVED (Unverified Allergy, Severe, ANAPHYLAXIS, 11/27/18) CHOCOLATE FLAVOR (Verified Allergy, Mild, 07/02/17) IODINE (Verified Allergy, Unknown, 07/01/17) PENICILLINS (Verified Allergy, Unknown, 07/01/17) Uncoded Allergies: CHOCOLATE (Allergy, Unknown, 11/27/18) All Systems: reviewed and negative except above Subjective no change. seem more alert. on nasal cannula. Appears more comfortable. Objective Last 24 Hour Vital Signs Date Time Temp Pulse Resp B/P (MAP) Pulse Ox O2 Delivery O2 Flow Rate FiO2 12/07/18 10:46 78 124/52 12/07/18 09:00 Nasal Cannula 3.0 Nasal Cannula 3.0 12/07/18 08:50 Nasal Cannula 3.0 32 12/07/18 08:50 96 Nasal Cannula 3.0 32 12/07/18 08:00 99.4 78 20 124/52 (76) 95 12/07/18 07:45 71 12/07/18 04:00 99.7 83 17 109/57 (74) 95 12/07/18 04:00 83 3/23/19 00:00 76 12/07/18 00:00 99.6 85 16 122/57 (78) 95 12/06/18 21:47 79 140/80 12/06/18 21:00 Nasal Cannula 3.0 12/06/18 20:23 Nasal Cannula 3.0 32 12/06/18 20:23 94 Nasal Cannula 3.0 32 12/06/18 20:00 74 12/06/18 20:00 97.2 79 17 140/80 (100) 94 12/06/18 16:00 71 12/06/18 16:00 98.1 72 24 120/47 (71) 95 Intake and Output 12/06/18 12/07/18 19:00 07:00 Intake Total 80 ml 751 ml Output Total 1100 ml 900 ml Balance -1020 ml -149 ml Intake Free Water 60 ml IV Total 50 ml 561 ml Tube Feeding 30 ml 130 ml Output Urine Total 1100 ml 900 ml # Bowel Movements 1 Laboratory Tests 12/07/18 06:12: Iron Level 21L, Total Iron Binding Capacity 140L, Percent Iron Saturation 15, Unsaturated Iron Binding 119 Height (Feet): 2 Height (Inches): 9.00 Weight (Pounds): 156 Objective General Appearance: WD/WN, alert, confused Neck: supple Cardiovascular: regular rhythm Respiratory/Chest: crackles/rales, rhonchi - bilaterally Abdomen: normal bowel sounds, non tender, soft, no organomegaly Edema: no edema noted Arm (L), no edema noted Arm (R), no edema noted Leg (L), no edema noted Leg (R), no edema noted Pedal (L), no edema noted Pedal (R), no edema noted Generalized Neurologic: alert, responsive Raimundo Clark MD Dec 07, 2018 12:59
[2018-12-07 16:00] VITALS: BP 122/59
--- NOTE | 2018-12-07 16:53 | General Progress Note ---
Assessment/Plan Assessment/Plan Assessment - dysphagia - s/p GT change - OBS - Resp failure - s/p AKA - Anemia, borderline low Fe Recommendations - Continue TF - GT care - Elevate HOB - follow labs - IV Fe Subjective Allergies: Coded Allergies: SHELLFISH DERIVED (Unverified Allergy, Severe, ANAPHYLAXIS, 11/27/18) CHOCOLATE FLAVOR (Verified Allergy, Mild, 07/02/17) IODINE (Verified Allergy, Unknown, 07/01/17) PENICILLINS (Verified Allergy, Unknown, 07/01/17) Uncoded Allergies: CHOCOLATE (Allergy, Unknown, 11/27/18) Subjective above noted tolerating TF Objective Last 24 Hour Vital Signs Date Time Temp Pulse Resp B/P (MAP) Pulse Ox O2 Delivery O2 Flow Rate FiO2 12/07/18 16:00 98.8 72 20 122/59 (80) 96 12/07/18 12:00 98.8 70 19 127/53 (77) 96 12/07/18 11:40 64 12/07/18 10:46 78 124/52 12/07/18 09:00 Nasal Cannula 3.0 Nasal Cannula 3.0 12/07/18 08:50 Nasal Cannula 3.0 32 12/07/18 08:50 96 Nasal Cannula 3.0 32 12/07/18 08:00 99.4 78 20 124/52 (76) 95 12/07/18 07:45 71 12/07/18 04:00 99.7 83 17 109/57 (74) 95 12/07/18 04:00 83 12/07/18 00:00 76 12/07/18 00:00 99.6 85 16 122/57 (78) 95 12/06/18 21:47 79 140/80 12/06/18 21:00 Nasal Cannula 3.0 12/06/18 20:23 Nasal Cannula 3.0 32 12/06/18 20:23 94 Nasal Cannula 3.0 32 12/06/18 20:00 74 12/06/18 20:00 97.2 79 17 140/80 (100) 94 Intake and Output 12/06/18 12/07/18 19:00 07:00 Intake Total 80 ml 751 ml Output Total 1100 ml 900 ml Balance -1020 ml -149 ml Intake Free Water 60 ml IV Total 50 ml 561 ml Tube Feeding 30 ml 130 ml Output Urine Total 1100 ml 900 ml # Bowel Movements 1 Laboratory Tests 12/07/18 06:12: Iron Level 21L, Total Iron Binding Capacity 140L, Percent Iron Saturation 15, Unsaturated Iron Binding 119 Height (Feet): 2 Height (Inches): 9.00 Weight (Pounds): 156 Objective Debilitated WW NCAT supple CTA RRR abd soft, (+) GT (+) AKA OBS, non communicative Liss Martines MD Dec 07, 2018 16:53
--- NOTE | 2018-12-07 18:43 | Surgery Progress Note ---
Surgery Progress Note Subjective Additional Comments leukocytosis resolved. dermatitis stable. labs improved. comfortable. no n/v /f/c. HD stable. Objective Last 24 Hour Vital Signs Date Time Temp Pulse Resp B/P (MAP) Pulse Ox O2 Delivery O2 Flow Rate FiO2 12/07/18 16:00 98.8 72 20 122/59 (80) 96 12/07/18 15:32 67 12/07/18 12:00 98.8 70 19 127/53 (77) 96 12/07/18 11:40 64 12/07/18 10:46 78 124/52 12/07/18 09:00 Nasal Cannula 3.0 Nasal Cannula 3.0 12/07/18 08:50 Nasal Cannula 3.0 32 12/07/18 08:50 96 Nasal Cannula 3.0 32 12/07/18 08:00 99.4 78 20 124/52 (76) 95 12/07/18 07:45 71 12/07/18 04:00 99.7 83 17 109/57 (74) 95 12/07/18 04:00 83 12/07/18 00:00 76 12/07/18 00:00 99.6 85 16 122/57 (78) 95 12/06/18 21:47 79 140/80 12/06/18 21:00 Nasal Cannula 3.0 12/06/18 20:23 Nasal Cannula 3.0 32 12/06/18 20:23 94 Nasal Cannula 3.0 32 12/06/18 20:00 74 12/06/18 20:00 97.2 79 17 140/80 (100) 94 I&O Intake and Output 12/06/18 12/07/18 18:59 06:59 Intake Total 80 ml 761 ml Output Total 1100 ml 900 ml Balance -1020 ml -139 ml Intake Free Water 60 ml IV Total 50 ml 561 ml Tube Feeding 30 ml 140 ml Output Urine Total 1100 ml 900 ml # Bowel Movements 1 Laboratory Tests Test 12/07/18 06:12 Iron Level 21 ug/dL (50-175) L Total Iron Binding Capacity 140 ug/dL (250-450) L Percent Iron Saturation 15 % (15-50) Unsaturated Iron Binding 119 ug/dL (112-346) Plan Problems: (1) Incontinence associated dermatitis Assessment & Plan: Pt presented on admission with fungal Moisture associated skin dermatitis affecting bilateral breast folds, bilateral Axilla,abdominal folds, mons pubis ,bilateral groin lower back, buttocks and medial/posterior aspects of both upper thighs. Gross erythema with denuded skin and with Scattered satellite lesions noted to buttocks and both posterior thighs. Scattered partial thickness pressure injuries noted to R and L gluteal clefts and sacrum, Full thickness stage 3 pressure injury noted to L ischial region. Upon assessment base of wound is maroon, 20% Biofilm noted with purple borders that are indurated. Wound measures (L)8.9cm x (W)7.5cm. Recommendations: Cleanse L ischial wound with saline.Apply Therahoney. Cover with Optifoam drsg Daily and prn. Apply Antifungal cream to to both breasts,Axillae, Abdominal folds,bilat groin and suprapubis areas Twice Daily. Apply Triad Paste to buttocks and posterior thighs with each perineal care. Please place abd pads or Sanitary Pads between thigh to prevent pressure injury from F/C. Cleanse the skin of buttock, anus, back, perineum with soap and water to lift stool and urine from the skin. Clean the skin routinely and at the time of soiling. Use warm (not hot) water, and avoid excess force and friction to avoid further skin damage. APM/ARACELI Mattress. Reposition at least [id number] or as tolerated. (2) Fungal dermatitis (3) Sepsis Assessment & Plan: Leukocytosis resolved on IV abx wounds without abscess no acute surgical intervention necessary at this time needs good wound care as above d/c planning Isaiah Parisi Dec 07, 2018 18:43
[2018-12-07 20:00] VITALS: BP 140/79
[2018-12-07] MEDS: Iron Sucrose 100 MG in NS 55 ML IVPB SCH (22:13)
[2018-12-08] VITALS: BP 130/57
--- NOTE | 2018-12-08 03:15 | Progress Note ---
DATE: 12/06/2018 CARDIOLOGY PROGRESS NOTE SUBJECTIVE: The patient is more alert. Diuresis ongoing and successfully . Negative fluid balance noted as well as decreased weight. OBJECTIVE: VITAL SIGNS: Blood pressure 121/54, pulse 77, and respirations 19. Afebrile. LUNGS: Good breath sounds. Few rhonchi and rales. HEART: Regular rhythm and rate. Normal S1, S2. ABDOMEN: Soft. EXTREMITIES: With bilateral amputation site. IMPRESSION: 1. Slow but positive progress with regard to heart failure and acute respiratory and genitourinary tract infection. 2. Tenuous due to advanced age and comorbidities. PLAN: Plan will be to continue negative fluid balance and optimization of cardiovascular regimen in anticipation of discharge to a lower level of care. Jl Szymanski M.D. DR: SONALI JOB#: [id number] CC:
--- NOTE | 2018-12-08 03:15 | Progress Note ---
DATE: 12/05/2018 CARDIOLOGY PROGRESS NOTE Late entry for 12/05/2018. SUBJECTIVE: The patient remains quite tenuous with respiratory parameters. Still with congestion requiring Ventimask oxygen and respiratory therapy around the clock. OBJECTIVE: VITAL SIGNS: Blood pressure 126/53, pulse 78, and respirations 19. Bilateral amputee. LUNGS: Bilateral rales. HEART: Regular rhythm and rate. Normal S1, S2 with a fourth heart sound. ABDOMEN: Soft. LABORATORY DATA: White count 8.7 and hemoglobin 9.9. Sodium 144, potassium 4, bicarb 27, BUN 47, and creatinine 1.6. Albumin 1.6. IMPRESSION: 1. Acute on chronic diastolic congestive heart failure. 2. Right pleural effusion. 3. Aspiration pneumonia. 4. Peripheral artery disease with amputation. 5. Urinary tract infection with recovering sepsis. 6. Dysphagia with G-tube. PLAN: 1. Antimicrobials. 2. Respiratory hygiene. 3. Diuresis. 4. Skin care. Jl Szymanski M.D. DR: SONALI JOB#: [id number] CC:
--- NOTE | 2018-12-08 03:45 | Progress Note ---
DATE: 12/07/2018 CARDIOLOGY PROGRESS NOTE SUBJECTIVE: The patient appears less short of breath. OBJECTIVE: VITAL SIGNS: Blood pressure 124/72, pulse 68, and respirations 18. LUNGS: With diminished breath sounds on the right. No rales. HEART: Regular rhythm and rate. Normal S1 and S2. ABDOMEN: Soft. EXTREMITIES: Trace edema. Bilateral AKA stumps. IMPRESSION: 1. Acute on chronic diastolic congestive heart failure. 2. Severe protein-calorie malnutrition. 3. Acute on chronic renal failure. 4. Iron deficiency anemia. 5. Bilateral MPT. 6. Pleural effusion. 7. Recovered pneumonia. 8. Urinary tract infection. 9. Acute on chronic renal failure. PLAN: 1. Optimize anti-failure regimen. 2. Recheck chest x-ray. 3. Trend natriuretic peptide assay. 4. Nutrition by feeding tube. 5. High risk for recurrent hospitalizations due to comorbidities. Jl Szymanski M.D. DR: MELBA JOB#: [id number] CC:
[2018-12-08 04:00] VITALS: BP 140/59
[2018-12-08 08:00] VITALS: BP 120/51
[2018-12-08 08:49] LABS: EOSINOPHILS % (AUTO) 7.1 % (0.0-3.0); HEMATOCRIT 33.2 % (37.0-47.0); HEMOGLOBIN 10.3 G/DL (12.0-16.0); MEAN CORPUSCULAR VOLUME 90 FL (80-99); MONOCYTES % (AUTO) 7.4 % (1.0-10.0); NEUTROPHILS % (AUTO) 75.4 % (45.0-75.0); PLATELET COUNT 197 K/UL (150-450); RED BLOOD COUNT 3.69 M/UL (4.20-5.40); RED CELL DISTRIBUTION WIDTH 17.5 % (11.6-14.8); WHITE BLOOD COUNT 10.2 K/UL (4.8-10.8)
[2018-12-08] MEDS: Metoprolol 25mg tab GT SCH ×2 (09:01→21:05)
[2018-12-08] MEDS: Docusate 100mg/10ml Liq GT SCH ×2 (09:02→18:01)
[2018-12-08] MEDS: Aspirin Baby 81mg GT SCH (09:02)
[2018-12-08] MEDS: Allopurinol 100mg Tab GT SCH (09:02)
--- NOTE | 2018-12-08 09:18 | Diagnostic Imaging Report ---
EXAM: XR Chest, 1 View CLINICAL HISTORY: ABN CHST TECHNIQUE: Frontal view of the chest. COMPARISON: Chest x-ray, 12/04/18, 817 FINDINGS: Lungs: Bilateral interstitial and airspace opacities, worse on the right. Improved aeration in the right lower lobe. Slightly improved vascular and interstitial prominence. Pleural space: New small left pleural effusion. Similar right pleural effusion. No pneumothorax. Heart: Unremarkable. No cardiomegaly. Mediastinum: Unremarkable. Bones/joints: Unremarkable. IMPRESSION: 1. Bilateral interstitial and airspace opacities, worse on the right. Improved aeration in the right lower lobe. Slightly improved vascular and interstitial prominence. 2. New small left pleural effusion. Similar right pleural effusion.
[2018-12-08 09:25] LABS: ALANINE AMINOTRANSFERASE 17 U/L (12-78); ALBUMIN 1.7 G/DL (3.4-5.0); ALBUMIN/GLOBULIN RATIO 0.4 (1.0-2.7); ALKALINE PHOSPHATASE 103 U/L (46-116); ANION GAP 6 mmol/L (5-15); ASPARTATE AMINO TRANSFERASE 17 U/L (15-37); BILIRUBIN,TOTAL 0.3 MG/DL (0.2-1.0); BLOOD UREA NITROGEN 41 mg/dL (7-18); CALCIUM 9.3 MG/DL (8.5-10.1); CARBON DIOXIDE 33 MMOL/L (21-32); CHLORIDE 103 MMOL/L (98-107); CREATININE 1.4 MG/DL (0.55-1.30); POTASSIUM 4.3 MMOL/L (3.5-5.1); SODIUM 142 MMOL/L (136-145)
[2018-12-08 12:00] VITALS: BP 109/57
--- NOTE | 2018-12-08 13:57 | Infectious Diseases Prog Note ---
Assessment/Plan Assessment/Plan A 1. [place]id[place] UTI treated 2. pneumonia, pleural effusion treated 3. Positive blood culture likely contamination 4. COPD 5. renal failure improving 6. 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 Observe off antibiotic Subjective ROS Limited/Unobtainable: Yes Allergies: Coded Allergies: SHELLFISH DERIVED (Unverified Allergy, Severe, ANAPHYLAXIS, 11/27/18) CHOCOLATE FLAVOR (Verified Allergy, Mild, 07/02/17) IODINE (Verified Allergy, Unknown, 07/01/17) PENICILLINS (Verified Allergy, Unknown, 07/01/17) Uncoded Allergies: CHOCOLATE (Allergy, Unknown, 11/27/18) Objective Vital Signs Last 24 Hour Vital Signs Date Time Temp Pulse Resp B/P (MAP) Pulse Ox O2 Delivery O2 Flow Rate FiO2 12/08/18 12:00 98.6 67 18 109/57 (74) 99 12/08/18 09:01 72 120/51 12/08/18 09:00 Nasal Cannula 3.0 Nasal Cannula 3.0 12/08/18 08:00 98.4 72 17 120/51 (74) 95 12/08/18 07:35 72 12/08/18 04:00 70 12/08/18 04:00 98.5 76 17 140/59 (86) 91 12/08/18 00:00 68 12/08/18 00:00 98.5 71 16 130/57 (81) 93 12/07/18 22:14 76 140/79 12/07/18 21:32 96 Nasal Cannula 3.0 32 12/07/18 21:32 78 19 Nasal Cannula 3.0 32 12/07/18 21:32 Nasal Cannula 3.0 32 12/07/18 21:00 Nasal Cannula 3.0 Nasal Cannula 3.0 12/07/18 20:00 70 12/07/18 20:00 98.5 76 17 140/79 (99) 92 12/07/18 16:00 98.8 72 20 122/59 (80) 96 12/07/18 15:32 67 Height (Feet): 2 Height (Inches): 9.00 Weight (Pounds): 170 General Appearance: no acute distress HEENT: mucous membranes moist Respiratory/Chest: rhonchi - bilaterally Cardiovascular: normal rate Abdomen: soft, non tender, other - GT feeding Extremities: no edema, other - bilateral AKA Neurologic/Psychiatric: aphasia, other - opens eyes Laboratory Tests Test 12/08/18 08:05 White Blood Count 10.2 K/UL (4.8-10.8) Red Blood Count 3.69 M/UL (4.20-5.40) L Hemoglobin 10.3 G/DL (12.0-16.0) L Hematocrit 33.2 % (37.0-47.0) L Mean Corpuscular Volume 90 FL (80-99) Mean Corpuscular Hemoglobin 28.0 PG (27.0-31.0) Mean Corpuscular Hemoglobin Concent 31.1 G/DL (32.0-36.0) L Red Cell Distribution Width 17.5 % (11.6-14.8) H Platelet Count 197 K/UL (150-450) Mean Platelet Volume 9.7 FL (6.5-10.1) Neutrophils (%) (Auto) 75.4 % (45.0-75.0) H Lymphocytes (%) (Auto) 7.0 % (20.0-45.0) L Monocytes (%) (Auto) 7.4 % (1.0-10.0) Eosinophils (%) (Auto) 7.1 % (0.0-3.0) H Basophils (%) (Auto) 3.0 % (0.0-2.0) H Sodium Level 142 MMOL/L (136-145) Potassium Level 4.3 MMOL/L (3.5-5.1) Chloride Level 103 MMOL/L (98-107) Carbon Dioxide Level 33 MMOL/L (21-32) H Anion Gap 6 mmol/L (5-15) Blood Urea Nitrogen 41 mg/dL (7-18) H Creatinine 1.4 MG/DL (0.55-1.30) H Estimat Glomerular Filtration Rate mL/min (>60) Glucose Level 112 MG/DL (74-106) H Calcium Level 9.3 MG/DL (8.5-10.1) Magnesium Level 2.0 MG/DL (1.8-2.4) Total Bilirubin 0.3 MG/DL (0.2-1.0) Aspartate Amino Transf (AST/SGOT) 17 U/L (15-37) Alanine Aminotransferase (ALT/SGPT) 17 U/L (12-78) Alkaline Phosphatase 103 U/L (46-116) Pro-B-Type Natriuretic Peptide 1697 pg/mL (0-125) H Total Protein 6.3 G/DL (6.4-8.2) L Albumin 1.7 G/DL (3.4-5.0) L Globulin 4.6 g/dL Albumin/Globulin Ratio 0.4 (1.0-2.7) L Current Medications Medications (Trade) Dose Ordered Sig/Rick Route PRN Reason Start Time Stop Time Status Last Admin Dose Admin Acetaminophen (Tylenol) 650 mg Q4H PRN GT For Pain 12/02/18 01:00 01/01/19 00:59 12/02/18 01:56 Allopurinol (Zyloprim) 200 mg DAILY GT 11/28/18 09:00 12/28/18 08:59 12/08/18 09:02 Aspirin (ASA) 81 mg DAILY GT 11/28/18 09:00 12/28/18 08:59 12/08/18 09:02 Atorvastatin Calcium (Lipitor) 10 mg BEDTIME GT 11/27/18 21:00 12/27/18 20:59 12/07/18 22:13 Docusate Sodium (Colace) 100 mg TWICE A DAY GT 11/28/18 09:00 12/28/18 08:59 12/08/18 09:02 Guaifenesin (Robitussin) 200 mg Q6H PRN GT For Cough 11/27/18 18:15 12/27/18 18:14 Iron Sucrose 100 mg/Sodium Chloride 60 ml @ 240 mls/hr BEDTIME IVPB 12/07/18 21:00 12/11/18 21:14 12/07/18 22:13 Levothyroxine Sodium (Synthroid) 75 mcg DAILY GT 11/28/18 09:00 12/28/18 08:59 12/08/18 09:01 Metoprolol Tartrate (Lopressor) 25 mg Q12HR GT 11/30/18 21:00 12/29/18 08:59 12/08/18 09:01 Emanuel Smith MD Dec 08, 2018 13:57
[2018-12-08 16:00] VITALS: BP 112/60
--- NOTE | 2018-12-08 18:30 | General Progress Note ---
Assessment/Plan Problem List: (1) Dyspnea ICD Codes: R06.00 - Dyspnea, unspecified SNOMED: 186587734 (2) Respiratory distress ICD Codes: R06.03 - Acute respiratory distress SNOMED: 266663475 (3) Dyspnea ICD Codes: R06.00 - Dyspnea, unspecified SNOMED: 546423424 (4) Sepsis ICD Codes: A41.9 - Sepsis, unspecified organism SNOMED: 62521154 (5) UTI (urinary tract infection) ICD Codes: N39.0 - Urinary tract infection, site not specified SNOMED: 84487456 Status: stable, progressing Assessment/Plan resp rx o2- wean as able abx per id dc ivf prn diuresis gt feeds intubation ok. no chest compression or cardioversion jr thomas- erynr. improving dc planning Subjective ROS Limited/Unobtainable: Yes Constitutional: Reports: malaise, weakness HEENT: Reports: no symptoms Cardiovascular: Reports: no symptoms Respiratory: Reports: cough, shortness of breath Gastrointestinal/Abdominal: Reports: difficulty swallowing Genitourinary: Reports: no symptoms Neurologic/Psychiatric: Reports: pre-existing deficit Endocrine: Reports: no symptoms Hematologic/Lymphatic: Reports: anemia Allergies: Coded Allergies: SHELLFISH DERIVED (Unverified Allergy, Severe, ANAPHYLAXIS, 11/27/18) CHOCOLATE FLAVOR (Verified Allergy, Mild, 07/02/17) IODINE (Verified Allergy, Unknown, 07/01/17) PENICILLINS (Verified Allergy, Unknown, 07/01/17) Uncoded Allergies: CHOCOLATE (Allergy, Unknown, 11/27/18) All Systems: reviewed and negative except above Subjective no change. seem more alert. on nasal cannula. Appears more comfortable. more alert. Objective Last 24 Hour Vital Signs Date Time Temp Pulse Resp B/P (MAP) Pulse Ox O2 Delivery O2 Flow Rate FiO2 12/08/18 17:30 Nasal Cannula 3.0 32 12/08/18 17:30 97 Nasal Cannula 3.0 32 12/08/18 16:00 97.5 69 18 112/60 (77) 96 12/08/18 15:26 68 12/08/18 12:00 98.6 67 18 109/57 (74) 99 12/08/18 11:39 67 12/08/18 09:01 72 120/51 12/08/18 09:00 Nasal Cannula 3.0 Nasal Cannula 3.0 12/08/18 08:00 98.4 72 17 120/51 (74) 95 12/08/18 07:35 72 12/08/18 04:00 70 12/08/18 04:00 98.5 76 17 140/59 (86) 91 12/08/18 00:00 68 12/08/18 00:00 98.5 71 16 130/57 (81) 93 12/07/18 22:14 76 140/79 12/07/18 21:32 96 Nasal Cannula 3.0 32 12/07/18 21:32 78 19 Nasal Cannula 3.0 32 12/07/18 21:32 Nasal Cannula 3.0 32 12/07/18 21:00 Nasal Cannula 3.0 Nasal Cannula 3.0 12/07/18 20:00 70 12/07/18 20:00 98.5 76 17 140/79 (99) 92 Intake and Output 12/07/18 12/08/18 19:00 07:00 Intake Total 250 ml Output Total 700 ml 1400 ml Balance -450 ml -1400 ml IV Total 250 ml Output Urine Total 700 ml 1400 ml Laboratory Tests 12/08/18 08:05: White Blood Count 10.2, Red Blood Count 3.69L, Hemoglobin 10.3L, Hematocrit 33.2L, Mean Corpuscular Volume 90, Mean Corpuscular Hemoglobin 28.0, Mean Corpuscular Hemoglobin Concent 31.1L, Red Cell Distribution Width 17.5H, Platelet Count 197, Mean Platelet Volume 9.7, Neutrophils (%) (Auto) 75.4H, Lymphocytes (%) (Auto) 7.0L, Monocytes (%) (Auto) 7.4, Eosinophils (%) (Auto) 7.1H, Basophils (%) (Auto) 3.0H, Sodium Level 142, Potassium Level 4.3, Chloride Level 103, Carbon Dioxide Level 33H, Anion Gap 6, Blood Urea Nitrogen 41H, Creatinine 1.4H, Estimat Glomerular Filtration Rate , Glucose Level 112H, Calcium Level 9.3, Magnesium Level 2.0, Total Bilirubin 0.3, Aspartate Amino Transf (AST/SGOT) 17, Alanine Aminotransferase (ALT/SGPT) 17, Alkaline Phosphatase 103, Pro-B-Type Natriuretic Peptide 1697H, Total Protein 6.3L, Albumin 1.7L, Globulin 4.6, Albumin/Globulin Ratio 0.4L Height (Feet): 2 Height (Inches): 9.00 Weight (Pounds): 170 Objective General Appearance: WD/WN, alert, confused Neck: supple Cardiovascular: regular rhythm Respiratory/Chest: crackles/rales, rhonchi - bilaterally Abdomen: normal bowel sounds, non tender, soft, no organomegaly Edema: no edema noted Arm (L), no edema noted Arm (R), no edema noted Leg (L), no edema noted Leg (R), no edema noted Pedal (L), no edema noted Pedal (R), no edema noted Generalized Neurologic: alert, responsive Raimundo Clark MD Dec 08, 2018 18:30
--- NOTE | 2018-12-08 19:18 | General Progress Note ---
Assessment/Plan Assessment/Plan Assessment - dysphagia - s/p GT change - OBS - Resp failure - s/p AKA - Anemia, borderline low Fe Recommendations - Continue TF - GT care - Elevate HOB - follow labs - IV Fe Subjective Allergies: Coded Allergies: SHELLFISH DERIVED (Unverified Allergy, Severe, ANAPHYLAXIS, 11/27/18) CHOCOLATE FLAVOR (Verified Allergy, Mild, 07/02/17) IODINE (Verified Allergy, Unknown, 07/01/17) PENICILLINS (Verified Allergy, Unknown, 07/01/17) Uncoded Allergies: CHOCOLATE (Allergy, Unknown, 11/27/18) Subjective above noted tolerating TF Objective Last 24 Hour Vital Signs Date Time Temp Pulse Resp B/P (MAP) Pulse Ox O2 Delivery O2 Flow Rate FiO2 12/08/18 17:30 Nasal Cannula 3.0 32 12/08/18 17:30 97 Nasal Cannula 3.0 32 12/08/18 16:00 97.5 69 18 112/60 (77) 96 12/08/18 15:26 68 12/08/18 12:00 98.6 67 18 109/57 (74) 99 12/08/18 11:39 67 12/08/18 09:01 72 120/51 12/08/18 09:00 Nasal Cannula 3.0 Nasal Cannula 3.0 12/08/18 08:00 98.4 72 17 120/51 (74) 95 12/08/18 07:35 72 12/08/18 04:00 70 12/08/18 04:00 98.5 76 17 140/59 (86) 91 12/08/18 00:00 68 12/08/18 00:00 98.5 71 16 130/57 (81) 93 12/07/18 22:14 76 140/79 12/07/18 21:32 96 Nasal Cannula 3.0 32 12/07/18 21:32 78 19 Nasal Cannula 3.0 32 12/07/18 21:32 Nasal Cannula 3.0 32 12/07/18 21:00 Nasal Cannula 3.0 Nasal Cannula 3.0 12/07/18 20:00 70 12/07/18 20:00 98.5 76 17 140/79 (99) 92 Intake and Output 12/07/18 12/08/18 19:00 07:00 Intake Total 250 ml Output Total 700 ml 1400 ml Balance -450 ml -1400 ml IV Total 250 ml Output Urine Total 700 ml 1400 ml Laboratory Tests 12/08/18 08:05: White Blood Count 10.2, Red Blood Count 3.69L, Hemoglobin 10.3L, Hematocrit 33.2L, Mean Corpuscular Volume 90, Mean Corpuscular Hemoglobin 28.0, Mean Corpuscular Hemoglobin Concent 31.1L, Red Cell Distribution Width 17.5H, Platelet Count 197, Mean Platelet Volume 9.7, Neutrophils (%) (Auto) 75.4H, Lymphocytes (%) (Auto) 7.0L, Monocytes (%) (Auto) 7.4, Eosinophils (%) (Auto) 7.1H, Basophils (%) (Auto) 3.0H, Sodium Level 142, Potassium Level 4.3, Chloride Level 103, Carbon Dioxide Level 33H, Anion Gap 6, Blood Urea Nitrogen 41H, Creatinine 1.4H, Estimat Glomerular Filtration Rate , Glucose Level 112H, Calcium Level 9.3, Magnesium Level 2.0, Total Bilirubin 0.3, Aspartate Amino Transf (AST/SGOT) 17, Alanine Aminotransferase (ALT/SGPT) 17, Alkaline Phosphatase 103, Pro-B-Type Natriuretic Peptide 1697H, Total Protein 6.3L, Albumin 1.7L, Globulin 4.6, Albumin/Globulin Ratio 0.4L Height (Feet): 2 Height (Inches): 9.00 Weight (Pounds): 170 Objective Debilitated WW NCAT supple CTA RRR abd soft, (+) GT (+) AKA OBS, non communicative Liss Martines MD Dec 08, 2018 19:18
--- NOTE | 2018-12-08 19:22 | Pulmonology Progress Note ---
Assessment/Plan Assessment/Plan ASSESSMENT: 1. Possible Sepsis. 2. Respiratory failure acute. 3. doubt pneumonia. 4. Chronic encephalopathy 5. Acute on chronic renal failure. 6. OSMANY 7. History of stroke. 8. History of bilateral [id number] amputations. 9. Aspiration 10. elevated BNP PLAN: monitor ins and out care noted IV antibiotics discontinued respiratory care monitor for aspiration; suction as needed feeds as tolerate elevate head supportive care as outlined monitor imaging for resolution oxygen therapy diurese prognosis guarded impression, plan, and exam edited and reviewed in detail care discussed with RN Subjective ROS Limited/Unobtainable: Yes Allergies: Coded Allergies: SHELLFISH DERIVED (Unverified Allergy, Severe, ANAPHYLAXIS, 11/27/18) CHOCOLATE FLAVOR (Verified Allergy, Mild, 07/02/17) IODINE (Verified Allergy, Unknown, 07/01/17) PENICILLINS (Verified Allergy, Unknown, 07/01/17) Uncoded Allergies: CHOCOLATE (Allergy, Unknown, 11/27/18) Subjective events noted care reviewed off iv hydration cxr without improvement Objective Last 24 Hour Vital Signs Date Time Temp Pulse Resp B/P (MAP) Pulse Ox O2 Delivery O2 Flow Rate FiO2 12/08/18 17:30 Nasal Cannula 3.0 32 12/08/18 17:30 97 Nasal Cannula 3.0 32 12/08/18 16:00 97.5 69 18 112/60 (77) 96 12/08/18 15:26 68 12/08/18 12:00 98.6 67 18 109/57 (74) 99 12/08/18 11:39 67 12/08/18 09:01 72 120/51 12/08/18 09:00 Nasal Cannula 3.0 Nasal Cannula 3.0 12/08/18 08:00 98.4 72 17 120/51 (74) 95 12/08/18 07:35 72 12/08/18 04:00 70 12/08/18 04:00 98.5 76 17 140/59 (86) 91 12/08/18 00:00 68 12/08/18 00:00 98.5 71 16 130/57 (81) 93 12/07/18 22:14 76 140/79 12/07/18 21:32 96 Nasal Cannula 3.0 32 12/07/18 21:32 78 19 Nasal Cannula 3.0 32 12/07/18 21:32 Nasal Cannula 3.0 32 12/07/18 21:00 Nasal Cannula 3.0 Nasal Cannula 3.0 12/07/18 20:00 70 12/07/18 20:00 98.5 76 17 140/79 (99) 92 Intake and Output 12/07/18 12/08/18 19:00 07:00 Intake Total 250 ml Output Total 700 ml 1400 ml Balance -450 ml -1400 ml IV Total 250 ml Output Urine Total 700 ml 1400 ml Objective WDWN NAD reduced breath sounds bilaterally with scattered rhonchi [id number] without MRG NABS nontender no HSM GT no CCE bilateral amputations reduced LOC Laboratory Tests 12/08/18 08:05: White Blood Count 10.2, Red Blood Count 3.69L, Hemoglobin 10.3L, Hematocrit 33.2L, Mean Corpuscular Volume 90, Mean Corpuscular Hemoglobin 28.0, Mean Corpuscular Hemoglobin Concent 31.1L, Red Cell Distribution Width 17.5H, Platelet Count 197, Mean Platelet Volume 9.7, Neutrophils (%) (Auto) 75.4H, Lymphocytes (%) (Auto) 7.0L, Monocytes (%) (Auto) 7.4, Eosinophils (%) (Auto) 7.1H, Basophils (%) (Auto) 3.0H, Sodium Level 142, Potassium Level 4.3, Chloride Level 103, Carbon Dioxide Level 33H, Anion Gap 6, Blood Urea Nitrogen 41H, Creatinine 1.4H, Estimat Glomerular Filtration Rate , Glucose Level 112H, Calcium Level 9.3, Magnesium Level 2.0, Total Bilirubin 0.3, Aspartate Amino Transf (AST/SGOT) 17, Alanine Aminotransferase (ALT/SGPT) 17, Alkaline Phosphatase 103, Pro-B-Type Natriuretic Peptide 1697H, Total Protein 6.3L, Albumin 1.7L, Globulin 4.6, Albumin/Globulin Ratio 0.4L Current Medications Medications (Trade) Dose Ordered Sig/Rick Route PRN Reason Start Time Stop Time Status Last Admin Dose Admin Acetaminophen (Tylenol) 650 mg Q4H PRN GT For Pain 12/02/18 01:00 01/01/19 00:59 12/02/18 01:56 Allopurinol (Zyloprim) 200 mg DAILY GT 11/28/18 09:00 12/28/18 08:59 12/08/18 09:02 Aspirin (ASA) 81 mg DAILY GT 11/28/18 09:00 12/28/18 08:59 12/08/18 09:02 Atorvastatin Calcium (Lipitor) 10 mg BEDTIME GT 11/27/18 21:00 12/27/18 20:59 12/07/18 22:13 Docusate Sodium (Colace) 100 mg TWICE A DAY GT 11/28/18 09:00 12/28/18 08:59 12/08/18 18:01 Guaifenesin (Robitussin) 200 mg Q6H PRN GT For Cough 11/27/18 18:15 12/27/18 18:14 Iron Sucrose 100 mg/Sodium Chloride 60 ml @ 240 mls/hr BEDTIME IVPB 12/07/18 21:00 12/11/18 21:14 12/07/18 22:13 Levothyroxine Sodium (Synthroid) 75 mcg DAILY GT 11/28/18 09:00 12/28/18 08:59 12/08/18 09:01 Metoprolol Tartrate (Lopressor) 25 mg Q12HR GT 11/30/18 21:00 12/29/18 08:59 12/08/18 09:01 Clinton Combs MD Dec 08, 2018 19:22
[2018-12-08 20:00] VITALS: BP 130/63
[2018-12-08] MEDS: Iron Sucrose 100 MG in NS 55 ML IVPB SCH (21:05)
--- NOTE | 2018-12-08 21:12 | Surgery Progress Note ---
Surgery Progress Note Subjective Additional Comments no acute events. labs noted. seemingly comfortable resting. no n/v/f/c. Objective Last 24 Hour Vital Signs Date Time Temp Pulse Resp B/P (MAP) Pulse Ox O2 Delivery O2 Flow Rate FiO2 12/08/18 21:05 79 130/63 12/08/18 17:30 Nasal Cannula 3.0 32 12/08/18 17:30 97 Nasal Cannula 3.0 32 12/08/18 16:00 97.5 69 18 112/60 (77) 96 12/08/18 15:26 68 12/08/18 12:00 98.6 67 18 109/57 (74) 99 12/08/18 11:39 67 12/08/18 09:01 72 120/51 12/08/18 09:00 Nasal Cannula 3.0 Nasal Cannula 3.0 12/08/18 08:00 98.4 72 17 120/51 (74) 95 12/08/18 07:35 72 12/08/18 04:00 70 12/08/18 04:00 98.5 76 17 140/59 (86) 91 12/08/18 00:00 68 12/08/18 00:00 98.5 71 16 130/57 (81) 93 12/07/18 22:14 76 140/79 12/07/18 21:32 96 Nasal Cannula 3.0 32 12/07/18 21:32 78 19 Nasal Cannula 3.0 32 12/07/18 21:32 Nasal Cannula 3.0 32 I&O Intake and Output 12/07/18 12/08/18 19:00 07:00 Intake Total 250 ml Output Total 700 ml 1400 ml Balance -450 ml -1400 ml IV Total 250 ml Output Urine Total 700 ml 1400 ml Dressing: dry Wound: other Drains: other Cardiovascular: RSR Respiratory: decreased breath sounds Abdomen: soft, non-tender, present bowel sounds, non-distended Extremities: other Laboratory Tests Test 12/08/18 08:05 White Blood Count 10.2 K/UL (4.8-10.8) Red Blood Count 3.69 M/UL (4.20-5.40) L Hemoglobin 10.3 G/DL (12.0-16.0) L Hematocrit 33.2 % (37.0-47.0) L Mean Corpuscular Volume 90 FL (80-99) Mean Corpuscular Hemoglobin 28.0 PG (27.0-31.0) Mean Corpuscular Hemoglobin Concent 31.1 G/DL (32.0-36.0) L Red Cell Distribution Width 17.5 % (11.6-14.8) H Platelet Count 197 K/UL (150-450) Mean Platelet Volume 9.7 FL (6.5-10.1) Neutrophils (%) (Auto) 75.4 % (45.0-75.0) H Lymphocytes (%) (Auto) 7.0 % (20.0-45.0) L Monocytes (%) (Auto) 7.4 % (1.0-10.0) Eosinophils (%) (Auto) 7.1 % (0.0-3.0) H Basophils (%) (Auto) 3.0 % (0.0-2.0) H Sodium Level 142 MMOL/L (136-145) Potassium Level 4.3 MMOL/L (3.5-5.1) Chloride Level 103 MMOL/L (98-107) Carbon Dioxide Level 33 MMOL/L (21-32) H Anion Gap 6 mmol/L (5-15) Blood Urea Nitrogen 41 mg/dL (7-18) H Creatinine 1.4 MG/DL (0.55-1.30) H Estimat Glomerular Filtration Rate mL/min (>60) Glucose Level 112 MG/DL (74-106) H Calcium Level 9.3 MG/DL (8.5-10.1) Magnesium Level 2.0 MG/DL (1.8-2.4) Total Bilirubin 0.3 MG/DL (0.2-1.0) Aspartate Amino Transf (AST/SGOT) 17 U/L (15-37) Alanine Aminotransferase (ALT/SGPT) 17 U/L (12-78) Alkaline Phosphatase 103 U/L (46-116) Pro-B-Type Natriuretic Peptide 1697 pg/mL (0-125) H Total Protein 6.3 G/DL (6.4-8.2) L Albumin 1.7 G/DL (3.4-5.0) L Globulin 4.6 g/dL Albumin/Globulin Ratio 0.4 (1.0-2.7) L Plan Problems: (1) Incontinence associated dermatitis Assessment & Plan: Pt presented on admission with fungal Moisture associated skin dermatitis affecting bilateral breast folds, bilateral Axilla,abdominal folds, mons pubis ,bilateral groin lower back, buttocks and medial/posterior aspects of both upper thighs. Gross erythema with denuded skin and with Scattered satellite lesions noted to buttocks and both posterior thighs. Scattered partial thickness pressure injuries noted to R and L gluteal clefts and sacrum, Full thickness stage 3 pressure injury noted to L ischial region. Upon assessment base of wound is maroon, 20% Biofilm noted with purple borders that are indurated. Wound measures (L)8.9cm x (W)7.5cm. Recommendations: Cleanse L ischial wound with saline.Apply Therahoney. Cover with Optifoam drsg Daily and prn. Apply Antifungal cream to to both breasts,Axillae, Abdominal folds,bilat groin and suprapubis areas Twice Daily. Apply Triad Paste to buttocks and posterior thighs with each perineal care. Please place abd pads or Sanitary Pads between thigh to prevent pressure injury from F/C. Cleanse the skin of buttock, anus, back, perineum with soap and water to lift stool and urine from the skin. Clean the skin routinely and at the time of soiling. Use warm (not hot) water, and avoid excess force and friction to avoid further skin damage. APM/ARACELI Mattress. Reposition at least [id number] or as tolerated. (2) Fungal dermatitis (3) Sepsis Assessment & Plan: Leukocytosis resolved on IV abx wounds without abscess no acute surgical intervention necessary at this time needs good wound care as above d/c planning Isaiah Parisi Dec 08, 2018 21:12
[2018-12-09] VITALS: BP 112/62
[2018-12-09 04:00] VITALS: BP 106/60
--- NOTE | 2018-12-09 04:30 | Progress Note ---
DATE: 12/08/2018 CARDIOLOGY PROGRESS NOTE SUBJECTIVE: The patient is alert and overall in no distress. Monitored sinus. OBJECTIVE: VITAL SIGNS: Blood pressure 112/60, pulse 69, respirations 18, afebrile, and oxygen saturation on 3 L is 96%. LUNGS: Good breath sounds. No wheezing. Few rhonchi. HEART: Regular rhythm rate. Normal S1 and S2. ABDOMEN: Soft. EXTREMITIES: Bilateral amputations above the knee. LABORATORY DATA: Chest x-ray today revealed improved aeration of the right lower lobe, slightly improved vascular and interstitial prominence, small bilateral pleural effusions, and bilateral interstitial airspace disease, right worse than left. LABORATORY DATA: White count 10 and hemoglobin 10. Pro-natriuretic peptide has from 4700 to 6097. BUN 41 and creatinine 1.4. Albumin is 1.7. Potassium 4.3. IMPRESSION: 1. Bilateral pneumonia. 2. Pleural effusion. 3. Acute on chronic diastolic congestive heart failure, improved. 4. Bilateral [id number] amputations. 5. Aspiration risk. 6. respiratory failure. PLAN: 1. Continue antimicrobials. 2. Respiratory hygiene. 3. Aspiration precautions 4. Additional diuresis. 5. Continue beta-blockade. Jl Szymanski M.D. DR: SUKUMAR JOB#: [id number] CC:
[2018-12-09 08:00] VITALS: BP 110/46
[2018-12-09 08:34] LABS: ALANINE AMINOTRANSFERASE 15 U/L (12-78); ALBUMIN 1.9 G/DL (3.4-5.0); ALBUMIN/GLOBULIN RATIO 0.4 (1.0-2.7); ALKALINE PHOSPHATASE 108 U/L (46-116); ANION GAP 6 mmol/L (5-15); ASPARTATE AMINO TRANSFERASE 15 U/L (15-37); BILIRUBIN,TOTAL 0.3 MG/DL (0.2-1.0); BLOOD UREA NITROGEN 49 mg/dL (7-18); CALCIUM 9.4 MG/DL (8.5-10.1); CARBON DIOXIDE 36 MMOL/L (21-32); CHLORIDE 103 MMOL/L (98-107); CREATININE 1.7 MG/DL (0.55-1.30); POTASSIUM 4.2 MMOL/L (3.5-5.1); SODIUM 145 MMOL/L (136-145)
[2018-12-09] MEDS ORDERED: FUROSEMIDE40 MG ORAL (08:34)
--- NOTE | 2018-12-09 08:47 | Pulmonology Progress Note ---
Assessment/Plan Assessment/Plan ASSESSMENT: 1. Possible Sepsis. 2. Respiratory failure acute. 3. doubt pneumonia. 4. Chronic encephalopathy 5. Acute on chronic renal failure. 6. OSMANY 7. History of stroke. 8. History of bilateral [id number] amputations. 9. Aspiration 10. elevated BNP PLAN: monitor ins and out care noted IV antibiotics discontinued respiratory care monitor for aspiration; suction as needed feeds as tolerate elevate head supportive care as outlined monitor imaging for resolution oxygen therapy diurese prognosis guarded impression, plan, and exam edited and reviewed in detail care discussed with RN Subjective ROS Limited/Unobtainable: Yes Allergies: Coded Allergies: SHELLFISH DERIVED (Unverified Allergy, Severe, ANAPHYLAXIS, 11/27/18) CHOCOLATE FLAVOR (Verified Allergy, Mild, 07/02/17) IODINE (Verified Allergy, Unknown, 07/01/17) PENICILLINS (Verified Allergy, Unknown, 07/01/17) Uncoded Allergies: CHOCOLATE (Allergy, Unknown, 11/27/18) Subjective events noted care reviewed off iv hydration cxr without improvement Objective Last 24 Hour Vital Signs Date Time Temp Pulse Resp B/P (MAP) Pulse Ox O2 Delivery O2 Flow Rate FiO2 12/09/18 04:00 75 12/09/18 04:00 98.4 78 19 106/60 (75) 96 12/09/18 00:00 98.6 75 16 112/62 (79) 97 12/09/18 00:00 74 12/08/18 21:05 79 130/63 12/08/18 21:00 Nasal Cannula 3.0 Nasal Cannula 3.0 12/08/18 20:00 69 12/08/18 20:00 98.9 79 18 130/63 (85) 97 12/08/18 17:30 Nasal Cannula 3.0 32 12/08/18 17:30 97 Nasal Cannula 3.0 32 12/08/18 16:00 97.5 69 18 112/60 (77) 96 12/08/18 15:26 68 12/08/18 12:00 98.6 67 18 109/57 (74) 99 12/08/18 11:39 67 12/08/18 09:01 72 120/51 12/08/18 09:00 Nasal Cannula 3.0 Nasal Cannula 3.0 Intake and Output 12/08/18 12/09/18 19:00 07:00 Intake Total 680 ml Output Total 1200 ml Balance -1200 ml 680 ml Intake Free Water 200 ml IV Total 240 ml Tube Feeding 240 ml Output Urine Total 1200 ml Objective WDWN NAD reduced breath sounds bilaterally with scattered rhonchi [id number] without MRG NABS nontender no HSM GT no CCE bilateral amputations reduced LOC Laboratory Tests 12/09/18 07:04: Sodium Level 145, Potassium Level 4.2, Chloride Level 103, Carbon Dioxide Level 36H, Anion Gap 6, Blood Urea Nitrogen 49H, Creatinine 1.7H, Estimat Glomerular Filtration Rate , Glucose Level 109H, Calcium Level 9.4, Total Bilirubin 0.3, Aspartate Amino Transf (AST/SGOT) 15, Alanine Aminotransferase (ALT/SGPT) 15, Alkaline Phosphatase 108, Total Protein 6.8, Albumin 1.9L, Globulin 4.9, Albumin /Globulin Ratio 0.4L Current Medications Medications (Trade) Dose Ordered Sig/Rick Route PRN Reason Start Time Stop Time Status Last Admin Dose Admin Acetaminophen (Tylenol) 650 mg Q4H PRN GT For Pain 12/02/18 01:00 01/01/19 00:59 12/02/18 01:56 Allopurinol (Zyloprim) 200 mg DAILY GT 11/28/18 09:00 12/28/18 08:59 12/08/18 09:02 Aspirin (ASA) 81 mg DAILY GT 11/28/18 09:00 12/28/18 08:59 12/08/18 09:02 Atorvastatin Calcium (Lipitor) 10 mg BEDTIME GT 11/27/18 21:00 12/27/18 20:59 12/08/18 21:05 Docusate Sodium (Colace) 100 mg TWICE A DAY GT 11/28/18 09:00 12/28/18 08:59 12/08/18 18:01 Furosemide (Lasix) 40 mg DAILY ORAL 12/09/18 09:00 01/08/19 08:59 Guaifenesin (Robitussin) 200 mg Q6H PRN GT For Cough 11/27/18 18:15 12/27/18 18:14 Iron Sucrose 100 mg/Sodium Chloride 60 ml @ 240 mls/hr BEDTIME IVPB 12/07/18 21:00 12/11/18 21:14 3/24/19 21:05 Levothyroxine Sodium (Synthroid) 75 mcg DAILY GT 11/28/18 09:00 12/28/18 08:59 12/08/18 09:01 Metoprolol Tartrate (Lopressor) 25 mg Q12HR GT 11/30/18 21:00 12/29/18 08:59 12/08/18 21:05 Clinton Combs MD Dec 09, 2018 08:47
[2018-12-09] MEDS ORDERED: Furosemide 40mg tab ORAL SCH (09:00)
[2018-12-09] MEDS: Docusate 100mg/10ml Liq GT SCH (09:58)
[2018-12-09] MEDS: Aspirin Baby 81mg GT SCH (09:59)
[2018-12-09] MEDS: Allopurinol 100mg Tab GT SCH (09:59)
[2018-12-09] MEDS: Metoprolol 25mg tab GT SCH (10:00)
--- NOTE | 2018-12-09 10:46 | Infectious Diseases Prog Note ---
Assessment/Plan Assessment/Plan antibiotics : none A 1. providencia UTI s/p rx 2. pneumonia s/p rx 3. leucocytosis resolved 4. COPD 5. renal failure 6. + blood cultures with staph haemolyticus likely contaminated P 1. observe off antibiotics Subjective ROS Limited/Unobtainable: Yes Allergies: Coded Allergies: SHELLFISH DERIVED (Unverified Allergy, Severe, ANAPHYLAXIS, 11/27/18) CHOCOLATE FLAVOR (Verified Allergy, Mild, 07/02/17) IODINE (Verified Allergy, Unknown, 07/01/17) PENICILLINS (Verified Allergy, Unknown, 07/01/17) Uncoded Allergies: CHOCOLATE (Allergy, Unknown, 11/27/18) Objective Vital Signs Last 24 Hour Vital Signs Date Time Temp Pulse Resp B/P (MAP) Pulse Ox O2 Delivery O2 Flow Rate FiO2 12/09/18 10:00 78 110/46 12/09/18 09:46 94 Nasal Cannula 2.0 28 12/09/18 09:46 Nasal Cannula 2.0 28 12/09/18 08:00 76 12/09/18 08:00 99.1 78 26 110/46 (67) 93 12/09/18 04:00 75 12/09/18 04:00 98.4 78 19 106/60 (75) 96 12/09/18 00:00 98.6 75 16 112/62 (79) 97 12/09/18 00:00 74 12/08/18 21:05 79 130/63 12/08/18 21:00 Nasal Cannula 3.0 Nasal Cannula 3.0 12/08/18 20:00 69 12/08/18 20:00 98.9 79 18 130/63 (85) 97 12/08/18 17:30 Nasal Cannula 3.0 32 12/08/18 17:30 97 Nasal Cannula 3.0 32 12/08/18 16:00 97.5 69 18 112/60 (77) 96 12/08/18 15:26 68 12/08/18 12:00 98.6 67 18 109/57 (74) 99 12/08/18 11:39 67 Height (Feet): 2 Height (Inches): 9.00 Weight (Pounds): 169 Respiratory/Chest: lungs clear Cardiovascular: normal rate, regular rhythm, no gallop/murmur, other - GT Abdomen: soft, non tender Extremities: other - stumps clean Laboratory Tests Test 12/09/18 07:04 Sodium Level 145 MMOL/L (136-145) Potassium Level 4.2 MMOL/L (3.5-5.1) Chloride Level 103 MMOL/L (98-107) Carbon Dioxide Level 36 MMOL/L (21-32) H Anion Gap 6 mmol/L (5-15) Blood Urea Nitrogen 49 mg/dL (7-18) H Creatinine 1.7 MG/DL (0.55-1.30) H Estimat Glomerular Filtration Rate mL/min (>60) Glucose Level 109 MG/DL (74-106) H Calcium Level 9.4 MG/DL (8.5-10.1) Total Bilirubin 0.3 MG/DL (0.2-1.0) Aspartate Amino Transf (AST/SGOT) 15 U/L (15-37) Alanine Aminotransferase (ALT/SGPT) 15 U/L (12-78) Alkaline Phosphatase 108 U/L (46-116) Total Protein 6.8 G/DL (6.4-8.2) Albumin 1.9 G/DL (3.4-5.0) L Globulin 4.9 g/dL Albumin/Globulin Ratio 0.4 (1.0-2.7) L Current Medications Medications (Trade) Dose Ordered Sig/Rick Route PRN Reason Start Time Stop Time Status Last Admin Dose Admin Acetaminophen (Tylenol) 650 mg Q4H PRN GT For Pain 12/02/18 01:00 01/01/19 00:59 12/02/18 01:56 Allopurinol (Zyloprim) 200 mg DAILY GT 11/28/18 09:00 12/28/18 08:59 12/09/18 09:59 Aspirin (ASA) 81 mg DAILY GT 11/28/18 09:00 12/28/18 08:59 12/09/18 09:59 Atorvastatin Calcium (Lipitor) 10 mg BEDTIME GT 11/27/18 21:00 12/27/18 20:59 12/08/18 21:05 Docusate Sodium (Colace) 100 mg TWICE A DAY GT 11/28/18 09:00 12/28/18 08:59 12/09/18 09:58 Furosemide (Lasix) 40 mg DAILY ORAL 12/09/18 09:00 01/08/19 08:59 12/09/18 10:00 Guaifenesin (Robitussin) 200 mg Q6H PRN GT For Cough 11/27/18 18:15 12/27/18 18:14 Iron Sucrose 100 mg/Sodium Chloride 60 ml @ 240 mls/hr BEDTIME IVPB 12/07/18 21:00 12/11/18 21:14 12/08/18 21:05 Levothyroxine Sodium (Synthroid) 75 mcg DAILY GT 11/28/18 09:00 12/28/18 08:59 12/09/18 09:58 Metoprolol Tartrate (Lopressor) 25 mg Q12HR GT 11/30/18 21:00 12/29/18 08:59 12/09/18 10:00 Laurent Hunt MD Dec 09, 2018 10:46
[2018-12-09 12:00] VITALS: BP 110/48
[2018-12-09] MEDS ORDERED: NS 275ml ONE (13:34)
[2018-12-09] MEDS ORDERED: Tubing IV Secondary IV ONE (13:34)
--- NOTE | 2018-12-09 21:37 | General Progress Note ---
Assessment/Plan Assessment/Plan Assessment - dysphagia - s/p GT change - OBS - Resp failure - s/p AKA - Anemia, borderline low Fe Recommendations - Continue TF - GT care - Elevate HOB - follow labs - IV Fe - d/c planning Subjective Allergies: Coded Allergies: SHELLFISH DERIVED (Unverified Allergy, Severe, ANAPHYLAXIS, 11/27/18) CHOCOLATE FLAVOR (Verified Allergy, Mild, 07/02/17) IODINE (Verified Allergy, Unknown, 07/01/17) PENICILLINS (Verified Allergy, Unknown, 07/01/17) Uncoded Allergies: CHOCOLATE (Allergy, Unknown, 11/27/18) Subjective above noted tolerating TF Objective Last 24 Hour Vital Signs Date Time Temp Pulse Resp B/P (MAP) Pulse Ox O2 Delivery O2 Flow Rate FiO2 12/09/18 12:00 68 12/09/18 12:00 98.3 71 26 110/48 (68) 92 12/09/18 10:00 78 110/46 12/09/18 09:46 94 Nasal Cannula 2.0 28 12/09/18 09:46 Nasal Cannula 2.0 28 12/09/18 09:00 Nasal Cannula 3.0 Nasal Cannula 3.0 12/09/18 08:00 76 12/09/18 08:00 99.1 78 26 110/46 (67) 93 12/09/18 04:00 75 12/09/18 04:00 98.4 78 19 106/60 (75) 96 12/09/18 00:00 98.6 75 16 112/62 (79) 97 12/09/18 00:00 74 Intake and Output 12/08/18 12/09/18 19:00 07:00 Intake Total 680 ml Output Total 1200 ml Balance -1200 ml 680 ml Intake Free Water 200 ml IV Total 240 ml Tube Feeding 240 ml Output Urine Total 1200 ml Laboratory Tests 12/09/18 07:04: Sodium Level 145, Potassium Level 4.2, Chloride Level 103, Carbon Dioxide Level 36H, Anion Gap 6, Blood Urea Nitrogen 49H, Creatinine 1.7H, Estimat Glomerular Filtration Rate , Glucose Level 109H, Calcium Level 9.4, Total Bilirubin 0.3, Aspartate Amino Transf (AST/SGOT) 15, Alanine Aminotransferase (ALT/SGPT) 15, Alkaline Phosphatase 108, Total Protein 6.8, Albumin 1.9L, Globulin 4.9, Albumin /Globulin Ratio 0.4L Height (Feet): 2 Height (Inches): 9.00 Weight (Pounds): 169 Objective Debilitated WW NCAT supple CTA RRR abd soft, (+) GT (+) AKA OBS, non communicative Liss Martines MD Dec 09, 2018 21:37
--- NOTE | 2018-12-10 13:51 | Progress Note ---
DATE: 12/09/2018 CARDIOLOGY PROGRESS NOTE SUBJECTIVE: Tolerating tube feedings. No shortness of breath. On iron replacement. OBJECTIVE: VITAL SIGNS: Blood pressure 110/48, pulse 71, and respirations 26. Sinus rhythm. Atrial ectopy. NECK: Supple. LUNGS: Clear. CARDIAC: Regular rhythm and rate. Normal S1, S2. ABDOMEN: Soft. EXTREMITIES: Bilateral amputee. IMPRESSION: Resolving bilateral pneumonia with pleural effusions and acute on chronic diastolic congestive heart failure. PLAN: 1. Maintenance diuretic therapy and antihypertensives to continue as is without change. 2. Aspiration precautions. 3. Tube feedings. 4. Respiratory hygiene. Jl Szymanski M.D. DR: SONALI JOB#: [id number] CC:
--- NOTE | 2018-12-12 13:48 | Discharge Summary ---
Discharge Summary Discharge Summary _ DATE OF ADMISSION: 11/27/2018 DATE OF DISCHARGE: 12/09/2018 DISCHARGED BY: Dr. Clark REASON FOR ADMISSION: 83 years old female with past medical history of CVA, bilateral above-knee amputation, dysphagia, G-tube feeding, hypertension, chronic kidney disease with recurrent urinary tract infection, presented from the [facility] due to altered mental status. Upon evaluation in emergency department patient was noted to be congested and with shortness of shortness of breath. Vital signs revealed tachycardia and hypoxia , and patient required 100% nonrebreathing mask. No fevers. Laboratory workup revealed leukocytosis WBC 18.6, hemoglobin 13.5 ,hematocrit 45.4. Troponin - 0.068. EKG revealed sinus tachycardia , no acute ischemic changes. Sodium 159. BUN 108, creatinine 2.9. Urinalysis with evidence of UTI. CT of the head revealed no acute intracranial pathology. Chest x-ray revealed no acute cardiopulmonary findings. Patient was pancultured, started on broad-spectrum antibiotics and admitted for further evaluation and management. CONSULTANTS: hydrologist pulmonary Dr. Combs ID specialist Dr. Hunt GI specialist Dr. Martines surgery Dr. Parisi [facility] COURSE: Patient was admitted to telemetry floor. Patient started on cautious IV hydration and empiric antibiotics. [employer] followed. Echocardiogram revealed preserved ejection fraction of 70%. No evidence of wall motion abnormality. Borderline mild left ventricular hypertrophy noted. Moderate aortic sclerosis seen. Moderately elevated left atrial pressure grade 2. Right ventricular systolic pressure of 20. Second troponin was minimally elevated as well . EKG revealed no acute ischemic changes. Per hydrologist, patient likely had acute myocardial injury . Patient started on antiplatelet therapy with aspirin. Statin was continued. Blood pressure was closely monitored and managed initially with beta-stacey and calcium channel stacey. Patient started on empiric antibiotics. DVT and GI prophylaxis provided. Antihypertensive regimen further titrated to keep blood pressure under control. Patient was continue on antiplatelet therapy with aspirin, statin ,and beta blockage. Patient was on hypotonic IV fluid hydration. Lactic acidosis resolved. Subsequently patient demonstrated low blood pressure and all antihypertensive medications were stopped . Hemodynamic status was closely monitored. Patient voiced provided with spot diuresis with close monitoring of volumes and cardiorenal parameters. Follow-up chest x-ray revealed increasing pleural fluid and parenchymal consolidation. Patient was continued on maintenance diuretic with close monitoring of volumes and cardiorenal parameters. Respiratory hygiene provided. Beta-stacey was resumed as blood pressure allow. Planner/Scheduler closely followed. Supplemental oxygen titrated to keep pulse oximetry above 90. Patient initially was on 100% nonrebreathing mask , then weaned to Venturi mask and eventually was able to be weaned to oxygen via nasal cannula. Pulmonary toilet provided [id number] and as needed. Aspiration/reflux precautions were maintained. Patient was suctioned as needed. Infectious disease specialist followed. Urine culture revealed Providencia, blood culture revealed Staph hemolyticus 1 out of 4. Rapid influenza screen test was negative. Antibiotic provided as per ID specialist recommendation. Treatment was provided for urinary tract infection and pneumonia. Blood culture with Staph hemolyticus was likely contaminated, as per ID specialist conclusion. Leukocytosis resolved. Patient was observed off antibiotics . No fevers. Renal parameters and electrolytes were closely monitored. Electrolytes corrected as needed. Nephrotoxins were avoided. Prior to discharge BUN from 108 down to 49, and creatinine from initial 2.9 down to 1.7. Patient likely had acute on chronic renal failure, probably due to sepsis and severe dehydration. Recommended to avoid nephrotoxins in future. GI specialist followed. Patient undergone G-tube change. Tube feeding resumed, patient was able to tolerate tube feeding. Tube feeding provided as per registered dietitian recommendation to meet nutritional goals. Protein supplement implemented in plan of care as recommended by a registered dietitian. Strict aspiration /reflux precautions were maintained. Supportive care provided. Hemoglobin and hematocrit were closely monitored with goal to keep hemoglobin above 7 .line anemia workup revealed evidence of anemia of chronic disease and low iron. Patient was on IV Venofer as per GI specialist recommendation. Prior to discharge hemoglobin 10.3 hematocrit 33.2. General surgeon followed for fungal dermatitis affecting bilateral breast folds , bilateral axilla, mons pubis, bilateral groin, buttocks, medial/posterior aspect of both upper thighs and abdominal folds. Skin care provided as per surgeon recommendation and to be continued at the [facility] facility. Wounds show no evidence of abscess. No acute surgical intervention was necessary at this time. Patient stabilized and was ready for discharge to [facility] facility for continuation of care FINAL DIAGNOSES: Sepsis Providencia UTI, status post treatment Aspiration aspiration , status post treatment Acute respiratory failure-resolved Acute on chronic renal failure likely due to sepsis and severe dehydration Toxic and metabolic encephalopathy Lactic acidosis -resolved Acute myocardial ischemia Acute on chronic diastolic congestive heart failure History of CVA PAD with history of bilateral above knee amputation COPD Dysphagia Status post G-tube change Anemia Fungal dermatitis, incontinence associated Electrolyte abnormalities: hypernatremia hyperchloremia Severe protein calorie malnutrition DISCHARGE MEDICATIONS: See Medication Reconciliation list. DISCHARGE INSTRUCTIONS: Patient was discharged to the [facility] facility. Follow up with medical doctor at the facility. I have been assigned to dictate discharge summary for this account. I was not involved in the patient's management. Divya Schulz NP Dec 12, 2018 13:48
== END 2018-12-09 13:35 | DRG 871 ==
LOC: EDBD 13:22 → EMR 14:05 → 2E 14:25 → EDBEDREQ 15:50 → 2E 17:13
PROC: 0D20XUZ Change Feeding Device in Upper Intestinal Tract, External Approach (ICD-10-PCS; principal; 2018-12-05)
DX: A41.9 Sepsis, unspecified organism (principal); J18.9 Pneumonia, unspecified organism; J69.0 Pneumonitis due to inhalation of food and vomit; J96.00 Acute respiratory failure, unspecified whether with hypoxia or hypercapnia; I50.33 Acute on chronic diastolic (congestive) heart failure; G92 Toxic encephalopathy; I21.4 Non-ST elevation (NSTEMI) myocardial infarction; E43 Unspecified severe protein-calorie malnutrition; N39.0 Urinary tract infection, site not specified; N17.9 Acute kidney failure, unspecified; I13.0 Hypertensive heart and chronic kidney disease with heart failure and stage 1 through stage 4 chronic kidney disease, or unspecified chronic kidney disease; I69.959 Hemiplegia and hemiparesis following unspecified cerebrovascular disease affecting unspecified side; J44.0 Chronic obstructive pulmonary disease with (acute) lower respiratory infection; E87.0 Hyperosmolality and hypernatremia; N18.9 Chronic kidney disease, unspecified; Z89.512 Acquired absence of left leg below knee; Z89.511 Acquired absence of right leg below knee; Z93.1 Gastrostomy status; R13.10 Dysphagia, unspecified; E86.0 Dehydration; F03.90 Unspecified dementia, unspecified severity, without behavioral disturbance, psychotic disturbance, mood disturbance, and anxiety; I73.9 Peripheral vascular disease, unspecified; B36.8 Other specified superficial mycoses; Z74.01 Bed confinement status; E87.8 Other disorders of electrolyte and fluid balance, not elsewhere classified; Z68.31 Body mass index [BMI] 31.0-31.9, adult
CPT/HCPCS: 36415; 36600; 70450; 71045; 80048; 80053; 80202; 81003; 82550; 82553; 82803; 82962; 83540; 83550; 83605; 83690; 83735; 83880; 84484; 85007; 85025; 86710; 87040; 87081; 87086; 87181; 93005; 93306; 94640; 94664; 94760; 96365; 96367; 99285; J7620; S0077